=== PATIENT | female | born 1960 | race Caucasian/White ===

== ENCOUNTER 2016-09-26 09:45 | Emergency (ER) | payer BC ==
[2016-09-26] MEDS ORDERED: ONDANSETRON 4MG/2ML VIAL (J2405) As Ordered ONE (10:36)
[2016-09-26 10:40] LABS: BASO % 0.3 % (0.0-1.0); EOS % 0.6 % (0.0-3.0); LARGE UNSTAINED CELL # 0.1 K/mm3 (0.0-0.4); LYMPH # 0.6 K/mm3 (1.5-4.5); LYMPH % 13.2 % (24.0-44.0); MEAN CORPUSCULAR HEMOGLOBIN 31.5 pg (27.0-33.0); MEAN CORPUSCULAR HGB CONC 34.5 g/dl (32.0-36.5); MEAN CORPUSCULAR VOLUME 91.4 fl (80.0-96.0); MONO # 0.3 K/mm3 (0.0-0.8); MONO % 5.2 % (0.0-5.0); NEUTROPHILS # 3.7 K/mm3 (1.8-7.7); NEUTROPHILS % 78.6 % (36.0-66.0); PLATELET COUNT, AUTOMATED 120 k/mm3 (150-450); RED CELL DISTRIBUTION WIDTH 12.7 % (11.5-14.5); WHITE BLOOD COUNT 4.7 K/mm3 (4.0-10.0)
[2016-09-26 12:09] LABS: ALBUMIN/GLOBULIN RATIO 1.15 (1.00-1.93); ALKALINE PHOSPHATASE 87 U/L (45-117); ALT/SGPT 26 U/L (12-78); AMYLASE 46 U/L (25-115); ANION GAP 8 MEQ/L (8-16); AST/SGOT 40 U/L (15-37); BILIRUBIN,DIRECT 0.1 MG/DL (0.0-0.2); BILIRUBIN,TOTAL 0.3 MG/DL (0.2-1.0); BLOOD UREA NITROGEN 7 MG/DL (7-18); CALCIUM LEVEL 7.3 MG/DL (8.5-10.1); CARBON DIOXIDE LEVEL 28 MEQ/L (21-32); CHLORIDE LEVEL 95 MEQ/L (98-107); CREATININE FOR GFR 0.52 MG/DL (0.55-1.02); GLOMERULAR FILTRATION RATE > 60.0 (>51); GLUCOSE, FASTING 106 MG/DL (70-105); MAGNESIUM LEVEL 1.6 MG/DL (1.8-2.4); POTASSIUM SERUM 3.6 MEQ/L (3.5-5.1); SODIUM LEVEL 131 MEQ/L (136-145); TOTAL PROTEIN 5.6 GM/DL (6.4-8.2)
--- NOTE | 2016-09-26 12:51 | EDDOCDS ---
Nurse's Notes [facility] Name: Minerva Barry Age: 56 yrs Sex: Female : 1960 Arrival Date: 09/26/2016 Time: 09:45 Bed I2 / M2 Private MD: NO PRIMARY PHYSICIAN, . Diagnosis: Lower abdominal pain, unspecified;Diarrhea, unspecified;Dehydration Presentation: 09/26 09:49 Presenting complaint: Patient states: Pt presents with vomiting and diarrhea not able dls to eat x one week. Adult Sepsis Screening: The patient does not have new or worsening altered mentation. Patient's respiratory rate is less than 22. Systolic blood pressure is greater than 100. Patient has a qSOFA score of 0- Negative Sepsis Screen. Suicide/Homicide risk assessment- the patient denies having any suicidal and/or homicidal ideations and does not present with any other emotional, behavioral or mental health complaints. Status: Patient is not a customer service sales consultant or dependent. Transition of care: patient was not received from another setting of care. 09:49 Acuity: ANTONELLA Level 3 dls 09:49 Method Of Arrival: Walkin/Carried/Asstd dls Triage Assessment: 09:52 General: Appears in no apparent distress, slender, Behavior is cooperative. Pain: Pain dls currently is 5 out of 10 on a pain scale. HIV screening NA for this visit Offered previously. GI: Reports cramping, diarrhea, lower abdominal pain, nausea, vomiting. 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 Tylenol 325 mg Oral tab 2 tabs - PMHx: pancreatic aneurysm; - PSHx: none; - Social history: Smoking status: Patient uses tobacco products, heavy tobacco smoker. No barriers to communication noted, The patient speaks fluent Maltese. - Family history: Not pertinent. - : The pt / caregiver states he / she is not on anticoagulants. Home medication list is obtained from the patient. - Exposure Risk Screening:: None identified. Screenin:06 Screening information is obtained from the patient. Primary language is Maltese. Fall jam1 risk: No risks identified. Assistance ADL's: requires no assistance with activities of daily living. Abuse/DV Screen: The patient / caregiver reports he/she is: not in a situation that causes fear, pain or injury. Nutritional screening: No deficits noted. Exposure Risk Screening: None identified. Advance Directives: Currently, there is a health care proxy, SON SHARLA FRANK. There is no active DNR order. There is no living will. There is no Power of Testing Manager. Advance directive information has been placed on a prior [facility] medical record, but the patient/ family does not know when. Further advance directive information is declined. home support is adequate. 10:08 Screening information is obtained from the patient. Fall risk: No risks identified. jmk Assistance ADL's: requires no assistance with activities of daily living. Abuse/DV Screen: The patient / caregiver reports he/she is: not in a situation that causes fear, pain or injury. Nutritional screening: No deficits noted. Advance Directives: Currently, there is no health care proxy. There is no active DNR order. There is no living will. There is no Power of Testing Manager. Advance directive information has not previously been placed in an [facility] medical record. home support is adequate. Assessment: 10:08 General: Appears skin warm and dry color satisfactory. Moist pink oral mucosa. tongue jmk coated. abd soft and non distended bowel sounds present x 4. palpable pulsatile mass slightly to right of umbilicus. presently without nausea.. Cardiovascular: No deficits noted. Respiratory: No deficits noted. Airway is patent Respiratory effort is even, unlabored, Respiratory pattern is regular, Breath sounds are clear bilaterally. GI: Abdomen is flat, non- distended Bowel sounds present X 4 quads. 11:29 General: Appears states pain to right abdomen has decreased to 3/10. bolus infusing jmk without event.. 12:46 General: Appears states is now pain free. without nausea or diarrhea since arrival. [facility] Vital Signs: 09:47 BP 115 / 56; Pulse 101; Resp 18 S; Temp 97.3(O); Pulse Ox 97% on R/A; Weight 39.46 kg dd6 (R); Height 4 ft. 11 in. (149.86 cm) (R); 12:46 BP 114 / 72; Pulse 70; Resp 16; Temp 97.3; k 09:47 Body Mass Index 17.57 (39.46 kg, 149.86 cm) dd6 Vitals: 09:47 Log In Time: September 26, 2016 at 09:45. dd6 ED Course: 09:47 Patient visited by Carrington Nielsen PCA. dd6 09:47 NO PRIMARY PHYSICIAN, . is Private Physician. dd6 09:47 Patient moved to Waiting dd6 09:48 Patient moved to Pre RCE dd6 09:50 Triage Initiated dls 10:04 Patient moved to I2 / M2 jmk 10:05 Kevin Roche PA is PHCP. mo1 10:05 Rafiq Feliciano MD is Attending Physician. mo1 10:06 Pt greeted and oriented to ED. Patient advised of names of staff involved in care, jam1 location of call chen, wait times and NPO status. Patient has correct armband on for positive identification. Placed in gown. Bed in low position. Call light in reach. Side rails up X 1. Door closed. 10:08 The patient / caregiver is instructed regarding the plan of care and ED course. jmk 10:16 Patient visited by Kevin Roche PA. mo1 10:42 Inserted saline lock: 20 gauge in left antecubital area. jmk 11:33 Patient visited by Ray Hernandez RN. jmk 12:37 [facility] is Referral Physician. mo1 12:46 Discontinued lock intact, bleeding controlled, pressure dressing applied, No jmk redness/swelling at site. No procedures done that require assistance. Administered Medications: 10:42 Drug: NS 0.9% 1000 ml Route: IV; Rate: bolus; Site: left antecubital; jmk 10:42 Drug: Ondansetron 4 mg Route: IVP; Site: left antecubital; k Order Results: Lab Order: Amylase; SPEC'M 09/26/16 11:41 Test: AMYLASE; Value: 46; Range: 25-115; Units: U/L; Status: F Lab Order: Basic Metabolic Profile; SPEC'M 09/26/16 11:41 Test: GLUCOSE, FASTING; Value: 106; Range: 70-105; Abnormal: Above high normal; Units: MG/DL; Status: F Test: BLOOD UREA NITROGEN; Value: 7; Range: 7-18; Units: MG/DL; Status: F Test: CREATININE FOR GFR; Value: 0.52; Range: 0.55-1.02; Abnormal: Below low normal; Units: MG/DL; Status: F Test: GLOMERULAR FILTRATION RATE; Value: > 60.0; Range: >51; Status: F Test: SODIUM LEVEL; Value: 131; Range: 136-145; Abnormal: Below low normal; Units: MEQ/L; Status: F Test: POTASSIUM SERUM; Value: 3.6; Range: 3.5-5.1; Units: MEQ/L; Status: F Test: CHLORIDE LEVEL; Value: 95; Range: 98-107; Abnormal: Below low normal; Units: MEQ/L; Status: F Test: CARBON DIOXIDE LEVEL; Value: 28; Range: 21-32; Units: MEQ/L; Status: F Test: ANION GAP; Value: 8; Range: 8-16; Units: MEQ/L; Status: F Test: CALCIUM LEVEL; Value: 7.3; Range: 8.5-10.1; Abnormal: Below low normal; Units: MG/DL; Status: F Test Note: ; Units are mL/min/1.73 m2 Chronic Kidney Disease Staging per NKF: Stage I & II GFR >=60 Normal to Mildly Decreased Stage III GFR 30-59 Moderately Decreased Stage IV GFR 15-29 Severely Decreased Stage V GFR <15 Very Little GFR Left ESRD GFR <15 on MEDICAL OBSERVER Lab Order: CBC with Diff; SPEC'M 09/26/16 10:31 Test: WHITE BLOOD COUNT; Value: 4.7; Range: 4.0-10.0; Units: K/mm3; Status: F Test: RED BLOOD COUNT; Value: 5.30; Range: 4.00-5.40; Units: M/mm3; Status: F Test: HEMOGLOBIN; Value: 16.7; Range: 12.0-16.0; Abnormal: Above high normal; Units: g/dl; Status: F Test: HEMATOCRIT; Value: 48.4; Range: 36.0-47.0; Abnormal: Above high normal; Units: %; Status: F Test: MEAN CORPUSCULAR VOLUME; Value: 91.4; Range: 80.0-96.0; Units: fl; Status: F Test: MEAN CORPUSCULAR HEMOGLOBIN; Value: 31.5; Range: 27.0-33.0; Units: pg; Status: F Test: MEAN CORPUSCULAR HGB CONC; Value: 34.5; Range: 32.0-36.5; Units: g/dl; Status: F Test: RED CELL DISTRIBUTION WIDTH; Value: 12.7; Range: 11.5-14.5; Units: %; Status: F Test: PLATELET COUNT, AUTOMATED; Value: 120; Range: 150-450; Abnormal: Below low normal; Units: k/mm3; Status: F Test: NEUTROPHILS %; Value: 78.6; Range: 36.0-66.0; Abnormal: Above high normal; Units: %; Status: F Test: LYMPH %; Value: 13.2; Range: 24.0-44.0; Abnormal: Below low normal; Units: %; Status: F Test: MONO %; Value: 5.2; Range: 0.0-5.0; Abnormal: Above high normal; Units: %; Status: F Test: EOS %; Value: 0.6; Range: 0.0-3.0; Units: %; Status: F Test: BASO %; Value: 0.3; Range: 0.0-1.0; Units: %; Status: F Test: LARGE UNSTAINED CELL %; Value: 2.0; Range: 0.0-4.0; Units: %; Status: F Test: NEUTROPHILS #; Value: 3.7; Range: 1.8-7.7; Units: K/mm3; Status: F Test: LYMPH #; Value: 0.6; Range: 1.5-4.5; Abnormal: Below low normal; Units: K/mm3; Status: F Test: MONO #; Value: 0.3; Range: 0.0-0.8; Units: K/mm3; Status: F Test: EOS #; Value: 0.0; Range: 0.0-0.50; Units: K/mm3; Status: F Test: BASO #; Value: 0.0; Range: 0.0-0.2; Units: K/mm3; Status: F Test: LARGE UNSTAINED CELL #; Value: 0.1; Range: 0.0-0.4; Units: K/mm3; Status: F Lab Order: Lipase; SPEC'M 09/26/16 11:41 Test: LIPASE; Value: 198; Range: 73-393; Units: U/L; Status: F Lab Order: Liver Profile; SPEC'M 09/26/16 11:41 Test: AST/SGOT; Value: 40; Range: 15-37; Abnormal: Above high normal; Units: U/L; Status: F Test: ALT/SGPT; Value: 26; Range: 12-78; Units: U/L; Status: F Test: ALKALINE PHOSPHATASE; Value: 87; Range: 45-117; Units: U/L; Status: F Test: BILIRUBIN,TOTAL; Value: 0.3; Range: 0.2-1.0; Units: MG/DL; Status: F Test: BILIRUBIN,DIRECT; Value: 0.1; Range: 0.0-0.2; Units: MG/DL; Status: F Test: TOTAL PROTEIN; Value: 5.6; Range: 6.4-8.2; Abnormal: Below low normal; Units: GM/DL; Status: F Test: ALBUMIN; Value: 3.0; Range: 3.2-5.2; Abnormal: Below low normal; Units: GM/DL; Status: F Test: ALBUMIN/GLOBULIN RATIO; Value: 1.15; Range: 1.00-1.93; Status: F Lab Order: Urinalysis; SPEC'M 09/26/16 10:31 Test: APPEARANCE, URINE; Value: HAZY; Range: CLEAR; Status: F Test: COLOR, URINE; Value: ADOLFO; Range: YELLOW; Status: F Test: PH,URINE; Value: 5.0; Range: 5.0-9.0; Units: UNITS; Status: F Test: SPECIFIC GRAVITY URINE AUTO; Value: 1.030; Range: 1.002-1.035; Status: F Test: PROTEIN, URINE AUTO; Value: 1+; Range: NEGATIVE; Abnormal: Above high normal; Units: mg/dL; Status: F Test: GLUCOSE, URINE (UA) AUTO; Value: NEGATIVE; Range: NEGATIVE; Units: mg/dL; Status: F Test: KETONE, URINE AUTO; Value: NEGATIVE; Range: NEGATIVE; Units: mg/dL; Status: F Test: UROBILINOGEN, URINE AUTO; Value: 0.2; Range: 0.0-2.0; Units: mg/dL; Status: F Test: BILIRUBIN, URINE AUTO; Value: NEGATIVE; Range: NEGATIVE; Status: F Test: NITRITE, URINE AUTO; Value: NEGATIVE; Range: NEGATIVE; Status: F Test: LEUKOCYTE ESTERASE, URINE AUTO; Value: NEGATIVE; Range: NEGATIVE; Status: F Test: BLOOD, URINE BLOOD; Value: NEGATIVE; Range: NEGATIVE; Status: F Test: WBC, URINE AUTO; Value: 8; Range: 0-3; Abnormal: Above high normal; Units: /HPF; Status: F Test: RBC, URINE AUTO; Value: 3; Range: 0-3; Units: /HPF; Status: F Test: BACTERIA, URINE AUTO; Value: 1+; Range: NEGATIVE; Abnormal: Above high normal; Status: F Test: SQUAMOUS EPITHELIAL CELL UR AU; Value: 1; Range: 0-6; Units: /HPF; Status: F Test: MUCUS, URINE; Value: SMALL; Range: NEGATIVE; Status: F Test: HYALINE CAST, URINE AUTO; Value: 48; Range: 0-1; Units: /LPF; Status: F Lab Order: Magnesium Level; SPEC'M 09/26/16 11:41 Test: MAGNESIUM LEVEL; Value: 1.6; Range: 1.8-2.4; Abnormal: Below low normal; Units: MG/DL; Status: F Outcome: 12:37 Discharge ordered by Provider. mo1 12:46 Discharge Assessment: Patient awake, alert and oriented x 3. No cognitive and/or jmk functional deficits noted. Patient verbalized understanding of disposition instructions. patient administered narcotics - no. The following High Risk Discharge criteria are identified: None. Discharged to home ambulatory. Condition: good. Discharge instructions given to patient, Instructed on discharge instructions, follow up and referral plans. medication usage, Demonstrated understanding of instructions, medications, Pt was receptive of discharge instructions/ teaching. Prescriptions given X 1. No special radiology studies were completed. Property :Personal belongings accompany Pt. 12:50 Patient left the ED. anton Signatures: Ray Hernandez,Janay Arango RN, RN RN dls Murphy, Jane, LAMP SHADE SEWER LAMP SHADE SEWER jam1 Carrington Nielsen, LAMP SHADE SEWER LAMP SHADE SEWER dd6 Kevin Roche PA PA mo1 MTDD
--- NOTE | 2016-09-26 12:51 | EDDOCDS ---
Physician Documentation [facility] Name: Minerva Barry Age: 56 yrs Sex: Female : 1960 Arrival Date: 09/26/2016 Time: 09:45 Bed I2 / M2 Private MD: NO PRIMARY PHYSICIAN, . Disposition: 09/26/16 12:37 Discharged to Home/Self Care. Impression: Lower abdominal pain, unspecified, Diarrhea, unspecified, Dehydration. - Condition is Stable. - Discharge Instructions: Food Choices to Help Relieve Diarrhea, Adult, Dehydration, Adult, Diarrhea. - Prescriptions for ZOFRAN ODT 4 mg - dissolve 1 tablet by ORAL route 4 times per day As needed do not chew, do not swallow whole; 10 tablet. - Work Release Form - 3 day, Medication Reconciliation, Local Pharmacy Hours form. - [facility]; When: Call to arrange an appointment; Reason: Recheck today's complaints, Continuance of care. Follow up: Private Physician; When: Call to arrange an appointment; Reason: Recheck today's complaints, Continuance of care. - Problem is new. - Symptoms have improved. Historical: - Allergies: SULFA (SULFONAMIDES); codiene; - Home Meds: 1. Tylenol 325 mg Oral tab 2 tabs - PMHx: pancreatic aneurysm; - PSHx: none; - Social history: Smoking status: Patient uses tobacco products, heavy tobacco smoker. No barriers to communication noted, The patient speaks fluent Vietnamese. - Family history: Not pertinent. - : The pt / caregiver states he / she is not on anticoagulants. Home medication list is obtained from the patient. - Exposure Risk Screening:: None identified. 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 11 in. (149.86 cm) (R); 12:46 BP 114 / 72; Pulse 70; Resp 16; Temp 97.3; jmk 09:47 Body Mass Index 17.57 (39.46 kg, 149.86 cm) dd6 MDM: 10:17 NS 0.9% 1000 ml IV at bolus once ordered. mo1 10:17 Ondansetron 4 mg IVP once ordered. mo1 10:17 IV Saline Lock ordered. mo1 10:17 Undress patient appropriately for examination ordered. mo1 10:18 Amylase Ordered. EDMS 10:18 Basic Metabolic Profile Ordered. EDMS 10:18 CBC with Diff Ordered. EDMS 10:18 Lipase Ordered. EDMS 10:18 Liver Profile Ordered. EDMS 10:18 Urinalysis Ordered. EDMS 10:18 Urine Culture Ordered. EDMS 10:18 Magnesium Level Ordered. EDMS 10:18 NOTHING BY MOUTH+DIET ordered. EDMS 11:25 CBC with Diff Reviewed. mo1 11:25 Urinalysis Reviewed. mo1 11:31 Financial registration complete. jp5 12:13 Amylase Reviewed. mo1 12:13 Magnesium Level Reviewed. mo1 12:13 Liver Profile Reviewed. mo1 12:13 Basic Metabolic Profile Reviewed. mo1 12:14 Lipase Reviewed. mo1 Administered Medications: 10:42 Drug: NS 0.9% 1000 ml Route: IV; Rate: bolus; Site: left antecubital; k 10:42 Drug: Ondansetron 4 mg Route: IVP; Site: left antecubital; [facility] Signatures: Dispatcher [employer] Ray Ross RN RN jmk Scott, Debra, RN RN dls O'Hagan, Michael, PA PA mo1 Curtis Monroe jp5 MTDD
--- NOTE | 2016-09-28 13:51 | EDDOCDS ---
Physician Documentation [facility] Name: Minerva Barry Age: 56 yrs Sex: Female : 1960 Arrival Date: 09/26/2016 Time: 09:45 Bed I2 / M2 Private MD: NO PRIMARY PHYSICIAN, . Disposition: 09/26/16 12:37 Discharged to Home/Self Care. Impression: Lower abdominal pain, unspecified, Diarrhea, unspecified, Dehydration. - Condition is Stable. - Discharge Instructions: Food Choices to Help Relieve Diarrhea, Adult, Dehydration, Adult, Diarrhea. - Prescriptions for ZOFRAN ODT 4 mg - dissolve 1 tablet by ORAL route 4 times per day As needed do not chew, do not swallow whole; 10 tablet. - Work Release Form - 3 day, Medication Reconciliation, Local Pharmacy Hours form. - [facility]; When: Call to arrange an appointment; Reason: Recheck today's complaints, Continuance of care. Follow up: Private Physician; When: Call to arrange an appointment; Reason: Recheck today's complaints, Continuance of care. - Problem is new. - Symptoms have improved. Historical: - Allergies: SULFA (SULFONAMIDES); codiene; - Home Meds: 1. Tylenol 325 mg Oral tab 2 tabs - PMHx: pancreatic aneurysm; - PSHx: none; - Social history: Smoking status: Patient uses tobacco products, heavy tobacco smoker. No barriers to communication noted, The patient speaks fluent Polish. - Family history: Not pertinent. - : The pt / caregiver states he / she is not on anticoagulants. Home medication list is obtained from the patient. - Exposure Risk Screening:: None identified. 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 11 in. (149.86 cm) (R); 12:46 BP 114 / 72; Pulse 70; Resp 16; Temp 97.3; jmk 09:47 Body Mass Index 17.57 (39.46 kg, 149.86 cm) dd6 MDM: 10:17 NS 0.9% 1000 ml IV at bolus once ordered. mo1 10:17 Ondansetron 4 mg IVP once ordered. mo1 10:17 IV Saline Lock ordered. mo1 10:17 Undress patient appropriately for examination ordered. mo1 10:18 Amylase Ordered. EDMS 10:18 Basic Metabolic Profile Ordered. EDMS 10:18 CBC with Diff Ordered. EDMS 10:18 Lipase Ordered. EDMS 10:18 Liver Profile Ordered. EDMS 10:18 Urinalysis Ordered. EDMS 10:18 Urine Culture Ordered. EDMS 10:18 Magnesium Level Ordered. EDMS 10:18 NOTHING BY MOUTH+DIET ordered. EDMS 11:25 CBC with Diff Reviewed. mo1 11:25 Urinalysis Reviewed. mo1 11:31 Financial registration complete. jp5 12:13 Amylase Reviewed. mo1 12:13 Magnesium Level Reviewed. mo1 12:13 Liver Profile Reviewed. mo1 12:13 Basic Metabolic Profile Reviewed. mo1 12:14 Lipase Reviewed. mo1 13:24 [facility] [place] Agreement was scanned into [employer] and attached to record. jp5 14:46 T-Sheet-- Draft Copy was scanned into [employer] and attached to record. gb Administered Medications: 10:42 Drug: NS 0.9% 1000 ml Route: IV; Rate: bolus; Site: left antecubital; chrisk 10:42 Drug: Ondansetron 4 mg Route: IVP; Site: left antecubital; anton Signatures: Dispatcher [employer] Ray Ross RN RN jmk Scott, Debra, RN RN dls Barnhardt, Gloria, Reg Reg Kevin Brito PA PA mo1 Curtis Monroe jp5 The chart was reviewed and I authenticate all verbal orders and agree with the evaluation and treatment provided.Attachments: 13:24 [facility] [place] Payment Agreement jp5 14:46 T-Sheet-- Draft Copy gb Chart Complete MTDD
--- NOTE | 2016-09-28 13:51 | EDDOCDS ---
Physician Documentation [facility] Name: Minerva Barry Age: 56 yrs Sex: Female : 1960 Arrival Date: 09/26/2016 Time: 09:45 Bed I2 / M2 Private MD: NO PRIMARY PHYSICIAN, . Disposition: 09/26/16 12:37 Discharged to Home/Self Care. Impression: Lower abdominal pain, unspecified, Diarrhea, unspecified, Dehydration. - Condition is Stable. - Discharge Instructions: Food Choices to Help Relieve Diarrhea, Adult, Dehydration, Adult, Diarrhea. - Prescriptions for ZOFRAN ODT 4 mg - dissolve 1 tablet by ORAL route 4 times per day As needed do not chew, do not swallow whole; 10 tablet. - Work Release Form - 3 day, Medication Reconciliation, Local Pharmacy Hours form. - Follow up: [facility]; When: Call to arrange an appointment; Reason: Recheck today's complaints, Continuance of care. Follow up: Private Physician; When: Call to arrange an appointment; Reason: Recheck today's complaints, Continuance of care. - Problem is new. - Symptoms have improved. Historical: - Allergies: SULFA (SULFONAMIDES); codiene; - Home Meds: 1. Tylenol 325 mg Oral tab 2 tabs - PMHx: pancreatic aneurysm; - PSHx: none; - Social history: Smoking status: Patient uses tobacco products, heavy tobacco smoker. No barriers to communication noted, The patient speaks fluent Ukrainian. - Family history: Not pertinent. - : The pt / caregiver states he / she is not on anticoagulants. Home medication list is obtained from the patient. - Exposure Risk Screening:: None identified. 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 11 in. (149.86 cm) (R); 12:46 BP 114 / 72; Pulse 70; Resp 16; Temp 97.3; jmk 09:47 Body Mass Index 17.57 (39.46 kg, 149.86 cm) dd6 MDM: 10:17 NS 0.9% 1000 ml IV at bolus once ordered. mo1 10:17 Ondansetron 4 mg IVP once ordered. mo1 10:17 IV Saline Lock ordered. mo1 10:17 Undress patient appropriately for examination ordered. mo1 10:18 Amylase Ordered. EDMS 10:18 Basic Metabolic Profile Ordered. EDMS 10:18 CBC with Diff Ordered. EDMS 10:18 Lipase Ordered. EDMS 10:18 Liver Profile Ordered. EDMS 10:18 Urinalysis Ordered. EDMS 10:18 Urine Culture Ordered. EDMS 10:18 Magnesium Level Ordered. EDMS 10:18 NOTHING BY MOUTH+DIET ordered. EDMS 11:25 CBC with Diff Reviewed. mo1 11:25 Urinalysis Reviewed. mo1 11:31 Financial registration complete. jp5 12:13 Amylase Reviewed. mo1 12:13 Magnesium Level Reviewed. mo1 12:13 Liver Profile Reviewed. mo1 12:13 Basic Metabolic Profile Reviewed. mo1 12:14 Lipase Reviewed. mo1 13:24 [facility] [place] was scanned into [employer] and attached to record. jp5 14:46 T-Sheet-- Draft Copy was scanned into [employer] and attached to record. gb Administered Medications: 10:42 Drug: NS 0.9% 1000 ml Route: IV; Rate: bolus; Site: left antecubital; chrisk 10:42 Drug: Ondansetron 4 mg Route: IVP; Site: left antecubital; anton Signatures: Dispatcher [employer] Ray Ross RN RN jmk Scott, Debra, RN RN dls Barnhardt, Gloria, Reg Reg Kevin Brito PA PA mo1 Curtis Monroe jp5 The chart was reviewed and I authenticate all verbal orders and agree with the evaluation and treatment provided.Attachments: 13:24 [facility] jp5 14:46 T-Sheet-- Draft Copy gb Chart Complete MTDD
--- NOTE | 2016-09-28 13:51 | EDDOCDS ---
Nurse's Notes [facility] Name: Minerva Barry Age: 56 yrs Sex: Female : 1960 Arrival Date: 09/26/2016 Time: 09:45 Bed I2 / M2 Private MD: NO PRIMARY PHYSICIAN, . Diagnosis: Lower abdominal pain, unspecified;Diarrhea, unspecified;Dehydration Presentation: 09/26 09:49 Presenting complaint: Patient states: Pt presents with vomiting and diarrhea not able dls to eat x one week. Adult Sepsis Screening: The patient does not have new or worsening altered mentation. Patient's respiratory rate is less than 22. Systolic blood pressure is greater than 100. Patient has a qSOFA score of 0- Negative Sepsis Screen. Suicide/Homicide risk assessment- the patient denies having any suicidal and/or homicidal ideations and does not present with any other emotional, behavioral or mental health complaints. Status: Patient is not a director learning services or dependent. Transition of care: patient was not received from another setting of care. 09:49 Acuity: ANTONELLA Level 3 dls 09:49 Method Of Arrival: Walkin/Carried/Asstd dls Triage Assessment: 09:52 General: Appears in no apparent distress, slender, Behavior is cooperative. Pain: Pain dls currently is 5 out of 10 on a pain scale. HIV screening NA for this visit Offered previously. GI: Reports cramping, diarrhea, lower abdominal pain, nausea, vomiting. GAME MASTER: 09:52 LMP N/A - Post-menopause dls Historical: - Allergies: SULFA (SULFONAMIDES); codiene; - Home Meds: 1. Tylenol 325 mg Oral tab 2 tabs - PMHx: pancreatic aneurysm; - PSHx: none; - Social history: Smoking status: Patient uses tobacco products, heavy tobacco smoker. No barriers to communication noted, The patient speaks fluent Greek. - Family history: Not pertinent. - : The pt / caregiver states he / she is not on anticoagulants. Home medication list is obtained from the patient. - Exposure Risk Screening:: None identified. Screenin:06 Screening information is obtained from the patient. Primary language is Greek. Fall jam1 risk: No risks identified. Assistance ADL's: requires no assistance with activities of daily living. Abuse/DV Screen: The patient / caregiver reports he/she is: not in a situation that causes fear, pain or injury. Nutritional screening: No deficits noted. Exposure Risk Screening: None identified. Advance Directives: Currently, there is a health care proxy, SON SHARLA FRANK. There is no active DNR order. There is no living will. There is no Power of Door Fitter. Advance directive information has been placed on a prior [facility] medical record, but the patient/ family does not know when. Further advance directive information is declined. home support is adequate. 10:08 Screening information is obtained from the patient. Fall risk: No risks identified. jmk Assistance ADL's: requires no assistance with activities of daily living. Abuse/DV Screen: The patient / caregiver reports he/she is: not in a situation that causes fear, pain or injury. Nutritional screening: No deficits noted. Advance Directives: Currently, there is no health care proxy. There is no active DNR order. There is no living will. There is no Power of Door Fitter. Advance directive information has not previously been placed in an [facility] medical record. home support is adequate. Assessment: 10:08 General: Appears skin warm and dry color satisfactory. Moist pink oral mucosa. tongue jmk coated. abd soft and non distended bowel sounds present x 4. palpable pulsatile mass slightly to right of umbilicus. presently without nausea.. Cardiovascular: No deficits noted. Respiratory: No deficits noted. Airway is patent Respiratory effort is even, unlabored, Respiratory pattern is regular, Breath sounds are clear bilaterally. GI: Abdomen is flat, non- distended Bowel sounds present X 4 quads. 11:29 General: Appears states pain to right abdomen has decreased to 3/10. bolus infusing jmk without event.. 12:46 General: Appears states is now pain free. without nausea or diarrhea since arrival. [facility] Vital Signs: 09:47 BP 115 / 56; Pulse 101; Resp 18 S; Temp 97.3(O); Pulse Ox 97% on R/A; Weight 39.46 kg dd6 (R); Height 4 ft. 11 in. (149.86 cm) (R); 12:46 BP 114 / 72; Pulse 70; Resp 16; Temp 97.3; k 09:47 Body Mass Index 17.57 (39.46 kg, 149.86 cm) dd6 Vitals: 09:47 Log In Time: September 26, 2016 at 09:45. dd6 ED Course: 09:47 Patient visited by Carrington Nielsen PCA. dd6 09:47 NO PRIMARY PHYSICIAN, . is Private Physician. dd6 09:47 Patient moved to Waiting dd6 09:48 Patient moved to Pre RCE dd6 09:50 Triage Initiated dls 10:04 Patient moved to I2 / M2 jmk 10:05 Kevin Roche PA is PHCP. mo1 10:05 Rafiq Feliciano MD is Attending Physician. mo1 10:06 Pt greeted and oriented to ED. Patient advised of names of staff involved in care, jam1 location of call chen, wait times and NPO status. Patient has correct armband on for positive identification. Placed in gown. Bed in low position. Call light in reach. Side rails up X 1. Door closed. 10:08 The patient / caregiver is instructed regarding the plan of care and ED course. jmk 10:16 Patient visited by Kevin Roche PA. mo1 10:42 Inserted saline lock: 20 gauge in left antecubital area. jmk 11:33 Patient visited by Ray Hernandez RN. jmk 12:37 [facility] is Referral Physician. mo1 12:46 Discontinued lock intact, bleeding controlled, pressure dressing applied, No jmk redness/swelling at site. No procedures done that require assistance. 13:23 Patient name changed from Minerva\S\L\S\Barry\S\ to Minerva\S\Jhon\S\Barry. EDMS 13:24 [facility] [place] Agreement was scanned into [employer] and attached to record. jp5 14:46 T-Sheet-- Draft Copy was scanned into [employer] and attached to record. gb Administered Medications: 10:42 Drug: NS 0.9% 1000 ml Route: IV; Rate: bolus; Site: left antecubital; jmk 10:42 Drug: Ondansetron 4 mg Route: IVP; Site: left antecubital; anton Order Results: Lab Order: Amylase; SPEC'M 09/26/16 11:41 Test: AMYLASE; Value: 46; Range: 25-115; Units: U/L; Status: F Lab Order: Basic Metabolic Profile; SPEC'M 09/26/16 11:41 Test: GLUCOSE, FASTING; Value: 106; Range: 70-105; Abnormal: Above high normal; Units: MG/DL; Status: F Test: BLOOD UREA NITROGEN; Value: 7; Range: 7-18; Units: MG/DL; Status: F Test: CREATININE FOR GFR; Value: 0.52; Range: 0.55-1.02; Abnormal: Below low normal; Units: MG/DL; Status: F Test: GLOMERULAR FILTRATION RATE; Value: > 60.0; Range: >51; Status: F Test: SODIUM LEVEL; Value: 131; Range: 136-145; Abnormal: Below low normal; Units: MEQ/L; Status: F Test: POTASSIUM SERUM; Value: 3.6; Range: 3.5-5.1; Units: MEQ/L; Status: F Test: CHLORIDE LEVEL; Value: 95; Range: 98-107; Abnormal: Below low normal; Units: MEQ/L; Status: F Test: CARBON DIOXIDE LEVEL; Value: 28; Range: 21-32; Units: MEQ/L; Status: F Test: ANION GAP; Value: 8; Range: 8-16; Units: MEQ/L; Status: F Test: CALCIUM LEVEL; Value: 7.3; Range: 8.5-10.1; Abnormal: Below low normal; Units: MG/DL; Status: F Test Note: ; Units are mL/min/1.73 m2 Chronic Kidney Disease Staging per NKF: Stage I & II GFR >=60 Normal to Mildly Decreased Stage III GFR 30-59 Moderately Decreased Stage IV GFR 15-29 Severely Decreased Stage V GFR <15 Very Little GFR Left ESRD GFR <15 on [employer] Lab Order: CBC with Diff; SPEC'M 09/26/16 10:31 Test: WHITE BLOOD COUNT; Value: 4.7; Range: 4.0-10.0; Units: K/mm3; Status: F Test: RED BLOOD COUNT; Value: 5.30; Range: 4.00-5.40; Units: M/mm3; Status: F Test: HEMOGLOBIN; Value: 16.7; Range: 12.0-16.0; Abnormal: Above high normal; Units: g/dl; Status: F Test: HEMATOCRIT; Value: 48.4; Range: 36.0-47.0; Abnormal: Above high normal; Units: %; Status: F Test: MEAN CORPUSCULAR VOLUME; Value: 91.4; Range: 80.0-96.0; Units: fl; Status: F Test: MEAN CORPUSCULAR HEMOGLOBIN; Value: 31.5; Range: 27.0-33.0; Units: pg; Status: F Test: MEAN CORPUSCULAR HGB CONC; Value: 34.5; Range: 32.0-36.5; Units: g/dl; Status: F Test: RED CELL DISTRIBUTION WIDTH; Value: 12.7; Range: 11.5-14.5; Units: %; Status: F Test: PLATELET COUNT, AUTOMATED; Value: 120; Range: 150-450; Abnormal: Below low normal; Units: k/mm3; Status: F Test: NEUTROPHILS %; Value: 78.6; Range: 36.0-66.0; Abnormal: Above high normal; Units: %; Status: F Test: LYMPH %; Value: 13.2; Range: 24.0-44.0; Abnormal: Below low normal; Units: %; Status: F Test: MONO %; Value: 5.2; Range: 0.0-5.0; Abnormal: Above high normal; Units: %; Status: F Test: EOS %; Value: 0.6; Range: 0.0-3.0; Units: %; Status: F Test: BASO %; Value: 0.3; Range: 0.0-1.0; Units: %; Status: F Test: LARGE UNSTAINED CELL %; Value: 2.0; Range: 0.0-4.0; Units: %; Status: F Test: NEUTROPHILS #; Value: 3.7; Range: 1.8-7.7; Units: K/mm3; Status: F Test: LYMPH #; Value: 0.6; Range: 1.5-4.5; Abnormal: Below low normal; Units: K/mm3; Status: F Test: MONO #; Value: 0.3; Range: 0.0-0.8; Units: K/mm3; Status: F Test: EOS #; Value: 0.0; Range: 0.0-0.50; Units: K/mm3; Status: F Test: BASO #; Value: 0.0; Range: 0.0-0.2; Units: K/mm3; Status: F Test: LARGE UNSTAINED CELL #; Value: 0.1; Range: 0.0-0.4; Units: K/mm3; Status: F Lab Order: Lipase; [facility] 09/26/16 11:41 Test: LIPASE; Value: 198; Range: 73-393; Units: U/L; Status: F Lab Order: Liver Profile; [facility] 09/26/16 11:41 Test: AST/SGOT; Value: 40; Range: 15-37; Abnormal: Above high normal; Units: U/L; Status: F Test: ALT/SGPT; Value: 26; Range: 12-78; Units: U/L; Status: F Test: ALKALINE PHOSPHATASE; Value: 87; Range: 45-117; Units: U/L; Status: F Test: BILIRUBIN,TOTAL; Value: 0.3; Range: 0.2-1.0; Units: MG/DL; Status: F Test: BILIRUBIN,DIRECT; Value: 0.1; Range: 0.0-0.2; Units: MG/DL; Status: F Test: TOTAL PROTEIN; Value: 5.6; Range: 6.4-8.2; Abnormal: Below low normal; Units: GM/DL; Status: F Test: ALBUMIN; Value: 3.0; Range: 3.2-5.2; Abnormal: Below low normal; Units: GM/DL; Status: F Test: ALBUMIN/GLOBULIN RATIO; Value: 1.15; Range: 1.00-1.93; Status: F Lab Order: Urinalysis; [facility] 09/26/16 10:31 Test: APPEARANCE, URINE; Value: HAZY; Range: CLEAR; Status: F Test: COLOR, URINE; Value: ADOLFO; Range: YELLOW; Status: F Test: PH,URINE; Value: 5.0; Range: 5.0-9.0; Units: UNITS; Status: F Test: SPECIFIC GRAVITY URINE AUTO; Value: 1.030; Range: 1.002-1.035; Status: F Test: PROTEIN, URINE AUTO; Value: 1+; Range: NEGATIVE; Abnormal: Above high normal; Units: mg/dL; Status: F Test: GLUCOSE, URINE (UA) AUTO; Value: NEGATIVE; Range: NEGATIVE; Units: mg/dL; Status: F Test: KETONE, URINE AUTO; Value: NEGATIVE; Range: NEGATIVE; Units: mg/dL; Status: F Test: UROBILINOGEN, URINE AUTO; Value: 0.2; Range: 0.0-2.0; Units: mg/dL; Status: F Test: BILIRUBIN, URINE AUTO; Value: NEGATIVE; Range: NEGATIVE; Status: F Test: NITRITE, URINE AUTO; Value: NEGATIVE; Range: NEGATIVE; Status: F Test: LEUKOCYTE ESTERASE, URINE AUTO; Value: NEGATIVE; Range: NEGATIVE; Status: F Test: BLOOD, URINE BLOOD; Value: NEGATIVE; Range: NEGATIVE; Status: F Test: WBC, URINE AUTO; Value: 8; Range: 0-3; Abnormal: Above high normal; Units: /HPF; Status: F Test: RBC, URINE AUTO; Value: 3; Range: 0-3; Units: /HPF; Status: F Test: BACTERIA, URINE AUTO; Value: 1+; Range: NEGATIVE; Abnormal: Above high normal; Status: F Test: SQUAMOUS EPITHELIAL CELL UR AU; Value: 1; Range: 0-6; Units: /HPF; Status: F Test: MUCUS, URINE; Value: SMALL; Range: NEGATIVE; Status: F Test: HYALINE CAST, URINE AUTO; Value: 48; Range: 0-1; Units: /LPF; Status: F Lab Order: Urine Culture; SPEC'M 09/26/16 10:31 Test: URINE CULTURE; Value: <EXTERNAL COMMENT eCWMed> FULL REPORT IN LAB NOTES (eCW and Medent).; Status: F Test: URINE CULTURE; Value: URINE CULTURE RESULT NO GROWTH CLINICAL SIGNIFICANCE 1 ORGANISM; Status: F Lab Order: Magnesium Level; SPEC'M 09/26/16 11:41 Test: MAGNESIUM LEVEL; Value: 1.6; Range: 1.8-2.4; Abnormal: Below low normal; Units: MG/DL; Status: F Outcome: 12:37 Discharge ordered by Provider. mo1 12:46 Discharge Assessment: Patient awake, alert and oriented x 3. No cognitive and/or jmk functional deficits noted. Patient verbalized understanding of disposition instructions. patient administered narcotics - no. The following High Risk Discharge criteria are identified: None. Discharged to home ambulatory. Condition: good. Discharge instructions given to patient, Instructed on discharge instructions, follow up and referral plans. medication usage, Demonstrated understanding of instructions, medications, Pt was receptive of discharge instructions/ teaching. Prescriptions given X 1. No special radiology studies were completed. Property :Personal belongings accompany Pt. 12:50 Patient left the ED. anton Signatures: Dispatcher [employer] EDRay Gracia,RN Janay Arango RN RN Estrella Dias, ASSEMBLER HYDRAULIC BACKHOE ASSEMBLER HYDRAULIC BACKHOE jam1 Tessa Kaur, Colby Reg gb Carrington Nielsen, ASSEMBLER HYDRAULIC BACKHOE ASSEMBLER HYDRAULIC BACKHOE dd6 Kevin Roche PA PA mo1 Price, Jennalee jp5 Chart Complete MTDD
== END 2016-09-26 12:50 | disposition home or self-care (01) ==
LOC: M ED 09:45
DX: E86.0 Dehydration (principal); A08.4 Viral intestinal infection, unspecified; R11.2 Nausea with vomiting, unspecified; R19.7 Diarrhea, unspecified; R10.30 Lower abdominal pain, unspecified; I72.9 Aneurysm of unspecified site; F17.200 Nicotine dependence, unspecified, uncomplicated; Z88.2 Allergy status to sulfonamides; Z88.5 Allergy status to narcotic agent
CPT/HCPCS: 36415; 80048; 80076; 81001; 82150; 83690; 83735; 85025; 87086; 96374; 99283; J2405

== ENCOUNTER 2019-12-27 08:58 | Emergency (ER) | payer BC ==
[2019-12-27] VITALS (12 sets, daily range): BP systolic 124–205; BP diastolic 60–88
[2019-12-27] MEDS ORDERED: ISOVUE-370 76% 100ML VIAL As Ordered ONE (09:15)
[2019-12-27 09:19] LABS: HEMATOCRIT 48.3 % (36.0-47.0); HEMOGLOBIN 14.8 g/dl (12.0-15.5); MEAN CORPUSCULAR HGB CONC 30.6 g/dl (32.0-36.5); MEAN CORPUSCULAR VOLUME 97.8 fl (80.0-96.0); PLATELET COUNT, AUTOMATED 313 10^3/uL (150-450); RED BLOOD COUNT 4.94 10^6/uL (4.00-5.40); WHITE BLOOD COUNT 18.1 10^3/uL (4.0-10.0)
[2019-12-27 09:31] LABS: INR 1.02; PROTHROMBIN TIME 13.1 SECONDS (11.8-14.0)
[2019-12-27] MEDS ORDERED: LABETALOL 100MG/20ML VIAL IV STA (09:31)
[2019-12-27 09:32] LABS: PARTIAL THROMBOPLASTIN TIME 27.8 SECONDS (25.0-38.4)
[2019-12-27 09:45] LABS: ATYPICAL LYMPH 1 % (0-5); BASOPHILS 1 % (0-1); LYMPHOCYTES 21 % (16-44); MONOCYTES 5 % (0-5); NEUTROPHILS 66 % (28-66); NUCLEATED RED BLOOD CELL 3 % (0-0); PLATELET ESTIMATE NORMAL (NORMAL)
[2019-12-27] MEDS ORDERED: SUCCINYLCHOLINE INJ 200 MG/10 ML VIAL (J0330) IV ONE (09:45)
[2019-12-27] MEDS ORDERED: dexameTHASONE 20MG/5ML VIAL (J1100 PER 1MG) IV ONE (09:45)
[2019-12-27] MEDS ORDERED: ETOMIDATE INJ 20MG/10ML VIAL IV ONE (09:45)
[2019-12-27] MEDS ORDERED: PROPOFOL 1,000 MG/100 ML VIAL As Ordered ONE (09:46)
[2019-12-27 09:50] LABS: CK-MB VALUE MASS 1.2 NG/ML (<3.6); CPK CREATINE PHOSPHOKINASE 79 U/L (26-192); MB/CK RELATIVE INDEX 1.52 (< OR =4); TROPONIN I < 0.02 NG/ML (< 0.10)
[2019-12-27] MEDS ORDERED: LORazepam 2 MG/ML VIAL (J2060) IV STA (09:58)
[2019-12-27] MEDS ORDERED: levETIRAcetam INJection 500 MG in D5W MINI-BAG PLUS 100 ML IV ONE ×2 (10:00→10:15)
--- NOTE | 2019-12-27 10:06 | REP ---
CT BRAIN WITHOUT CONTRAST: HISTORY: CVA. FINDINGS: Preliminary digital wool classer radiograph demonstrates that the patient is edentulous. The bony calvarium is intact. There is heavy vascular calcification in the distal internal carotid arteries bilaterally. Visualized paranasal sinuses are clear. No intraorbital lesion is seen. On soft tissue window settings, there is a 2.9 x 2.5 x 2.9 cm mass lesion in the right basal ganglia centered at the head of the caudate nucleus. There is a peripheral low density cystic component measuring 11 mm. The mass lesion has a slightly hyperdense margin with a central low density suggesting necrosis. There is an extensive amount of vasogenic edema throughout the right frontal lobe, in the adjacent basal ganglia soft tissues, and throughout much of the inferior temporal lobe on the right side. There is compression and attenuation of the right lateral ventricle, particularly its frontal horn. There is shift of the midline to the left at the level of the third ventricle which measures 11-12 mm. There are no CT findings to suggest transtentorial herniation. No other mass lesion is evident. There are small low density areas in the left periventricular white matter and left basal ganglia which may be small vessel changes. IMPRESSION: Spherical hyperdense intra-axial mass lesion, 2.9 cm, with evidence of central necrosis and marked surrounding vasogenic edema and mass effect in the right basal ganglia. Vasogenic edema and mass effect throughout the right frontal lobe and much of the right temporal lobe. Moderate midline shift, 11 to 12 mm, left to right. Differential possibilities include solitary intracranial metastasis. Primary STRATEGY ANALYST malignancy, and intracranial abscess. MRI scanning with and without contrast may provide additional information if feasible. Electronically Signed by Pierre Negro MD 12/27/2019 10:41 A
[2019-12-27] MEDS ORDERED: LORazepam 2 MG/ML VIAL (J2060) As Ordered ONE (10:09)
[2019-12-27] MEDS ORDERED: MANNITOL 25% 12.5 GM/50 ML VIAL (J2150) IV ONE (10:15)
--- NOTE | 2019-12-27 10:15 | REP ---
CHEST, SINGLE VIEW: Single view of the chest is performed and compared to a prior study of 02/06/2014. There is right perihilar infiltrate. There is mild diffuse underlying interstitial fibrosis. The heart is upper limits of normal in size. There is mild calcification of the thoracic aorta. IMPRESSION: Right perihilar infiltrate. Electronically Signed by Frederick Fitzgerald MD 12/27/2019 10:30 A
--- NOTE | 2019-12-27 10:16 | REP ---
CT ANGIOGRAPHY OF THE BRAIN WITH IV CONTRAST: HISTORY: Question CVA. Comparison CT study of the brain without contrast is from this same date. CT CONTRAST DOSE: 100 mL of intravenous Isovue 370. TECHNIQUE: Helical scanning is acquired. 2 mm axial images are generated. Coronal and sagittal MPR and MIP images are generated. Surface rendered 3D rotational images are generated and reviewed as well. CT ANGIOGRAPHIC FINDINGS: There is slight heterogeneous enhancement of the necrotic appearing mass in the right basal ganglia. A second mass lesion is seen adjacent to the lateral dural surface of the inferior temporal lobe on the right showing subtle enhancement as well. This measures 1.5 cm in greatest diameter. 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 There is extensive vasogenic edema as described on the head CT report. Leftward shift of the midline is again seen. The distal vertebral arteries contain some calcification but are bilaterally patent. Basilar artery is unremarkable. Superior cerebellar and posterior cerebral arteries are unremarkable. There is moderate vascular calcification in the distal internal carotid arteries bilaterally. Anterior and middle cerebral arteries appear intact. There is no evidence of rajan aneurysm or arteriovenous malformation. The anterior cerebral arteries are displaced to the left by the mass. The dural sinuses are unremarkable. IMPRESSION: Vascular calcification. Mass effect on the anterior cerebral arteries. No other vascular abnormality. There are two intracranial mass lesions seen post contrast, one in the basal ganglia on the right and the other in the right temporal lobe. 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 Electronically Signed by Pierre Negro MD 12/27/2019 10:42 A
--- NOTE | 2019-12-27 10:18 | REP ---
CT ANGIOGRAPHY OF THE NECK WITH IV CONTRAST: HISTORY: Question CVA. CT CONTRAST DOSE: 100 mL of intravenous Isovue [address] TECHNIQUE: Helical scanning is acquired. 2 mm images are generated. Maximal intensity projection and multiplanar re-formation images are generated. CT ANGIOGRAPHIC FINDINGS: There is no evidence of adenopathy in the upper mediastinum or lung apices. There is advanced emphysematous change in the upper lung zones. There is no evidence of supraclavicular or cervical lymphadenopathy. The patient is edentulous. Visualized paranasal sinuses are clear. No bony destructive lesion is appreciated. There is a small mass in the right temporal lobe demonstrating some contrast enhancement. This is seen on CT angiography of the brain. No intraorbital lesion is seen. There is vascular calcification at the origin of the left subclavian artery without significant stenosis. The innominate and left common carotid artery origin from the aortic arch are outside the imaging field of view. The innominate and right subclavian and left subclavian artery are unremarkable. The visualized common carotid artery segments are widely patent. There is mild vascular calcification on the right. There is moderate vascular calcification at the carotid bifurcations bilaterally. Approximately 50% stenosis is seen at the proximal ICA on the right and 40% on the left. The internal carotid arteries are tortuous but widely patent. The vertebral arteries are codominant and appear widely patent. There is vascular calcification of both internal carotid arteries at the carotid siphons. IMPRESSION: 50% narrowing at the proximal ICA on the right and 40% on the left. Moderate calcific plaquing in the carotid bifurcations. Vascular calcification in the aortic arch and at the origin of the left subclavian. Otherwise negative. Electronically Signed by Pierre Negro MD 12/27/2019 10:42 A
--- NOTE | 2019-12-27 10:28 | REP ---
CHEST, SINGLE VIEW: Single view of the chest is performed and compared to a prior exam the same day. Once again, right perihilar infiltrate is noted. The remaining lung tuttle, heart and mediastinum are unchanged. There has been placement of a an endotracheal tube. The tip is approximately 1 cm above the joe. Nasogastric tube traverses into the stomach. Electronically Signed by Frederick Fitzgerald MD 12/27/2019 10:30 A
[2019-12-27] MEDS ORDERED: propofoL 1,000 MG in IV 1 EA IV SCH (11:00)
--- NOTE | 2019-12-27 22:50 | ECGEPIP ---
[facility] - ED Test Date: 2019-12-27 Pat Name: AMAN MAURER Department: Room: - Gender: Female Mark Up Designer: fantasma : 1960 Requested By: Jordana Briggs Order Number: [id number] Reading MD: Rafiq Feliciano Measurements Intervals [place] Rate: 116 P: 81 DC: 144 QRS: 74 QRSD: 123 T: -42 QT: 355 QTc: 495 Interpretive Statements SINUS TACHYCARDIA MODERATE INTRAVENTRICULAR CONDUCTION DELAY ST DEVIATION AND MODERATE T-WAVE ABNORMALITY, CONSIDER INFERIOR ISCHEMIA NO PRIORS FOR COMPARISON Electronically Signed on 12-27-2019 22:50:34 EDT by Rafiq Feliciano
== END 2019-12-27 11:25 | disposition short-term general hospital (02) ==
LOC: M ED 08:58 → EDBD 08:58 → M ED 11:25
DX: G93.89 Other specified disorders of brain (principal); G93.6 Cerebral edema; R91.8 Other nonspecific abnormal finding of lung field; R41.82 Altered mental status, unspecified; R00.0 Tachycardia, unspecified; R29.722 NIHSS score 22; Z85.41 Personal history of malignant neoplasm of cervix uteri; Z85.43 Personal history of malignant neoplasm of ovary; F17.200 Nicotine dependence, unspecified, uncomplicated; Z03.818 Encounter for observation for suspected exposure to other biological agents ruled out
CPT/HCPCS: 31500; 36600; 51702; 70450; 70496; 70498; 71045; 80047; 82550; 82553; 82803; 84484; 85025; 85610; 85730; 86850; 86900; 86901; 93005; 93041; 96365; 96375; 99291; J0330; J1100; J1953; J2060; J2150; Q9967; U0002

== ENCOUNTER 2020-02-11 15:03 | Emergency (ER) | payer BC ==
[~2020-02-11] VITALS: Ht 149.9 cm; Wt 47.1 kg
[2020-02-11] MEDS ORDERED: LEVE10003 (15:15)
[2020-02-11] MEDS ORDERED: PANT40TA3 (15:15)
[2020-02-11] MEDS ORDERED: HUMA100I5 (15:15)
[2020-02-11] MEDS ORDERED: PHEN50CH4 (15:15)
[2020-02-11] MEDS ORDERED: DEXA4TA (15:15)
[2020-02-11] MEDS ORDERED: FLUD0.1T (15:15)
[2020-02-11] MEDS ORDERED: AMLO10TA5 (15:15)
[2020-02-11] MEDS ORDERED: LABE10TAB (15:15)
[2020-02-11 16:37] LABS: APPEARANCE, URINE HAZY (CLEAR); BACTERIA, URINE AUTO NEGATIVE (NEGATIVE); BILIRUBIN, URINE AUTO NEGATIVE (NEGATIVE); BLOOD, URINE BLOOD NEGATIVE (NEGATIVE); COLOR, URINE YELLOW (YELLOW); GLUCOSE, URINE (UA) AUTO NEGATIVE (NEGATIVE); KETONE, URINE AUTO NEGATIVE (NEGATIVE); LEUKOCYTE ESTERASE, URINE AUTO TRACE (NEGATIVE); MUCUS, URINE SMALL (NEGATIVE); NITRITE, URINE AUTO NEGATIVE (NEGATIVE); PROTEIN, URINE AUTO NEGATIVE (NEGATIVE); RBC, URINE AUTO 2 /HPF (0-3); SPECIFIC GRAVITY URINE AUTO 1.016 (1.002-1.035); SQUAMOUS EPITHELIAL CELL UR AU 4 /HPF (0-6); UROBILINOGEN, URINE AUTO 0.2 mg/dL (0.0-2.0); WBC, URINE AUTO 2 /HPF (0-3)
[2020-02-11 16:42] LABS: BASO # 0.1 10^3/uL (0.0-0.2); BASO % 0.5 % (0.0-1.0); EOS # 0.4 10^3/uL (0.0-0.5); EOS % 3.3 % (0.0-3.0); HEMATOCRIT 42.2 % (36.0-47.0); HEMOGLOBIN 13.4 g/dl (12.0-15.5); LYMPH # 1.3 10^3/uL (1.5-5.0); LYMPH % 9.6 % (24.0-44.0); MEAN CORPUSCULAR HEMOGLOBIN 31.5 pg (27.0-33.0); MEAN CORPUSCULAR HGB CONC 31.8 g/dl (32.0-36.5); MEAN CORPUSCULAR VOLUME 99.3 fl (80.0-96.0); MONO # 0.9 10^3/uL (0.0-0.8); MONO % 6.7 % (0.0-5.0); NEUTROPHILS # 10.2 10^3/uL (1.5-8.5); NEUTROPHILS % 77.3 % (36.0-66.0); PLATELET COUNT, AUTOMATED 253 10^3/uL (150-450); RED BLOOD COUNT 4.25 10^6/uL (4.00-5.40); WHITE BLOOD COUNT 13.2 10^3/uL (4.0-10.0)
[2020-02-11 17:07] LABS: ALBUMIN 2.8 GM/DL (3.2-5.2); BILIRUBIN,DIRECT 0.1 MG/DL (0.0-0.2); BILIRUBIN,TOTAL 0.2 MG/DL (0.2-1.0); C REACTIVE PROTEIN QUANTITATIV 3.53 MG/DL (0.00-0.30); TOTAL PROTEIN 6.6 GM/DL (6.4-8.2)
[2020-02-11] MEDS ORDERED: HYDR25OIN TOP (17:36)
[2020-02-11] MEDS ORDERED: HYDR-3363 PO (17:36)
[2020-02-11] MEDS ORDERED: CLOT10TR PO (17:36)
[2020-02-11 17:39] LABS: ERYTHROCYTE SEDIMENTATION RATE 40 mm/hr (0-30)
[2020-02-11 17:43] VITALS: BP 164/75
== END 2020-02-11 17:45 | disposition home or self-care (01) ==
LOC: M ED 15:03
DX: B37.0 Candidal stomatitis (principal); L27.0 Generalized skin eruption due to drugs and medicaments taken internally; C34.90 Malignant neoplasm of unspecified part of unspecified bronchus or lung; C79.31 Secondary malignant neoplasm of brain; E11.9 Type 2 diabetes mellitus without complications; R56.9 Unspecified convulsions; Z79.899 Other long term (current) drug therapy; Z79.4 Long term (current) use of insulin; Z88.1 Allergy status to other antibiotic agents; Z88.2 Allergy status to sulfonamides; Z88.5 Allergy status to narcotic agent; F17.210 Nicotine dependence, cigarettes, uncomplicated

== ENCOUNTER 2020-02-17 11:32 | Emergency (ER) | payer BC ==
[~2020-02-17] VITALS: Ht 149.9 cm; Wt 46.4 kg
[~2020-02-17 11:32] MED LIST: AMLO10TA5; CLOT10TR PO; DEXA4TA; FLUD0.1T; HUMA100I5; HYDR-3363 PO; HYDR25OIN TOP; LABE10TAB; LEVE10003; PANT40TA3; PHEN50CH4
[2020-02-17] MEDS ORDERED: NS 1,000 ML IV SCH (12:37)
[2020-02-17 13:03] LABS: BASO % 0.2 % (0.0-1.0); EOS # 0.1 10^3/uL (0.0-0.5); EOS % 1.3 % (0.0-3.0); HEMOGLOBIN 12.2 g/dl (12.0-15.5); LYMPH # 0.9 10^3/uL (1.5-5.0); LYMPH % 7.9 % (24.0-44.0); MEAN CORPUSCULAR HEMOGLOBIN 31.8 pg (27.0-33.0); MEAN CORPUSCULAR VOLUME 96.4 fl (80.0-96.0); MONO # 0.6 10^3/uL (0.0-0.8); MONO % 5.8 % (0.0-5.0); PLATELET COUNT, AUTOMATED 221 10^3/uL (150-450); RED BLOOD COUNT 3.84 10^6/uL (4.00-5.40); WHITE BLOOD COUNT 10.7 10^3/uL (4.0-10.0)
[2020-02-17 13:45] LABS: ERYTHROCYTE SEDIMENTATION RATE 60 mm/hr (0-30)
[2020-02-17 13:59] LABS: ALBUMIN 2.2 GM/DL (3.2-5.2); ALT/SGPT 115 U/L (12-78); BILIRUBIN,DIRECT 0.1 MG/DL (0.0-0.2); BILIRUBIN,TOTAL 0.2 MG/DL (0.2-1.0); BLOOD UREA NITROGEN 17 MG/DL (7-18); CALCIUM LEVEL 8.3 MG/DL (8.5-10.1); CARBON DIOXIDE LEVEL 25 MEQ/L (21-32); CHLORIDE LEVEL 101 MEQ/L (98-107); CPK CREATINE PHOSPHOKINASE 77 U/L (26-192); CREATININE FOR GFR 0.56 MG/DL (0.55-1.30); FREE T4 1.25 NG/DL (0.76-1.46); GLOMERULAR FILTRATION RATE > 60.0 (>51); GLUCOSE, FASTING 221 MG/DL (70-100); PHENYTOIN (DILANTIN) 3.9 UG/ML (10.0-20.0); POTASSIUM SERUM 4.1 MEQ/L (3.5-5.1); SODIUM LEVEL 133 MEQ/L (136-145); THYROID STIMULATING HORMONE 0.555 uIU/ML (0.358-3.740); TOTAL PROTEIN 5.9 GM/DL (6.4-8.2); TROPONIN I < 0.02 NG/ML (< 0.10)
--- NOTE | 2020-02-17 14:35 | REP ---
PORTABLE CHEST X-RAY: Sitting AP view. HISTORY: Dyspnea and cough. COMPARISON CHEST X-RAY: December 27, 2019. FINDINGS: There is a large mass-like opacity in the right perihilar region 5.7 cm in greatest diameter. This opacity is more confluent than on the prior study December 27, 2019. Malignancy must be suspected. There is bibasilar interstitial edema pattern. Some increased density is noted in the right base as well. There is plate-like atelectasis in the left base. Emphysematous changes are seen in the upper lobes. Oxygen tubing and EKG electrodes are seen. IMPRESSION: 5.7 cm mass in the right perihilar region. Associated infiltrate in the right lower lobe. Plate-like atelectasis left base. Consider chest CT, peripherally with IV contrast. Electronically Signed by Pierre Negro MD 02/17/2020 05:07 P
[2020-02-17] MEDS ORDERED: PIPERACILLIN/TAZOBACTAM SOD 4.5 GM in D5W MINI-BAG PLUS 50 ML IV ONE (15:00)
[2020-02-17] MEDS ORDERED: VANCOMYCIN HCL 1,000 MG, VIAL MATE ADAPTER 1 EACH in D5W 250 ML IV ONE (16:00)
--- NOTE | 2020-02-17 16:44 | ECGEPIP ---
[facility] - ED Test Date: 2020-02-17 Pat Name: AMAN MAURER Department: Room: - Gender: Female Technician Preventative Medicine: isaac : 1960 Requested By: Iman Quarles Order Number: [id number] Reading MD: David Gill Measurements Intervals [place] Rate: 110 P: 10 SD: 124 QRS: -4 QRSD: 108 T: 55 QT: 362 QTc: 491 Interpretive Statements SINUS TACHYCARDIA WITH OCCASIONAL VENTRICULAR PREMATURE COMPLEXES Nonspecific ST-T wave abnormalities with changes from tracing done 12-27-19 Baseline artifact Electronically Signed on 02-17-2020 16:44:14 EDT by David Gill
[2020-02-17 16:45] VITALS: BP 141/71
== END 2020-02-17 16:56 | disposition short-term general hospital (02) ==
LOC: M ED 11:32 → EDBD 11:32 → M ED 16:56
DX: L59.8 Other specified disorders of the skin and subcutaneous tissue related to radiation (principal); J18.9 Pneumonia, unspecified organism; C34.91 Malignant neoplasm of unspecified part of right bronchus or lung; C79.31 Secondary malignant neoplasm of brain; E55.9 Vitamin D deficiency, unspecified; K21.9 Gastro-esophageal reflux disease without esophagitis; Z79.899 Other long term (current) drug therapy; Z79.4 Long term (current) use of insulin; Z88.1 Allergy status to other antibiotic agents; Z88.2 Allergy status to sulfonamides; Z88.5 Allergy status to narcotic agent
CPT/HCPCS: 71045; 80048; 80076; 80180; 80185; 82550; 82553; 84439; 84443; 84484; 85025; 85652; 86140; 87040; 87077; 87186; 93005; 93041; 94760; 96361; 96365; 96367; 99285; J2543; J3370

== ENCOUNTER 2020-11-22 08:52 | Inpatient (IN) | payer BC, MEDICAID, SELFPAY ==
[~2020-11-22] VITALS: Ht 149.9 cm; Wt 38.5 kg
[~2020-11-22 08:52] MED LIST changes: -AMLO10TA5; +AMLO1TAB25; +LABE100T4; -LABE10TAB; +PANT40TA29; -PANT40TA3
[2020-11-22] MEDS ORDERED: NICOTINE 21MG/24HR 1 EA TRANSDERMAL TD SCH (09:00)
--- NOTE | 2020-11-22 09:38 | REP ---
INDICATION: dizziness/falls/brain CA. COMPARISON: Comparison head CT study December 27, 2019.. TECHNIQUE: Helical scanning is acquired. 5 mm axial images were reformatted. Coronal MPR images were generated. FINDINGS: Digital preliminary mica inspector radiograph is unremarkable. Bone window settings demonstrate intact bony calvarium. Vascular calcification is again observed at the skull base in the distal internal carotid arteries. Today's study demonstrates a new intracranial mass lesion in the left cerebellar hemisphere with surrounding vasogenic edema and compression of the 4th ventricle and, mid brain. The 3rd and lateral ventricles are dilated consistent with obstructive hydrocephalus mild in degree. The subarachnoid disc spaces are not significantly compressed. The prior study showed a 2.9 cm mass in the right inferior frontal lobe which has regressed although there is still some surrounding edema and a subtle area of increased attenuation measuring 1.1 x 0.5 cm persists at the site where the prior study showed a mass. There is prominent right and to a lesser extent left periventricular white matter low density in the frontal lobes. There is no evidence of intracranial hemorrhage. No other intracranial mass lesion is seen. IMPRESSION: There is a new mass in the left cerebellar hemisphere with vasogenic edema compressing the 4th ventricle and the mid brain. There is evidence of a mild obstructive hydrocephalus. The mass noted on December 27, 2019 in the right inferior frontal lobe has regressed although there is some adjacent low-density. There is no evidence of intracranial hemorrhage or acute infarction. Findings most compatible with new intracranial metastatic lesion.. <Electronically signed by Justin Negro > 11/22/20 0934
[2020-11-22] MEDS ORDERED: dexameTHASONE 20MG/5ML VIAL (J1100 PER 1MG) IV ONE ×3 (10:00→16:00)
--- NOTE | 2020-11-22 10:18 | ED PDOC ---
Post-Departure Follow-Up RHIO accessed. Pt. informed Rafiq Feliciano M.D. Nov 22, 2020 10:18
[2020-11-22 11:09] LABS: BASO % 0.2 % (0.0-1.0); EOS % 0.1 % (0.0-3.0); HEMATOCRIT 37.4 % (36.0-47.0); HEMOGLOBIN 12.2 g/dl (12.0-15.5); LYMPH # 1.2 10^3/uL (1.5-5.0); LYMPH % 9.7 % (24.0-44.0); MEAN CORPUSCULAR HEMOGLOBIN 30.8 pg (27.0-33.0); MEAN CORPUSCULAR HGB CONC 32.6 g/dl (32.0-36.5); MEAN CORPUSCULAR VOLUME 94.4 fl (80.0-96.0); MONO # 0.7 10^3/uL (0.0-0.8); MONO % 5.8 % (2.0-8.0); NEUTROPHILS # 10.1 10^3/uL (1.5-8.5); NEUTROPHILS % 83.8 % (36.0-66.0); PLATELET COUNT, AUTOMATED 372 10^3/uL (150-450); RED BLOOD COUNT 3.96 10^6/uL (4.00-5.40); WHITE BLOOD COUNT 12.1 10^3/uL (4.0-10.0)
[2020-11-22 11:33] LABS: ALBUMIN 2.8 GM/DL (3.2-5.2); BILIRUBIN,DIRECT 0.1 MG/DL (0.0-0.2); BILIRUBIN,TOTAL 0.3 MG/DL (0.2-1.0); TOTAL PROTEIN 6.7 GM/DL (6.4-8.2)
[2020-11-22 11:43] LABS: RSV AMPLIFICATION NEGATIVE (NEGATIVE)
[2020-11-22] MEDS ORDERED: ISOVUE-370 76% 100ML VIAL As Ordered ONE (11:50)
--- NOTE | 2020-11-22 12:49 | REP ---
INDICATION: stage 4 lung ca. COMPARISON: No comparison chest CT study.. TECHNIQUE: 100 mL of intravenous Isovue 370 is administered. Helical scanning is acquired. 3 mm axial images are generated. Coronal and sagittal MPR images are provided. FINDINGS: Digital preliminary needle punch operator radiograph demonstrates a large perihilar opacity on the right. On axial CT images, there is a large necrotic mass is occupying much of the left breast and extending to the lateral breast skin on the left. This mass lesion measures 7.8 cm craniocaudal by 7.9 cm anteroposterior by 6.7 cm medial to lateral. Medially it involves the chest wall and lower pectoralis muscle layer. There is some adjacent nodularity inferiorly. Irregular peripheral contrast enhancement is seen. There are 1 or 2 slightly enlarged lymph nodes in the left axilla. No bulky adenopathy is seen. Emphysematous changes are noted in the lung apices. There is a large cavitary spiculated mass in the superior segment of the right lower lobe with adjacent pleural thickening. This measures 5.7 cm right to left by 4.4 cm anterior to posterior by 5.6 cm cranial to caudal. There is a small quantity of right pleural effusion. There is discoid atelectasis and fibrosis in the lower lobes bilaterally. There is a 1.1 cm spiculated nodule in the left lower lobe projecting on page 58 of 101 in series 204 of today's study. A 2nd spiculated nodule is seen in the left lower lobe on page 60. This measures 1.1 cm in greatest diameter. There is pretracheal the perivascular subcarinal and paraesophageal mediastinal lymphadenopathy. Subcarinal adenopathy measures 3 cm in greatest diameter there. There is a 1.7 cm periesophageal lymph node. Perivascular lymph node measures 2.0 cm in diameter. There is a peripherally enhancing suspicious lymph node in the right neck inferiorly measuring 1.5 cm in greatest diameter. There is subtle fullness of the left and to a lesser extent right adrenal gland. There is mild pericardial thickening. There is no CT evidence of pulmonary embolus. There is a peripherally enhancing metastatic lesion in the soft tissues of the right upper arm measuring 2.4 cm in diameter. There is a 1 cm focus of nodular enhancement in the paraspinal musculature to the left of the lower thoracic spine. An additional intramuscular soft tissue metastasis is seen in the left lateral chest wall measuring 1.6 cm in diameter. Bone window settings show no bony destructive lesion. IMPRESSION: Findings consistent with advanced metastatic malignancy. There is a large mass in the left breast. There is a cavitary mass in the right lung and metastatic pulmonary nodules are seen in the left lung. There is mediastinal lymphadenopathy, right neck lymphadenopathy, and there are skeletal muscle soft tissue metastases as above. Possible small left adrenal metastasis. <Electronically signed by Justin Negro > 11/22/20 [id number]
--- NOTE | 2020-11-22 12:55 | REP ---
INDICATION: stage 4 lung ca. COMPARISON: Comparison CT abdomen pelvis is from May 27, 2015.. TECHNIQUE: Helical scanning is acquired and 3 mm axial images re-formatted. Coronal and sagittal MPR images are generated. The CT contrast enhancement dose is 100 mL of intravenous Isovue 370. FINDINGS: Preliminary digital carpet cleaning technician radiograph demonstrates a normal bowel gas pattern. A large necrotic left breast mass is seen as described on chest CT report. There is mild retrocrural lymphadenopathy. The left adrenal gland is somewhat thickened and I suspect a small adrenal mass. 2.1 cm in greatest diameter. Small right pleural effusion noted. There are multiple tiny low-density liver lesions which are unchanged and consistent with cysts. No liver mass lesion is appreciated. Kidneys enhance symmetrically and appear morphologically intact. There is a peripherally enhancing necrotic mass in the right psoas muscle consistent with a soft tissue metastasis. This measures 3.0 x 2.8 cm. There is a similar mass in the subcutaneous fat just above the iliac crest on the left posteriorly. This measures 2.3 cm in diameter. There is a subcentimeter enhancing nodule in the subcutaneous layer anteriorly at the level of the iliac crest on the left which is also suspicious for a small subcutaneous metastasis. No pelvic mass or adenopathy is seen. The uterus is surgically absent. There is no evidence of bowel obstruction. No abdominal wall defect is seen. No bony destructive lesion is appreciated. There is a bone island to the left of midline in the sacrum. The abdominal aortic is ectatic with maximum AP dimension of 2.2 cm. IMPRESSION: Findings consistent with metastatic malignancy with a soft tissue metastases of the right psoas muscle and left flank subcutaneous fat layer. Retrocrural adenopathy, a small left adrenal metastasis, small right pleural effusion and large left breast mass are also seen. <Electronically signed by Justin Negro > 11/22/20 [id number]
[2020-11-22 13:35] LABS: INR 0.98; PROTHROMBIN TIME 13.2 SECONDS (12.5-14.3)
[2020-11-22 13:36] LABS: PARTIAL THROMBOPLASTIN TIME 34.9 SECONDS (24.2-38.5)
[2020-11-22] MEDS ORDERED: ACET-683 PO (14:19)
--- NOTE | 2020-11-22 14:28 | HPEPDOC ---
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 emergency room with the chief complaint of unsteady gait for the past several months. The patient states she's had increased dizziness, unsteady gait, worsening shortness of breath, lightheadedness for the past several months. She was diagnosed with stage IV adenocarcinoma of the lung with metastases to the brain 01/2020 where she received [facility] for a period of time. She was seen by their oncologists and received 5 doses of radiation for frontal lobe metastases. The patient was discharged home but she never followed up to resume treatment with the oncology office. Over the past several weeks she has noticed the symptoms described before plus decreased appetite, wt loss >10 lbs, lethargy She also has noticed a left breast mass starting to grow from her left lateral breast causing increased swelling, pain. The patient has a primary care provider but she hasn't followed up with them sin ce she was discharged from [facility] last summer. She denies chest pain, blurry vision, headaches, productive cough, fevers, chills. She came to the ER due to the symptoms mentioned above. In the ER vital signs showed tachycardia with heart rates in 110's, all other vital signs were within normal limits. WBC 12.1, H&H 12/37, all other labs were unremarkable. CT brain: There is a new mass in the left cerebellar hemisphere with vasogenic edema compressing the 4th ventricle and the mid brain, mild o bstructive, hydrocephalus, the mass noted on December 27, 2019 in the right inferior frontal lobe has regressed although there is some adjacent low-density, there is no evidence of intracranial hemorrhage or acute infarction- findings most compatible with new intracranial metastatic lesion. CT chest: Findings consistent with advanced metastatic malignancy, large mass in the, cavitary mass in the right lung and metastatic pulmonary nodules are seen in the left lung, mediastinal lymphadenopathy, right neck lymphadenopathy, possible small left adrenal metastasis. CT abd/pelvis: Findings consistent with metastatic malignancy with a soft tissue metastases of the right psoas muscle and left flank subcutaneous fat layer, retrocrural adenopathy, a small left adrenal metastasis, small right pleural effusion and large left breast mass are also seen. Pt was given a total of 20 mg IV decadron and started on decadron Q8H. Dr. Felix (rad/onc) and Dr. Pacheco (med/onc) were contacted about patient and agree to see/treat if admitted. Patient, although her workup has been started at [place], does not wish to continue getting treated by them because she does not have the capabilities of going to her appointments or getting ride her appointments in [place]. She would like to continue to be treated locally. The patient will be admitted for further treatment/workup of metastatic lung adenocarcinoma to the brain. REVIEW OF SYSTEMS: Neg except mentioned above PAST MEDICAL HISTORY: Stage IV adenocarcinoma of lung with metastasis to brain Tobacco use PAST SURGICAL HISTORY: 3 C-sections Hysterectomy Ear surgery FAMILY HISTORY: Father: by suicide. at 60 years old. Mother: Coronary artery disease. at 40 years old SOCIAL HISTORY: One pack per day smoker for 43 years, smokes marijuana occasionally as well. Denies alcohol use or other illicit drug use. Lives with her son locally. Does not follow regularly with a primary care provider and does not have an established oncologist with whom she follows with regularly. He is a full code. ALLERGIES: Please see below. HOME MEDICATIONS: Please see below. PHYSICAL EXAMINATION: VS: Please see below CONSTITUTIONAL: Thin appearing female, No acute distress, resting comfortably, AAO x 3 EYES: PERRLA, EOM intact HENT, MOUTH: Normocephalic, atraumatic, moist mucous membranes NECK: SUPPLE, no JVD, no lymphadenopathy, no carotid bruit CV: sinus tachycardia, S1S2 normal, no murmurs/rubs/gallops CHEST: 2.5 x 3 inch breast mass seen growing laterally from left breast, area of induration, swelling and hard to touch surrounding mass. Tenderness present RESPIRATORY: Clear to auscultation bilaterally, no rales/rhonchi/wheezes GI: thin abdomen, BS positive in 4 quadrants, soft, nontender, nondistended, no rebound or guarding, no organomegaly : Deferred MUSCULOSKELETAL: Clubbing of finger nails, normal ROM. No cyanosis, joint deformity, extremity edema INTEGUMENTARY: Intact, no rashes, no lesions, no erythema NEUROLOGIC: Cranial Nerves II-XII are intact, no focal deficits PSYCHIATRIC: Mood and affect are normal LABORATORY DATA: Please see below IMAGING: CT brain: There is a new mass in the left cerebellar hemisphere with vasogenic edema compressing the 4th ventricle and the mid brain. There is evidence of a mild obstructive hydrocephalus. The mass noted on December 27, 2019 in the right inferior frontal lobe has regressed although there is some adjacent low-density. There is no evidence of intracranial hemorrhage or acute infarction. Findings most compatible with new intracranial metastatic lesion. CT abd/pelvis with contrast: Findings consistent with metastatic malignancy with a soft tissue metastases of the right psoas muscle and left flank subcutaneous fat layer. Retrocrural adenopathy, a small left adrenal metastasis, small right pleural effusion and large left breast mass are also seen. CT chest with contrast: Findings consistent with advanced metastatic malignancy. There is a large mass in the left breast. There is a cavitary mass in the right lung and metastatic pulmonary nodules are seen in the left lung. There is mediastinal lymphadenopathy, right neck lymphadenopathy, and there are skeletal muscle soft tissue metastases as above. Possible small left adrenal metastasis. 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 PLAN: Stage IV adenocarcinoma of lung with metastasis to brain, adrenal, muscle and LN -S/p 5 radiation sessions on last admission to [facility] 01/2020, never followed up after discharge -CT brain, abd/pelvis and chest from today above -New cerebellar metastatic lesion with symptoms of unsteady gait, lightheadedness at home -Dr. Felix (rad/onc) and Dr. Pacheco (med/onc) were contacted about patient and agree to see/treat -Given 20 mg IV Decadron 1, started on Decadron 8 mg by PO Q8 hours Breast mass unknown if this is lung mets or another primary -Rapidly appearing per patient over several weeks. -Discussed with med/onc, f/u recommendations Tachycardia, possibly dehydration, anxiety? -IVFs at 100 cc/hr -monitor Tobacco use -Nicotine patch DVT px -lovenox sc DISPOSITION: Admitted as acute inpatient. med/onc and rad/onc consulted to see. Requesting [facility] records from medical oncology. Vital Signs Vital Signs Date Time Temp Pulse Resp B/P (MAP) Pulse Ox O2 Delivery O2 Flow Rate FiO2 11/22/20 12:15 113 16 148/65 (92) 96 Room Air 11/22/20 08:53 97.9 Laboratory Data Labs 24H Laboratory Tests 2 11/22/20 10:57: Prothrombin Time 13.2, Prothromb Time International Ratio 0.98, Activated Partial Thromboplast Time 34.9, POC Glucose (Misc Panel) 111H, POC Sodium (Misc Panel) 136, POC Potassium (Misc Panel) 3.5, POC Chloride (Misc Panel) 95L, POC Total CO2 (Misc Panel) 29.0H, POC Blood Urea Nitrogen (Misc Panel 12, POC Ionized Calcium (Misc Panel) 4.5, POC Creatinine (Misc Panel) 0.3L, POC Hematocrit (Misc Panel) 38.0 11/22/20 10:58: Immature Granulocyte % (Auto) 0.4, Neutrophils (%) (Auto) 83.8H, Lymphocytes (%) (Auto) 9.7L, Monocytes (%) (Auto) 5.8, Eosinophils (%) (Auto) 0.1, Basophils (%) (Auto) 0.2, Neutrophils # (Auto) 10.1H, Lymphocytes # (Auto) 1.2L, Monocytes # (Auto) 0.7, Eosinophils # (Auto) 0.0, Basophils # (Auto) 0.0, Nucleated Red Bloo d Cells % (auto) 0.0, Total Bilirubin 0.3, Direct Bilirubin 0.1, Aspartate Amino Transf (AST/SGOT) 20, Alanine Aminotransferase (ALT/SGPT) 14, Alkaline Phosphatase 172H, Total Protein 6.7, Albumin 2.8L, Albumin/Globulin Ratio 0.7L, Coronavirus (COVID-19)(PCR) NEGATIVE, Influenza Type A (RT-PCR) NEGATIVE, Influenza Type B (RT-PCR) NEGATIVE, Respiratory Syncytial Virus (PCR) NEGATIVE CBC/BMP Laboratory Tests 11/22/20 10:58 Allergies Coded Allergies: Sulfa (Sulfonamide Antibiotics) (Verified Allergy, Mild, RASH, 02/11/20) codeine (Verified Allergy, Mild, rash, 11/22/20) A-FIB/CHADSVASC A-FIB History Current/History of A-Fib/PAF?: No Current PO Anticoag Therapy: No Age/Risk Factor Scoring CHADSVASC: CHADSVASC Response (Comments) Value Age Risk Factor Age < 65 years old 0 Gender Risk Factor Female 1 Hx of CHF No 0 Hx of HTN No 0 Hx of Stroke/TIA/or VTE No 0 Hx of Diabetes No 0 Hx of Vascular Disease No 0 Total 1 Treatment Treatment ordered: Other Other anticoagulant ordered: Shirley Rivers MD Nov 22, 2020 14:28
[2020-11-22 14:30] VITALS: BP 124/80
[2020-11-22] MEDS: NS 1,000 ML IV SCH (15:11)
[2020-11-22] MEDS: NICOTINE 21MG/24HR 1 EA TRANSDERMAL TD SCH (17:30)
--- NOTE | 2020-11-22 21:28 | CR.PDOC ---
General Date of Consultation: Nov 22, 2020 Referring Provider: Shirley Cavazos MD Attending Physician: SARI VERDUZCO MD Consultation REASON FOR CONSULTATION/CHIEF COMPLAINT: History of diagnosis of metastatic adenocarcinoma of lung with brain metastases now with wobbliness and history of several falls over the last 1 week.. HISTORY OF PRESENT ILLNESS: [I had the pleasure of seeing Mrs. Minerva Barry in consideration for metastatic adenocarcinoma of the lung with metastases to brain bone and adrenals. As you know Ms. Barry is a 60-year-old white female with resident of [place] and has been a smoker since she was 15. She continues to smoke 1 pack per day. Patient was diagnosed with have stage IV adenocarcinoma of lung with metastasis to brain in January 2020. She was treated [facility]. she remained admitted for a week initially. She received 5 radiations to frontal lobe metastasis. Patient did not have any commute so has not been followed by any oncologist since January 2020. Was last 2 weeks she has been morbidly and has been having several falls. Today she was brought in to emergency room by her son. CT scan of the brain revealed a new mass in the left cerebellar hemisphere with vasogenic edema compressing the fourth ventricle and the midbrain with mild obstructive, hydrocephalus and mass noted on 12/27/2019 showed some regression but there was some adjacent low-density. No evidence of intracranial bleeding. CT scan of the chest revealed advanced metastatic malignancy with a large mass in the right lung. Cavity and metastatic pulmonary nodules are seen in the left lung. Mediastinal lymphadenopathy as well as a right neck lymphadenopathy with possible small left adrenal metastasis is. CT of the abdomen also revealed metastatic malignancy to the right Psoas muscle. There was metastatic disease to the left flank subcutaneous fat clear. Retrocrural adenopathy and a small left adrenal metastasis is. There was also small right pleural effusion and large left breast mass was also seen. Patient received 1 dose of Decadron and then was started on oral Decadron every 8 hour. Patient has been walking around until recently and for last couple weeks she has been falling frequently. She denies major cough, wheezing. She denies chest pain or palpitation no headache or dizziness no urinary symptoms. She has been noticing a mass in the left breast for last about 3 weeks and that mass has been growing over time. She is not very clear about the timing's that how long she has this breast mass. ALLERGIES: Please see below. HOME MEDICATIONS: Please see below. PAST MEDICAL HISTORY: 1. History of adenocarcinoma of the lung with brain metastases. 2. History of ovarian cancer 24 years ago status post hysterectomy and bilateral salpingo-oophorectomy. No chemotherapy or radiation was given at that time. 3. History of skin cancer on the external genitalia treated with laser treatment 4. History of NIDDM.. PAST SURGICAL HISTORY: 1. History of hysterectomy and bilateral salpingo-oophorectomy due to ovarian cancer diagnosed 2039 years ago. 2. Last year had biopsy of the lung mass done at [facility] FAMILY HISTORY: Father: Committed suicide and did a 60 Mother: Mother of breast cancer at the age of 40. Also had coronary artery disease. SOCIAL HISTORY: Marital status and/or living arrangements: Patient is not and hasn't no . Children: 3 grown up boys one son lives with her Employment: She is retired from a [employer] Tobacco use:[id number] history of smoking ETOH: Denies alcohol abuse Illicit drug use: None IV drug use: None Other relevant social factors: REVIEW OF SYSTEMS: CONSTITUTIONAL: She feels wobbly and fatigued out. HEENT: No ENT issues. CARDIOVASCULAR: Denies chest pain palpitation PND or orthopnea. RESPIRATORY: Denies cough or wheezing. GENITOURINARY: No burning urination. MUSCULOSKELETAL: Is wobbly and has history of fall. No muscular weakness or pain. GASTROINTESTINAL: Denies diarrhea. SKIN: Skin changes on the left breast due to a big mass in the left breast almost fungating out on the lateral side of the left breast. NEUROLOGICAL: Denies CVA or loss of power. PSYCHIATRIC: Mild depression. ENDOCRINE: NIDDM. HEMATOLOGIC/LYMPHATIC: No history of bleeding or clotting issues.. ALLERGIC/IMMUNOLOGIC: No known drug allergies. PHYSICAL EXAMINATION: VITAL SIGNS: Please see below. GENERAL APPEARANCE: [A pleasant female in no acute distress. She is pale looking what no jaundice or cyanosis RESPIRATORY: Lungs clear to auscultation and percussion. CARDIOVASCULAR: RRR normal S1 and S2. ABDOMEN: Soft PRESENT OF HEPATOSPLENOMEGALY. EXTREMITIES: No pedal edema. NEUROLOGICAL: No gross sensory or motor deficit see N2 12 intact. PSYCHIATRIC: Myelosuppression. BREAST: A big mass about 10 cm across noticed on the lateral side of the left breast with slight centimeter off almost fungating mass through the skin and top of the big mass. Skin is not broken yet but quite red and angry looking LABORATORY DATA: Please see below. ASSESSMENT/PLAN: 1. [Minerva Barry is 60-year-old white female was diagnosed with have adenocarcinoma of the lung with metastases to brain and was treated with radiat ion last year in January 2020 at [facility]. Patient did not receive any further treatment. Now she is admitted with increasing falls and wobbly gait. Patient was found to have extensive metastatic disease highly likely from adenocarcinoma of lung. This needs further investigation. We need to obtain the previous medical record from [facility] and to see if next generation sequencing on molecular study of the lung tissue has been sent out at that time. 2. Patient also has metastatic brain disease and needs evaluation by Dr. Wilde. Patient has already been started on dexamethasone 4 minimize vasogenic edema. Patient will require radiation to the brain met and are relieved it to Dr. iWlde to decide whether she will be needing stereotactic irradiation. 3. Patient needs to have a core needle biopsy of the left breast mass. The mass is highly likely from adenocarcinoma of the lung yet this mass is relatively new and according to the patient it is therefore last 3 or 4 weeks at the most. A core needle biopsy will be ordered to confirm the metastatic adenocarcinoma from lung or if it is no breast cancer that he'll need further investigations. 4. If any targetable marker is found patient will be started accordingly if no targetable gene mutation is noticed patient will be offered chemotherapy with carboplatin and paclitaxel after obtaining her previous medical record from [facility]. 5. An appointment should be made to [facility] before discharging the patient to be followed up as outpatient. Vital Signs/I&O Vital Signs Date Time Temp Pulse Resp B/P (MAP) Pulse Ox O2 Delivery O2 Flow Rate FiO2 11/22/20 14:30 97.4 119 18 124/80 (95) 90 Room Air Laboratory Data Labs 24H Laboratory Tests 2 11/22/20 10:57: Prothrombin Time 13.2, Prothromb Time International Ratio 0.98, Activated Partial Thromboplast Time 34.9, POC Glucose (Misc Panel) 111H, POC Sodium (Misc Panel) 136, POC Potassium (Misc Panel) 3.5, POC Chloride (Misc Panel) 95L, POC Total CO2 (Misc Panel) 29.0H, POC Blood Urea Nitrogen (Misc Panel 12, POC Ionized Calcium (Misc Panel) 4.5, POC Creatinine (Misc Panel) 0.3L, POC Hematocrit (Misc Panel) 38.0 11/22/20 10:58: Immature Granulocyte % (Auto) 0.4, Neutrophils (%) (Auto) 83.8H, Lymphocytes (%) (Auto) 9.7L, Monocytes (%) (Auto) 5.8, Eosinophils (%) (Auto) 0.1, Basophils (%) (Auto) 0.2, Neutrophils # (Auto) 10.1H, Lymphocytes # (Auto) 1.2L, Monocytes # (Auto) 0.7, Eosinophils # (Auto) 0.0, Basophils # (Auto) 0.0, Nucleated Red Blood Cells % (auto) 0.0, Total Bilirubin 0.3, Direct Bilirubin 0.1, Aspartate Amino Transf (AST/SGOT) 20, Alanine Aminotransferase (ALT/SGPT) 14, Alkaline Phosphatase 172H, Total Protein 6.7, Albumin 2.8L, Albumin/Globulin Ratio 0.7L, Coronavirus (COVID-19)(PCR) NEGATIVE, Influenza Type A (RT-PCR) NEGATIVE, Influenza Type B (RT-PCR) NEGATIVE, Respiratory Syncytial Virus (PCR) NEGATIVE CBC/BMP Laboratory Tests 11/22/20 10:58 Allergies Coded Allergies: Sulfa (Sulfonamide Antibiotics) (Verified Allergy, Mild, RASH, 02/11/20) codeine (Verified Allergy, Mild, rash, 11/22/20) Home Medications Scheduled PRN Acetaminophen (Acetaminophen) 500 Mg Tablet, 1,000 MG PO Q6H PRN for PAIN / FEVER, (Reported) SARI VERDUZCO MD Nov 22, 2020 21:28
[2020-11-22 22:00] VITALS: BP 148/69
[2020-11-23] MEDS: NS 1,000 ML IV SCH ×3 (00:23→21:23)
[2020-11-23] MEDS: ACETAMINOPHEN TAB 650MG DOSE (2X325MG) PO PRN ×2 (05:21→21:21)
[2020-11-23 06:00] VITALS: BP 146/67
[2020-11-23 06:19] LABS: HEMATOCRIT 35.6 % (36.0-47.0); HEMOGLOBIN 11.6 g/dl (12.0-15.5); MEAN CORPUSCULAR HEMOGLOBIN 30.4 pg (27.0-33.0); MEAN CORPUSCULAR HGB CONC 32.6 g/dl (32.0-36.5); MEAN CORPUSCULAR VOLUME 93.4 fl (80.0-96.0); PLATELET COUNT, AUTOMATED 279 10^3/uL (150-450); RED BLOOD COUNT 3.81 10^6/uL (4.00-5.40); WHITE BLOOD COUNT 10.2 10^3/uL (4.0-10.0)
[2020-11-23 06:30] LABS: ALBUMIN 2.5 GM/DL (3.2-5.2); ALT/SGPT 16 U/L (12-78); BILIRUBIN,TOTAL 0.2 MG/DL (0.2-1.0); BLOOD UREA NITROGEN 8 MG/DL (7-18); CALCIUM LEVEL 8.6 MG/DL (8.5-10.1); CARBON DIOXIDE LEVEL 25 MEQ/L (21-32); CHLORIDE LEVEL 103 MEQ/L (98-107); CREATININE FOR GFR 0.34 MG/DL (0.55-1.30); GLOMERULAR FILTRATION RATE > 60.0 (>51); GLUCOSE, FASTING 139 MG/DL (70-100); POTASSIUM SERUM 3.3 MEQ/L (3.5-5.1); SODIUM LEVEL 136 MEQ/L (136-145); TOTAL PROTEIN 6.8 GM/DL (6.4-8.2)
[2020-11-23] MEDS ORDERED: ENOXAPARIN 40MG/0.4ML SYRINGE (J1650 PER 10MG) SC SCH (09:00)
[2020-11-23] MEDS ORDERED: POTASSIUM CHLORIDE 10 MEQ SR TABLET PO ONE (09:30)
--- NOTE | 2020-11-23 10:05 | RADONC.CN ---
Radiation Oncology Hx/Consult Radiation Oncology Consult Date of Service: Nov 23, 2020 Pt Identifier Minerva Barry is a 60 year old female current smoker with a history of cervical and ovarian cancer remotely, and more recently stage IV NSCLC diagnosed in 2020, s/p SRS to a frontal brain metastasis at [facility] 30 Gy in 5 fractions completed 01/08/20, and no further cancer-directed treatments since then. She presented to the ED with increasing imbalance and falls at home in recent days. She had a CT scan which shows a larger left cerebellar metastasis in addition to other foci concerning for metastatic lesions. Body imaging shows visceral metastases as well as a cavitary right lung primary mass, and a large fungating left breast mass. We are asked to consider further brain metastasis-directed RT. Diagnosis/Treatment History Oncologic History History of early stage cervical and ovarian cancers s/p NILSON/BSO 12/27/19: Presented to [facility] ED with left facial droop and rightward gaze preference. A 3.3 cm right frontal lobe and 1.5 cm right lateral temporal lobe metastases were found. Body scans revealed a cavitary RLL lung primary which was biopsied showing adenocarcinoma (mutation status unknown). She underwent fSRS to the lesions 30 Gy in 5 fractions with tomotherapy completed 01/08/20. She was discharged home and lost to follow up. She received no systemic therapy. 11/21/20: Presented to [facility] ED after falls at home 11/21/20: CT head with left cerebellar and also question of bifrontal lesions (R>L) 11/21/20: CT chest abdomen pelvis showing right cavitary lung primary, lung metastases, left adrenal, sub cutaneous and intramuscular (right psoas) metastases and a fungating left breast mass. Breast mass biopsy pending Interval History Minerva is seen at bedside. She notes some improvement in her balance with steroids. She also had been having headaches, which have also improved slightly. She is ambulating in her room, able to get to and from the commode. She has not tried walking the halls yet. She had been intermittently using a walker at home. She reports her most recent fall which precipitated the admission was not associated with LOC. She denies seizure-like activity. She denies focal weakness, she does have some left facial tingling which has been present for some weeks. She is concerned about her employment (works at a [employer]), and also her living situation as she is in an upstairs apartment. Past Medical History: Unremarkable Past Surgical History: NILSON/BSO Family History: No significant history of cancer Social History: 40+ pack year current 1ppd smoker Does not drink alcohol Allergies / Meds Allergies: Coded Allergies: Sulfa (Sulfonamide Antibiotics) (Verified Allergy, Mild, RASH, 02/11/20) codeine (Verified Allergy, Mild, rash, 11/22/20) Home Meds Reported Medications Acetaminophen (Acetaminophen) 500 Mg Tablet, 1000 MG PO Q6H PRN for PAIN / FEVER, TAB 11/22/20 Discontinued Reported Medications Insulin Lispro (Humalog Kwikpen U-100) 100 Unit/1 Ml Insuln.pen 02/11/20 Pantoprazole Sodium (Pantoprazole Sodium) 40 Mg Tablet.dr 02/11/20 Phenytoin (Phenytoin) 50 Mg Tab.chew 02/11/20 levETIRAcetam (levETIRAcetam) 1,000 Mg Tablet 02/11/20 Labetalol HCl (Labetalol HCl) 100 Mg Tablet 02/11/20 Fludrocortisone Acetate (Fludrocortisone Acetate) 0.1 Mg Tablet 02/11/20 Amlodipine Besylate (Amlodipine Besylate) 10 Mg Tablet 02/11/20 Dexamethasone (Dexamethasone) 4 Mg Tablet 02/11/20 Discontinued Scripts Clotrimazole (Clotrimazole) 10 Mg Demi, 1 TAB PO 5XD for 14 Days, #70 TAB Prov:SERA RANDOLPH PA-C. 02/11/20 Hydrocortisone (Hydrocortisone 2.5%) 20 Gm Oint...g., 1 APLCT TOP BID for 10 Days, #60 GRAM apply to affected area(s) Prov:SERA RANDOLPH PA-C. 02/11/20 Hydroxyzine HCl (Hydroxyzine HCl) 25 Mg Tablet, 1-2 TAB PO Q6HP PRN for ITCHING/SWELLING, #40 TAB Prov:SERA RANDOLPH PA-C. 02/11/20 Review of Systems Constitutional: Reports: Fatigue, Weight Loss Eyes: Denies: Pain HEENT: Reports: Head Aches Skin: Denies: Rash Pulmonary: Reports: Dyspnea, Cough Cardiovascular: Denies: Chest Pain, Palpitations Breast: Reports: New Breast Lumps / Masses Gastrointestinal: Reports: Nausea; Denies: Vomiting, Abdominal Pain Hematologic: Denies: Bruising Musculoskeletal: Denies: Neck pain, Back pain Neurological: Reports: Numbness; Denies: Weakness, Confusion, Seizures Psych: Reports: Mood Normal Vital Signs Vital Signs Date Time Temp Pulse Resp B/P (MAP) Pulse Ox O2 Delivery O2 Flow Rate FiO2 11/23/20 06:00 98.1 114 18 146/67 (93) 93 Room Air General Exam: Positive: Alert, Cooperative, No Acute Distress Eye Exam: Positive: PERRLA, EOMI ENT EXAM: Positive: Atraumatic, Pharynx Normal, Tongue Midline Neck Exam: Positive: Supple; Negative: Lymphadenopathy Chest Exam: Positive: Clear to auscultation, Normal air movement Heart Exam: Positive: Rate Normal, Regular Rhythm Breast Exam: Positive: Lumps or Masses (Firm large left lateral breast mass, overlying skin changes, no ulceration ) Abdomen Exam: Positive: Normal bowel sounds Extremity Exam: Negative: Edema Skin Exam: Positive: Nl turgor and temperature Neuro Exam: Positive: Normal Speech, Strength at 5/5 X4 ext, Normal Tone, Other (No pronator drift, rapid alternating movements intact, no dysmetria [id number] or [id number]); Negative: Cranial Nerves 3-12 NL (Left CN V sensory deficit) Psych Exam: Positive: Mental status NL Diagnostic and Laboratory Diagnostic Review Radiologic images, relevant labs and pathology reports were personally reviewed and discussed with Ms. Barry. Laboratory Tests 11/22/20 10:58 11/23/20 05:46 Laboratory Tests 11/22/20 10:57: Prothrombin Time 13.2, Prothromb Time International Ratio 0.98, Activated Partial Thromboplast Time 34.9, POC Glucose (Misc Panel) 111H, POC Sodium (Misc Panel) 136, POC Potassium (Misc Panel) 3.5, POC Chloride (Misc Panel) 95L, POC Total CO2 (Misc Panel) 29.0H, POC Blood Urea Nitrogen (Misc Panel 12, POC Ionized Calcium (Misc Panel) 4.5, POC Creatinine (Misc Panel) 0.3L, POC Hematocrit (Misc Panel) 38.0 11/22/20 10:58: White Blood Count 12.1H, Red Blood Count 3.96L, Hemoglobin 12.2, Hematocrit 37.4, Mean Corpuscular Volume 94.4, Mean Corpuscular Hemoglobin 30.8, Mean Corpuscular Hemoglobin Concent 32.6, Red Cell Distribution Width 15.4H, Platelet Count 372, Immature Granulocyte % (Auto) 0.4, Neutrophils (%) (Auto) 83.8H, Lymphocytes (%) (Auto) 9.7L, Monocytes (%) (Auto) 5.8, Eosinophils (%) (Auto) 0.1, Basophils (%) (Auto) 0.2, Neutrophils # (Auto) 10.1H, Lymphocytes # (Auto) 1.2L, Monocytes # (Auto) 0.7, Eosinophils # (Auto) 0.0, Basophils # (Auto) 0.0, Nucleated Red Blood Cells % (auto) 0.0, Total Bilirubin 0.3, Direct Bilirubin 0.1, Aspartate Amino Transf (AST/SGOT) 20, Alanine Aminotransferase (ALT/SGPT) 14, Alkaline Phosphatase 172H, Total Protein 6.7, Albumin 2.8L, Albumin/Globulin Ratio 0.7L, Coronavirus (COVID-19)(PCR) NEGATIVE, Influenza Type A (RT-PCR) NEGATIVE, Influenza Type B (RT-PCR) NEGATIVE, Respiratory Syncytial Virus (PCR) NEGATIVE 11/23/20 05:46: White Blood Count 10.2H, Red Blood Count 3.81L, Hemoglobin 11.6L, Hematocrit 35.6L, Mean Corpuscular Volume 93.4, Mean Corpuscular Hemoglobin 30.4, Mean Corpuscular Hemoglobin Concent 32.6, Red Cell Distribution Width 15.2H, Platelet Count 279, Nucleated Red Blood Cells % (auto) 0.0, Total Bilirubin 0.2, Aspartate Amino Transf (AST/SGOT) 20, Alanine Aminotransferase (ALT/SGPT) 16, Alkaline Phosphatase 155H, Total Protein 6.8, Albumin 2.5L, Albumin/Globulin Ratio 0.6L, Sodium Level 136, Potassium Level 3.3L, Chloride Level 103, Carbon Dioxide Level 25, Anion Gap 8, Blood Urea Nitrogen 8, Creatinine 0.34L, Glomerular Filtration Rate > 60.0, Fasting Glucose 139H, Calcium Level 8.6 Assessment and Plan Impression Ms. Barry is a 60 year old female with a history of current smoker with a history of cervical and ovarian cancer remotely, and more recently stage IV NSCLC diagnosed in 2019, s/p SRS to a frontal brain metastasis at [facility] 30 Gy in 5 fractions completed 01/08/20, and no further cancer-directed treatments [facility] then. She presented to the ED with increasing imbalance and falls at home in recent days. She had a CT scan which shows a larger left cerebellar metastasis in addition to other foci concerning for metastatic lesions. Body imaging shows visceral metastases as well as a cavitary right lung primary mass, and a large fungating left breast mass. We are asked to consider further brain metastasis-directed RT. Stage NSCLC stage IV [id number] Performance Status ECOG 1 Plan We had an extensive discussion with Ms. Barry regarding the diagnosis at hand and available therapeutic options. I reviewed her current imaging and have ordered an MRI head to further assess the extent of her metastases. I have also called [facility] for her prior SRS plan to incorporate in any treatment here. If MRI reveals limited metastases, then I would offer her SRS, 27 Gy in 3 fractions which could be started in the next 2-3 days. Her status as inpatient or outpatient would not matter for this. If she has diffuse small metastases, then I would offer WBRT which could be started immediately, the dose would be 30 Gy in 10 fractions. I discussed these contingencies with her. I agree with the current decadron dosing for now. This could be converted to 8 mg PO BID upon discharge. From there I would manage her outpatient taper. We discussed the logistics of receiving radiation therapy in detail including the need for a 1-time planning session, this can occur inpatient after she has her MRI and we finalize our plan. We reviewed the side effects of RT including fatigue, increased edema, necrosis, and neurocognitive decline (if we are forced to employ WBRT). After discussing the risks, benefits and alternatives to radiation therapy, Ms. Barry was amenable to pursuing radiotherapy. All questions were answered to the patient's satisfaction. We instructed the patient that if there were any questions,concerns or changes in clinical status in the interim to contact us. I gave her our direct office number and she asked me to update her son Alexandre, with whom she resides, which I will do after the MRI is completed. Recommendations MRI head with and without contrast (I have ordered) Agree with current decadron dose for now, would convert to 8 mg PO BID upon discharge Agree with left breast biopsy Pending MRI, either SRS or WBRT as discussed above I will obtain treatment records from [facility] Billing Statement Total time of [58] minutes was spent preparing for the visit [4], obtaining HPI [10], examining the patient [4], reviewing diagnostic tests [8], discussing management options [10], coordinating care [9], and writing this note [13]. ASIM SYLVESTER MD Nov 23, 2020 09:40
[2020-11-23] MEDS ORDERED: LIDOCAINE 1% MDV 20ML VIAL As Ordered ONE (11:27)
[2020-11-23] MEDS ORDERED: SODIUM BICARBONATE 8.4% INJ 50MEQ 50 ML VIAL As Ordered ONE (11:27)
--- NOTE | 2020-11-23 11:47 | REPVR ---
PROCEDURE INFORMATION: Exam: MR Head Without and With Contrast Exam date and time: 11/23/2020 11:13 AM Age: 60 years old Clinical indication: Condition or disease; Cancer; Metastatic or secondary malignancy of brain; Primary cancer: ; [place]; Patient HX: HX lung CA f/u tp CT on pacs; Additional info: Stage iv nsclc with brain metastases on ct/ RT planning TECHNIQUE: Imaging protocol: MR of the head without and with intravenous contrast. Contrast material: PROHANCE; Contrast volume: 8 ml; Contrast route: INTRAVENOUS (IV); COMPARISON: 1. CT Head without contrast 11/22/2020 9:[address] Head without contrast 12/27/2019 9:09:[address] ANGIO HEAD 12/27/2019 9:09:27 AM FINDINGS: Limitations: The study is slightly limited due to motion artifact. Brain: Examination reveals a 2.2 cm rounded heterogeneously enhancing mass in the left posterior cerebellar hemisphere. 1.5 cm heterogeneously enhancing mass is seen in the left anterior cerebellar hemisphere. These are surrounded by a moderate degree of vasogenic edema and new since the previous CT scan 12/27/2019. These are consistent with new intracranial metastasis. There is a new 1.8 cm heterogeneous gyriform enhancement in the right posteroinferior cerebellar hemisphere concerning for intracranial metastasis as well. There is mass effect with effacement of the cortical sulci and basilar cisterns but without significant midline shift or tonsillar herniation. There is a new 5 mm ring-enhancing lesion in the right parietal subcortical white matter axial image 20. New 3 mm ring-enhancing lesion in the right posterior parietal subcortical white matter axial image 19. Significant interval decrease in the size of the heterogeneously enhancing metastasis in the right basal ganglia, currently measuring 1.2 cm in maximum diameter. No acute infarction, acute hemorrhage or midline shift is seen. There is mild patchy increased T2 signal intensity within the bilateral cerebral periventricular white matter, consistent with chronic microvascular ischemic changes. There are multiple small focal areas of chronic ischemia in bilateral frontal, parietal and periatrial white matter. There is no abnormal diffusion weighted signal intensity to suggest an acute ischemic event. There is mild diffuse cerebral atrophy present, consistent with this patient's age. Cerebral ventricles: The ventricular system demonstrates mild diffuse compensatory enlargement. Bones/joints: Unremarkable. Paranasal sinuses: Mild mucosal thickening is seen in the paranasal sinuses. Mastoid air cells: Right-sided mastoid effusions/mastoiditis. Orbital cavity: Unremarkable. Soft tissues: Unremarkable. IMPRESSION: 1. Examination reveals a 2.2 cm rounded heterogeneously enhancing mass in the left posterior cerebellar hemisphere. 1.5 cm heterogeneously enhancing mass is seen in the left anterior cerebellar hemisphere. These are surrounded by a moderate degree of vasogenic edema and new since the previous CT scan 12/27/2019. These are consistent with new intracranial metastasis. There is a new 1.8 cm heterogeneous gyriform enhancement in the right posteroinferior cerebellar hemisphere concerning for intracranial metastasis as well. There is mass effect with effacement of the cortical sulci and basilar cisterns but without significant midline shift or tonsillar herniation. There is a new 5 mm ring-enhancing lesion in the right parietal subcortical white matter axial image 20. New 3 mm ring-enhancing lesion in the right posterior parietal subcortical white matter axial image 19. Significant interval decrease in the size of the heterogeneously enhancing metastasis in the right basal ganglia, currently measuring 1.2 cm in maximum diameter. 2. No acute infarction, acute hemorrhage or midline shift is seen. 3. The study is slightly limited due to motion artifact. 4. Right-sided mastoid effusions/mastoiditis. Electronically signed by: Chris Wright On 11/23/2020 11:46:59 AM
[2020-11-23] MEDS: ENOXAPARIN 40MG/0.4ML SYRINGE (J1650 PER 10MG) SC SCH (12:31)
[2020-11-23 14:00] VITALS: BP 141/86
--- NOTE | 2020-11-23 14:54 | REP ---
INDICATION: P. COMPARISON: None. TECHNIQUE: The procedure was performed by Rohini Rodríguez [facility], under the direct supervision of Dr. Negro. The risks and benefits of the procedure were explained to the patient and an informed consent was obtained both verbally and written. Directly prior to the start of the procedure a formal time-out was completed in the procedure room. FINDINGS: Using ultrasound guidance the left breast mass was localized. The skin was prepped and draped in a sterile fashion. Twenty mL of buffered lidocaine was used as a local anesthetic. Using ultrasound guidance a 14 gauge Bard Marquee coaxial needle biopsy system was inserted and advanced into the left breast mass. Five core biopsy specimens were obtained as well as approximately 10 mL of bloody pus, both specimens were sent to pathology for further analysis. A marker clip was placed at the biopsy site. The patient tolerated the procedure well and there were no immediate complications. After the appropriate amount of monitored convalescence the patient was discharged from the department. IMPRESSION: 1. Ultrasound-guided left breast biopsy and aspiration. <Electronically signed by Rohini Rodríguez > 11/23/20 1343 <Electronically signed by Justin Negro > 11/23/20 [id number]
--- NOTE | 2020-11-23 15:27 | IPNPDOC ---
Date Seen The patient was seen on 11/23/20. Progress Note SUBJECTIVE: To go for breast bx today, radiation per rad/on. MRI brain done, shown below. Persistent tachycardia. Denies increased SOB, chest pain, n/v/d. OBJECTIVE: PHYSICAL EXAMINATION: VS: Please see below CONSTITUTIONAL: Thin appearing female, No acute distress, resting comfortably, AAO x 3 EYES: PERRLA, EOM intact HENT, MOUTH: Normocephalic, atraumatic, moist mucous membranes NECK: SUPPLE, no JVD, no lymphadenopathy, no carotid bruit CV: sinus tachycardia, S1S2 normal, no murmurs/rubs/gallops CHEST: 2.5 x 3 inch breast mass seen growing laterally from left breast, area of induration, swelling and hard to touch surrounding mass. Tenderness present RESPIRATORY: Clear to auscultation bilaterally, no rales/rhonchi/wheezes GI: thin abdomen, BS positive in 4 quadrants, soft, nontender, nondistended, no rebound or guarding, no organomegaly : Deferred MUSCULOSKELETAL: Clubbing of finger nails, normal ROM. No cyanosis, joint deformity, extremity edema INTEGUMENTARY: Intact, no rashes, no lesions, no erythema NEUROLOGIC: Cranial Nerves II-XII are intact, no focal deficits PSYCHIATRIC: Mood and affect are normal LABORATORY DATA: Please see below IMAGING: MRI brain: 1. Examination reveals a 2.2 cm rounded heterogeneously enhancing mass in the left posterior cerebellar hemisphere. 1.5 cm heterogeneously enhancing mass is seen in the left anterior cerebellar hemisphere. These are surrounded by a moderate degree of vasogenic edema and new since the previous CT scan 12/27/2019. These are consistent with new intracranial metastasis. There is a new 1.8 cm heterogeneous gyriform enhancement in the right posteroinferior cerebellar hemisphere concerning for intracranial metastasis as well. There is mass effect with effacement of the cortical sulci and basilar cisterns but without significant midline shift or tonsillar herniation. There is a new 5 mm ring-enhancing lesion in the right parietal subcortical white matter axial image 20. New 3 mm ring-enhancing lesion in the right posterior parietal subcortical white matter axial image 19. Significant interval decrease in the size of the heterogeneously enhancing metastasis in the right basal ganglia, currently measuring 1.2 cm in maximum diameter. 2. No acute infarction, acute hemorrhage or midline shift is seen. 3. The study is slightly limited due to motion artifact. 4. Right-sided mastoid effusions/mastoiditis. CT brain: There is a new mass in the left cerebellar hemisphere with vasogenic edema compressing the 4th ventricle and the mid brain. There is evidence of a mild obstructive hydrocephalus. The mass noted on December 27, 2019 in the right inferior frontal lobe has regressed although there is some adjacent low-density. There is no evidence of intracranial hemorrhage or acute infarction. Findings most compatible with new intracranial metastatic lesion. CT abd/pelvis with contrast: Findings consistent with metastatic malignancy with a soft tissue metastases of the right psoas muscle and left flank subcutaneous fat layer. Retrocrural adenopathy, a small left adrenal metastasis, small right pleural effusion and large left breast mass are also seen. CT chest with contrast: Findings consistent with advanced metastatic malignancy. There is a large mass in the left breast. There is a cavitary mass in the right lung and metastatic pulmonary nodules are seen in the left lung. There is mediastinal lymphadenopathy, right neck lymphadenopathy, and there are skeletal muscle soft tissue metastases as above. Possible small left adrenal metastasis. 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 PLAN: Stage IV adenocarcinoma of lung with metastasis to brain, adrenal, muscle and LN -S/p 5 radiation sessions on last admission to [facility] 01/2020, never followed up after discharge -CT brain, abd/pelvis and chest, MRI brain above -New cerebellar metastatic lesions with symptoms of unsteady gait, lightheadedness at home -Dr. Felix (rad/onc): Agree with current decadron dose for now, would convert to 8 mg PO BID upon discharge, Agree with left breast biopsy. Pending MRI, either SRS or WBRT. Please refer to consult for full note -Dr. Pacheco (med/onc): Following up on records from [facility], made suggestions for treatment. Ordered core needle bx for breast lesion. -Requested records from [facility] for us and specialists to review -C/w Decadron 8 mg by PO Q8 hours Breast mass -Per med/onc: the mass is highly likely from adenocarcinoma of the lung yet this mass is relatively new and according to the patient it is therefore last 3 or 4 weeks at the most. A core needle biopsy will be ordered to confirm the metastatic adenocarcinoma from lung or if it is no breast cancer that he'll need further investigations. -F/u core biopsy results -To f/u with Dr. Pacheco as o/p Sinus achycardia, possibly dehydration, anxiety? -IVFs at 100 cc/hr -monitor Tobacco use -Nicotine patch DVT px -lovenox sc DISPOSITION: Admitted as acute inpatient. med/onc and rad/onc consulted. Requesting [facility] records from medical oncology. VS, I&O, 24H, Fishbone Vital Signs/I&O Vital Signs Date Time Temp Pulse Resp B/P (MAP) Pulse Ox O2 Delivery O2 Flow Rate FiO2 11/23/20 12:03 130 18 95 Room Air 11/23/20 11:24 98.5 11/23/20 06:00 146/67 (93) I&O- Last 24 Hours up to 6 AM 11/23/20 06:00 Intake Total 1740 ml Output Total 650 ml Balance 1090 ml Laboratory Data 24H LABS Laboratory Tests 2 11/23/20 05:46: Nucleated Red Blood Cells % (auto) 0.0, Anion Gap 8, Glomerular Filtration Rate > 60.0, Calcium Level 8.6, Total Bilirubin 0.2, Aspartate Amino Transf (AST/ SGOT) 20, Alanine Aminotransferase (ALT/SGPT) 16, Alkaline Phosphatase 155H, Total Protein 6.8, Albumin 2.5L, Albumin/Globulin Ratio 0.6L CBC/BMP Laboratory Tests 11/23/20 05:46 Current Medications Current Medications Medications (Trade) Dose Ordered Sig/Cherelle Route PRN Reason Start Time Stop Time Status Last Admin Dose Admin Acetaminophen (Tylenol Tab) 650 mg Q4HP PRN PO PAIN OR FEVER 11/23/20 05:15 11/23/20 05:21 Dexamethasone (Decadron) 8 mg Q8H PO 11/22/20 22:00 11/23/20 14:01 Enoxaparin Sodium (Lovenox) 40 mg DAILY SC 11/23/20 09:00 11/22/20 14:23 DC Enoxaparin Sodium (Lovenox) 40 mg DAILY SC 11/23/20 09:00 11/23/20 12:31 Home Med (Med Rec Complete!) ASDIRECTED XX 11/22/20 14:20 11/22/20 14:47 DC Nicotine (Nicoderm Cq 21mg) 1 patch DAILY TD 11/22/20 09:00 11/22/20 17:14 DC Nicotine (Nicoderm Cq 21mg) 1 patch DAILY@1700 TD 11/22/20 17:00 11/22/20 17:30 Sodium Chloride 1,000 ml @ 100 mls/hr Q10H IV 11/22/20 14:05 11/23/20 12:31 Allergies Coded Allergies: Sulfa (Sulfonamide Antibiotics) (Verified Allergy, Mild, RASH, 02/11/20) codeine (Verified Allergy, Mild, rash, 11/22/20) Shirley Cavazos MD Nov 23, 2020 15:27
[2020-11-23] MEDS: NICOTINE 21MG/24HR 1 EA TRANSDERMAL TD SCH (16:49)
[2020-11-23 22:00] VITALS: BP 135/77
[2020-11-24 06:00] VITALS: BP 138/67
[2020-11-24] MEDS: NS 1,000 ML IV SCH ×4 (06:05→20:29)
[2020-11-24 06:43] LABS: HEMATOCRIT 37.1 % (36.0-47.0); HEMOGLOBIN 12.4 g/dl (12.0-15.5); MEAN CORPUSCULAR HEMOGLOBIN 30.2 pg (27.0-33.0); MEAN CORPUSCULAR HGB CONC 33.4 g/dl (32.0-36.5); MEAN CORPUSCULAR VOLUME 90.5 fl (80.0-96.0); PLATELET COUNT, AUTOMATED 387 10^3/uL (150-450); WHITE BLOOD COUNT 14.5 10^3/uL (4.0-10.0)
[2020-11-24 07:05] LABS: ALBUMIN 2.7 GM/DL (3.2-5.2); ALT/SGPT 15 U/L (12-78); BILIRUBIN,TOTAL 0.2 MG/DL (0.2-1.0); BLOOD UREA NITROGEN 12 MG/DL (7-18); CALCIUM LEVEL 8.4 MG/DL (8.5-10.1); CARBON DIOXIDE LEVEL 26 MEQ/L (21-32); CHLORIDE LEVEL 102 MEQ/L (98-107); CREATININE FOR GFR 0.38 MG/DL (0.55-1.30); GLOMERULAR FILTRATION RATE > 60.0 (>51); GLUCOSE, FASTING 152 MG/DL (70-100); POTASSIUM SERUM 3.4 MEQ/L (3.5-5.1); SODIUM LEVEL 136 MEQ/L (136-145)
[2020-11-24] MEDS: ACETAMINOPHEN TAB 650MG DOSE (2X325MG) PO PRN ×3 (08:21→21:00)
[2020-11-24] MEDS: ENOXAPARIN 40MG/0.4ML SYRINGE (J1650 PER 10MG) SC SCH (08:22)
--- NOTE | 2020-11-24 08:22 | RADENCPD ---
Date/Time of Encounter Date of Encounter: Nov 24, 2020 Time of Encounter: 08:14 Encounter Saw Minerva at bedside this AM. She has some imbalance and nausea last night, resolved this AM. Discussed her MRI which shows 4 new lesions conclusively; (2) left cerebellar metastases, (1) right cerebellar, and (1) right parietal. Additionally there is a previously treated right frontal lesion, which is smaller than on prior studies suggesting durable local control. For this limited burden of new metastases I recommend SRS, 27 Gy in 3 fractions. Planning can commence today. I reviewed the side effects of treatment including fatigue, edema and late necrosis. She agreed to treatment. I will update her son Alexandre later today. ASIM SYLVESTER MD Nov 24, 2020 08:22
[2020-11-24 14:00] VITALS: BP 141/83
[2020-11-24] MEDS: NICOTINE 21MG/24HR 1 EA TRANSDERMAL TD SCH (16:02)
--- NOTE | 2020-11-24 16:31 | IPNPDOC ---
Text Note Date of Service The patient was seen on 11/24/20. NOTE SUBJECTIVE: -No acute events overnight PHYSICAL EXAMINATION: VS: Please see below GENERAL: Thin, no acute distress, resting comfortably, AAO x 3 EYES: PERRLA, EOM intact HENT, MOUTH: Normocephalic, atraumatic, moist mucous membranes NECK: SUPPLE, no JVD, no lymphadenopathy, no carotid bruit CV: sinus tachycardia, S1S2 normal, no murmurs/rubs/gallops CHEST: 2.5 x 3 inch breast mass on L lateral breast with area of induration, swelling and hard. TTP RESPIRATORY: Clear to auscultation bilaterally, no rales/rhonchi/wheezes GI: thin abdomen, BS positive in 4 quadrants, soft, nontender, nondistended, no rebound or guarding, no organomegaly MUSCULOSKELETAL: Clubbing of finger nails, normal ROM. No cyanosis, joint deformity, extremity edema NEUROLOGIC: Cranial Nerves II-XII are intact, no focal deficits PSYCHIATRIC: Mood and affect are normal LABORATORY DATA: Reviewed IMAGING: MRI brain: 1. Examination reveals a 2.2 cm rounded heterogeneously enhancing mass in the left posterior cerebellar hemisphere. 1.5 cm heterogeneously enhancing mass is seen in the left anterior cerebellar hemisphere. These are surrounded by a moderate degree of vasogenic edema and new since the previous CT scan 12/27/2019. These are consistent with new intracranial metastasis. There is a new 1.8 cm heterogeneous gyriform enhancement in the right posteroinferior cerebellar hemisphere concerning for intracranial metastasis as well. There is mass effect with effacement of the cortical sulci and basilar cisterns but without significant midline shift or tonsillar herniation. There is a new 5 mm ring-enhancing lesion in the right parietal subcortical white matter axial image 20. New 3 mm ring-enhancing lesion in the right posterior parietal subcortical white matter axial image 19. Significant interval decrease in the size of the heterogeneously enhancing metastasis in the right basal ganglia, currently measuring 1.2 cm in maximum diameter. 2. No acute infarction, acute hemorrhage or midline shift is seen. 3. The study is slightly limited due to motion artifact. 4. Right-sided mastoid effusions/mastoiditis. CT brain: There is a new mass in the left cerebellar hemisphere with vasogenic edema compressing the 4th ventricle and the mid brain. There is evidence of a mild obstructive hydrocephalus. The mass noted on December 27, 2019 in the right inferior frontal lobe has regressed although there is some adjacent low-density. There is no evidence of intracranial hemorrhage or acute infarction. Findings most compatible with new intracranial metastatic lesion. CT abd/pelvis with contrast: Findings consistent with metastatic malignancy with a soft tissue metastases of the right psoas muscle and left flank subcutaneous fat layer. Retrocrural adenopathy, a small left adrenal metastasis, small right pleural effusion and large left breast mass are also seen. CT chest with contrast: Findings consistent with advanced metastatic malignancy. There is a large mass in the left breast. There is a cavitary mass in the right lung and metastatic pulmonary nodules are seen in the left lung. There is mediastinal lymphadenopathy, right neck lymphadenopathy, and there are skeletal muscle soft tissue metastases as above. Possible small left adrenal metastasis. 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 PLAN: Stage IV adenocarcinoma of lung with metastasis to brain, adrenal, muscle and LN -S/p 5 radiation sessions on last admission to [facility] 01/2020, never followed up after discharge -CT brain, abd/pelvis and chest, MRI brain above -New cerebellar metastatic lesions with symptoms of unsteady gait, lightheadedness at home -Dr. Felix (rad/onc): Agree with current decadron dose for now, to convert to 8 mg PO BID upon discharge, agreed with left breast biopsy. s/p brain MRI to guide decision of SRS vs. WBRT. Please refer to consult for full note -Dr. Pacheco (med/onc): Following up on records from [facility]. Ordered core needle bx for breast lesion that was done by IR on 11/23, w/ pending pathology. -Requested records from [facility] for us and specialists to review -C/w Decadron 8 mg PO Q8 hours -On my discussion with Dr. Pacheco he agreed that hospice is an appropriate choice. He would not recommend chemo with a poor ECOG and history of LTFU, but he did caution that it would be useful to get the genetic profiling to see if there would immunotherapy target therapies that she could benefit from. Breast mass -Per med/onc: the mass is highly likely from adenocarcinoma of the lung yet this mass is relatively new and according to the patient it is therefore last 3 or 4 weeks at the most. -core biopsy done by IR on 11/23 -F/u core biopsy results -To f/u with Dr. Pacheco as o/p Sinus achycardia, possibly dehydration, anxiety? -IVFs at 100 cc/hr -monitor Tobacco use -Nicotine patch DVT px -lovenox sc DISPOSITION: Admitted as acute inpatient. med/onc and rad/onc consulted. Requested [facility] records from medical oncology. VS,Fishbone, I+O VS, Fishbone, I+O Laboratory Tests 11/24/20 06:29 Vital Signs Date Time Temp Pulse Resp B/P (MAP) Pulse Ox O2 Delivery O2 Flow Rate FiO2 11/24/20 06:00 96.8 92 18 138/67 (90) 94 Room Air I&O- Last 24 Hours up to 6 AM 11/24/20 06:00 Intake Total 2180 ml Output Total 2600 ml Balance -420 ml PASCUAL WASHINGTON MD Nov 24, 2020 09:52
[2020-11-24 22:00] VITALS: BP 148/56
[2020-11-25] MEDS: ACETAMINOPHEN TAB 650MG DOSE (2X325MG) PO PRN ×2 (05:22→20:16)
[2020-11-25 06:00] VITALS: BP 138/81
[2020-11-25] MEDS: NS 1,000 ML IV SCH ×2 (06:09→14:30)
[2020-11-25 06:20] LABS: HEMOGLOBIN 12.6 g/dl (12.0-15.5); MEAN CORPUSCULAR HEMOGLOBIN 30.7 pg (27.0-33.0); MEAN CORPUSCULAR HGB CONC 33.2 g/dl (32.0-36.5); MEAN CORPUSCULAR VOLUME 92.5 fl (80.0-96.0); PLATELET COUNT, AUTOMATED 377 10^3/uL (150-450); RED BLOOD COUNT 4.11 10^6/uL (4.00-5.40); WHITE BLOOD COUNT 13.4 10^3/uL (4.0-10.0)
[2020-11-25 06:43] LABS: ALBUMIN 2.6 GM/DL (3.2-5.2); ALT/SGPT 31 U/L (12-78); BILIRUBIN,TOTAL 0.2 MG/DL (0.2-1.0); BLOOD UREA NITROGEN 12 MG/DL (7-18); CALCIUM LEVEL 8.3 MG/DL (8.5-10.1); CARBON DIOXIDE LEVEL 29 MEQ/L (21-32); CHLORIDE LEVEL 103 MEQ/L (98-107); CREATININE FOR GFR 0.42 MG/DL (0.55-1.30); GLOMERULAR FILTRATION RATE > 60.0 (>51); GLUCOSE, FASTING 142 MG/DL (70-100); POTASSIUM SERUM 3.5 MEQ/L (3.5-5.1); SODIUM LEVEL 137 MEQ/L (136-145); TOTAL PROTEIN 6.9 GM/DL (6.4-8.2)
[2020-11-25] MEDS: ENOXAPARIN 40MG/0.4ML SYRINGE (J1650 PER 10MG) SC SCH (08:37)
--- NOTE | 2020-11-25 13:23 | IPNPDOC ---
Text Note Date of Service The patient was seen on 11/25/20. NOTE SUBJECTIVE: -No acute events overnight PHYSICAL EXAMINATION: VS: Please see below GENERAL: Thin, no acute distress, resting comfortably, AAO x 3 EYES: PERRLA, EOM intact HENT, MOUTH: Normocephalic, atraumatic, moist mucous membranes NECK: SUPPLE, no JVD, no lymphadenopathy, no carotid bruit CV: sinus tachycardia, S1S2 normal, no murmurs/rubs/gallops CHEST: 2.5 x 3 inch breast mass on L lateral breast with area of induration, swelling and hard. TTP RESPIRATORY: Clear to auscultation bilaterally, no rales/rhonchi/wheezes GI: thin abdomen, BS positive in 4 quadrants, soft, nontender, nondistended, no rebound or guarding, no organomegaly MUSCULOSKELETAL: Clubbing of finger nails, normal ROM. No cyanosis, joint deformity, extremity edema NEUROLOGIC: Cranial Nerves II-XII are intact, no focal deficits PSYCHIATRIC: Mood and affect are normal LABORATORY DATA: Reviewed IMAGING: MRI brain: 1. Examination reveals a 2.2 cm rounded heterogeneously enhancing mass in the left posterior cerebellar hemisphere. 1.5 cm heterogeneously enhancing mass is seen in the left anterior cerebellar hemisphere. These are surrounded by a moderate degree of vasogenic edema and new since the previous CT scan 12/27/2019. These are consistent with new intracranial metastasis. There is a new 1.8 cm heterogeneous gyriform enhancement in the right posteroinferior cerebellar hemisphere concerning for intracranial metastasis as well. There is mass effect with effacement of the cortical sulci and basilar cisterns but without significant midline shift or tonsillar herniation. There is a new 5 mm ring-enhancing lesion in the right parietal subcortical white matter axial image 20. New 3 mm ring-enhancing lesion in the right posterior parietal subcortical white matter axial image 19. Significant interval decrease in the size of the heterogeneously enhancing metastasis in the right basal ganglia, currently measuring 1.2 cm in maximum diameter. 2. No acute infarction, acute hemorrhage or midline shift is seen. 3. The study is slightly limited due to motion artifact. 4. Right-sided mastoid effusions/mastoiditis. CT brain: There is a new mass in the left cerebellar hemisphere with vasogenic edema compressing the 4th ventricle and the mid brain. There is evidence of a mild obstructive hydrocephalus. The mass noted on December 27, 2019 in the right inferior frontal lobe has regressed although there is some adjacent low-density. There is no evidence of intracranial hemorrhage or acute infarction. Findings most compatible with new intracranial metastatic lesion. CT abd/pelvis with contrast: Findings consistent with metastatic malignancy with a soft tissue metastases of the right psoas muscle and left flank subcutaneous fat layer. Retrocrural adenopathy, a small left adrenal metastasis, small right pleural effusion and large left breast mass are also seen. CT chest with contrast: Findings consistent with advanced metastatic malignancy. There is a large mass in the left breast. There is a cavitary mass in the right lung and metastatic pulmonary nodules are seen in the left lung. There is mediastinal lymphadenopathy, right neck lymphadenopathy, and there are skeletal muscle soft tissue metastases as above. Possible small left adrenal metastasis. 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 PLAN: Stage IV adenocarcinoma of lung with metastasis to brain, adrenal, muscle and LN -S/p 5 radiation sessions on last admission to [facility] 01/2020, never followed up after discharge -CT brain, abd/pelvis and chest, MRI brain above -New cerebellar metastatic lesions with symptoms of unsteady gait, lightheadedness at home -Dr. Felix (rad/onc): Agree with current decadron dose for now, to convert to 8 mg PO BID upon discharge, agreed with left breast biopsy. s/p brain MRI to guide decision of SRS vs. WBRT. Please refer to consult for full note -Dr. Pacheco (med/onc): Following up on records from [facility]. Ordered core needle bx for breast lesion that was done by IR on 11/23, w/ pending pathology. -Requested records from [facility] for us and specialists to review -C/w Decadron 8 mg PO Q8 hours -On my discussion with Dr. Pacheco he agreed that hospice is an appropriate choice. He would not recommend chemo with a poor ECOG and history of LTFU, but he did caution that it would be useful to get the genetic profiling to see if there would immunotherapy target therapies that she could benefit from. Breast mass -Per med/onc: the mass is highly likely from adenocarcinoma of the lung yet this mass is relatively new and according to the patient it is therefore last 3 or 4 weeks at the most. -core biopsy done by IR on 11/23 -F/u core biopsy results -To f/u with Dr. Pacheco as o/p Sinus achycardia, possibly dehydration, anxiety? -IVFs at 100 cc/hr -monitor Tobacco use -Nicotine patch DVT px -lovenox sc DISPOSITION: Admitted as acute inpatient. med/onc and rad/onc consulted. Requested [facility] records from medical oncology. VS,Fishbone, I+O VS, Fishbone, I+O Laboratory Tests 11/25/20 06:08 Vital Signs Date Time Temp Pulse Resp B/P (MAP) Pulse Ox O2 Delivery O2 Flow Rate FiO2 11/25/20 06:00 97.7 100 18 138/81 (100) 94 Room Air I&O- Last 24 Hours up to 6 AM 11/25/20 06:00 Intake Total 2970 ml Output Total 4000 ml Balance -1030 ml PASCUAL WASHINGTON MD Nov 25, 2020 08:47
[2020-11-25 14:00] VITALS: BP 157/77
[2020-11-25] MEDS: NICOTINE 21MG/24HR 1 EA TRANSDERMAL TD SCH (16:23)
[2020-11-25 22:00] VITALS: BP 154/76
[2020-11-26] MEDS: NS 1,000 ML IV SCH (02:50)
[2020-11-26] MEDS: ACETAMINOPHEN TAB 650MG DOSE (2X325MG) PO PRN ×3 (05:56→20:59)
[2020-11-26 06:00] VITALS: BP 148/76
[2020-11-26 06:16] LABS: HEMATOCRIT 37.6 % (36.0-47.0); HEMOGLOBIN 12.5 g/dl (12.0-15.5); MEAN CORPUSCULAR HEMOGLOBIN 30.6 pg (27.0-33.0); MEAN CORPUSCULAR HGB CONC 33.2 g/dl (32.0-36.5); MEAN CORPUSCULAR VOLUME 92.2 fl (80.0-96.0); PLATELET COUNT, AUTOMATED 359 10^3/uL (150-450); RED BLOOD COUNT 4.08 10^6/uL (4.00-5.40); WHITE BLOOD COUNT 14.6 10^3/uL (4.0-10.0)
[2020-11-26 06:37] LABS: ALBUMIN 2.4 GM/DL (3.2-5.2); ALT/SGPT 51 U/L (12-78); BILIRUBIN,TOTAL 0.2 MG/DL (0.2-1.0); BLOOD UREA NITROGEN 12 MG/DL (7-18); CALCIUM LEVEL 8.1 MG/DL (8.5-10.1); CARBON DIOXIDE LEVEL 28 MEQ/L (21-32); CHLORIDE LEVEL 102 MEQ/L (98-107); CREATININE FOR GFR 0.33 MG/DL (0.55-1.30); GLOMERULAR FILTRATION RATE > 60.0 (>51); GLUCOSE, FASTING 139 MG/DL (70-100); POTASSIUM SERUM 3.8 MEQ/L (3.5-5.1); SODIUM LEVEL 135 MEQ/L (136-145); TOTAL PROTEIN 6.3 GM/DL (6.4-8.2)
[2020-11-26] MEDS: ENOXAPARIN 40MG/0.4ML SYRINGE (J1650 PER 10MG) SC SCH (08:36)
[2020-11-26] MEDS ORDERED: ONDANSETRON 4 MG TAB PO PRN (09:30)
--- NOTE | 2020-11-26 09:31 | IPNPDOC ---
Text Note Date of Service The patient was seen on 11/26/20. NOTE SUBJECTIVE: -No acute events overnight -Reports some nausea with PO -Had lengthy GOC discussion with her. She absolutely wants to explore every avenue to receive full possible treatment to fight her cancer despite it being advanced. "I have too much to live for." At this time, amenable to STR and not hospice because she wants to give time to explore treatment options and continue XRT with Dr. Wilde. PHYSICAL EXAMINATION: VS: Please see below GENERAL: Thin, no acute distress, resting comfortably, AAO x 3 EYES: PERRLA, EOM intact HENT, MOUTH: Normocephalic, atraumatic, moist mucous membranes NECK: SUPPLE, no JVD, no lymphadenopathy, no carotid bruit CV: sinus tachycardia, S1S2 normal, no murmurs/rubs/gallops CHEST: 2.5 x 3 inch breast mass on L lateral breast with area of induration, swelling and hard. TTP RESPIRATORY: Clear to auscultation bilaterally, no rales/rhonchi/wheezes GI: thin abdomen, BS positive in 4 quadrants, soft, nontender, nondistended, no rebound or guarding, no organomegaly MUSCULOSKELETAL: Clubbing of finger nails, normal ROM. No cyanosis, joint deformity, extremity edema NEUROLOGIC: Cranial Nerves II-XII are intact, no focal deficits PSYCHIATRIC: Mood and affect are normal LABORATORY DATA: Reviewed IMAGING: MRI brain: 1. Examination reveals a 2.2 cm rounded heterogeneously enhancing mass in the left posterior cerebellar hemisphere. 1.5 cm heterogeneously enhancing mass is seen in the left anterior cerebellar hemisphere. These are surrounded by a moderate degree of vasogenic edema and new since the previous CT scan 08/2019. These are consistent with new intracranial metastasis. There is a new 1.8 cm heterogeneous gyriform enhancement in the right posteroinferior cerebellar hemisphere concerning for intracranial metastasis as well. There is mass effect with effacement of the cortical sulci and basilar cisterns but without significant midline shift or tonsillar herniation. There is a new 5 mm ring-enhancing lesion in the right parietal subcortical white matter axial image 20. New 3 mm ring-enhancing lesion in the right posterior parietal subcortical white matter axial image 19. Significant interval decrease in the size of the heterogeneously enhancing metastasis in the right basal ganglia, currently measuring 1.2 cm in maximum diameter. 2. No acute infarction, acute hemorrhage or midline shift is seen. 3. The study is slightly limited due to motion artifact. 4. Right-sided mastoid effusions/mastoiditis. CT brain: There is a new mass in the left cerebellar hemisphere with vasogenic edema comp ressing the 4th ventricle and the mid brain. There is evidence of a mild obstructive hydrocephalus. The mass noted on December 27, 2019 in the right inferior frontal lobe has regressed although there is some adjacent low-density. There is no evidence of intracranial hemorrhage or acute infarction. Findings most compatible with new intracranial metastatic lesion. CT abd/pelvis with contrast: Findings consistent with metastatic malignancy with a soft tissue metastases of the right psoas muscle and left flank subcutaneous fat layer. Retrocrural adenopathy, a small left adrenal metastasis, small right pleural effusion and large left breast mass are also seen. CT chest with contrast: Findings consistent with advanced metastatic malignancy. There is a large mass in the left breast. There is a cavitary mass in the right lung and metastatic pulmonary nodules are seen in the left lung. There is mediastinal lymphadenopathy, right neck lymphadenopathy, and there are skeletal muscle soft tissue metastases as above. Possible small left adrenal metastasis. 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 PLAN: Stage IV adenocarcinoma of lung with metastasis to brain, adrenal, muscle and LN -S/p 5 radiation sessions on last admission to [facility] 01/2020, never followed up after discharge -CT brain, abd/pelvis and chest, MRI brain above -New cerebellar metastatic lesions with symptoms of unsteady gait, lightheadedness at home -Dr. Felix (rad/onc): Agree with current decadron dose for now, to convert to 8 mg PO BID upon discharge, agreed with left breast biopsy. s/p brain MRI to guide decision of SRS vs. WBRT. Please refer to consult for full note -Dr. Pacheco (med/onc): Following up on records from [facility]. Ordered core needle bx for breast lesion that was done by IR on 11/23, w/ pending pathology. -Requested records from [facility] for us and specialists to review -C/w Decadron 8 mg PO Q8 hours -On my discussion with Dr. Pacheco he agreed that hospice is an appropriate choice. He would not recommend chemo with a poor ECOG and history of LTFU, but he did caution that it would be useful to get the genetic profiling to see if there would immunotherapy target therapies that she could benefit from. Discussed with team getting the [facility] records and request was sent out on 11/25. Breast mass -Per med/onc: the mass is highly likely from adenocarcinoma of the lung yet this mass is relatively new and according to the patient it is therefore last 3 or 4 weeks at the most. -core biopsy done by IR on 11/23 -F/u core biopsy results -To f/u with Dr. Pacheco as o/p Sinus achycardia, possibly dehydration, anxiety? -dc fluids -monitor Tobacco use -Nicotine patch DVT px -lovenox sc DISPOSITION: Admitted as acute inpatient. med/onc and rad/onc consulted. Requested [facility] records from medical oncology. VS,Fishbone, I+O VS, Fishbone, I+O Laboratory Tests 11/26/20 05:57 Vital Signs Date Time Temp Pulse Resp B/P (MAP) Pulse Ox O2 Delivery O2 Flow Rate FiO2 11/26/20 06:00 97.6 89 18 148/76 (100) 93 Room Air I&O- Last 24 Hours up to 6 AM 11/26/20 06:00 Intake Total 3800 ml Output Total 2525 ml Balance 1275 ml PASCUAL WASHINGTON MD Nov 26, 2020 09:31
[2020-11-26 10:00] VITALS: BP 156/78
--- NOTE | 2020-11-26 10:18 | RADENCPD ---
Date/Time of Encounter Date of Encounter: Nov 26, 2020 Time of Encounter: 10:09 Encounter Met with Minerva at bedside today. Reviewed her breast biopsy results with her, showing a second primary breast cancer. I explained that this also is a treatable cancer with appropriate systemic therapy, and that does not alter my plan to administer SRS to her brain metastases. I anticipate RT will commence on Monday11/30/20. She will receive 27 Gy in 3 fractions. I recommend that she have close outpatient follow up with medical oncology when she is discharged. I would not recommend consideration of hospice at this time for several reasons; Her lung cancer is treatment naive and may respond well to first-line chemoimmunotherapy; her breast cancer may be receptor positive which means that it would likely respond to an aromatase inhibitor (a once daily pill with minimal side effects); she has been without treatment for her cancer for nearly 12 months and she has maintained a good performance status until this admission, which suggestive of a relatively indolent tumor; her previous course of SRS was successful, which portends that the present course is likely to result in durable control in the brain. At Minerva's request I called and updated her son Alexandre ( ) he agreed with the plan and raised question of safe discharge for his mom, I deferred to the hospitalist team regarding her disposition. ASIM SYLVESTER MD Nov 26, 2020 10:17
[2020-11-26 14:00] VITALS: BP 156/76
[2020-11-26] MEDS: NICOTINE 21MG/24HR 1 EA TRANSDERMAL TD SCH (16:07)
[2020-11-26 22:00] VITALS: BP 148/88
[2020-11-27 06:00] VITALS: BP 148/84
[2020-11-27 06:19] LABS: HEMATOCRIT 39.2 % (36.0-47.0); MEAN CORPUSCULAR HEMOGLOBIN 30.2 pg (27.0-33.0); MEAN CORPUSCULAR HGB CONC 33.2 g/dl (32.0-36.5); PLATELET COUNT, AUTOMATED 349 10^3/uL (150-450); RED BLOOD COUNT 4.31 10^6/uL (4.00-5.40); WHITE BLOOD COUNT 18.4 10^3/uL (4.0-10.0)
[2020-11-27 06:48] LABS: BLOOD UREA NITROGEN 17 MG/DL (7-18); CALCIUM LEVEL 8.4 MG/DL (8.5-10.1); CARBON DIOXIDE LEVEL 30 MEQ/L (21-32); CHLORIDE LEVEL 100 MEQ/L (98-107); CREATININE FOR GFR 0.41 MG/DL (0.55-1.30); GLOMERULAR FILTRATION RATE > 60.0 (>51); GLUCOSE, FASTING 146 MG/DL (70-100); POTASSIUM SERUM 4.2 MEQ/L (3.5-5.1); SODIUM LEVEL 135 MEQ/L (136-145)
[2020-11-27] MEDS: ENOXAPARIN 40MG/0.4ML SYRINGE (J1650 PER 10MG) SC SCH (07:41)
[2020-11-27] MEDS: ACETAMINOPHEN TAB 650MG DOSE (2X325MG) PO PRN ×3 (07:41→20:59)
--- NOTE | 2020-11-27 12:06 | IPNPDOC ---
Text Note Date of Service The patient was seen on 11/27/20. NOTE SUBJECTIVE: -No acute events overnight -Reports some nausea with PO -Was refusing rehab despite being weak and inability to secure 24h care at home, because she wants to return to care for her dog. We had a lengthy discussion that she is at risk of falling and causing bodily harm and potential fractures and would be best if she went to rehab until she was strong enough to be home safely. She now agrees to the prospect of discharge to rehab in [place] once we understand the XRT plan per Dr. Felix so we can set up transport etc to radiation while in rehab. PHYSICAL EXAMINATION: VS: Please see below GENERAL: Thin, no acute distress, resting comfortably, AAO x 3 EYES: PERRLA, EOM intact HENT, MOUTH: Normocephalic, atraumatic, moist mucous membranes NECK: SUPPLE, no JVD, no lymphadenopathy, no carotid bruit CV: sinus tachycardia, S1S2 normal, no murmurs/rubs/gallops CHEST: 2.5 x 3 inch breast mass on L lateral breast with area of induration, swelling and hard. TTP RESPIRATORY: Clear to auscultation bilaterally, no rales/rhonchi/wheezes GI: thin abdomen, BS positive in 4 quadrants, soft, nontender, nondistended, no rebound or guarding, no organomegaly MUSCULOSKELETAL: Clubbing of finger nails, normal ROM. No cyanosis, joint deformity, extremity edema NEUROLOGIC: Cranial Nerves II-XII are intact, no focal deficits PSYCHIATRIC: Mood and affect are normal LABORATORY DATA: Reviewed. Leukocytosis to WBC 18.4 IMAGING: MRI brain: 1. Examination reveals a 2.2 cm rounded heterogeneously enhancing mass in the left posterior cerebellar hemisphere. 1.5 cm heterogeneously enhancing mass is seen in the left anterior cerebellar hemisphere. These are surrounded by a moderate degree of vasogenic edema and new since the previous CT scan 12/27/2019. These are consistent with new intracranial metastasis. There is a new 1.8 cm heterogeneous gyriform enhancement in the right posteroinferior cerebellar hemisphere concerning for intracranial metastasis as well. There is mass effect with effacement of the cortical sulci and basilar cisterns but without significant midline shift or tonsillar herniation. There is a new 5 mm ring-enhancing lesion in the right parietal subcortical white matter axial image 20. New 3 mm ring-enhancing lesion in the right posterior parietal subcortical white matter axial image 19. Significant interval decrease in the size of the heterogeneously enhancing metastasis in the right basal ganglia, currently measuring 1.2 cm in maximum diameter. 2. No acute infarction, acute hemorrhage or midline shift is seen. 3. The study is slightly limited due to motion artifact. 4. Right-sided mastoid effusions/mastoiditis. CT brain: There is a new mass in the left cerebellar hemisphere with vasogenic edema compressing the 4th ventricle and the mid brain. There is evidence of a mild obstructive hydrocephalus. The mass noted on December 27, 2019 in the right inferior frontal lobe has regressed although there is some adjacent low-density. There is no evidence of intracranial hemorrhage or acute infarction. Findings most compatible with new intracranial metastatic lesion. CT abd/pelvis with contrast: Findings consistent with metastatic malignancy with a soft tissue metastases of the right psoas muscle and left flank subcutaneous fat layer. Retrocrural adenopathy, a small left adrenal metastasis, small right pleural effusion and large left breast mass are also seen. CT chest with contrast: Findings consistent with advanced metastatic malignancy. There is a large mass in the left breast. There is a cavitary mass in the right lung and metastatic pulmonary nodules are seen in the left lung. There is mediastinal lymphadenopathy, right neck lymphadenopathy, and there are skeletal muscle soft tissue metastases as above. Possible small left adrenal metastasis. 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 PLAN: Stage IV adenocarcinoma of lung with metastasis to brain, adrenal, muscle and LN -S/p 5 radiation sessions on last admission to [facility] 01/2020, never followed up after discharge -CT brain, abd/pelvis and chest, MRI brain above -New cerebellar metastatic lesions with symptoms of unsteady gait, lightheadedness at home -Dr. Felix (rad/onc): Agree with current decadron dose for now, to convert to 8 mg PO BID upon discharge, agreed with left breast biopsy. s/p brain MRI to guide decision of SRS vs. WBRT. Please refer to consult for full note. To speak with him about tentative radiation therapy schedule. -Dr. Pacheco (med/onc): Following up on records from [facility]. Ordered core needle bx for breast lesion that was done by IR on 11/23, w/ pending pathology. -Requested records from [facility] for us and specialists to review -C/w Decadron 8 mg PO Q8 hours -On my discussion with Dr. Pacheco he agreed that hospice is an appropriate choice. He would not recommend chemo with a poor COG, but he did caution that it would be useful to get the genetic profiling to see if there would immunotherapy target therapies that she could benefit from. [facility] records arrived and sent to Dr. Felix, will also communicate with Dr. Pacheco for update. Breast mass -Per med/onc: the mass is highly likely from adenocarcinoma of the lung yet this mass is relatively new and according to the patient it is therefore last 3 or 4 weeks at the most. -core biopsy done by IR on 11/23 -F/u core biopsy results -To f/u with Dr. Pacheco as o/p Sinus achycardia, possibly dehydration, anxiety? resolved after hydration -monitor Tobacco use -Nicotine patch DVT px -lovenox sc DISPOSITION: Admitted as acute inpatient. med/onc and rad/onc consulted. PT/OT with PFS onboard VS,Fishbone, I+O VS, Fishbone, I+O Laboratory Tests 11/27/20 06:06 Vital Signs Date Time Temp Pulse Resp B/P (MAP) Pulse Ox O2 Delivery O2 Flow Rate FiO2 11/27/20 06:00 97.6 99 17 148/84 (105) 95 Room Air I&O- Last 24 Hours up to 6 AM 11/27/20 06:00 Intake Total 1350 ml Output Total 2025 ml Balance -675 ml PASCUAL WASHINGTON MD Nov 27, 2020 09:51
[2020-11-27 14:00] VITALS: BP 147/83
[2020-11-27] MEDS: NICOTINE 21MG/24HR 1 EA TRANSDERMAL TD SCH (15:48)
[2020-11-27 22:00] VITALS: BP 147/83
[2020-11-28] MEDS: ACETAMINOPHEN TAB 650MG DOSE (2X325MG) PO PRN ×2 (05:20→21:35)
[2020-11-28 06:00] VITALS: BP 145/84
[2020-11-28] MEDS: ENOXAPARIN 40MG/0.4ML SYRINGE (J1650 PER 10MG) SC SCH (08:06)
--- NOTE | 2020-11-28 13:31 | IPNPDOC ---
Text Note Date of Service The patient was seen on 11/28/20. NOTE SUBJECTIVE: -No acute events overnight PHYSICAL EXAMINATION: VS: Please see below GENERAL: Thin, no acute distress, resting comfortably, AAO x 3 EYES: PERRLA, EOM intact HENT, MOUTH: Normocephalic, atraumatic, moist mucous membranes NECK: SUPPLE, no JVD, no lymphadenopathy, no carotid bruit CV: sinus tachycardia, S1S2 normal, no murmurs/rubs/gallops CHEST: 2.5 x 3 inch breast mass on L lateral breast with area of induration, swelling and hard. TTP RESPIRATORY: Clear to auscultation bilaterally, no rales/rhonchi/wheezes GI: thin abdomen, BS positive in 4 quadrants, soft, nontender, nondistended, no rebound or guarding, no organomegaly MUSCULOSKELETAL: Clubbing of finger nails, normal ROM. No cyanosis, joint deformity, extremity edema NEUROLOGIC: Cranial Nerves II-XII are intact, no focal deficits PSYCHIATRIC: Mood and affect are normal LABORATORY DATA: Reviewed. IMAGING: MRI brain: 1. Examination reveals a 2.2 cm rounded heterogeneously enhancing mass in the left posterior cerebellar hemisphere. 1.5 cm heterogeneously enhancing mass is seen in the left anterior cerebellar hemisphere. These are surrounded by a moderate degree of vasogenic edema and new since the previous CT scan 12/27/2019. These are consistent with new intracranial metastasis. There is a new 1.8 cm heterogeneous gyriform enhancement in the right posteroinferior cerebellar hemisphere concerning for intracranial metastasis as well. There is mass effect with effacement of the cortical sulci and basilar cisterns but without significant midline shift or tonsillar herniation. There is a new 5 mm ring-enhancing lesion in the right parietal subcortical white matter axial image 20. New 3 mm ring-enhancing lesion in the right posterior parietal subcortical white matter axial image 19. Significant interval decrease in the size of the heterogeneously enhancing metastasis in the right basal ganglia, currently measuring 1.2 cm in maximum diameter. 2. No acute infarction, acute hemorrhage or midline shift is seen. 3. The study is slightly limited due to motion artifact. 4. Right-sided mastoid effusions/mastoiditis. CT brain: There is a new mass in the left cerebellar hemisphere with vasogenic edema compressing the 4th ventricle and the mid brain. There is evidence of a mild obstructive hydrocephalus. The mass noted on December 27, 2019 in the right inferior frontal lobe has regressed although there is some adjacent low-density. There is no evidence of intracranial hemorrhage or acute infarction. Findings most compatible with new intracranial metastatic lesion. CT abd/pelvis with contrast: Findings consistent with metastatic malignancy with a soft tissue metastases of the right psoas muscle and left flank subcutaneous fat layer. Retrocrural adenopathy, a small left adrenal metastasis, small right pleural effusion and large left breast mass are also seen. CT chest with contrast: Findings consistent with advanced metastatic malignancy. There is a large mass in the left breast. There is a cavitary mass in the right lung and metastatic pulmonary nodules are seen in the left lung. There is mediastinal lymphadenopathy, right neck lymphadenopathy, and there are skeletal muscle soft tissue metastases as above. Possible small left adrenal metastasis. 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 PLAN: Stage IV adenocarcinoma of lung with metastasis to brain, adrenal, muscle and LN -S/p 5 radiation sessions on last admission to [facility] 01/2020, never followed up after discharge -CT brain, abd/pelvis and chest, MRI brain above -New cerebellar metastatic lesions with symptoms of unsteady gait, lightheadedness at home -Dr. Felix (rad/onc): Agree with current decadron dose for now, to convert to 8 mg PO BID upon discharge, agreed with left breast biopsy. s/p brain MRI to guide decision of SRS vs. WBRT. Please refer to consult for full note. To speak with him about tentative radiation therapy schedule as we plan for STR discharge. -Dr. Pacheco (med/onc): Following up on records from [facility]. Ordered core needle bx for breast lesion that was done by IR on 11/23, w/ pending pathology. -Requested records from [facility] for us and specialists to review -C/w Decadron 8 mg PO Q8 hours -On my discussion with Dr. Pacheco he agreed that hospice is an appropriate choice. He would not recommend chemo with a poor COG, but he did caution that it would be useful to get the genetic profiling to see if there would immunotherapy target therapies that she could benefit from. [facility] records arrived and sent to Dr. Felix and communicated with Dr. Pacheco. Breast mass -Per med/onc: the mass is highly likely from adenocarcinoma of the lung yet this mass is relatively new and according to the patient it is therefore last 3 or 4 weeks at the most. -core biopsy done by IR on 11/23 -F/u core biopsy results -To f/u with Dr. Pacheco as o/p Sinus achycardia, possibly dehydration, anxiety? resolved after hydration -monitor Tobacco use -Nicotine patch DVT px -lovenox sc DISPOSITION: Admitted as acute inpatient. med/onc and rad/onc consulted. PT/OT with PFS onboard VS,Fishbone, I+O VS, Fishbone, I+O Vital Signs Date Time Temp Pulse Resp B/P (MAP) Pulse Ox O2 Delivery O2 Flow Rate FiO2 11/28/20 06:00 97.7 96 16 145/84 (104) 96 Room Air I&O- Last 24 Hours up to 6 AM 11/28/20 06:00 Intake Total 2560 ml Output Total 1200 ml Balance 1360 ml PASCUAL WASHINGTON MD Nov 28, 2020 09:10
[2020-11-28 14:00] VITALS: BP 142/70
[2020-11-28] MEDS: NICOTINE 21MG/24HR 1 EA TRANSDERMAL TD SCH (16:49)
[2020-11-28 22:00] VITALS: BP 120/72
[2020-11-29] MEDS ORDERED: NS 500 ML IV ONE (05:40)
[2020-11-29] MEDS: ACETAMINOPHEN TAB 650MG DOSE (2X325MG) PO PRN ×3 (05:47→21:15)
[2020-11-29 06:00] VITALS: BP 143/66
[2020-11-29 07:00] LABS: HEMATOCRIT 39.2 % (36.0-47.0); HEMOGLOBIN 12.8 g/dl (12.0-15.5); MEAN CORPUSCULAR HEMOGLOBIN 30.5 pg (27.0-33.0); MEAN CORPUSCULAR HGB CONC 32.7 g/dl (32.0-36.5); MEAN CORPUSCULAR VOLUME 93.6 fl (80.0-96.0); PLATELET COUNT, AUTOMATED 307 10^3/uL (150-450); RED BLOOD COUNT 4.19 10^6/uL (4.00-5.40); WHITE BLOOD COUNT 21.2 10^3/uL (4.0-10.0)
[2020-11-29 07:28] LABS: BLOOD UREA NITROGEN 22 MG/DL (7-18); CALCIUM LEVEL 8.2 MG/DL (8.5-10.1); CARBON DIOXIDE LEVEL 27 MEQ/L (21-32); CHLORIDE LEVEL 99 MEQ/L (98-107); CREATININE FOR GFR 0.45 MG/DL (0.55-1.30); GLOMERULAR FILTRATION RATE > 60.0 (>51); GLUCOSE, FASTING 162 MG/DL (70-100); POTASSIUM SERUM 4.3 MEQ/L (3.5-5.1); SODIUM LEVEL 134 MEQ/L (136-145)
[2020-11-29 08:00] VITALS: BP 148/75
[2020-11-29] MEDS: ENOXAPARIN 40MG/0.4ML SYRINGE (J1650 PER 10MG) SC SCH (09:22)
--- NOTE | 2020-11-29 10:57 | IPNPDOC ---
Text Note Date of Service The patient was seen on 11/29/20. NOTE SUBJECTIVE: -No acute events overnight -Dr. Wilde confirmed that she will be receiving radiation on 11/30 daily through 12/02 for likely discharge to rehab on 12/03 PHYSICAL EXAMINATION: VS: Please see below GENERAL: Thin, no acute distress, resting comfortably, AAO x 3 EYES: PERRLA, EOM intact HENT, MOUTH: Normocephalic, atraumatic, moist mucous membranes NECK: SUPPLE, no JVD, no lymphadenopathy, no carotid bruit CV: sinus tachycardia, S1S2 normal, no murmurs/rubs/gallops CHEST: 2.5 x 3 inch breast mass on L lateral breast with area of induration, swelling and hard. TTP RESPIRATORY: Clear to auscultation bilaterally, no rales/rhonchi/wheezes GI: thin abdomen, BS positive in 4 quadrants, soft, nontender, nondistended, no rebound or guarding, no organomegaly MUSCULOSKELETAL: Clubbing of finger nails, normal ROM. No cyanosis, joint deformity, extremity edema NEUROLOGIC: Cranial Nerves II-XII are intact, no focal deficits PSYCHIATRIC: Mood and affect are normal LABORATORY DATA: Reviewed. Worsening leukocytosis in the setting of steroids. WBC now 21.2 IMAGING: MRI brain: 1. Examination reveals a 2.2 cm rounded heterogeneously enhancing mass in the left posterior cerebellar hemisphere. 1.5 cm heterogeneously enhancing mass is seen in the left anterior cerebellar hemisphere. These are surrounded by a moderate degree of vasogenic edema and new since the previous CT scan 12/27/2019. These are consistent with new intracranial metastasis. There is a new 1.8 cm heterogeneous gyriform enhancement in the right posteroinferior cerebellar hemisphere concerning for intracranial metastasis as well. There is mass effect with effacement of the cortical sulci and basilar cisterns but without significant midline shift or tonsillar herniation. There is a new 5 mm ring-enhancing lesion in the right parietal subcortical white matter axial image 20. New 3 mm ring-enhancing lesion in the right posterior parietal subcortical white matter axial image 19. Significant interval decrease in the size of the heterogeneously enhancing metastasis in the right basal ganglia, currently measuring 1.2 cm in maximum diameter. 2. No acute infarction, acute hemorrhage or midline shift is seen. 3. The study is slightly limited due to motion artifact. 4. Right-sided mastoid effusions/mastoiditis. CT brain: There is a new mass in the left cerebellar hemisphere with vasogenic edema compressing the 4th ventricle and the mid brain. There is evidence of a mild obstructive hydrocephalus. The mass noted on December 27, 2019 in the right inferior frontal lobe has regressed although there is some adjacent low-density. There is no evidence of intracranial hemorrhage or acute infarction. Findings most compatible with new intracranial metastatic lesion. CT abd/pelvis with contrast: Findings consistent with metastatic malignancy with a soft tissue metastases of the right psoas muscle and left flank subcutaneous fat layer. Retrocrural adenopathy, a small left adrenal metastasis, small right pleural effusion and large left breast mass are also seen. CT chest with contrast: Findings consistent with advanced metastatic malignancy. There is a large mass in the left breast. There is a cavitary mass in the right lung and metastatic pulmonary nodules are seen in the left lung. There is mediastinal lymphadenopathy, right neck lymphadenopathy, and there are skeletal muscle soft tissue metastases as above. Possible small left adrenal metastasis. 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 PLAN: Stage IV adenocarcinoma of lung with metastasis to brain, adrenal, muscle and LN -S/p 5 radiation sessions on last admission to [facility] 01/2020, was LTFU after discharge -CT brain, abd/pelvis and chest, MRI brain above -New cerebellar metastatic lesions with symptoms of unsteady gait, lightheadedness at home pending radiation by Dr. Felix scheduled for 11/30 though 12/02, tentatively planned for 3 sessions. -Dr. Felix (rad/onc): Agree with current decadron dose for now, to convert to 8 mg PO BID upon discharge, agreed with left breast biopsy that was done. s/p brain MRI with plan for radiation beginning on 11/30. -Dr. Pacheco (med/onc): Ordered core needle bx for breast lesion that was done by IR on 11/23, w/ pending pathology. [facility] records show favorable molecular profiling for potential immunotherapy, to discuss with her in the outpatient setting. -C/w Decadron 8 mg PO Q8 hours for now Breast mass -Per med/onc: the mass is highly likely from adenocarcinoma of the lung yet this mass is relatively new and according to the patient it is therefore last 3 or 4 weeks at the most. -core biopsy done by IR on 11/23 -F/u core biopsy results -To f/u with Dr. Pacheco as o/p Sinus tachycardia, possibly dehydration, anxiety? resolved after hydration -monitor Tobacco use -Nicotine patch DVT px -lovenox sc DISPOSITION: Admitted as acute inpatient. med/onc and rad/onc consulted. PT/OT with PFS onboard with plan for [place] rehab after radiation while inpatient. VS,Fishbone, I+O VS, Fishbone, I+O Laboratory Tests 11/29/20 06:42 Vital Signs Date Time Temp Pulse Resp B/P (MAP) Pulse Ox O2 Delivery O2 Flow Rate FiO2 11/29/20 06:00 98.2 90 17 143/66 (91) 95 Room Air I&O- Last 24 Hours up to 6 AM 11/29/20 06:00 Intake Total 1747 ml Output Total 1425 ml Balance 322 ml PASCUAL WASHINGTON MD Nov 29, 2020 08:15
[2020-11-29 14:00] VITALS: BP 146/71
[2020-11-29] MEDS: NICOTINE 21MG/24HR 1 EA TRANSDERMAL TD SCH (16:10)
[2020-11-29 22:00] VITALS: BP 152/82
[2020-11-30] MEDS: ACETAMINOPHEN TAB 650MG DOSE (2X325MG) PO PRN ×3 (05:19→20:12)
[2020-11-30 06:00] VITALS: BP 150/75
[2020-11-30 06:03] LABS: HEMATOCRIT 37.6 % (36.0-47.0); HEMOGLOBIN 12.4 g/dl (12.0-15.5); MEAN CORPUSCULAR HEMOGLOBIN 30.3 pg (27.0-33.0); MEAN CORPUSCULAR VOLUME 91.9 fl (80.0-96.0); PLATELET COUNT, AUTOMATED 302 10^3/uL (150-450); RED BLOOD COUNT 4.09 10^6/uL (4.00-5.40)
[2020-11-30 06:33] LABS: BLOOD UREA NITROGEN 21 MG/DL (7-18); CALCIUM LEVEL 8.2 MG/DL (8.5-10.1); CARBON DIOXIDE LEVEL 28 MEQ/L (21-32); CHLORIDE LEVEL 98 MEQ/L (98-107); CREATININE FOR GFR 0.33 MG/DL (0.55-1.30); GLOMERULAR FILTRATION RATE > 60.0 (>51); GLUCOSE, FASTING 134 MG/DL (70-100); POTASSIUM SERUM 4.5 MEQ/L (3.5-5.1); SODIUM LEVEL 133 MEQ/L (136-145)
[2020-11-30] MEDS: ENOXAPARIN 40MG/0.4ML SYRINGE (J1650 PER 10MG) SC SCH (09:50)
--- NOTE | 2020-11-30 11:11 | IPNPDOC ---
Text Note Date of Service The patient was seen on 11/30/20. NOTE SUBJECTIVE: -No acute events overnight PHYSICAL EXAMINATION: VS: Please see below GENERAL: Thin, no acute distress, resting comfortably, AAO x 3 EYES: PERRLA, EOM intact HENT, MOUTH: Normocephalic, atraumatic, moist mucous membranes NECK: SUPPLE, no JVD, no lymphadenopathy, no carotid bruit CV: sinus tachycardia, S1S2 normal, no murmurs/rubs/gallops CHEST: 2.5 x 3 inch breast mass on L lateral breast with area of induration, swelling and hard. TTP RESPIRATORY: Clear to auscultation bilaterally, no rales/rhonchi/wheezes GI: thin abdomen, BS positive in 4 quadrants, soft, nontender, nondistended, no rebound or guarding, no organomegaly MUSCULOSKELETAL: Clubbing of finger nails, normal ROM. No cyanosis, joint deformity, extremity edema NEUROLOGIC: Cranial Nerves II-XII are intact, no focal deficits PSYCHIATRIC: Mood and affect are normal LABORATORY DATA: Reviewed. Worsening leukocytosis in the setting of steroids. WBC now 21.2 IMAGING: MRI brain: 1. Examination reveals a 2.2 cm rounded heterogeneously enhancing mass in the left posterior cerebellar hemisphere. 1.5 cm heterogeneously enhancing mass is seen in the left anterior cerebellar hemisphere. These are surrounded by a moderate degree of vasogenic edema and new since the previous CT scan 2019. These are consistent with new intracranial metastasis. There is a new 1.8 cm heterogeneous gyriform enhancement in the right posteroinferior cerebellar hemisphere concerning for intracranial metastasis as well. There is mass effect with effacement of the cortical sulci and basilar cisterns but without significant midline shift or tonsillar herniation. There is a new 5 mm ring-enhancing lesion in the right parietal subcortical white matter axial image 20. New 3 mm ring-enhancing lesion in the right posterior parietal subcortical white matter axial image 19. Significant interval decrease in the size of the heterogeneously enhancing metastasis in the right basal ganglia, currently measuring 1.2 cm in maximum diameter. 2. No acute infarction, acute hemorrhage or midline shift is seen. 3. The study is slightly limited due to motion artifact. 4. Right-sided mastoid effusions/mastoiditis. CT brain: There is a new mass in the left cerebellar hemisphere with vasogenic edema compressing the 4th ventricle and the mid brain. There is evidence of a mild obstructive hydrocephalus. The mass noted on December 27, 2019 in the right inferior frontal lobe has regressed although there is some adjacent low-density. There is no evidence of intracranial hemorrhage or acute infarction. Findings most compatible with new intracranial metastatic lesion. CT abd/pelvis with contrast: Findings consistent with metastatic malignancy with a soft tissue metastases of the right psoas muscle and left flank subcutaneous fat layer. Retrocrural adenopathy, a small left adrenal metastasis, small right pleural effusion and large left breast mass are also seen. CT chest with contrast: Findings consistent with advanced metastatic malignancy. There is a large mass in the left breast. There is a cavitary mass in the right lung and metastatic pulmonary nodules are seen in the left lung. There is mediastinal lymphadenopathy, right neck lymphadenopathy, and there are skeletal muscle soft tissue metastases as above. Possible small left adrenal metastasis. 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 PLAN: Stage IV adenocarcinoma of lung with metastasis to brain, adrenal, muscle and LN -S/p 5 radiation sessions on last admission to [facility] 01/2020, was LTFU after discharge -CT brain, abd/pelvis and chest, MRI brain above -New cerebellar metastatic lesions with symptoms of unsteady gait, lightheadedness at home pending radiation by Dr. Felix scheduled for 11/30 though 12/02, tentatively planned for 3 sessions. -Dr. Felix (rad/onc): Agree with current decadron dose for now, to convert to 8 mg PO BID upon discharge, agreed with left breast biopsy that was done. s/p brain MRI with plan for radiation beginning on 11/30 and going daily through 12/02 after which she will be discharged to rehab on 12/03 and then follow up as an outpatient. -Dr. Pacheco (med/onc): Ordered core needle bx for breast lesion that was done by IR on 11/23, w/ pending pathology. [facility] records show favorable molecular profiling for potential immunotherapy, to discuss with her in the outpatient setting. -C/w Decadron 8 mg PO Q8 hours for now Breast mass -Per med/onc: the mass is highly likely from adenocarcinoma of the lung yet this mass is relatively new and according to the patient it is therefore last 3 or 4 weeks at the most. -core biopsy done by IR on 11/23 -F/u core biopsy results -To f/u with Dr. Pacheco as o/p Sinus tachycardia, possibly dehydration, anxiety? resolved after hydration -monitor Tobacco use -Nicotine patch DVT px -lovenox sc DISPOSITION: Admitted as acute inpatient. med/onc and rad/onc consulted. PT/OT with PFS onboard with plan for [place] rehab after radiation while inpatient. VS,Fishbone, I+O VS, Fishbone, I+O Laboratory Tests 11/30/20 05:49 Vital Signs Date Time Temp Pulse Resp B/P (MAP) Pulse Ox O2 Delivery O2 Flow Rate FiO2 11/30/20 06:00 98.4 86 20 150/75 (100) 95 11/29/20 14:00 Room Air I&O- Last 24 Hours up to 6 AM 11/30/20 05:59 Intake Total 1830 ml Output Total 1400 ml Balance 430 ml PASCUAL WASHINGTON MD Nov 30, 2020 08:42
[2020-11-30 14:00] VITALS: BP 125/62
--- NOTE | 2020-11-30 14:22 | RADENCPD ---
Date/Time of Encounter Date of Encounter: Nov 30, 2020 Time of Encounter: 14:07 Encounter Due to a technical issue Minerva will begin radiation on 12/01/20 @ 11:15 AM, she will complete treatment on 12/03/20. For discharge I recommend a PO decadron taper as follows: 8 mg BID for 5 days, then 4 mg BID for 5 days, then 4 mg daily for 5 days, then 2 mg daily for 5 days, then trial off I will arrange outpatient follow up for her after completion of RT. ASIM SYLVESTER MD Nov 30, 2020 14:22
[2020-11-30] MEDS: NICOTINE 21MG/24HR 1 EA TRANSDERMAL TD SCH (15:41)
[2020-11-30 22:00] VITALS: BP 160/78
[2020-12-01] MEDS: ACETAMINOPHEN TAB 650MG DOSE (2X325MG) PO PRN ×4 (02:14→21:10)
[2020-12-01 06:00] VITALS: BP 138/63
[2020-12-01 06:29] LABS: HEMATOCRIT 39.2 % (36.0-47.0); HEMOGLOBIN 12.9 g/dl (12.0-15.5); MEAN CORPUSCULAR HEMOGLOBIN 30.1 pg (27.0-33.0); MEAN CORPUSCULAR HGB CONC 32.9 g/dl (32.0-36.5); MEAN CORPUSCULAR VOLUME 91.4 fl (80.0-96.0); PLATELET COUNT, AUTOMATED 312 10^3/uL (150-450); RED BLOOD COUNT 4.29 10^6/uL (4.00-5.40); WHITE BLOOD COUNT 20.4 10^3/uL (4.0-10.0)
[2020-12-01 06:51] LABS: BLOOD UREA NITROGEN 22 MG/DL (7-18); CALCIUM LEVEL 8.1 MG/DL (8.5-10.1); CARBON DIOXIDE LEVEL 30 MEQ/L (21-32); CHLORIDE LEVEL 99 MEQ/L (98-107); CREATININE FOR GFR 0.39 MG/DL (0.55-1.30); GLOMERULAR FILTRATION RATE > 60.0 (>51); GLUCOSE, FASTING 146 MG/DL (70-100); POTASSIUM SERUM 4.5 MEQ/L (3.5-5.1); SODIUM LEVEL 134 MEQ/L (136-145)
[2020-12-01] MEDS: ENOXAPARIN 40MG/0.4ML SYRINGE (J1650 PER 10MG) SC SCH (09:45)
[2020-12-01 13:43] VITALS: BP 130/81
[2020-12-01] MEDS: NICOTINE 21MG/24HR 1 EA TRANSDERMAL TD SCH (16:33)
--- NOTE | 2020-12-01 20:00 | IPNPDOC ---
Date Seen The patient was seen on 12/01/20. Progress Note SUBJECTIVE: Refusing rehab despite PT recommending. Needing to complete 2 more radiation sessions prior to discharge. Denies chest pain, shortness of breath, n/v/d. OBJECTIVE: PHYSICAL EXAMINATION: VS: Please see below GENERAL: Thin, no acute distress, resting comfortably, AAO x 3 EYES: PERRLA, EOM intact HENT, MOUTH: Normocephalic, atraumatic, moist mucous membranes NECK: SUPPLE, no JVD, no lymphadenopathy, no carotid bruit CV: sinus tachycardia, S1S2 normal, no murmurs/rubs/gallops CHEST: 2.5 x 3 inch breast mass on L lateral breast with area of induration, swelling and hard. TTP RESPIRATORY: Clear to auscultation bilaterally, no rales/rhonchi/wheezes GI: thin abdomen, BS positive in 4 quadrants, soft, nontender, nondistended, no rebound or guarding, no organomegaly MUSCULOSKELETAL: Clubbing of finger nails, normal ROM. No cyanosis, joint deformity, extremity edema NEUROLOGIC: Cranial Nerves II-XII are intact, no focal deficits PSYCHIATRIC: Mood and affect are normal LABORATORY DATA: Reviewed. Worsening leukocytosis in the setting of steroids. WBC now 21.2 IMAGING: MRI brain: 1. Examination reveals a 2.2 cm rounded heterogeneously enhancing mass in the left posterior cerebellar hemisphere. 1.5 cm heterogeneously enhancing mass is seen in the left anterior cerebellar hemisphere. These are surrounded by a moderate degree of vasogenic edema and new since the previous CT scan 12/27/2019. These are consistent with new intracranial metastasis. There is a new 1.8 cm heterogeneous gyriform enhancement in the right posteroinferior cerebellar hemisphere concerning for intracranial metastasis as well. There is mass effect with effacement of the cortical sulci and basilar cisterns but without significant midline shift or tonsillar herniation. There is a new 5 mm ring-enhancing lesion in the right parietal subcortical white matter axial image 20. New 3 mm ring-enhancing lesion in the right posterior parietal subcortical white matter axial image 19. Significant interval decrease in the size of the heterogeneously enhancing metastasis in the right basal ganglia, currently measuring 1.2 cm in maximum diameter. 2. No acute infarction, acute hemorrhage or midline shift is seen. 3. The study is slightly limited due to motion artifact. 4. Right-sided mastoid effusions/mastoiditis. CT brain: There is a new mass in the left cerebellar hemisphere with vasogenic edema compressing the 4th ventricle and the mid brain. There is evidence of a mild obstructive hydrocephalus. The mass noted on December 27, 2019 in the right inferior frontal lobe has regressed although there is some adjacent low-density. There is no evidence of intracranial hemorrhage or acute infarction. Findings most compatible with new intracranial metastatic lesion. CT abd/pelvis with contrast: Findings consistent with metastatic malignancy with a soft tissue metastases of the right psoas muscle and left flank subcutaneous fat layer. Retrocrural adenopathy, a small left adrenal metastasis, small right pleural effusion and large left breast mass are also seen. CT chest with contrast: Findings consistent with advanced metastatic malignancy. There is a large mass in the left breast. There is a cavitary mass in the right lung and metastatic pulmonary nodules are seen in the left lung. There is mediastinal lymphadenopathy, right neck lymphadenopathy, and there are skeletal muscle soft tissue metastases as above. Possible small left adrenal metastasis. 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 PLAN: Stage IV adenocarcinoma of lung with metastasis to brain, adrenal, muscle and LN -S/p 5 radiation sessions on last admission to [facility] 01/2020, was LTFU after discharge -CT brain, abd/pelvis and chest, MRI brain above -New cerebellar metastatic lesions with symptoms of unsteady gait, lightheadedness at home pending radiation by Dr. Felix scheduled for 12/01 though 12/03, tentatively planned for 3 sessions. -Dr. Felix (rad/onc): Agree with current decadron dose for now, to convert to 8 mg PO BID upon discharge, agreed with left breast biopsy that was done. s/p brain MRI with plan for radiation going daily through 12/03. Patient is refusing rehab, PT trying to work with patient so she can go home. -Dr. Pacheco (med/onc): Ordered core needle bx for breast lesion that was done by IR on 11/23, w/ pending pathology. [facility] records show favorable molecular profiling for potential immunotherapy, to discuss with her in the outpatient setting. -C/w Decadron 8 mg PO Q8 hours for now Breast mass -Per med/onc: the mass is highly likely from adenocarcinoma of the lung yet this mass is relatively new and according to the patient it is therefore last 3 or 4 weeks at the most. -core biopsy done by IR on 11/23 -F/u core biopsy results -To f/u with Dr. Pacheco as o/p Sinus tachycardia, possibly dehydration, anxiety? resolved after hydration -monitor Tobacco use -Nicotine patch DVT px -lovenox sc DISPOSITION: Admitted as acute inpatient. med/onc and rad/onc consulted. PT/OT with PFS onboard, patient refusing [facility] rehab and wants to go home. VS, I&O, 24H, Fishbone Vital Signs/I&O Vital Signs Date Time Temp Pulse Resp B/P (MAP) Pulse Ox O2 Delivery O2 Flow Rate FiO2 12/01/20 13:43 98.3 121 21 130/81 (97) 95 Room Air I&O- Last 24 Hours up to 6 AM 12/01/20 06:00 Intake Total 2460 ml Output Total 1250 ml Balance 1210 ml Laboratory Data 24H LABS Laboratory Tests 2 12/01/20 05:59: Nucleated Red Blood Cells % (auto) 0.0, Anion Gap 5L, Glomerular Filtration Rate > 60.0, Calcium Level 8.1L CBC/BMP Laboratory Tests 12/01/20 05:59 Microbiology Microbiology 11/23/20 Anaerobic Culture - Final, Complete 11/23/20 Gram Stain - Final, Complete 11/23/20 Body Fluid Culture - Final, Complete Current Medications Current Medications Medications (Trade) Dose Ordered Sig/Cherelle Route PRN Reason Start Time Stop Time Status Last Admin Dose Admin Acetaminophen (Tylenol Tab) 650 mg Q4HP PRN PO PAIN OR FEVER 11/23/20 05:15 12/01/20 16:34 Dexamethasone (Decadron) 8 mg Q8H PO 11/22/20 22:00 12/01/20 13:52 Enoxaparin Sodium (Lovenox) 40 mg DAILY SC 11/23/20 09:00 11/22/20 14:23 DC Enoxaparin Sodium (Lovenox) 40 mg DAILY SC 11/23/20 09:00 12/01/20 09:45 Home Med (Med Rec Complete!) ASDIRECTED XX 11/22/20 14:20 11/22/20 14:47 DC Nicotine (Nicoderm Cq 21mg) 1 patch DAILY TD 11/22/20 09:00 11/22/20 17:14 DC Nicotine (Nicoderm Cq 21mg) 1 patch DAILY@1700 TD 11/22/20 17:00 12/01/20 16:33 Ondansetron HCl (Zofran) 4 mg Q4HP PRN PO NAUSEA OR VOMITING 11/26/20 09:30 Sodium Chloride 1,000 ml @ 100 mls/hr Q10H IV 11/22/20 14:05 11/26/20 09:29 DC 11/26/20 02:50 Allergies Coded Allergies: Sulfa (Sulfonamide Antibiotics) (Verified Allergy, Mild, RASH, 02/11/20) codeine (Verified Allergy, Mild, rash, 11/22/20) Shirley Cavazos MD Dec 01, 2020 20:00
[2020-12-01 22:00] VITALS: BP 152/76
[2020-12-02] MEDS: ACETAMINOPHEN TAB 650MG DOSE (2X325MG) PO PRN ×4 (05:05→21:17)
[2020-12-02 06:00] VITALS: BP 151/79
[2020-12-02 06:37] LABS: HEMATOCRIT 37.9 % (36.0-47.0); HEMOGLOBIN 12.4 g/dl (12.0-15.5); MEAN CORPUSCULAR HEMOGLOBIN 30.5 pg (27.0-33.0); MEAN CORPUSCULAR HGB CONC 32.7 g/dl (32.0-36.5); MEAN CORPUSCULAR VOLUME 93.3 fl (80.0-96.0); PLATELET COUNT, AUTOMATED 281 10^3/uL (150-450); RED BLOOD COUNT 4.06 10^6/uL (4.00-5.40); WHITE BLOOD COUNT 22.6 10^3/uL (4.0-10.0)
[2020-12-02 06:58] LABS: BLOOD UREA NITROGEN 25 MG/DL (7-18); CALCIUM LEVEL 8.2 MG/DL (8.5-10.1); CARBON DIOXIDE LEVEL 31 MEQ/L (21-32); CHLORIDE LEVEL 99 MEQ/L (98-107); CREATININE FOR GFR 0.32 MG/DL (0.55-1.30); GLOMERULAR FILTRATION RATE > 60.0 (>51); GLUCOSE, FASTING 135 MG/DL (70-100); POTASSIUM SERUM 4.8 MEQ/L (3.5-5.1); SODIUM LEVEL 133 MEQ/L (136-145)
[2020-12-02] MEDS: ENOXAPARIN 40MG/0.4ML SYRINGE (J1650 PER 10MG) SC SCH (09:22)
[2020-12-02 14:00] VITALS: BP 139/73
[2020-12-02] MEDS: NICOTINE 21MG/24HR 1 EA TRANSDERMAL TD SCH (16:01)
--- NOTE | 2020-12-02 17:27 | IPNPDOC ---
Date Seen The patient was seen on 12/02/20. Progress Note SUBJECTIVE: Last radiation session this inpatient admission 12/03/20. Preparing plan for discharge with PFS, PT/OT. Denies chest pain, shortness of breath, n/v/d. OBJECTIVE: PHYSICAL EXAMINATION: VS: Please see below GENERAL: Thin, no acute distress, resting comfortably, AAO x 3 EYES: PERRLA, EOM intact HENT, MOUTH: Normocephalic, atraumatic, moist mucous membranes NECK: SUPPLE, no JVD, no lymphadenopathy, no carotid bruit CV: sinus tachycardia, S1S2 normal, no murmurs/rubs/gallops CHEST: 2.5 x 3 inch breast mass on L lateral breast with area of induration, swelling and hard. TTP RESPIRATORY: Clear to auscultation bilaterally, no rales/rhonchi/wheezes GI: thin abdomen, BS positive in 4 quadrants, soft, nontender, nondistended, no rebound or guarding, no organomegaly MUSCULOSKELETAL: Clubbing of finger nails, normal ROM. No cyanosis, joint deformity, extremity edema NEUROLOGIC: Cranial Nerves II-XII are intact, no focal deficits PSYCHIATRIC: Mood and affect are normal LABORATORY DATA: Reviewed. Worsening leukocytosis in the setting of steroids. WBC now 21.2 IMAGING: MRI brain: 1. Examination reveals a 2.2 cm rounded heterogeneously enhancing mass in the left posterior cerebellar hemisphere. 1.5 cm heterogeneously enhancing mass is seen in the left anterior cerebellar hemisphere. These are surrounded by a moderate degree of vasogenic edema and new since the previous CT scan 12/27/2019. These are consistent with new intracranial metastasis. There is a new 1.8 cm heterogeneous gyriform enhancement in the right posteroinferior cerebellar hemisphere concerning for intracranial metastasis as well. There is mass effect with effacement of the cortical sulci and basilar cisterns but without significant midline shift or tonsillar herniation. There is a new 5 mm r ing-enhancing lesion in the right parietal subcortical white matter axial image 20. New 3 mm ring-enhancing lesion in the right posterior parietal subcortical white matter axial image 19. Significant interval decrease in the size of the heterogeneously enhancing metastasis in the right basal ganglia, currently measuring 1.2 cm in maximum diameter. 2. No acute infarction, acute hemorrhage or midline shift is seen. 3. The study is slightly limited due to motion artifact. 4. Right-sided mastoid effusions/mastoiditis. CT brain: There is a new mass in the left cerebellar hemisphere with vasogenic edema compressing the 4th ventricle and the mid brain. There is evidence of a mild obstructive hydrocephalus. The mass noted on December 27, 2019 in the right inferior frontal lobe has regressed although there is some adjacent low-density. There is no evidence of intracranial hemorrhage or acute infarction. Findings most compatible with new intracranial metastatic lesion. CT abd/pelvis with contrast: Findings consistent with metastatic malignancy with a soft tissue metastases of the right psoas muscle and left flank subcutaneous fat layer. Retrocrural adenopathy, a small left adrenal metastasis, small right pleural effusion and large left breast mass are also seen. CT chest with contrast: Findings consistent with advanced metastatic malignancy. There is a large mass in the left breast. There is a cavitary mass in the right lung and metastatic pulmonary nodules are seen in the left lung. There is mediastinal lymphadenopathy, right neck lymphadenopathy, and there are skeletal muscle soft tissue metastases as above. Possible small left adrenal metastasis. 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 PLAN: Stage IV adenocarcinoma of lung with metastasis to brain, adrenal, muscle and LN -S/p 5 radiation sessions on last admission to [facility] 01/2020, was LTFU after discharge -CT brain, abd/pelvis and chest, MRI brain above -New cerebellar metastatic lesions with symptoms of unsteady gait, lightheadedness at home pending radiation by Dr. Felix scheduled for 12/01 though 12/03, tentatively planned for 3 sessions. -Dr. Felix (rad/onc): Agree with current decadron dose for now, to convert to 8 mg PO BID upon discharge. Radiation going daily through 12/03. -Dr. Pacheco (med/onc): [facility] records show favorable molecular profiling for potential immunotherapy, to discuss with her in the outpatient setting. -C/w Decadron 8 mg PO Q8 hours for now Invasive ductal carcinoma, grade 3 breast cancer- new diagnosis -Believed to be separate from lung CA -Core biopsy done by IR on 11/23, diagnosis above. Pending markers. -Discussed with Dr. Pacheco today, who will f/u on remaining markers and see o/p. Sinus tachycardia, likely baseline -monitor Tobacco use -Nicotine patch DVT px -lovenox sc DISPOSITION: Admitted as acute inpatient. Med/onc and rad/onc consulted. PT/OT with PFS onboard, safe discharge plan hoped for tomorrow. VS, I&O, 24H, Fishbone Vital Signs/I&O Vital Signs Date Time Temp Pulse Resp B/P (MAP) Pulse Ox O2 Delivery O2 Flow Rate FiO2 12/02/20 14:00 98.2 105 18 139/73 (95) 96 Room Air I&O- Last 24 Hours up to 6 AM 12/02/20 05:59 Intake Total 1290 ml Output Total 1500 ml Balance -210 ml Laboratory Data 24H LABS Laboratory Tests 2 12/02/20 06:09: Nucleated Red Blood Cells % (auto) 0.0, Anion Gap 3L, Glomerular Filtration Rate > 60.0, Calcium Level 8.2L 12/02/20 14:58: Bedside Glucose (Misc Panel) 152H CBC/BMP Laboratory Tests 12/02/20 06:09 Microbiology Microbiology 11/23/20 Anaerobic Culture - Final, Complete 11/23/20 Gram Stain - Final, Complete 11/23/20 Body Fluid Culture - Final, Complete Current Medications Current Medications Medications (Trade) Dose Ordered Sig/Cherelle Route PRN Reason Start Time Stop Time Status Last Admin Dose Admin Acetaminophen (Tylenol Tab) 650 mg Q4HP PRN PO PAIN OR FEVER 11/23/20 05:15 12/02/20 13:24 Dexamethasone (Decadron) 8 mg Q8H PO 11/22/20 22:00 12/02/20 13:23 Enoxaparin Sodium (Lovenox) 40 mg DAILY SC 11/23/20 09:00 11/22/20 14:23 DC Enoxaparin Sodium (Lovenox) 40 mg DAILY SC 11/23/20 09:00 12/02/20 09:22 Home Med (Med Rec Complete!) ASDIRECTED XX 11/22/20 14:20 11/22/20 14:47 DC Nicotine (Nicoderm Cq 21mg) 1 patch DAILY TD 11/22/20 09:00 11/22/20 17:14 DC Nicotine (Nicoderm Cq 21mg) 1 patch DAILY@1700 TD 11/22/20 17:00 12/01/20 16:33 Ondansetron HCl (Zofran) 4 mg Q4HP PRN PO NAUSEA OR VOMITING 11/26/20 09:30 12/02/20 15:12 Sodium Chloride 1,000 ml @ 100 mls/hr Q10H IV 11/22/20 14:05 11/26/20 09:29 DC 11/26/20 02:50 Allergies Coded Allergies: Sulfa (Sulfonamide Antibiotics) (Verified Allergy, Mild, RASH, 02/11/20) codeine (Verified Allergy, Mild, rash, 11/22/20) Shirley Cavazos MD Dec 02, 2020 17:27
[2020-12-02 22:00] VITALS: BP 137/64
[2020-12-03] MEDS: ACETAMINOPHEN TAB 650MG DOSE (2X325MG) PO PRN ×2 (05:25→13:10)
[2020-12-03 06:00] VITALS: BP 144/65
[2020-12-03 07:35] LABS: HEMATOCRIT 37.7 % (36.0-47.0); HEMOGLOBIN 12.4 g/dl (12.0-15.5); MEAN CORPUSCULAR HEMOGLOBIN 30.7 pg (27.0-33.0); MEAN CORPUSCULAR HGB CONC 32.9 g/dl (32.0-36.5); MEAN CORPUSCULAR VOLUME 93.3 fl (80.0-96.0); PLATELET COUNT, AUTOMATED 295 10^3/uL (150-450); RED BLOOD COUNT 4.04 10^6/uL (4.00-5.40); WHITE BLOOD COUNT 26.7 10^3/uL (4.0-10.0)
[2020-12-03 08:02] LABS: BLOOD UREA NITROGEN 27 MG/DL (7-18); CALCIUM LEVEL 8.4 MG/DL (8.5-10.1); CARBON DIOXIDE LEVEL 31 MEQ/L (21-32); CHLORIDE LEVEL 98 MEQ/L (98-107); CREATININE FOR GFR 0.29 MG/DL (0.55-1.30); GLOMERULAR FILTRATION RATE > 60.0 (>51); GLUCOSE, FASTING 137 MG/DL (70-100); SODIUM LEVEL 133 MEQ/L (136-145)
[2020-12-03] MEDS ORDERED: DEXA2TA PO (08:11)
[2020-12-03] MEDS: ENOXAPARIN 40MG/0.4ML SYRINGE (J1650 PER 10MG) SC SCH (08:48)
[2020-12-03] MEDS ORDERED: ZOFR4TAB16 PO (08:56)
--- NOTE | 2020-12-03 18:23 | DS.PDOC ---
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 The patient states she's had increased dizziness, unsteady gait, worsening shortness of breath, lightheadedness for the past several months. She was diagnosed with stage IV adenocarcinoma of the lung with metastases to the brain 01/2020 where she received [facility] for a period of time. She was seen by their oncologists and received 5 doses of radiation for frontal lobe metastases. The patient was discharged home but she never followed up to resume treatment with the oncology office. Over the past several weeks she has noticed the symptoms described before plus decreased appetite, wt loss >10 lbs, lethargy She also has noticed a left breast mass starting to grow from her left lateral breast causing increased swelling, pain. The patient has a primary care provider but she hasn't followed up with them since she was discharged from [facility] last summer. She denies chest pain, blurry vision, headaches, productive cough, fevers, chills. She came to the ER due to the symptoms mentioned above. In the ER vital signs showed tachycardia with heart rates in 110's, all other vital signs were within normal limits. WBC 12.1, H&H 12/37, all other labs were unremarkable. CT brain: There is a new mass in the left cerebellar hemisphere with vasogenic edema compressing the 4th ventricle and the mid brain, mild obstructive, hydrocephalus, the mass noted on December 27, 2019 in the right inferior frontal lobe has regressed although there is some adjacent low-density, there is no evidence of intracranial hemorrhage or acute infarction- findings most compatible with new intracranial metastatic lesion. CT chest: Findings consistent with advanced metastatic malignancy, large mass in the, cavitary mass in the right lung and metastatic pulmonary nodules are seen in the left lung, mediastinal lymphadenopathy, right neck lymphadenopathy, possible small left adrenal metastasis. CT abd/pelvis: Findings consistent with metastatic malignancy with a soft tissue metastases of the right psoas muscle and left flank subcutaneous fat layer, retrocrural adenopathy, a small left adrenal metastasis, small right pleural effusion and large left breast mass are also seen. Pt was given a total of 20 mg IV decadron and started on decadron Q8H. Dr. Felix (rad/onc) and Dr. Pacheco (med/onc) were contacted about patient and agree to see/treat if admitted. Patient, although her workup has been started at [place], does not wish to continue getting treated by them because she does not have the capabilities of going to her appointments or getting ride her appointments in [place]. She would like to continue to be treated locally. The patient will be admitted for further treatment/workup of metastatic lung adenocarcinoma to the brain. HOSPITAL COURSE: Patient completed 5 rounds of radiation during her hospital stay for brain mets, radiation oncology followed closely. She was kept on decadron while. She experienced some nausea and required zofran. It was explained to her that nausea may be normal with current treatment. [facility] show favorable molecular profiling for potential immunotherapy, to discuss with her in the outpatient setting. dr. Pacheco (med/onc) has seen her and will be following up in his office. He ordered a breast biopsy for breast mass and this later came back positive for invasive ductal carcinoma, grade 3 breast cancer- new diagnosis. This is believed to be separate from lung CA. Breast CA markers are pending. Again, these will be f/u in his office. She had persistent tachycardia and elevated WBC, all infectious w/u was neg. Patient was offered rehab but refused and wanted to go home where she lives with son. Safe discharge plan was arranged and on 12/03/20 she was discharged to f/u with rad/onc and med/onc. she will have zofran, decadron taper as new meds. PAST MEDICAL HISTORY: Stage IV adenocarcinoma of lung with metastasis to brain Tobacco use PAST SURGICAL HISTORY: 3 C-sections Hysterectomy Ear surgery FAMILY HISTORY: Father: by suicide. at 60 years old. Mother: Coronary artery disease. at 40 years old SOCIAL HISTORY: One pack per day smoker for 43 years, smokes marijuana occasionally as well. Denies alcohol use or other illicit drug use. Lives with her son locally. Does not follow regularly with a primary care provider and does not have an established oncologist with whom she follows with regularly. He is a full code. DISCHARGE MEDICATIONS: Please see below PHYSICAL EXAMINATION: VS: Please see below GENERAL: Thin, no acute distress, resting comfortably, AAO x 3 EYES: PERRLA, EOM intact HENT, MOUTH: Normocephalic, atraumatic, moist mucous membranes NECK: SUPPLE, no JVD, no lymphadenopathy, no carotid bruit CV: sinus tachycardia, S1S2 normal, no murmurs/rubs/gallops CHEST: 2.5 x 3 inch breast mass on L lateral breast with area of induration, swelling and hard. TTP RESPIRATORY: Clear to auscultation bilaterally, no rales/rhonchi/wheezes GI: thin abdomen, BS positive in 4 quadrants, soft, nontender, nondistended, no rebound or guarding, no organomegaly MUSCULOSKELETAL: Clubbing of finger nails, normal ROM. No cyanosis, joint deformity, extremity edema NEUROLOGIC: Cranial Nerves II-XII are intact, no focal deficits PSYCHIATRIC: Mood and affect are normal LABORATORY DATA: Reviewed. Worsening leukocytosis in the setting of steroids. WBC now 21.2 IMAGING: MRI brain: 1. Examination reveals a 2.2 cm rounded heterogeneously enhancing mass in the left posterior cerebellar hemisphere. 1.5 cm heterogeneously enhancing mass is seen in the left anterior cerebellar hemisphere. These are surrounded by a moderate degree of vasogenic edema and new since the previous CT scan 12/27/2019. These are consistent with new intracranial metastasis. There is a new 1.8 cm heterogeneous gyriform enhancement in the right posteroinferior cerebellar hemisphere concerning for intracranial metastasis as well. There is mass effect with effacement of the cortical sulci and basilar cisterns but without significant midline shift or tonsillar herniation. There is a new 5 mm ring-enhancing lesion in the right parietal subcortical white matter axial image 20. New 3 mm ring-enhancing lesion in the right posterior parietal subcortical white matter axial image 19. Significant interval decrease in the size of the heterogeneously enhancing metastasis in the right basal ganglia, currently measuring 1.2 cm in maximum diameter. 2. No acute infarction, acute hemorrhage or midline shift is seen. 3. The study is slightly limited due to motion artifact. 4. Right-sided mastoid effusions/mastoiditis. CT brain: There is a new mass in the left cerebellar hemisphere with vasogenic edema compressing the 4th ventricle and the mid brain. There is evidence of a mild obstructive hydrocephalus. The mass noted on December 27, 2019 in the right inferior frontal lobe has regressed although there is some adjacent low-density. There is no evidence of intracranial hemorrhage or acute infarction. Findings most compatible with new intracranial metastatic lesion. CT abd/pelvis with contrast: Findings consistent with metastatic malignancy with a soft tissue metastases of the right psoas muscle and left flank subcutaneous fat layer. Retrocrural adenopathy, a small left adrenal metastasis, small right pleural effusion and large left breast mass are also seen. CT chest with contrast: Findings consistent with advanced metastatic malignancy. There is a large mass in the left breast. There is a cavitary mass in the right lung and metastatic pulmonary nodules are seen in the left lung. There is mediastinal lymphadenopathy, right neck lymphadenopathy, and there are skeletal muscle soft tissue metastases as above. Possible small left adrenal metastasis. 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 PLAN: Stage IV adenocarcinoma of lung with metastasis to brain, adrenal, muscle and LN -S/p 5 radiation sessions on last admission to [facility] 01/2020, was LTFU after discharge -CT brain, abd/pelvis and chest, MRI brain above -New cerebellar metastatic lesions with symptoms of unsteady gait, lightheadedness at home pending radiation x 5 sessions -Dr. Felix (rad/onc): D/c with decadron taper as in his last note, f/u with him as o/p -Dr. Pacheco (med/onc): [facility] records show favorable molecular profiling for potential immunotherapy, to discuss with her in the outpatient setting. Invasive ductal carcinoma, grade 3 breast cancer- new diagnosis -Believed to be separate from lung CA -Core biopsy done by IR on 11/23, diagnosis above. Pending markers. -Discussed with Dr. Pacheco , who will f/u on remaining markers and see o/p. Sinus tachycardia, likely baseline Leukocytosis likely 2/2 to cancer above -All infectious w/u neg -F/u as o/p Tobacco use -Smoking cessation counselling provided. patient did not wish to have nicotine patch at discharge. DISPOSITION: Patient refused rehab in facility. Discharge home to f/u with rad/onc and med/onc. Home health referral given. TIME SPENT ON DISCHARGE: 35 minutes. Vital Signs/I&Os Vital Signs Date Time Temp Pulse Resp B/P (MAP) Pulse Ox O2 Delivery O2 Flow Rate FiO2 12/03/20 06:00 97.8 96 17 144/65 (91) 93 Room Air I&O- Last 24 Hours up to 6 AM 12/03/20 06:00 Intake Total 920 ml Output Total 450 ml Balance 470 ml Laboratory Data Labs 24H Laboratory Tests 2 12/03/20 07:02: Nucleated Red Blood Cells % (auto) 0.0, Anion Gap 4L, Glomerular Filtration Rate > 60.0, Calcium Level 8.4L CBC/BMP Laboratory Tests 12/03/20 07:02 Microbiology Microbiology 11/23/20 Anaerobic Culture - Final, Complete 11/23/20 Gram Stain - Final, Complete 11/23/20 Body Fluid Culture - Final, Complete Discharge Medications Scheduled Dexamethasone (Dexamethasone) 2 Mg Tablet, 8 MG PO BID Decadron taper over 20 days: 8 mg PO BID x 5 days, 4 mg PO BID x5 days, 4 mg PO QDaily x 5 days, 2 mg PO Qdaily x 5 days Scheduled PRN Acetaminophen (Acetaminophen) 500 Mg Tablet, 1,000 MG PO Q6H PRN for PAIN / FEVER, (Reported) Ondansetron HCl (Zofran) 4 Mg Tablet, 4 MG PO Q4HP PRN for NAUSEA Allergies Coded Allergies: Sulfa (Sulfonamide Antibiotics) (Verified Allergy, Mild, RASH, 02/11/20) codeine (Verified Allergy, Mild, rash, 11/22/20) Shirley Cavazos MD Dec 03, 2020 18:23
== END 2020-12-03 14:52 | disposition home health service (06) | DRG 41 ==
LOC: M ED 08:52 → M ED INP 13:08 → ENRESERV 13:18 → M MSPAV 15:46
PROVIDERS: ADMIT Internal Medicine; ATTEND Internal Medicine
PROC: 0HBU3ZX Excision of Left Breast, Percutaneous Approach, Diagnostic (ICD-10-PCS; principal; 2020-11-23 10:59)
DX: C79.31 Secondary malignant neoplasm of brain (principal); G93.6 Cerebral edema; C79.72 Secondary malignant neoplasm of left adrenal gland; C78.02 Secondary malignant neoplasm of left lung; C77.9 Secondary and unspecified malignant neoplasm of lymph node, unspecified; C34.91 Malignant neoplasm of unspecified part of right bronchus or lung; E86.0 Dehydration; C50.912 Malignant neoplasm of unspecified site of left female breast; F41.9 Anxiety disorder, unspecified; R26.81 Unsteadiness on feet; F17.200 Nicotine dependence, unspecified, uncomplicated; R00.0 Tachycardia, unspecified; Z79.899 Other long term (current) drug therapy; Z20.822 Contact with and (suspected) exposure to COVID-19; Z88.2 Allergy status to sulfonamides; Z88.5 Allergy status to narcotic agent; Z85.43 Personal history of malignant neoplasm of ovary; Z17.1 Estrogen receptor negative status [ER-]

== ENCOUNTER 2020-11-24 09:22 | Outpatient (RCR) | payer MEDICAID, SELFPAY ==
[~2020-11-24 09:22] MED LIST changes: +ACET-683 PO
== END 2020-11-25 ==
LOC: M ONCR 09:22
PROVIDERS: ATTEND General Practice
DX: C79.31 Secondary malignant neoplasm of brain (principal)

== ENCOUNTER 2020-12-09 09:37 | Inpatient (IN) | payer MEDICAID, OTHER ==
[~2020-12-09] VITALS: Ht 149.9 cm; Wt 40.8 kg
[~2020-12-09 09:37] MED LIST changes: +DEXA2TA PO; +ZOFR4TAB16 PO
[2020-12-09] MEDS ORDERED: NS 1,000 ML IV SCH (09:55)
[2020-12-09] MEDS ORDERED: ONDANSETRON 4MG/2ML VIAL IV ONE (10:00)
[2020-12-09 10:21] LABS: VENOUS BASE EXCESS 5.9 (-2.0-2.0); VENOUS HCO3 28.1 MEQ/L (23.0-27.0); VENOUS O2 SATURATION 98.5 % (60.0-80.0); VENOUS PARTIAL PRESSURE CO2 33.2 mmHg (38.0-50.0); VENOUS PARTIAL PRESSURE O2 94.3 mmHg (30.0-50.0); VENOUS PH 7.546 UNITS (7.330-7.430); VENOUS STANDARD HCO3 29.8 MEQ/L; VENOUS TOTAL CO2 29.2 MEQ/L (24.0-28.0)
[2020-12-09] MEDS: NS 1,000 ML IV SCH ×2 (10:25→18:32)
[2020-12-09] MEDS: MORPHINE 2 MG/ML 1ML VIAL (J2270) IV PRN ×2 (10:28→20:59)
[2020-12-09 10:29] LABS: BASO % 0.2 % (0.0-1.0); EOS % 0.2 % (0.0-3.0); HEMATOCRIT 37.3 % (36.0-47.0); HEMOGLOBIN 12.4 g/dl (12.0-15.5); LYMPH # 1.8 10^3/uL (1.5-5.0); LYMPH % 9.3 % (24.0-44.0); MEAN CORPUSCULAR HEMOGLOBIN 30.9 pg (27.0-33.0); MEAN CORPUSCULAR HGB CONC 33.2 g/dl (32.0-36.5); MONO # 0.8 10^3/uL (0.0-0.8); MONO % 4.3 % (2.0-8.0); NEUTROPHILS # 16.4 10^3/uL (1.5-8.5); NEUTROPHILS % 84.5 % (36.0-66.0); PLATELET COUNT, AUTOMATED 228 10^3/uL (150-450); RED BLOOD COUNT 4.01 10^6/uL (4.00-5.40); WHITE BLOOD COUNT 19.4 10^3/uL (4.0-10.0)
--- NOTE | 2020-12-09 10:49 | REP ---
INDICATION: Altered Mental Status COMPARISON: 02/17/2020 TECHNIQUE: Portable AP view of the chest FINDINGS: The cardiac silhouette is within normal limits and stable. The lung tuttle demonstrate diffuse chronic appearing interstitial changes bilaterally. There is a somewhat ill-defined masslike area of density in the right midlung zone which appears decreased from prior examination but still concerning for underlying mass. No obvious effusion. No pneumothorax. Skeletal structures intact. IMPRESSION: Right mid lung mass/consolidation again noted. <Electronically signed by Naseem So > 12/09/20 [id number]
[2020-12-09 10:57] LABS: ALBUMIN 2.3 GM/DL (3.2-5.2); BILIRUBIN,DIRECT 0.2 MG/DL (0.0-0.2); BILIRUBIN,TOTAL 0.4 MG/DL (0.2-1.0); MB/CK RELATIVE INDEX 5.71 (< OR =4); THYROID STIMULATING HORMONE 0.942 uIU/ML (0.358-3.740); TOTAL PROTEIN 5.6 GM/DL (6.4-8.2); TROPONIN I 0.03 NG/ML (< 0.10)
[2020-12-09] MEDS ORDERED: DEXA2TA PO (11:39)
[2020-12-09] MEDS ORDERED: ONDA-83 PO (11:39)
[2020-12-09 11:47] LABS: RSV AMPLIFICATION NEGATIVE (NEGATIVE)
--- NOTE | 2020-12-09 12:43 | REP ---
INDICATION: weak. COMPARISON: None. TECHNIQUE: Axial CT images with multiplanar reformations. FINDINGS: There is a subtle hypodensity at the right cerebellum paramidline. This is seen on image 33 series 203, and image 12 series 201. This may be consistent with a small amount of subarachnoid hemorrhage. Ventricles, cisterns and sulci are within normal limits. No mass effect or midline shift. No abnormal fluid collections. Scattered ill-defined hypodensities seen throughout the white matter is most consistent with sequelae of chronic microvascular ischemic disease. Paranasal sinuses and mastoid air cells are clear. IMPRESSION: Small hyperdensity within the right cerebellar hemisphere posteriorly paramidline is concerning for small amount of subarachnoid hemorrhage. Given a history of metastatic disease, and radiation chemotherapy, the finding may represent calcification or hemorrhage around a metastatic lesion however these would be difficult to distinguish on noncontrast CT imaging. MRI with and without contrast may offer further characterization. Findings discussed with Jordana Veronica at the time of interpretation. <Electronically signed by Rudy Call > 12/09/20 [id number]
--- NOTE | 2020-12-09 13:38 | HPE ---
HISTORY AND PHYSICAL DATE OF ADMISSION: 12/09/2020 PRINCIPAL DIAGNOSIS: Generalized weakness, widely metastatic lung and breast cancer. HISTORY: Minerva Barry is a 60 year old. She has stage 4 adenocarcinoma of the lung metastatic to brain as well as a newly diagnosed breast cancer that is also felt to be metastatic. She was recently hospitalized at [facility] 11/22 to 12/03/2020 and was discharged on 12/03. Was seen in the oncology office on 12/04. They noted she had metastatic nonsmall cell lung cancer as well as locally advanced ductal cell carcinoma of the breast, ER negative, ER 5%, HER-2/tj pending. Noted that she had a 40 pack/year smoking history. Diagnosed with stage 4 adenocarcinoma of the lung metastatic to the brain 02/14. Treated through [facility] initially. Admitted to [facility] late last month and had five radiations to the frontal lobe metastases. Imaging studies during that admission showed no evidence of intracranial bleeding. She had left cerebellar hemisphere mass with vasogenic edema compressing the fourth ventricle with mild obstructive hydrocephalus. CT of the chest showing a large mass right lung cavitary with metastatic pulmonary nodules in the left lung. Right neck lymphadenopathy. Left renal metastasis. Malignant metastatic disease to the right psoas muscle. Left breast mass that was biopsied as above. PAST MEDICAL HISTORY: 1. Ovarian cancer 24 years ago. 2. History of hysterectomy and bilateral salpingo-oophorectomy. 3. Type 2 diabetes. 4. Genitourinary cancer treated with laser treatments. FAMILY HISTORY: Father committed suicide at 60. Mother of breast cancer at 40. She had coronary disease. SOCIAL HISTORY: Unmarried. Has a son who is in his thirties who lives with her. No alcohol use. Retired from working in a [employer]. Forty pack/year history. MEDICATIONS: 1. Zofran as needed. 2. Tylenol as needed. 3. Decadron 4 mg daily. REVIEW OF SYSTEMS: She is generally weak. She denies diplopia. She denies any headache. Says her legs just feel too weak to stand. She is coughing without change. There is no hemoptysis. Denies fever or chills. Her appetite is poor. She says it is difficult for her to eat. PHYSICAL EXAMINATION: VITAL SIGNS: 127/62, pulse 100, respiratory rate 18, 97% O2 saturation. GENERAL: She looks chronically ill and cachectic. HEENT: Pupils equal and reactive to light. NECK: Bilateral cervical adenopathy. LUNGS: Decreased breath sounds bilaterally. Rhonchi diffuse. HEART: Regular rhythm. No murmur. ABDOMEN: Soft, nontender. No masses. EXTREMITIES: Without clubbing or cyanosis. Trace peripheral edema. LABORATORY DATA: White count 19.4 (on steroids), hemoglobin 12.4, platelets 228. Sodium 135, potassium 3.9, BUN 13, creatinine 0.2. COVID is negative. Chest x-ray shows right mid lung mass consolidation that is essentially unchanged from before. She had a CT of the chest two weeks ago that showed advanced metastatic malignancy, large mass left breast, cavitating mass right lung, metastatic pulmonary nodules in the left lung, skeletal soft tissue metastases, right neck lymphadenopathy. IMPRESSION: 1. Generalized weakness that could be steroid induced. She is not hypercalcemic. It could be related to her brain metastases. Her cough is unchanged. I am admitting her for observation, hydration, and physical therapy. Will get a procalcitonin. If elevated, will use IV antibiotics. 2. Widely metastatic lung cancer. Had a jp discussion concerning her cancer progress and prognosis. We discussed hospice. She still wants to remain full code. She is not currently interested in hospice care. She wants to continue attempts at treatment through [facility]. I left the door open for further discussion with her on this. 3. Abnormal liver function tests secondary to metastases. Last INR was normal. 4. Diabetes. Blood sugars have been normal. She is cachectic. I do not think she needs any insulin coverage.
[2020-12-09] MEDS ORDERED: PROHANCE 279.3MG/ML 15ML VIAL As Ordered ONE (15:11)
[2020-12-09 15:38] VITALS: BP 125/66
--- NOTE | 2020-12-09 15:45 | REP ---
INDICATION: ?bleed vs. mass vs. calcificaiton. COMPARISON: CT head, 12/09/2020. TECHNIQUE: Axial T1, T2, FLAIR, gradient echo, and diffusion-weighted imaging obtained. FINDINGS: On the postcontrast images, there is an enhancing lesion in the vicinity of the right caudate nucleus. Additional enhancing lesions are seen in the bilateral cerebellar hemispheres. There are a large number of tiny enhancing lesions seen throughout the supratentorial hemispheres. No evidence of restricted diffusion to suggest acute infarction. No gradient echo susceptibility to suggest hemorrhage. The ventricles and extra-axial CSF spaces are within normal limits. There is little mass effect and no midline shift. No abnormal fluid collections. IMPRESSION: Metastatic lesions as described, larger lesions in the posterior fossa and a number of tiny lesions seen throughout the supratentorial hemispheres with a lesion in the right caudate nucleus. <Electronically signed by Rudy Call > 12/09/20 [id number]
--- NOTE | 2020-12-09 15:48 | REP ---
INDICATION: ?bleed vs. mass vs. calcificaiton. COMPARISON: None. TECHNIQUE: [id number] MR angiogram of the brain FINDINGS: The vertebral arteries are co-dominant. Basilar artery and folder machine are unremarkable. Internal carotid arteries, proximal and distal MCA branches are normal. A1 segments and ELEONORA branches are unremarkable. IMPRESSION: Normal MRA of the brain. <Electronically signed by Rudy Call > 12/09/20 [id number]
[2020-12-09] MEDS: PANTOPRAZOLE 40MG TAB (PROTONIX) PO SCH (15:56)
[2020-12-09 22:00] VITALS: BP 143/73
[2020-12-10] MEDS: NS 1,000 ML IV SCH ×3 (00:34→08:49)
[2020-12-10 05:42] LABS: HEMATOCRIT 32.4 % (36.0-47.0); HEMOGLOBIN 10.6 g/dl (12.0-15.5); MEAN CORPUSCULAR HEMOGLOBIN 30.5 pg (27.0-33.0); MEAN CORPUSCULAR HGB CONC 32.7 g/dl (32.0-36.5); MEAN CORPUSCULAR VOLUME 93.1 fl (80.0-96.0); PLATELET COUNT, AUTOMATED 200 10^3/uL (150-450); RED BLOOD COUNT 3.48 10^6/uL (4.00-5.40); WHITE BLOOD COUNT 17.3 10^3/uL (4.0-10.0)
[2020-12-10] MEDS ORDERED: MORPHINE 2 MG/ML 1ML VIAL (J2270) IV ONE ×2 (05:45→20:30)
[2020-12-10 06:00] VITALS: BP 144/72
[2020-12-10 06:18] LABS: ALT/SGPT 149 U/L (12-78); BILIRUBIN,TOTAL 0.3 MG/DL (0.2-1.0); BLOOD UREA NITROGEN 12 MG/DL (7-18); CALCIUM LEVEL 8.4 MG/DL (8.5-10.1); CARBON DIOXIDE LEVEL 28 MEQ/L (21-32); CHLORIDE LEVEL 103 MEQ/L (98-107); CREATININE FOR GFR 0.19 MG/DL (0.55-1.30); GLOMERULAR FILTRATION RATE > 60.0 (>51); GLUCOSE, FASTING 109 MG/DL (70-100); POTASSIUM SERUM 4.3 MEQ/L (3.5-5.1); SODIUM LEVEL 136 MEQ/L (136-145); TOTAL PROTEIN 5.5 GM/DL (6.4-8.2)
[2020-12-10] MEDS: PANTOPRAZOLE 40MG TAB (PROTONIX) PO SCH (08:49)
[2020-12-10] MEDS ORDERED: ENOXAPARIN 40MG/0.4ML SYRINGE (J1650 PER 10MG) SC SCH (09:00)
--- NOTE | 2020-12-10 10:08 | ECGEPIP ---
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
--- NOTE | 2020-12-10 10:20 | IPN ---
PROGRESS NOTE DATE: 12/10/2020 SUBJECTIVE: [facility]erva is [facility] admitted with general malaise related to her metastatic cancer. She had generalized weakness. A lot of her probable now is the feeling of "muscle pain" in her right thigh. We are going to be doing some imaging to make sure there is no malignancy metastatic to that leg. Denies chest pain or shortness of breath. She feels stronger than yesterday. OBJECTIVE: VITAL SIGNS: Blood pressure 144/72, afebrile. LUNGS: Clear. HEART: Regular rhythm. ABDOMEN: Soft and nontender. EXTREMITIES: Little tender to palpate over the right thigh. LABORATORY DATA: Electrolytes unremarkable. White count 17.3 on steroids, hemoglobin 10.6, platelets 200,000. IMPRESSION AND PLAN: 1. Generalized weakness probably steroid-induced or related to widely metastatic lung cancer. Would continue the steroids as she has had recent radiation therapy. There was some concern about whether she had bleeding on the CT scan. MRI scan showed no evidence of hemorrhage so we will be reordering deep vein thrombosis (DVT) prophylaxis. 2. Right leg pain. We will get an x-ray of the right thigh as initial study. She would certainly be at risk of bone metastasis as she has widely metastatic disease most other areas. 3. ? postobstructive pneumonia. I have a procalcitonin pending and if it is elevated, we will use intravenous (IV) antibiotics. 4. Abnormal liver function tests secondary to her metastatic disease. 5. Diabetes. Blood sugars are normal and I do not think she requires any insulin coverage. She is FULL CODE. We discussed Hospice again today and she does not want Hospice care. She wants to continue all measures including her oncology care. Therefore, order for "full code" was put in today.
--- NOTE | 2020-12-10 11:02 | REP ---
INDICATION: pain, mets? COMPARISON: None. TECHNIQUE: AP and lateral right femur. FINDINGS: There is no evidence of acute fracture, dislocation, or intrinsic bone disease.There is no radiographic evidence of a metastatic osseous mild vascular calcifications are seen medial to the lesser trochanter of the proximal femur. Lesion. IMPRESSION: No fracture or dislocation. No radiographic evidence of metastatic osseous lesion. <Electronically signed by Frederick Fitzgerald > 12/10/20 [id number]
[2020-12-10] MEDS: ENOXAPARIN 30MG/0.3ML SYRINGE (J1650 PER 10MG) SC SCH (11:42)
[2020-12-10 14:00] VITALS: BP 143/64
[2020-12-10 22:00] VITALS: BP 137/66
[2020-12-11 06:00] VITALS: BP 130/66
[2020-12-11 07:24] LABS: HEMOGLOBIN 11.3 g/dl (12.0-15.5); MEAN CORPUSCULAR HEMOGLOBIN 30.7 pg (27.0-33.0); MEAN CORPUSCULAR HGB CONC 33.2 g/dl (32.0-36.5); MEAN CORPUSCULAR VOLUME 92.4 fl (80.0-96.0); PLATELET COUNT, AUTOMATED 190 10^3/uL (150-450); RED BLOOD COUNT 3.68 10^6/uL (4.00-5.40); WHITE BLOOD COUNT 18.8 10^3/uL (4.0-10.0)
[2020-12-11 07:33] LABS: ALBUMIN 2.2 GM/DL (3.2-5.2); ALT/SGPT 137 U/L (12-78); BILIRUBIN,TOTAL 0.4 MG/DL (0.2-1.0); BLOOD UREA NITROGEN 14 MG/DL (7-18); CALCIUM LEVEL 8.2 MG/DL (8.5-10.1); CARBON DIOXIDE LEVEL 29 MEQ/L (21-32); CHLORIDE LEVEL 101 MEQ/L (98-107); CREATININE FOR GFR 0.27 MG/DL (0.55-1.30); GLOMERULAR FILTRATION RATE > 60.0 (>51); GLUCOSE, FASTING 116 MG/DL (70-100); POTASSIUM SERUM 4.3 MEQ/L (3.5-5.1); SODIUM LEVEL 135 MEQ/L (136-145)
[2020-12-11] MEDS: PANTOPRAZOLE 40MG TAB (PROTONIX) PO SCH (08:01)
[2020-12-11] MEDS: ENOXAPARIN 30MG/0.3ML SYRINGE (J1650 PER 10MG) SC SCH (08:08)
[2020-12-11] MEDS ORDERED: ACETAMINOPHEN 500 MG TAB PO PRN (08:15)
--- NOTE | 2020-12-11 08:59 | IPN ---
PROGRESS NOTE DATE: 12/11/2020 SUBJECTIVE: [facility]erva is [facility]. Nursing staff reports that she has been agitated and acting frustrated towards physical therapist and staff, displaying a lot of anger that seems to be placed without merit. Today when I saw her, she was expressing pain from the large left breast cancer that was recently diagnosed. This in the last week has turned into a large fungating bleeding mass that prevents her from lying on her left side and it hurts to even move her left arm. X-rays of her right femur showed no evidence of bony metastasis. She feels increasingly weak. OBJECTIVE: VITAL SIGNS: Blood pressure 130/66, afebrile. GENERAL APPEARANCE: Alert, conversant, in no distress, and oriented x3. LUNGS: Decreased breath sounds, but clear. HEART: Regular rhythm. ABDOMEN: Soft and nontender. BREASTS: The left breast has a large soft ball size mass that is fungating. The skin is ulcerated, it is bleeding, and the sheets are covered with blood and sera. ABDOMEN: Soft and nontender. No masses. EXTREMITIES: Nontender to palpate her lower extremities. LABORATORY DATA: Electrolytes are essentially unchanged. Liver functions are unchanged. CBC is stable. IMPRESSION/PLAN: 1. Fungating left breast cancer. I spoke with Dr. Castillo who will see the patient in consultation for consideration of a hygienic mastectomy. 2. Widely metastatic lung cancer. Prognosis is grim. She has brain metastasis, skeletal metastasis, and extensive adenopathy. Today, I tried to have further conversations with Minerva about her lung cancer. She expressed that "I wish I knew what to expect." I asked her if she wanted to discuss her prognosis and she indicated that "I wish someone would tell me how long I have." I then expressed by my judgment, she may have two to three more months before she dies from her lung cancer. She then became quite irate and was angry at me for telling her that and ended the conversation.
[2020-12-11] MEDS: NORCO, ANEXSIA 5/325MG TABLET (HYDROcodone/ACETAMINOPHEN) PO PRN ×2 (11:58→22:14)
[2020-12-11 14:00] VITALS: BP 134/63
--- NOTE | 2020-12-11 17:33 | IPN ---
PROGRESS NOTE DATE: 12/11/2020 SUBJECTIVE: Communicated with Dr. Treadwell today concerning the patient's large cancer. Plan is for hygienic mastectomy on Monday. Surgical risk is elevated due to widely metastatic lung cancer but she has no conditions that would prohibit surgery. Her chest x-ray shows diffuse chronic appearing interstitial changes and her admission electrocardiogram (EKG) is unremarkable. As of today, she has stable vital signs, normal oxygenation, no fever and a benign cardiopulmonary examination. Today's lab testing showed no findings that would significantly increase her surgical risk, either. As of today, she should be able to tolerate hygienic mastectomy of the left breast without excessive surgical risk. She will have a new attending physician tomorrow and would defer to their preoperative assessment on 12/14/2020 as well.
[2020-12-11 22:00] VITALS: BP 155/68
--- NOTE | 2020-12-11 23:33 | CR.PDOC ---
Breast Surgery Consultation Date of Consultation Date: Dec 11, 2020 History and Physical REASON FOR CONSULTATION: large fungating Left breast cancer Menarche: 13 LMP : when she was in her 20s Menopause: unknown as she had TAHBSO in 20s G : 3 P : 3 HRT tx: no Personal Hx of breast CA : yes Personal Hx of ovarian CA: yes in 20s Genetic testing done previously : patient is unsure Ms. Minerva Barry is a 60 year-old woman, with Past Medical History of Ovarian cancer in her 20s, skin cancer, current non small cell lung cancer Stage 4 with brain/muscle/ adrenal?/LNs mets with small R pleural effusions, and rec ently diagnosed Left breast cancer, a current smoker, who was recently admitted to the hospital for evaluation of general weakness. Breast surgery was consulted today for palliative left breast mastectomy due to presence of large fungating mass in the left breast which bleeds and is causing constant pain. Patient does not remember when was her last mammogram as she does not go to doctors often. She is not sure when the left breast mass appears but she thinks it was around the . The mas continue to grow and the ulcerated. Currently mass causes constant pain -4/10. She was taking Tylenol at home ever 4 hours which likely caused transaminitis. She underwent Left breast biopsy on 11/23/20. Pathology was positive for invasive ductal carcinoma Grade 3, ER 0% WI 5 % Her2 negative. She was seen previously by [facility] and will be starting chemo after transaminitis resolves and after port-a-cath is placed. PAST MEDICAL HISTORY: lung cancer, breast cancer, hx of ovarian ca, hx of skin cancer, transaminitis, PAST SURGICAL HISTORY: INCLUDES: c-sections, appendicitis, TAHSBO PREVIOUS ANESTHESIA REACTIONS: see chart ALLERGIES: Please see below. FAMILY HISTORY: see chart SOCIAL HISTORY: smoker HOME MEDICATIONS: Please see below. REVIEW OF SYSTEMS: GENERAL: denies weight changes- states that she always have been this PULMONARY: Active smoker, nonsmall cell Lung cancer STAGE 4 CARDIAC: denies chest pain BREAST: large fungating mass in the left breast since GI: recent decrease in appetite NEURO: brain mets, s/p RT to brain HEMATOLOGY: mild anemia : Hx of previous UTIS PAPER SORTER: Hx of ovarian ca when she was in her 20s, s/p TAHBSO IMMUNOLOGY: denies autoimmune diseases MUSCULOSKELETAL: new masses reported in extremities likely mets ENDOCRINE: possible adrenal mets PSYCH: sad about her diagnosis and prognosis, patient would like to live couple more years and not months PHYSICAL EXAMINATION: GENERAL: alert and oriented x3, thin EYES: no icterus CARDIO: pulse regular LUNG: breathing comfortably on room air BREASTS: Exam is done in semi supine position in hospital bed. Left breast is deformed and much larger that right one RIGHT BREAST: There is palpable mass in the right breast at 11:00 10 CFN measuring about 2x2 cm Nipple is everted. There is no nipple discharge. There is no scaling of the nipple. No suspicious skin changes. LEFT BREAST: Large palpable hard mass replacing majority of the breast with 10 cm wound on the lateral aspect, There is some odor to that and some seepage of fluids/ blood. This is tender to palpation. Mass is fixed to lateral aspect of the chest of chest wall and how puts tension on skin. Nipple is deformed. ABDOMEN: nondistended EXTREMITIES: there is palpable mass over the right arm, b/l clubbing of the nails LABORATORY DATA: Please see below. IMAGING STUDIES: CT C/A/P IMPRESSION: 60 o y F with Metastatic nonsmall cell CA and left breast cancer ( IDC Gr3 ER0% PR5%HER2 neg) with a large fungating mass. Breast surgery was consulted for palliative mastectomy due to pain and leakage from mass. She was also found to have Right breast mass on exam, although small. - will tentatively plan for palliative mastectomy on Friday 12/15 - cleared by Medical team for surgery - NPO after MN with IVF on Monday - Ancef 1 g IV preop - T&S preop - the procedure was discussed with the patient including the fact that likely not whole left breast cancer will be removed as it likely involves underlying muscle and that it is done for palliation only - potential risks and complications were discussed with the patient - drain postop was also discussed - Patient was encouraged to talk to her family about the mastectomy - I will see patient again on Monday to make sure she is still ok with the plan - US guided bx of right breast mass can be done in the OR as well although I am not sure if it is needed since patient is STAGE 4 [facility] will reach out to [facility] team to see if R Bx is needed - above was discussed with Nursing staff Vital Signs Vital Signs Date Time Temp Pulse Resp B/P (MAP) Pulse Ox O2 Delivery O2 Flow Rate FiO2 12/11/20 14:00 98.0 119 16 134/63 (86) 93 Room Air I&Os I&O- Last 24 Hours up to 6 AM 12/11/20 06:00 Intake Total 3440 ml Output Total 0 ml Balance 3440 ml Laboratory Data Labs 24H Laboratory Tests 2 12/11/20 06:45: Nucleated Red Blood Cells % (auto) 0.0, Anion Gap 5L, Glomerular Filtration Rate > 60.0, Calcium Level 8.2L, Total Bilirubin 0.4, Aspartate Amino Transf (AST/ SGOT) 38H, Alanine Aminotransferase (ALT/SGPT) 137H, Alkaline Phosphatase 236H, Total Protein 6.0L, Albumin 2.2L, Albumin/Globulin Ratio 0.6L CBC/BMP Laboratory Tests 12/11/20 06:45 Microbiology Microbiology 12/09/20 Blood Culture - Preliminary, Resulted No Growth after 48 hours. All Specime... 12/09/20 Blood Culture - Preliminary, Resulted No Growth after 48 hours. All Specime... Home Medications Scheduled Dexamethasone (Dexamethasone) 2 Mg Tablet, 8 MG PO ASDIRECTED, (Reported) 8MG BID FOR 5 DAYS 4MG BID FOR 5 DAYS 4MG DAILY FOR 5 DAYS 2MG DAILY FOR 5 DAYS PT ON DAY 2 OF TAPER Scheduled PRN Acetaminophen (Acetaminophen) 500 Mg Tablet, 1,000 MG PO Q6H PRN for PAIN / FEVER, (Reported) Ondansetron HCl (Ondansetron HCl) 4 Mg Tablet, 4 MG PO Q4H PRN for NAUSEA OR VOMITING, (Reported) Allergies Coded Allergies: Sulfa (Sulfonamide Antibiotics) (Verified Allergy, Mild, RASH, 02/11/20) codeine (Verified Allergy, Mild, rash, 11/22/20) PREETHI RAYO DO Dec 11, 2020 21:45
[2020-12-12 06:00] VITALS: BP 141/68
[2020-12-12 06:41] LABS: HEMATOCRIT 35.8 % (36.0-47.0); HEMOGLOBIN 11.6 g/dl (12.0-15.5); MEAN CORPUSCULAR HEMOGLOBIN 30.9 pg (27.0-33.0); MEAN CORPUSCULAR HGB CONC 32.4 g/dl (32.0-36.5); MEAN CORPUSCULAR VOLUME 95.5 fl (80.0-96.0); PLATELET COUNT, AUTOMATED 183 10^3/uL (150-450); RED BLOOD COUNT 3.75 10^6/uL (4.00-5.40); WHITE BLOOD COUNT 18.8 10^3/uL (4.0-10.0)
[2020-12-12 07:02] LABS: ALBUMIN 2.2 GM/DL (3.2-5.2); ALT/SGPT 160 U/L (12-78); BILIRUBIN,TOTAL 0.4 MG/DL (0.2-1.0); BLOOD UREA NITROGEN 19 MG/DL (7-18); CALCIUM LEVEL 8.2 MG/DL (8.5-10.1); CARBON DIOXIDE LEVEL 29 MEQ/L (21-32); CHLORIDE LEVEL 99 MEQ/L (98-107); CREATININE FOR GFR 0.28 MG/DL (0.55-1.30); GLOMERULAR FILTRATION RATE > 60.0 (>51); GLUCOSE, FASTING 121 MG/DL (70-100); POTASSIUM SERUM 4.6 MEQ/L (3.5-5.1); SODIUM LEVEL 137 MEQ/L (136-145); TOTAL PROTEIN 5.6 GM/DL (6.4-8.2)
[2020-12-12] MEDS: PANTOPRAZOLE 40MG TAB (PROTONIX) PO SCH (09:28)
[2020-12-12] MEDS: NORCO, ANEXSIA 5/325MG TABLET (HYDROcodone/ACETAMINOPHEN) PO PRN ×2 (09:28→20:17)
[2020-12-12] MEDS: ENOXAPARIN 30MG/0.3ML SYRINGE (J1650 PER 10MG) SC SCH (09:29)
[2020-12-12 14:00] VITALS: BP 134/52
--- NOTE | 2020-12-12 15:42 | IPNPDOC ---
Subjective Date Seen The patient was seen on 12/12/20. Subjective Chief Complaint/HPI Mrs. Barry is a 60 year old female with stage 4 adenocarcinoma of lung who is here with weakness and large fungating left breast cancer. This morning, she still has pain in her left breast and right thigh secondary to metastatic cancer. Otherwise denies chest pain or dyspnea. Anticipating for mastectomy on Monday. Objective Physical Examination General Exam: Positive: Alert, Cooperative Eye Exam: Positive: EOMI; Negative: Sclera icteric Neck Exam: Positive: Supple Chest Exam: Positive: Clear to auscultation Heart Exam: Positive: Rate Normal, Regular Rhythm Abdomen Exam: Positive: Normal bowel sounds, Soft; Negative: Tenderness Extremity Exam: Negative: Edema Neuro Exam: Positive: Normal Speech Psych Exam: Positive: Mental status NL, Mood NL Assessment /Plan Assessment Mrs. Barry is a 60 year old female with stage 4 adenocarcinoma of lung who is here with weakness and large fungating left breast cancer. Breast surgery was consulted, recommendations appreciated. Anticipating for surgery on Monday. Plan/VTE VTE Prophylaxis Ordered?: Yes Plan 1. Left fungating breast mass -Breast surgery consulted, recommendations appreciated -Anticipating surgery on Monday 2. Stage 4 metastatic adenocarcinoma of the lung -Receiving outpatient treatment at [facility] -Continue steroid taper -Pain control with [place] 3. Weakness -May be secondary to steroids -Supportive care and physical therapy 4. Leukocytosis -On steroids which most likely has cause leukocytosis 5. DVT ppx -Lovenox Disposition: Pending surgery on Monday VS, I&O, 24H, Fishbone Vital Signs/I&O Vital Signs Date Time Temp Pulse Resp B/P (MAP) Pulse Ox O2 Delivery O2 Flow Rate FiO2 12/12/20 14:00 97.7 124 21 134/52 (79) 94 Room Air I&O- Last 24 Hours up to 6 AM 12/12/20 06:00 Intake Total 1725 ml Output Total 120 ml Balance 1605 ml Laboratory Data 24H LABS Laboratory Tests 2 12/12/20 05:50: Nucleated Red Blood Cells % (auto) 0.0, Anion Gap 9, Glomerular Filtration Rate > 60.0, Calcium Level 8.2L, Total Bilirubin 0.4, Aspartate Amino Transf (AST/SGOT) 56H, Alanine Aminotransferase (ALT/SGPT) 160H, Alkaline Phosphatase 254H, Total Protein 5.6L, Albumin 2.2L, Albumin/Globulin Ratio 0.6L CBC/BMP Laboratory Tests 12/12/20 05:50 Microbiology Microbiology 12/09/20 Blood Culture - Preliminary, Resulted No Growth after 72 hours. All specime... 12/09/20 Blood Culture - Preliminary, Resulted No Growth after 72 hours. All specime... SONALI GARIBAY DO Dec 12, 2020 15:42
[2020-12-12 22:00] VITALS: BP 140/68
[2020-12-13] MEDS: NORCO, ANEXSIA 5/325MG TABLET (HYDROcodone/ACETAMINOPHEN) PO PRN ×2 (05:03→13:43)
[2020-12-13 06:00] VITALS: BP 139/70
[2020-12-13 06:25] LABS: HEMATOCRIT 35.7 % (36.0-47.0); HEMOGLOBIN 11.5 g/dl (12.0-15.5); MEAN CORPUSCULAR HEMOGLOBIN 30.4 pg (27.0-33.0); MEAN CORPUSCULAR HGB CONC 32.2 g/dl (32.0-36.5); MEAN CORPUSCULAR VOLUME 94.4 fl (80.0-96.0); PLATELET COUNT, AUTOMATED 171 10^3/uL (150-450); RED BLOOD COUNT 3.78 10^6/uL (4.00-5.40); WHITE BLOOD COUNT 17.4 10^3/uL (4.0-10.0)
[2020-12-13 06:53] LABS: ALBUMIN 2.2 GM/DL (3.2-5.2); ALT/SGPT 176 U/L (12-78); BILIRUBIN,TOTAL 0.3 MG/DL (0.2-1.0); BLOOD UREA NITROGEN 21 MG/DL (7-18); CALCIUM LEVEL 8.3 MG/DL (8.5-10.1); CARBON DIOXIDE LEVEL 30 MEQ/L (21-32); CHLORIDE LEVEL 100 MEQ/L (98-107); CREATININE FOR GFR 0.26 MG/DL (0.55-1.30); GLOMERULAR FILTRATION RATE > 60.0 (>51); GLUCOSE, FASTING 126 MG/DL (70-100); POTASSIUM SERUM 4.7 MEQ/L (3.5-5.1); SODIUM LEVEL 136 MEQ/L (136-145); TOTAL PROTEIN 5.7 GM/DL (6.4-8.2)
[2020-12-13] MEDS: ENOXAPARIN 30MG/0.3ML SYRINGE (J1650 PER 10MG) SC SCH (08:28)
[2020-12-13] MEDS: PANTOPRAZOLE 40MG TAB (PROTONIX) PO SCH (08:28)
[2020-12-13 14:00] VITALS: BP 118/66
--- NOTE | 2020-12-13 17:26 | IPNPDOC ---
Subjective Date Seen The patient was seen on 12/13/20. Subjective Chief Complaint/HPI Mrs. Barry is a 60 year old female with stage 4 adenocarcinoma of lung who is here with weakness and large fungating left breast cancer. Pain in the left breast and right thigh unchanged. It can be controlled with medication, but does take time to have effect. Objective Physical Examination General Exam: Positive: Alert, Cooperative Eye Exam: Positive: EOMI; Negative: Sclera icteric Neck Exam: Positive: Supple Chest Exam: Positive: Clear to auscultation Heart Exam: Positive: Rate Normal, Regular Rhythm Abdomen Exam: Positive: Normal bowel sounds, Soft; Negative: Tenderness Extremity Exam: Negative: Edema Neuro Exam: Positive: Normal Speech Psych Exam: Positive: Mental status NL, Mood NL Assessment /Plan Assessment Mrs. Barry is a 60 year old female with stage 4 adenocarcinoma of lung who is here with weakness and large fungating left breast cancer. Breast surgery was c onsulted, recommendations appreciated. Anticipating for surgery on Monday. Plan/VTE VTE Prophylaxis Ordered?: Yes Plan 1. Left fungating breast mass -Breast surgery consulted, recommendations appreciated -Anticipating surgery on Monday 2. Stage 4 metastatic adenocarcinoma of the lung -Receiving outpatient treatment at [facility] -Continue steroid taper -Pain control with [place] 3. Weakness -May be secondary to steroids -Supportive care and physical therapy 4. Leukocytosis -On steroids which most likely has cause leukocytosis 5. DVT ppx -Lovenox Disposition: Pending surgery on Monday VS, I&O, 24H, Fishbone Vital Signs/I&O Vital Signs Date Time Temp Pulse Resp B/P (MAP) Pulse Ox O2 Delivery O2 Flow Rate FiO2 12/13/20 14:40 18 Room Air 12/13/20 14:00 97.6 126 118/66 (83) 94 I&O- Last 24 Hours up to 6 AM 12/13/20 06:00 Intake Total 2770 ml Output Total 0 ml Balance 2770 ml Laboratory Data 24H LABS Laboratory Tests 2 12/13/20 05:18: Nucleated Red Blood Cells % (auto) 0.0, Anion Gap 6L, Glomerular Filtration Rate > 60.0, Calcium Level 8.3L, Total Bilirubin 0.3, Aspartate Amino Transf (AST/SGOT) 62H, Alanine Aminotransferase (ALT/SGPT) 176H, Alkaline Phosphatase 266H, Total Protein 5.7L, Albumin 2.2L, Albumin/Globulin Ratio 0.6L CBC/BMP Laboratory Tests 12/13/20 05:18 Microbiology Microbiology 12/09/20 Blood Culture - Preliminary, Resulted No Growth after 72 hours. All specime... 12/09/20 Blood Culture - Preliminary, Resulted No Growth after 72 hours. All specime... SONALI GARIBAY DO Dec 13, 2020 17:26
[2020-12-13 22:00] VITALS: BP 117/59
[2020-12-14] MEDS: NORCO, ANEXSIA 5/325MG TABLET (HYDROcodone/ACETAMINOPHEN) PO PRN ×4 (02:08→21:18)
[2020-12-14 06:45] VITALS: BP 152/85
[2020-12-14 06:46] LABS: HEMATOCRIT 35.9 % (36.0-47.0); HEMOGLOBIN 11.8 g/dl (12.0-15.5); MEAN CORPUSCULAR HEMOGLOBIN 30.7 pg (27.0-33.0); MEAN CORPUSCULAR HGB CONC 32.9 g/dl (32.0-36.5); MEAN CORPUSCULAR VOLUME 93.5 fl (80.0-96.0); PLATELET COUNT, AUTOMATED 172 10^3/uL (150-450); RED BLOOD COUNT 3.84 10^6/uL (4.00-5.40); WHITE BLOOD COUNT 16.5 10^3/uL (4.0-10.0)
[2020-12-14 07:10] LABS: ALBUMIN 2.2 GM/DL (3.2-5.2); ALT/SGPT 167 U/L (12-78); BILIRUBIN,TOTAL 0.5 MG/DL (0.2-1.0); BLOOD UREA NITROGEN 21 MG/DL (7-18); CARBON DIOXIDE LEVEL 30 MEQ/L (21-32); CHLORIDE LEVEL 98 MEQ/L (98-107); CREATININE FOR GFR 0.26 MG/DL (0.55-1.30); GLOMERULAR FILTRATION RATE > 60.0 (>51); GLUCOSE, FASTING 100 MG/DL (70-100); POTASSIUM SERUM 4.6 MEQ/L (3.5-5.1); SODIUM LEVEL 135 MEQ/L (136-145); TOTAL PROTEIN 5.7 GM/DL (6.4-8.2)
[2020-12-14] MEDS: ENOXAPARIN 30MG/0.3ML SYRINGE (J1650 PER 10MG) SC SCH (08:26)
[2020-12-14] MEDS: PANTOPRAZOLE 40MG TAB (PROTONIX) PO SCH (08:26)
[2020-12-14 14:00] VITALS: BP 127/61
--- NOTE | 2020-12-14 21:13 | IPNPDOC ---
Subjective Date Seen The patient was seen on 12/14/20. Subjective Chief Complaint/HPI Mrs. Barry is a 60 year old female with stage 4 adenocarcinoma of lung who is here with weakness and large fungating left breast cancer. Patient was seen in the morning. Still has pain in the left breast and right thigh. She is hopeful that the procedure will help with the left breast pain. Objective Physical Examination General Exam: Positive: Alert, Cooperative Eye Exam: Positive: EOMI; Negative: Sclera icteric Neck Exam: Positive: Supple Chest Exam: Positive: Clear to auscultation Heart Exam: Positive: Rate Normal, Regular Rhythm Abdomen Exam: Positive: Normal bowel sounds, Soft; Negative: Tenderness Extremity Exam: Negative: Edema Neuro Exam: Positive: Normal Speech Psych Exam: Positive: Mental status NL, Mood NL Assessment /Plan Assessment Mrs. Barry is a 60 year old female with stage 4 adenocarcinoma of lung who is here with weakness and large fungating left breast cancer. Breast surgery was consulted, recommendations appreciated. Anticipating for surgery on Monday. Plan/VTE VTE Prophylaxis Ordered?: Yes Plan 1. Left fungating breast mass -Breast surgery consulted, recommendations appreciated -Anticipating surgery on Monday 2. Stage 4 metastatic adenocarcinoma of the lung -Receiving outpatient treatment at [facility] -Continue steroid taper -Pain control with [place] 3. Weakness -May be secondary to steroids -Supportive care and physical therapy 4. Leukocytosis -On steroids which most likely has cause leukocytosis 5. DVT ppx -Lovenox Disposition: Pending surgery on Monday VS, I&O, 24H, Fishbone Vital Signs/I&O Vital Signs Date Time Temp Pulse Resp B/P (MAP) Pulse Ox O2 Delivery O2 Flow Rate FiO2 12/14/20 16:49 16 Room Air 12/14/20 14:00 98.6 121 127/61 (83) 95 I&O- Last 24 Hours up to 6 AM 12/14/20 06:00 Intake Total 2040 ml Output Total 0 ml Balance 2040 ml Laboratory Data 24H LABS Laboratory Tests 2 12/14/20 06:19: Nucleated Red Blood Cells % (auto) 0.0, Anion Gap 7L, Glomerular Filtration Rate > 60.0, Calcium Level 9.0, Total Bilirubin 0.5#, Aspartate Amino Transf (AST/SGOT) 58H, Alanine Aminotransferase (ALT/SGPT) 167H, Alkaline Phosphatase 261H, Total Protein 5.7L, Albumin 2.2L, Albumin/Globulin Ratio 0.6L CBC/BMP Laboratory Tests 12/14/20 06:19 Microbiology Microbiology 12/09/20 Blood Culture - Final, Complete NO GROWTH AFTER 5 DAYS 12/09/20 Blood Culture - Final, Complete NO GROWTH AFTER 5 DAYS SONALI GARIBAY DO Dec 14, 2020 21:13
[2020-12-14 22:00] VITALS: BP 142/55
--- NOTE | 2020-12-14 22:13 | IPNPDOC ---
Subjective Date Seen The patient was seen on 12/14/20. Subjective Chief Complaint/HPI Patient discussed mastectomy option with her family. She is interested in proceeding. The left breast causes her pain and bleeds. Objective Physical Examination General Exam: Positive: Alert, Cooperative, No Acute Distress Eye Exam: Positive: EOMI Chest Exam: Positive: Normal air movement Heart Exam: Positive: Regular Rhythm Extremity Exam: Positive: Clubbing Neuro Exam: Positive: Normal Speech Psych Exam: Positive: Mental status NL, Oriented x 3 Other physical findings breast exam was deferred today. See previous notes for details Assessment /Plan Assessment 60 y o F with metastatic Lung cancer and large fungating left breast cancer - L palliative mastectomy tomorrow, risks and possible complications discussed with patient - no need to Bx R breast per [facility] (Dr Pacheco) - NPO after MN with IVF - Held Lovenox in AM - start on Vit A on 12/16 since on steroids - T&S added to AM labs - ancef preop Plan/VTE VTE Prophylaxis Ordered?: Yes VS, I&O, 24H, Fishbone Vital Signs/I&O Vital Signs Date Time Temp Pulse Resp B/P (MAP) Pulse Ox O2 Delivery O2 Flow Rate FiO2 12/14/20 21:18 18 12/14/20 16:49 Room Air 12/14/20 14:00 98.6 121 127/61 (83) 95 I&O- Last 24 Hours up to 6 AM 12/14/20 06:00 Intake Total 2040 ml Output Total 0 ml Balance 2040 ml Laboratory Data 24H LABS Laboratory Tests 2 12/14/20 06:19: Nucleated Red Blood Cells % (auto) 0.0, Anion Gap 7L, Glomerular Filtration Rate > 60.0, Calcium Level 9.0, Total Bilirubin 0.5#, Aspartate Amino Transf (AST/SGOT) 58H, Alanine Aminotransferase (ALT/SGPT) 167H, Alkaline Phosphatase 261H, Total Protein 5.7L, Albumin 2.2L, Albumin/Globulin Ratio 0.6L CBC/BMP Laboratory Tests 12/14/20 06:19 Microbiology Microbiology 12/09/20 Blood Culture - Final, Complete NO GROWTH AFTER 5 DAYS 12/09/20 Blood Culture - Final, Complete NO GROWTH AFTER 5 DAYS PREETHI RAYO DO Dec 14, 2020 22:09
[2020-12-14] MEDS: NS 1,000 ML IV SCH (23:59)
[2020-12-15] VITALS (7 sets, daily range): BP systolic 108–162; BP diastolic 53–77
[2020-12-15 06:27] LABS: HEMATOCRIT 35.6 % (36.0-47.0); HEMOGLOBIN 11.6 g/dl (12.0-15.5); MEAN CORPUSCULAR HEMOGLOBIN 31.1 pg (27.0-33.0); MEAN CORPUSCULAR HGB CONC 32.6 g/dl (32.0-36.5); MEAN CORPUSCULAR VOLUME 95.4 fl (80.0-96.0); PLATELET COUNT, AUTOMATED 181 10^3/uL (150-450); RED BLOOD COUNT 3.73 10^6/uL (4.00-5.40); WHITE BLOOD COUNT 14.4 10^3/uL (4.0-10.0)
[2020-12-15 06:57] LABS: ALBUMIN 2.2 GM/DL (3.2-5.2); ALT/SGPT 147 U/L (12-78); BILIRUBIN,TOTAL 0.4 MG/DL (0.2-1.0); BLOOD UREA NITROGEN 20 MG/DL (7-18); CALCIUM LEVEL 8.8 MG/DL (8.5-10.1); CARBON DIOXIDE LEVEL 29 MEQ/L (21-32); CHLORIDE LEVEL 99 MEQ/L (98-107); CREATININE FOR GFR 0.19 MG/DL (0.55-1.30); GLOMERULAR FILTRATION RATE > 60.0 (>51); GLUCOSE, FASTING 109 MG/DL (70-100); POTASSIUM SERUM 4.3 MEQ/L (3.5-5.1); SODIUM LEVEL 136 MEQ/L (136-145); TOTAL PROTEIN 5.5 GM/DL (6.4-8.2)
[2020-12-15] MEDS: PANTOPRAZOLE 40MG TAB (PROTONIX) PO SCH (08:48)
[2020-12-15] MEDS: NORCO, ANEXSIA 5/325MG TABLET (HYDROcodone/ACETAMINOPHEN) PO PRN (10:25)
[2020-12-15] MEDS ORDERED: ceFAZolin SOD 1 GM in D5W MINI-BAG PLUS 50 ML IV ONE (15:00)
[2020-12-15] MEDS ORDERED: BUPIVACAINE LIPOSOME/PF 1.3% 20ML VIAL (13.3MG/ML)(EXPAREL)(C9290 PER1MG) As Ordered ONE (17:33)
[2020-12-15] MEDS ORDERED: MIDAZOLAM INJ 2MG/2ML VIAL (J2250 PER 1MG) As Ordered ONE (17:48)
[2020-12-15] MEDS ORDERED: LIDOCAINE 2% 100MG/5ML SDV (FOR ANES.) As Ordered ONE (17:57)
[2020-12-15] MEDS ORDERED: dexameTHASONE 4 MG/ML 1ML VIAL (J1100 PER 1MG) As Ordered ONE (17:57)
[2020-12-15] MEDS ORDERED: ROCURONIUM BROMIDE 50 MG/5 ML VIAL As Ordered ONE (17:57)
[2020-12-15] MEDS ORDERED: propofoL 200 MG/20 ML VIAL As Ordered ONE (17:57)
[2020-12-15] MEDS ORDERED: fentaNYL 250 MCG/5 ML INJECTION (J3010) As Ordered ONE (17:57)
[2020-12-15] MEDS ORDERED: THROMBIN SOLN 20,000 UNITS KIT As Ordered ONE (18:05)
[2020-12-15] MEDS ORDERED: ceFAZolin 1GM VIAL (J0690 PER 500MG) As Ordered ONE (18:16)
[2020-12-15] MEDS ORDERED: ACETAMINOPHEN 1000MG 100ML IV BTL (OFIRMEV) (J0131 PER 10MG) As Ordered ONE (19:01)
[2020-12-15] MEDS ORDERED: ONDANSETRON 4MG/2ML VIAL As Ordered ONE (19:01)
[2020-12-15] MEDS ORDERED: SUGAMMADEX SODIUM 500 MG/5 ML VIAL (BRIDION) As Ordered ONE (19:01)
[2020-12-15] MEDS ORDERED: ESMOLOL INJ 100MG/10ML VIAL As Ordered ONE (19:03)
[2020-12-15] MEDS ORDERED: ePHEDrine SULFATE 25 MG/5 ML(5MG/ML) SYRINGE As Ordered ONE (19:16)
[2020-12-15] MEDS ORDERED: PHENYLephrine 500MCG 5ML (100MCG/ML) SYRINGE As Ordered ONE (19:16)
[2020-12-15] MEDS ORDERED: LACRILUBE (AKWA TEARS) OPHTH OINT 3.5 GM As Ordered ONE (19:32)
[2020-12-15] MEDS ORDERED: LR 1,000 ML IV SCH (20:05)
[2020-12-15] MEDS ORDERED: HYDROMORPHONE HCL 0.5 MG/ 0.5 ML SYRINGE (J1170 PER 1) IV PRN (20:05)
[2020-12-15] MEDS ORDERED: oxyCODONE 5MG TAB PO PRN (20:05)
[2020-12-15] MEDS ORDERED: fentaNYL 100 MCG/2 ML INJECTION (J3010) IV PRN (20:05)
[2020-12-15] MEDS ORDERED: ONDANSETRON 4MG/2ML VIAL IV PRN (20:05)
[2020-12-15] MEDS: NS 1,000 ML IV SCH (21:05)
--- NOTE | 2020-12-15 21:07 | IPNPDOC ---
Subjective Date Seen The patient was seen on 12/15/20. Subjective Chief Complaint/HPI Mrs. Barry is a 60 year old female with stage 4 adenocarcinoma of lung who is here with weakness and large fungating left breast cancer. Patient was seen in the morning. She was upset that she was kept NPO after midnight and her surgery was 5:30PM. I reached out to anesthesiology, Dr. Bejarano. Okay for clear liquids until 10AM. Otherwise, patient denies chest pain or dyspnea. Still has breast pain. Objective Physical Examination General Exam: Positive: Alert, Cooperative Eye Exam: Positive: EOMI Chest Exam: Positive: Normal air movement Heart Exam: Positive: Regular Rhythm Extremity Exam: Positive: Clubbing Neuro Exam: Positive: Normal Speech Psych Exam: Positive: Mental status NL, Oriented x 3 Assessment /Plan Assessment Mrs. Barry is a 60 year old female with stage 4 adenocarcinoma of lung who is here with weakness and large fungating left breast cancer. Breast surgery was consulted, recommendations appreciated. Going to surgery today. Plan/VTE VTE Prophylaxis Ordered?: Yes Plan 1. Left fungating breast mass -Breast surgery consulted, recommendations appreciated -Anticipating surgery today 2. Stage 4 metastatic adenocarcinoma of the lung -Receiving outpatient treatment at [facility] -Continue steroid taper -Pain control with [place] 3. Weakness -May be secondary to steroids -Supportive care and physical therapy 4. Leukocytosis -On steroids which most likely has cause leukocytosis 5. DVT ppx -Lovenox Disposition: Pending surgery VS, I&O, 24H, Fishbone Vital Signs/I&O Vital Signs Date Time Temp Pulse Resp B/P (MAP) Pulse Ox O2 Delivery O2 Flow Rate FiO2 12/15/20 20:32 110 18 145/72 (96) 93 Room Air 12/15/20 20:17 98.3 12/15/20 20:06 3.0 I&O- Last 24 Hours up to 6 AM 12/15/20 06:00 Intake Total 1800 ml Output Total 0 ml Balance 1800 ml Laboratory Data 24H LABS Laboratory Tests 2 12/15/20 06:10: Nucleated Red Blood Cells % (auto) 0.0, Anion Gap 8, Glomerular Filtration Rate > 60.0, Calcium Level 8.8, Total Bilirubin 0.4, Aspartate Amino Transf (AST/SGOT) 42H, Alanine Aminotransferase (ALT/SGPT) 147H, Alkaline Phosphatase 241H, Total Protein 5.5L, Albumin 2.2L, Albumin/Globulin Ratio 0.7L 12/15/20 19:52: Bedside Glucose (Misc Panel) 126H CBC/BMP Laboratory Tests 12/15/20 06:10 Microbiology Microbiology 12/09/20 Blood Culture - Final, Complete NO GROWTH AFTER 5 DAYS 12/09/20 Blood Culture - Final, Complete NO GROWTH AFTER 5 DAYS SONALI GARIBAY DO Dec 15, 2020 21:07
[2020-12-16] VITALS (7 sets, daily range): BP systolic 123–133; BP diastolic 57–61
[2020-12-16] MEDS: NORCO, ANEXSIA 5/325MG TABLET (HYDROcodone/ACETAMINOPHEN) PO PRN ×3 (05:34→18:21)
[2020-12-16] MEDS: ceFAZolin SOD 1 GM in D5W MINI-BAG PLUS 50 ML IV SCH ×2 (05:35→14:04)
[2020-12-16 06:26] LABS: HEMOGLOBIN 10.6 g/dl (12.0-15.5); MEAN CORPUSCULAR HEMOGLOBIN 30.8 pg (27.0-33.0); MEAN CORPUSCULAR HGB CONC 32.1 g/dl (32.0-36.5); MEAN CORPUSCULAR VOLUME 95.9 fl (80.0-96.0); PLATELET COUNT, AUTOMATED 200 10^3/uL (150-450); RED BLOOD COUNT 3.44 10^6/uL (4.00-5.40); WHITE BLOOD COUNT 14.4 10^3/uL (4.0-10.0)
[2020-12-16] MEDS: PANTOPRAZOLE 40MG TAB (PROTONIX) PO SCH (08:01)
--- NOTE | 2020-12-16 08:59 | IPNPDOC ---
Subjective General Date Seen: Dec 16, 2020 Subject Chief Complaint/History The patient is a 60-year-old female admitted with a reason for visit of Generalized Weakness,with metastatic Lung cancer and large fungating mass in the left breast which was found to be a Breast Cancer (IDC Gr 3, ER 0% VT 5%, Her2 negative), s/p Left palliative mastectomy POD1. Left breast cancer was found to be firmly attached to the pectoralis and serratus muscle and to underlying intercostal muscles - complete tumor excision was not possible. Patient is doing well postop. She was able to void and she tolerates food. Drain has minimal drainage. Current Medications Current Medications Current Medications Medications (Trade) Dose Ordered Sig/Cherelle Route PRN Reason Start Time Stop Time Status Last Admin Dose Admin Acetaminophen (Tylenol Tab) 1,000 mg Q6H PRN PO PAIN 1-4 / FEVER 12/11/20 08:15 Acetaminophen/ Hydrocodone Bitart ([place], Anexsia 5/325) 1 tab Q4HP PRN PO MILD/MODERATE PAIN (PS 5-7) 12/11/20 08:15 12/16/20 05:34 Acetaminophen/ Hydrocodone Bitart ([place], Anexsia 5/325) 2 tab Q4HP PRN PO SEVERE PAIN (PS 8-10) 12/11/20 08:15 12/15/20 10:25 Cefazolin Sodium 1 gm/Dextrose 50 ml @ 100 mls/hr Q8H IV 12/16/20 06:00 12/16/20 16:00 12/16/20 05:35 Dexamethasone (Decadron) 4 mg Taper DAILY PO 12/14/20 09:00 12/24/20 08:59 12/16/20 08:01 Dexamethasone (Decadron) 8 mg DAILY PO 12/09/20 09:00 12/13/20 17:26 DC 12/13/20 08:28 Enoxaparin Sodium (Lovenox) 30 mg DAILY SC 12/10/20 09:00 Hold 12/14/20 08:26 Enoxaparin Sodium (Lovenox) 40 mg DAILY SC 12/10/20 09:00 12/09/20 13:47 DC Fentanyl Citrate (Sublimaze) 25 mcg Q5MP PRN IV PAIN LEVEL 5-10 12/15/20 20:05 12/15/20 21:05 DC Home Med (Med Rec Complete!) ASDIRECTED XX 12/09/20 11:45 12/09/20 11:44 DC Hydromorphone HCl (Dilaudid) 0.2 mg Q5MP PRN IV PAIN LEVEL 4-7 12/15/20 20:05 12/15/20 21:05 DC Lactated Ringer's 1,000 ml @ 100 mls/hr Q10H IV 12/15/20 20:05 12/15/20 21:05 DC Morphine Sulfate (Morphine Sulfate Inj) 2 mg Q30M PRN IV MODERATE PAIN (PS 5-7) 12/09/20 10:00 12/09/20 20:59 DC 12/09/20 20:59 Ondansetron HCl (ZOFRAN INJection) 4 mg Q4HP PRN IV NAUSEA OR VOMITING 12/15/20 20:05 12/15/20 21:05 DC Oxycodone HCl (Roxicodone, Oxyir) 5 mg ASDIRECTED PRN PO PAIN LEVEL 1-4 12/15/20 20:05 12/15/20 21:05 DC Pantoprazole Sodium (Protonix) 40 mg DAILY PO 12/09/20 09:00 12/16/20 08:01 Sodium Chloride 1,000 ml @ 60 mls/hr [id number] IV 12/15/20 00:10 12/15/20 21:05 Sodium Chloride 1,000 ml @ 100 mls/hr Q10H IV 12/09/20 09:55 Cancel Sodium Chloride 1,000 ml @ 150 mls/hr Q6H40M IV 12/09/20 10:00 12/10/20 09:59 DC 12/10/20 08:49 Vitamin A (Vitamin A) 20,000 units DAILY PO 12/16/20 09:00 Allergies Coded Allergies: Sulfa (Sulfonamide Antibiotics) (Verified Allergy, Mild, RASH, 02/11/20) codeine (Verified Allergy, Mild, rash, 11/22/20) Objective Physical Examination Examination GENERAL APPEARANCE:Patient seen, laying in bed, awake, alert, and oriented. Comfortable, in no acute distress. CHEST: Left chest wall with viable mastectomy flaps, no hematoma, minimal bruising, MARISABEL drain in the lateral aspect of incision with s/s drainage. LUNGS:breathing comfortably on room air HEART: mild tachycardia ABDOMEN: nondistended EXTREMITIES: no edema in lower extremities Vital Signs Vital Signs Date Time Temp Pulse Resp B/P (MAP) Pulse Ox O2 Delivery O2 Flow Rate FiO2 12/16/20 06:04 20 12/16/20 05:45 98.0 123 131/59 (83) 96 Room Air 12/15/20 20:06 3.0 I&Os I&O- Last 24 Hours up to 6 AM 12/16/20 06:00 Intake Total 4095 ml Output Total 1225 ml Balance 2870 ml Laboratory Data Labs 24H Laboratory Tests 2 12/15/20 19:52: Bedside Glucose (Misc Panel) 126H 12/16/20 06:09: Nucleated Red Blood Cells % (auto) 0.0 12/16/20 08:08: CBC/BMP Laboratory Tests 12/16/20 06:09 Microbiology Microbiology 12/09/20 Blood Culture - Final, Complete NO GROWTH AFTER 5 DAYS 12/09/20 Blood Culture - Final, Complete NO GROWTH AFTER 5 DAYS Impression The patient is a 60-year-old female admitted with a reason for visit of Generalized Weakness,with metastatic Lung cancer and large fungating mass in the left breast which was found to be a Breast Cancer (IDC Gr 3, ER 0% VT 5%, Her2 negative), s/p Left palliative mastectomy POD1. Left breast cancer was found to be firmly attached to the pectoralis and serratus muscle and to underlying int ercostal muscles - complete tumor excision was not possible. - resume preop diet - monitor MARISABEL output, strip q 8 h - dont change dressings, wound care per Breast surgery team - IS encouraged - start Vit A today since pt is on steroids, continue until wound is completely healed - ok to resume lovenox today - OOB, ambulate with assistance - med management per primary team Plan / VTE VTE Prophylaxis Ordered?: Yes PREETHI RAYO DO Dec 16, 2020 08:58
[2020-12-16 09:10] LABS: ALT/SGPT 108 U/L (12-78); BILIRUBIN,TOTAL 0.2 MG/DL (0.2-1.0); BLOOD UREA NITROGEN 17 MG/DL (7-18); CARBON DIOXIDE LEVEL 31 MEQ/L (21-32); CHLORIDE LEVEL 104 MEQ/L (98-107); CREATININE FOR GFR 0.22 MG/DL (0.55-1.30); GLOMERULAR FILTRATION RATE > 60.0 (>51); GLUCOSE, FASTING 107 MG/DL (70-100); SODIUM LEVEL 138 MEQ/L (136-145); TOTAL PROTEIN 5.9 GM/DL (6.4-8.2)
[2020-12-16] MEDS: VITAMIN A 10,000 INTERNATIONAL UNITS CAP PO SCH (09:44)
[2020-12-16] MEDS: ENOXAPARIN 30MG/0.3ML SYRINGE (J1650 PER 10MG) SC SCH (09:44)
[2020-12-16] MEDS: NS 1,000 ML IV SCH (09:45)
--- NOTE | 2020-12-16 10:19 | IPNPDOC ---
Subjective Date Seen The patient was seen on 12/16/20. Subjective Chief Complaint/HPI Mrs. Barry is a 60 year old female with stage 4 adenocarcinoma of lung who is here with weakness and large fungating left breast cancer. Dr. Rios took patient to the OR on 12/15/20 for palliative mastectomy. This morning, denies any pain in the left side. Denies chest pain or dyspnea. Objective Physical Examination General Exam: Positive: Alert, Cooperative Eye Exam: Positive: EOMI Chest Exam: Positive: Normal air movement Heart Exam: Positive: Regular Rhythm Neuro Exam: Positive: Normal Speech Psych Exam: Positive: Mental status NL, Oriented x 3 Assessment /Plan Assessment Mrs. Barry is a 60 year old female with stage 4 adenocarcinoma of lung who is here with weakness and large fungating left breast cancer. Breast surgery was consulted, recommendations appreciated. Dr. Rios took patient to the OR on 12/15/20 for palliative mastectomy. Plan/VTE VTE Prophylaxis Ordered?: Yes Plan 1. Left fungating breast mass -Breast surgery consulted, recommendations appreciated -Went to the OR on 12/15/20 for palliative mastectomy. 2. Stage 4 metastatic adenocarcinoma of the lung -Receiving outpatient treatment at [facility] -Continue steroid taper -Pain control with [facility] 3. Weakness -May be secondary to steroids -Supportive care and physical therapy 4. Leukocytosis -On steroids which most likely has cause leukocytosis 5. DVT ppx -Lovenox VS, I&O, 24H, Fishbone Vital Signs/I&O Vital Signs Date Time Temp Pulse Resp B/P (MAP) Pulse Ox O2 Delivery O2 Flow Rate FiO2 12/16/20 10:00 97.8 114 16 130/60 (83) 94 Room Air 12/15/20 20:06 3.0 I&O- Last 24 Hours up to 6 AM 12/16/20 06:00 Intake Total 4095 ml Output Total 1225 ml Balance 2870 ml Laboratory Data 24H LABS Laboratory Tests 2 12/15/20 19:52: Bedside Glucose (Misc Panel) 126H 12/16/20 06:09: Nucleated Red Blood Cells % (auto) 0.0 12/16/20 08:08: Anion Gap 3L, Glomerular Filtration Rate > 60.0, Calcium Level 8.0L, Total Bilirubin 0.2, Aspartate Amino Transf (AST/SGOT) 39H, Alanine Aminotransferase (ALT/SGPT) 108H, Alkaline Phosphatase 225H, Total Protein 5.9L, Albumin 2.0L, Albumin/Globulin Ratio 0.5L CBC/BMP Laboratory Tests 12/16/20 06:09 12/16/20 08:08 Microbiology Microbiology 12/09/20 Blood Culture - Final, Complete NO GROWTH AFTER 5 DAYS 12/09/20 Blood Culture - Final, Complete NO GROWTH AFTER 5 DAYS SONALI GARIBAY DO Dec 16, 2020 10:19
[2020-12-17] MEDS: NORCO, ANEXSIA 5/325MG TABLET (HYDROcodone/ACETAMINOPHEN) PO PRN ×4 (01:25→22:44)
[2020-12-17 02:00] VITALS: BP 116/61
[2020-12-17] MEDS: NS 1,000 ML IV SCH ×3 (02:10→22:44)
[2020-12-17 06:00] VITALS: BP 118/87
[2020-12-17 06:11] LABS: HEMATOCRIT 32.9 % (36.0-47.0); HEMOGLOBIN 10.4 g/dl (12.0-15.5); MEAN CORPUSCULAR HEMOGLOBIN 30.7 pg (27.0-33.0); MEAN CORPUSCULAR HGB CONC 31.6 g/dl (32.0-36.5); MEAN CORPUSCULAR VOLUME 97.1 fl (80.0-96.0); PLATELET COUNT, AUTOMATED 215 10^3/uL (150-450); RED BLOOD COUNT 3.39 10^6/uL (4.00-5.40); WHITE BLOOD COUNT 12.2 10^3/uL (4.0-10.0)
[2020-12-17 06:37] LABS: BLOOD UREA NITROGEN 19 MG/DL (7-18); CALCIUM LEVEL 7.8 MG/DL (8.5-10.1); CARBON DIOXIDE LEVEL 30 MEQ/L (21-32); CHLORIDE LEVEL 102 MEQ/L (98-107); CREATININE FOR GFR 0.22 MG/DL (0.55-1.30); GLOMERULAR FILTRATION RATE > 60.0 (>51); GLUCOSE, FASTING 94 MG/DL (70-100); POTASSIUM SERUM 4.8 MEQ/L (3.5-5.1); SODIUM LEVEL 137 MEQ/L (136-145)
[2020-12-17] MEDS: ENOXAPARIN 30MG/0.3ML SYRINGE (J1650 PER 10MG) SC SCH (08:28)
[2020-12-17] MEDS: PANTOPRAZOLE 40MG TAB (PROTONIX) PO SCH (08:29)
[2020-12-17 10:00] VITALS: BP 119/71
[2020-12-17] MEDS: DOCUSATE SODIUM 100MG CAPSULE PO SCH ×2 (10:30→20:02)
[2020-12-17] MEDS: VITAMIN A 10,000 INTERNATIONAL UNITS CAP PO SCH (10:30)
[2020-12-17] MEDS: LIDOCAINE 5% (LIDODERM) PATCH TD SCH (10:30)
--- NOTE | 2020-12-17 12:01 | RADENCPD ---
Date/Time of Encounter Date of Encounter: Dec 17, 2020 Time of Encounter: 11:44 Encounter Minerva Barry is a 60 year old female with history of cervical and ovarian cancer remotely, and more recently stage IV NSCLC diagnosed in 2019, s/p SRS to a frontal brain metastasis at [facility] 30 Gy in 5 fractions completed 01/08/20, and no further cancer-directed treatments until presenting to [facility] ED with increasing imbalance and falls at home on 11/21/20. She was found to have multiple brain metastases and underwent SRS 27 Gy in 3 fractions to the lesions from 12/01/20-12/03/20. She had a biopsy of a fungating left breast lesion which was found to be a primary breast cancer. She was subsequently discharged home with a decadron taper. On 12/04/20 she had a follow up with medical oncology and plan for port placement and chemo and/or immunotherapy contingent upon her functional recovery was discussed. She presented to the hospital again on 12/09/20 with weakness and FTT. She underwent palliative mastectomy on 12/15/20. I was asked to see her regarding ongoing pain from several sites. She complains of pain in the right upper arm corresponding to a large lump which is tender. She also complains of R>L leg pain, radiating to her toes from her back present in the thigh as well. She is struggling to get out of bed without assistance. I reviewed her imaging to date including the most recent MRI, which is stable compared to the immediate prior from 11/23/20. No additional [employer] directed RT is required at this timepoint. It too soon post-SRS to assess for response to treatment. On her CT abdomen pelvis from 11/22/20 she has a right psoas soft tissue metastasis but nothing in the pelvic bones or long bones on the right. She has a small intragluteal metastasis on the left. On exam I note no suspicious soft tissue lesions in the thighs BL. She does have a 4 cm firm and nearly fixed mass in the right medial upper arm originating from the biceps which is likely metastatic. It is tender. I discussed that it would be reasonable to consider additional RT to the psoas and biceps lesions for pain control. I did discuss that the right psoas lesion is not conclusively the source of her pain but as it is the major hip flexor and her pain is in the thigh it may be contributing. I would give 8 Gy in 1 fraction to each site and treatment could be done tomorrow, with planning done this afternoon. I do not anticipate side effects other than redness of the skin of the arm which will be transient. I will keep the present follow up plan I have to see her on 12/24/20 in the office in place. If she is unable to attend that appointment (for being admitted or at a rehab facility etc.) it can be rescheduled. Recommendations: Palliative RT 8 Gy x 1 fraction as above Simulation today, treatment tomorrow afternoon Continue decadron wean, can accelerate taper to off, as she has no significant focal neurologic complaints and her brain scan is stable I will arrange appropriate outpatient follow up with me, I suggest the same close follow up is arranged for her with medical oncology ASIM SYLVESTER MD Dec 17, 2020 12:01
--- NOTE | 2020-12-17 12:49 | IPNPDOC ---
Subjective Date Seen The patient was seen on 12/17/20. Subjective Chief Complaint/HPI Mrs. Barry is a 60 year old female with stage 4 adenocarcinoma of lung who is here with weakness and large fungating left breast cancer. Dr. Rios took patient to the OR on 12/15/20 for palliative mastectomy. She was seen in the morning. She still has right thigh pain and flank pain. She felt that the orals were not helping enough. I reached out to Radiation Oncology, Dr. Felix, for palliative radiation. He will see the patient today. Otherwise, patient has a stage 2 decubitus ulcer with sloughing. Placed advanced wound care consult Objective Physical Examination General Exam: Positive: Alert, Cooperative Eye Exam: Positive: EOMI Chest Exam: Positive: Normal air movement Heart Exam: Positive: Regular Rhythm Abdomen Exam: Positive: Normal bowel sounds, Soft; Negative: Tenderness Neuro Exam: Positive: Normal Speech Psych Exam: Positive: Mental status NL, Oriented x 3 Assessment /Plan Assessment Mrs. Barry is a 60 year old female with stage 4 adenocarcinoma of lung who is here with weakness and large fungating left breast cancer. Breast surgery was consulted, recommendations appreciated. Dr. Rios took patient to the OR on 12/15/20 for palliative mastectomy. Otherwise, patient continued to have right thigh and low back pain. Oral medication was not controlling the pain. Consulted radiation oncology, Dr. Felix for palliative radiation. Patient does have a stage 2 decubitus ulcer. Advanced wound care consulted. Plan/VTE VTE Prophylaxis Ordered?: Yes Plan 1. Left fungating breast mass -Breast surgery consulted, recommendations appreciated -Went to the OR on 12/15/20 for palliative mastectomy. 2. Stage 4 metastatic adenocarcinoma of the lung -Receiving outpatient treatment at [facility] -Continue steroid taper -Pain control with [facility] -Continue to have pain in the right thigh and lower back. Radiation oncology c onsulted, recommendations appreciated 3. Weakness -May be secondary to steroids -Supportive care and physical therapy 4. Leukocytosis -On steroids which most likely has cause leukocytosis 5. Stage 2 decubitus ulcer -Advance wound care consulted 6. DVT ppx -Lovenox Disposition: Pending pain control VS, I&O, 24H, Fishbone Vital Signs/I&O Vital Signs Date Time Temp Pulse Resp B/P (MAP) Pulse Ox O2 Delivery O2 Flow Rate FiO2 12/17/20 10:00 97.5 111 20 119/71 (87) 91 Room Air 12/15/20 20:06 3.0 I&O- Last 24 Hours up to 6 AM 12/17/20 06:00 Intake Total 2958 ml Output Total 1585 ml Balance 1373 ml Laboratory Data 24H LABS Laboratory Tests 2 12/17/20 05:34: Nucleated Red Blood Cells % (auto) 0.0, Anion Gap 5L, Glomerular Filtration Rate > 60.0, Calcium Level 7.8L CBC/BMP Laboratory Tests 12/17/20 05:34 Microbiology Microbiology 12/09/20 Blood Culture - Final, Complete NO GROWTH AFTER 5 DAYS 12/09/20 Blood Culture - Final, Complete NO GROWTH AFTER 5 DAYS SONALI GARIBAY DO Dec 17, 2020 12:48
[2020-12-17 14:00] VITALS: BP 118/72
[2020-12-17] MEDS: **NOTE PATIENT COMMENT** MISC XX SCH (20:02)
[2020-12-17 22:00] VITALS: BP 119/71
[2020-12-18] MEDS: NORCO, ANEXSIA 5/325MG TABLET (HYDROcodone/ACETAMINOPHEN) PO PRN ×5 (03:35→22:36)
[2020-12-18 06:00] VITALS: BP 118/73
[2020-12-18 06:55] LABS: HEMATOCRIT 32.1 % (36.0-47.0); HEMOGLOBIN 10.5 g/dl (12.0-15.5); MEAN CORPUSCULAR HEMOGLOBIN 30.8 pg (27.0-33.0); MEAN CORPUSCULAR HGB CONC 32.7 g/dl (32.0-36.5); MEAN CORPUSCULAR VOLUME 94.1 fl (80.0-96.0); PLATELET COUNT, AUTOMATED 241 10^3/uL (150-450); RED BLOOD COUNT 3.41 10^6/uL (4.00-5.40); WHITE BLOOD COUNT 11.3 10^3/uL (4.0-10.0)
[2020-12-18 07:07] LABS: BLOOD UREA NITROGEN 12 MG/DL (7-18); CALCIUM LEVEL 7.8 MG/DL (8.5-10.1); CARBON DIOXIDE LEVEL 29 MEQ/L (21-32); CHLORIDE LEVEL 102 MEQ/L (98-107); CREATININE FOR GFR < 0.15 MG/DL (0.55-1.30); GLOMERULAR FILTRATION RATE > 60.0 (>51); GLUCOSE, FASTING 103 MG/DL (70-100); POTASSIUM SERUM 4.2 MEQ/L (3.5-5.1); SODIUM LEVEL 137 MEQ/L (136-145)
[2020-12-18] MEDS: DOCUSATE SODIUM 100MG CAPSULE PO SCH ×2 (09:19→20:20)
[2020-12-18] MEDS: PANTOPRAZOLE 40MG TAB (PROTONIX) PO SCH (09:19)
[2020-12-18] MEDS: ENOXAPARIN 30MG/0.3ML SYRINGE (J1650 PER 10MG) SC SCH (09:19)
[2020-12-18] MEDS: LIDOCAINE 5% (LIDODERM) PATCH TD SCH (09:20)
[2020-12-18] MEDS: VITAMIN A 10,000 INTERNATIONAL UNITS CAP PO SCH (09:20)
--- NOTE | 2020-12-18 13:21 | CR ---
CONSULTATION advanced wound care via telemedicine DATE: 12/18/2020 CONSULTATION REQUESTED BY: Dr. Gaines REASON FOR CONSULTATION: A stage II pressure injury involving the sacral region. 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 She has had a left breast mastectomy. The patient was concerned with seizure development and falling and therefore was admitted. At present she appears cooperative, coherent, able to answer questions. PHYSICAL EXAMINATION: There is a wound cluster measuring 3.0 cm x 1.5 cm involving the right buttock and a wound cluster involving the left medial buttock, measuring 3.0 cm x 3.5 cm. These cluster areas represent stage II pressure injury, which corresponds to destruction of the epidermis and dermis without involvement into the subcutaneous tissue. There is minimal to no drainage' noted. No erythema involving the periwound is present. The wounds are slightly tender to palpation. Treatment: cleanse the wounds with Vashe, wound cleanser for 10 minutes, gently cleaning the skin. The wounds can then be covered with foam dressings. Dressing change is to be performed every other day. A nutritional consult is indicated, and the patient should be started on Ensure and Jeffrey. An alternating air mattress is also required along with periodic changes in position. Avoiding the patient at a 45-degree angle while in bed is mandatory, as this position puts excessive stress on the sacral area. Thirty degrees is preferable, lying flat, or 90 degrees sitting up. If the patient is in a chair, A Roho cusion would be indicated. No debridement is necessary at this time. There is no history of incontinence. t MTDLuanne
[2020-12-18 14:00] VITALS: BP 81/49
--- NOTE | 2020-12-18 14:55 | IPNPDOC ---
Subjective Date Seen The patient was seen on 12/18/20. Subjective Chief Complaint/HPI Mrs. Barry is a 60 year old female with stage 4 adenocarcinoma of lung who is here with weakness and large fungating left breast cancer. Dr. Rios took patient to the OR on 12/15/20 for palliative mastectomy. This morning, she denied any chest pain or dyspnea. Leg pain and back pain improved with lidocaine patch. Planning to go for radiation treatment later today. Objective Physical Examination General Exam: Positive: Alert, Cooperative Eye Exam: Positive: EOMI Chest Exam: Positive: Normal air movement Heart Exam: Positive: Regular Rhythm Abdomen Exam: Positive: Normal bowel sounds, Soft; Negative: Tenderness Neuro Exam: Positive: Normal Speech Psych Exam: Positive: Mental status NL, Oriented x 3 Assessment /Plan Assessment Mrs. Barry is a 60 year old female with stage 4 adenocarcinoma of lung who is here with weakness and large fungating left breast cancer. Breast surgery was consulted, recommendations appreciated. Dr. Rios took patient to the OR on 12/15/20 for palliative mastectomy. Otherwise, patient continued to have right thigh and low back pain. Oral medication was not controlling the pain. Consulted radiation oncology, Dr. Felix for palliative radiation. Planning for radiation today. Patient does have a stage 2 decubitus ulcer. Advanced wound care consulted, recommendations appreciated. Plan/VTE VTE Prophylaxis Ordered?: Yes Plan 1. Left fungating breast mass -Breast surgery consulted, recommendations appreciated -Went to the OR on 12/15/20 for palliative mastectomy. 2. Stage 4 metastatic adenocarcinoma of the lung -Receiving outpatient treatment at [facility] -Continue steroid taper -Pain control with [place] -Continue to have pain in the right thigh and lower back. Radiation oncology consulted, recommendations appreciated -Lidocaine patches helped, continue lidocaine patches 3. Weakness -May be secondary to steroids -Supportive care and physical therapy 4. Leukocytosis -On steroids which most likely has cause leukocytosis 5. Stage 2 decubitus ulcer -Advance wound care consulted 6. DVT ppx -Lovenox Plan for today: Palliative radiation VS, I&O, 24H, Fishbone Vital Signs/I&O Vital Signs Date Time Temp Pulse Resp B/P (MAP) Pulse Ox O2 Delivery O2 Flow Rate FiO2 12/18/20 13:27 20 12/18/20 06:00 98.2 107 118/73 (88) 93 Room Air 12/15/20 20:06 3.0 I&O- Last 24 Hours up to 6 AM 12/18/20 06:00 Intake Total 2975 ml Output Total 2765 ml Balance 210 ml Laboratory Data 24H LABS Laboratory Tests 2 12/18/20 06:40: Nucleated Red Blood Cells % (auto) 0.0, Anion Gap 6L, Glomerular Filtration Rate > 60.0, Calcium Level 7.8L CBC/BMP Laboratory Tests 12/18/20 06:40 Microbiology Microbiology 12/09/20 Blood Culture - Final, Complete NO GROWTH AFTER 5 DAYS 12/09/20 Blood Culture - Final, Complete NO GROWTH AFTER 5 DAYS SONALI GARIBAY DO Dec 18, 2020 14:55
[2020-12-18 17:30] VITALS: BP 125/62
[2020-12-18] MEDS: **NOTE PATIENT COMMENT** MISC XX SCH (20:21)
[2020-12-18 22:00] VITALS: BP 105/53
--- NOTE | 2020-12-18 22:44 | IPNPDOC ---
Subjective General Date Seen: Dec 18, 2020 (12/17 and 12/18) Subject Chief Complaint/History The patient is a 60-year-old female admitted with a reason for visit of Generalized Weakness, Left Breast Cancer causing large fungating mass, s/p palliative left mastectomy on 12/15/20. Complete cancer excision was not possible due to involvement of the chest wall muscles. Patient is tired and complains of pain in her legs. She does not have discomfort at her left chest. She does not have much appetite today, drain output varies between 20-10 cc Current Medications Current Medications Current Medications Medications (Trade) Dose Ordered Sig/Cherelle Route PRN Reason Start Time Stop Time Status Last Admin Dose Admin Acetaminophen (Tylenol Tab) 1,000 mg Q6H PRN PO PAIN 1-4 / FEVER 12/11/20 08:15 Acetaminophen/ Hydrocodone Bitart ([place], Anexsia 5/325) 1 tab Q4HP PRN PO MILD/MODERATE PAIN (PS 5-7) 12/11/20 08:15 12/18/20 13:27 Acetaminophen/ Hydrocodone Bitart ([place], Anexsia 5/325) 2 tab Q4HP PRN PO SEVERE PAIN (PS 8-10) 12/11/20 08:15 12/18/20 09:19 Cefazolin Sodium 1 gm/Dextrose 50 ml @ 100 mls/hr Q8H IV 12/16/20 06:00 12/16/20 16:00 DC 12/16/20 14:04 Dexamethasone (Decadron) 4 mg Taper DAILY PO 12/14/20 09:00 12/24/20 08:59 12/18/20 09:19 Dexamethasone (Decadron) 8 mg DAILY PO 12/09/20 09:00 12/13/20 17:26 DC 12/13/20 08:28 Docusate Sodium (Colace) 100 mg BID PO 12/17/20 09:00 12/18/20 09:19 Enoxaparin Sodium (Lovenox) 30 mg DAILY SC 12/10/20 09:00 12/18/20 09:19 Enoxaparin Sodium (Lovenox) 40 mg DAILY SC 12/10/20 09:00 12/09/20 13:47 DC Fentanyl Citrate (Sublimaze) 25 mcg Q5MP PRN IV PAIN LEVEL 5-10 12/15/20 20:05 12/15/20 21:05 DC Home Med (Med Rec Complete!) ASDIRECTED XX 12/09/20 11:45 12/09/20 11:44 DC Hydromorphone HCl (Dilaudid) 0.2 mg Q5MP PRN IV PAIN LEVEL 4-7 12/15/20 20:05 12/15/20 21:05 DC Lactated Ringer's 1,000 ml @ 100 mls/hr Q10H IV 12/15/20 20:05 12/15/20 21:05 DC Lidocaine (Lidoderm Patch) 2 patch DAILY TD 12/17/20 09:00 12/18/20 09:20 Morphine Sulfate (Morphine Sulfate Inj) 2 mg Q30M PRN IV MODERATE PAIN (PS 5-7) 12/09/20 10:00 12/09/20 20:59 DC 12/09/20 20:59 Non-Formulary Medication ( See Comment Field Below ) REMOVE LIDODERM PATCH DAILY@21 XX 12/17/20 21:00 12/17/20 20:02 Ondansetron HCl (ZOFRAN INJection) 4 mg Q4HP PRN IV NAUSEA OR VOMITING 12/15/20 20:05 12/15/20 21:05 DC Oxycodone HCl (Roxicodone, Oxyir) 5 mg ASDIRECTED PRN PO PAIN LEVEL 1-4 12/15/20 20:05 12/15/20 21:05 DC Pantoprazole Sodium (Protonix) 40 mg DAILY PO 12/09/20 09:00 12/18/20 09:19 Sodium Chloride 1,000 ml @ 60 mls/hr [id number] IV 12/15/20 00:10 12/17/20 22:44 Sodium Chloride 1,000 ml @ 100 mls/hr Q10H IV 12/09/20 09:55 Cancel Sodium Chloride 1,000 ml @ 150 mls/hr Q6H40M IV 12/09/20 10:00 12/10/20 09:59 DC 12/10/20 08:49 Vitamin A (Vitamin A) 20,000 units DAILY PO 12/16/20 09:00 12/18/20 09:20 Allergies Coded Allergies: Sulfa (Sulfonamide Antibiotics) (Verified Allergy, Mild, RASH, 02/11/20) codeine (Verified Allergy, Mild, rash, 11/22/20) Objective Physical Examination Examination GENERAL APPEARANCE:Patient seen, laying in bed, awake, alert, and oriented. Comfortable, in no acute distress. CHEST: Left chest wall with viable mastectomy flaps, no hematoma, minimal bruising, MARISABEL drain in the lateral aspect of incision with s/s drainage. LUNGS:breathing comfortably on room air ABDOMEN: nondistended EXTREMITIES: no edema in lower extremities Vital Signs Vital Signs Date Time Temp Pulse Resp B/P (MAP) Pulse Ox O2 Delivery O2 Flow Rate FiO2 12/18/20 14:00 96.4 111 18 81/49 (60) 94 Room Air 12/15/20 20:06 3.0 I&Os I&O- Last 24 Hours up to 6 AM 12/18/20 06:00 Intake Total 2975 ml Output Total 2765 ml Balance 210 ml Laboratory Data Labs 24H Laboratory Tests 2 12/18/20 06:40: Nucleated Red Blood Cells % (auto) 0.0, Anion Gap 6L, Glomerular Filtration Rate > 60.0, Calcium Level 7.8L CBC/BMP Laboratory Tests 12/18/20 06:40 Microbiology Microbiology 12/09/20 Blood Culture - Final, Complete NO GROWTH AFTER 5 DAYS 12/09/20 Blood Culture - Final, Complete NO GROWTH AFTER 5 DAYS Impression 60 F w metastatic lung and breast Ca, s/p L palliative mastectomy 12/15/20 Pathology was discussed with patient today. Copy of pathology was given to patient. - monitor drain output, strip q8h - continue Vit A as patient was on steroids - pain control - IS - wound care per Breast surgery service - DVT ppx Plan / VTE VTE Prophylaxis Ordered?: Yes PREETHI RAYO DO Dec 18, 2020 16:09
[2020-12-19] MEDS: NORCO, ANEXSIA 5/325MG TABLET (HYDROcodone/ACETAMINOPHEN) PO PRN ×5 (05:35→23:15)
[2020-12-19 06:00] VITALS: BP 113/63
[2020-12-19 07:01] LABS: HEMATOCRIT 30.7 % (36.0-47.0); HEMOGLOBIN 10.1 g/dl (12.0-15.5); MEAN CORPUSCULAR HEMOGLOBIN 31.2 pg (27.0-33.0); MEAN CORPUSCULAR HGB CONC 32.9 g/dl (32.0-36.5); MEAN CORPUSCULAR VOLUME 94.8 fl (80.0-96.0); PLATELET COUNT, AUTOMATED 270 10^3/uL (150-450); RED BLOOD COUNT 3.24 10^6/uL (4.00-5.40)
[2020-12-19 07:21] LABS: BLOOD UREA NITROGEN 14 MG/DL (7-18); CARBON DIOXIDE LEVEL 30 MEQ/L (21-32); CHLORIDE LEVEL 101 MEQ/L (98-107); CREATININE FOR GFR < 0.15 MG/DL (0.55-1.30); GLOMERULAR FILTRATION RATE > 60.0 (>51); GLUCOSE, FASTING 102 MG/DL (70-100); SODIUM LEVEL 137 MEQ/L (136-145)
[2020-12-19] MEDS ORDERED: MIRALAX *UNIT DOSE* 17GM PACKET PO PRN (08:55)
[2020-12-19] MEDS: PANTOPRAZOLE 40MG TAB (PROTONIX) PO SCH (08:56)
[2020-12-19] MEDS: LIDOCAINE 5% (LIDODERM) PATCH TD SCH (08:56)
[2020-12-19] MEDS: VITAMIN A 10,000 INTERNATIONAL UNITS CAP PO SCH (08:56)
[2020-12-19] MEDS: DOCUSATE SODIUM 100MG CAPSULE PO SCH ×2 (08:56→21:22)
[2020-12-19] MEDS: ENOXAPARIN 30MG/0.3ML SYRINGE (J1650 PER 10MG) SC SCH (08:57)
[2020-12-19] MEDS: NS 1,000 ML IV SCH (09:49)
[2020-12-19] MEDS: FIBER-CON 625 MG TAB PO SCH ×2 (11:19→21:22)
--- NOTE | 2020-12-19 13:55 | IPNPDOC ---
Subjective Date Seen The patient was seen on 12/19/20. Subjective Chief Complaint/HPI Mrs. Barry is a 60 year old female with stage 4 adenocarcinoma of lung who is here with weakness and large fungating left breast cancer. Dr. Rios took patient to the OR on 12/15/[address] Felix to patient to radiation therapy on 12/18/2020. This morning, patient denies any chest pain or dyspnea. I spoke with Dr. Rios. Continue with drain through the weekend and re-evaluate on Monday. Objective Physical Examination General Exam: Positive: Alert, Cooperative Eye Exam: Positive: EOMI Chest Exam: Positive: Normal air movement Heart Exam: Positive: Regular Rhythm Abdomen Exam: Positive: Normal bowel sounds, Soft; Negative: Tenderness Neuro Exam: Positive: Normal Speech Psych Exam: Positive: Mental status NL, Oriented x 3 Assessment /Plan Assessment Mrs. aBrry is a 60 year old female with stage 4 adenocarcinoma of lung who is here with weakness and large fungating left breast cancer. Breast surgery was consulted, recommendations appreciated. Dr. Rios took patient to the OR on 12/15/20 for palliative mastectomy. Otherwise, patient continued to have right thigh and low back pain. Oral medication was not controlling the pain. Consulted radiation oncology, Dr. Felix for palliative radiation. Patient had radiation on 12/18/2020 Patient does have a stage 2 decubitus ulcer. Advanced wound care consulted, recommendations appreciated. Plan/VTE VTE Prophylaxis Ordered?: Yes Plan 1. Left fungating breast mass -Breast surgery consulted, recommendations appreciated -Went to the OR on 12/15/20 for palliative mastectomy. -Continue with drain through the . Re-evaluation on Monday 2. Stage 4 metastatic adenocarcinoma of the lung -Receiving outpatient treatment at [facility] -Continue steroid taper -Pain control with [place] -Continue to have pain in the right thigh and lower back. Radiation oncology consulted, recommendations appreciated. Radiation on 12/18/2020 -Lidocaine patches helped, continue lidocaine patches 3. Weakness -May be secondary to steroids -Supportive care and physical therapy 4. Leukocytosis -On steroids which most likely has cause leukocytosis 5. Stage 2 decubitus ulcer -Advance wound care consulted -Wound care per Dr. Vargas 6. DVT ppx -Lovenox Disposition: Pending re-evaluation of drain on Monday. VS, I&O, 24H, Fishbone Vital Signs/I&O Vital Signs Date Time Temp Pulse Resp B/P (MAP) Pulse Ox O2 Delivery O2 Flow Rate FiO2 12/19/20 09:51 12 12/19/20 06:00 97.1 105 113/63 (80) 96 Room Air 12/15/20 20:06 3.0 I&O- Last 24 Hours up to 6 AM 12/19/20 06:00 Intake Total 2280 ml Output Total 2805 ml Balance -525 ml Laboratory Data 24H LABS Laboratory Tests 2 12/19/20 06:36: Nucleated Red Blood Cells % (auto) 0.0, Anion Gap 6L, Glomerular Filtration Rate > 60.0, Calcium Level 8.0L CBC/BMP Laboratory Tests 12/19/20 06:36 Microbiology Microbiology 12/09/20 Blood Culture - Final, Complete NO GROWTH AFTER 5 DAYS 12/09/20 Blood Culture - Final, Complete NO GROWTH AFTER 5 DAYS SONALI GARIBAY DO Dec 19, 2020 13:55
[2020-12-19] MEDS: **NOTE PATIENT COMMENT** MISC XX SCH (21:22)
[2020-12-19 22:00] VITALS: BP 125/79
[2020-12-20] MEDS: NORCO, ANEXSIA 5/325MG TABLET (HYDROcodone/ACETAMINOPHEN) PO PRN ×5 (03:24→22:18)
[2020-12-20 06:00] VITALS: BP 100/61
[2020-12-20 07:01] LABS: HEMATOCRIT 31.7 % (36.0-47.0); HEMOGLOBIN 10.5 g/dl (12.0-15.5); MEAN CORPUSCULAR HEMOGLOBIN 31.3 pg (27.0-33.0); MEAN CORPUSCULAR HGB CONC 33.1 g/dl (32.0-36.5); MEAN CORPUSCULAR VOLUME 94.3 fl (80.0-96.0); PLATELET COUNT, AUTOMATED 303 10^3/uL (150-450); RED BLOOD COUNT 3.36 10^6/uL (4.00-5.40); WHITE BLOOD COUNT 9.2 10^3/uL (4.0-10.0)
[2020-12-20 07:29] LABS: BLOOD UREA NITROGEN 15 MG/DL (7-18); CALCIUM LEVEL 8.5 MG/DL (8.5-10.1); CARBON DIOXIDE LEVEL 30 MEQ/L (21-32); CHLORIDE LEVEL 99 MEQ/L (98-107); CREATININE FOR GFR < 0.15 MG/DL (0.55-1.30); GLOMERULAR FILTRATION RATE > 60.0 (>51); GLUCOSE, FASTING 98 MG/DL (70-100); POTASSIUM SERUM 4.4 MEQ/L (3.5-5.1); SODIUM LEVEL 135 MEQ/L (136-145)
[2020-12-20] MEDS: DOCUSATE SODIUM 100MG CAPSULE PO SCH ×2 (08:39→20:06)
[2020-12-20] MEDS: FIBER-CON 625 MG TAB PO SCH ×2 (08:39→20:05)
[2020-12-20] MEDS: VITAMIN A 10,000 INTERNATIONAL UNITS CAP PO SCH (08:39)
[2020-12-20] MEDS: PANTOPRAZOLE 40MG TAB (PROTONIX) PO SCH (08:40)
[2020-12-20] MEDS: LIDOCAINE 5% (LIDODERM) PATCH TD SCH (08:40)
[2020-12-20] MEDS: ENOXAPARIN 30MG/0.3ML SYRINGE (J1650 PER 10MG) SC SCH (08:40)
[2020-12-20] MEDS: GASTROGRAFIN SOLUTION 30ML PO SCH ×2 (09:28→10:01)
[2020-12-20] MEDS ORDERED: ISOVUE-370 76% 100ML VIAL As Ordered ONE (10:38)
--- NOTE | 2020-12-20 11:44 | REP ---
INDICATION: Right hip/thigh pain, history of metastatic cancer. COMPARISON: 11/22/2020 TECHNIQUE: Axial contrast-enhanced images from the lung bases to the pubic symphysis using oral and 100 cc Isovue 370 intravenous contrast material. Coronal and sagittal reformations obtained. This CT examination was performed using the following dose reduction techniques: Automated exposure control, adjustment of mA and/or kv according to the patient's size, and the use of iterative reconstruction technique. FINDINGS: Liver again demonstrates few scattered sub cm hypodensities compatible with cysts. Spleen demonstrates a small triangular area of low density which represents a new finding and is nonspecific this may be secondary to flow dynamics although small splenic infarction cannot be excluded. Pancreas, gallbladder, right adrenal gland and bilateral kidneys are normal/stable including small left renal cyst. Left adrenal mass compatible with metastatic focus is unchanged. Scattered retroperitoneal lymph nodes are again identified and essentially stable. Rim enhancing centrally necrotic right psoas muscle metastatic focus has increased in size and now measures 3.7 cm maximal diameter. Similar appearing metastatic focus in the subcutaneous tissues along the left flank has increased in size to 3.5 cm maximal diameter. Small and large bowel is grossly unremarkable although moderate fecal stasis is suggested. Pelvis demonstrates normal bladder and evidence for prior hysterectomy. No ascites. No free air. Atherosclerotic changes to the aorta and vasculature again noted and without dissection. The osseous structures are intact and without discrete focal osseous abnormality identified. Sclerotic focus in the left sacrum is unchanged and may represent bone island. IMPRESSION: 1. Necrotic metastatic foci in the right psoas muscle and subcutaneous left flank have increased in size. Left adrenal mass and retroperitoneal lymph nodes remain stable. No new lesion is identified. 2. Small low-density area within the spleen is nonspecific and may represent changes related to flow dynamics, but small infarction cannot be excluded. 3. Further nonacute stable findings as noted above. <Electronically signed by Naseem So > 12/20/20 1956
--- NOTE | 2020-12-20 11:52 | REP ---
INDICATION: Right hip/thigh pain, history of metastatic cancer. COMPARISON: None. TECHNIQUE: Axial contrast-enhanced images of the right lower extremity from the right hip through the knee with coronal and sagittal reformations after 100 cc Isovue contrast material was administered for CT of the abdomen and pelvis. This CT examination was performed using the following dose reduction techniques: Automated exposure control, adjustment of mA and/or kv according to the patient's size, and use of iterative reconstruction technique. FINDINGS: There is a rim enhancing necrotic metastatic focus measuring 2.0 cm posterior to the acetabulum which may be within the gluteal muscle itself (series 302; images 16-22). There is a similar 8 mm metastatic lesion in the a doctor musculature (series 302 images 48-53). There is a large similar necrotic metastatic focus measuring approximately 4.2 x 5.2 cm maximal diameter and roughly 7 cm in craniocaudal length within the posterior muscular compartment at the mid thigh level (series 302; images 71-95). The osseous structures are intact and relatively normal in appearance. There is no evidence for hip or knee joint effusion. The vascular structures are grossly normal. IMPRESSION: Multiple presumed intramuscular metastatic foci as described above. <Electronically signed by Naseem So > 12/20/20 [id number]
[2020-12-20 14:00] VITALS: BP 122/59
[2020-12-20] MEDS ORDERED: BISACODYL 10 MG SUPP PR PRN (17:15)
--- NOTE | 2020-12-20 17:56 | IPNPDOC ---
Subjective Date Seen The patient was seen on 12/20/20. Subjective Chief Complaint/HPI Mrs. Barry is a 60 year old female with stage 4 adenocarcinoma of lung who is here with weakness and large fungating left breast cancer. Dr. Rios took patient to the OR on 12/15/[address] Felix to patient to radiation therapy on 12/18/2020. This morning, she denies any chest pain or dyspnea. Still has right thigh pain. Ordered imaging of abd/pelvis and femur Objective Physical Examination General Exam: Positive: Alert, Cooperative Eye Exam: Positive: EOMI Chest Exam: Positive: Normal air movement Heart Exam: Positive: Regular Rhythm Abdomen Exam: Positive: Normal bowel sounds, Soft; Negative: Tenderness Neuro Exam: Positive: Normal Speech Psych Exam: Positive: Mental status NL, Oriented x 3 Assessment /Plan Assessment Mrs. Barry is a 60 year old female with stage 4 adenocarcinoma of lung who is here with weakness and large fungating left breast cancer. Breast surgery was consulted, recommendations appreciated. Dr. Rios took patient to the OR on 12/15/20 for palliative mastectomy. Otherwise, patient continued to have right thigh and low back pain. Oral medication was not controlling the pain. Consulted radiation oncology, Dr. Felix for palliative radiation. Patient had radiation on 12/18/2020 Patient does have a stage 2 decubitus ulcer. Advanced wound care consulted, re commendations appreciated. Plan/VTE VTE Prophylaxis Ordered?: Yes Plan 1. Left fungating breast mass -Breast surgery consulted, recommendations appreciated -Went to the OR on 12/15/20 for palliative mastectomy. -Continue with drain through the weekend. Re-evaluation on Monday 2. Stage 4 metastatic adenocarcinoma of the lung -Receiving outpatient treatment at [facility] -Continue steroid taper -Pain control with [place] -Continue to have pain in the right thigh and lower back. Radiation oncology consulted, recommendations appreciated. Radiation on 12/18/2020 -Lidocaine patches helped, continue lidocaine patches 3. Weakness -May be secondary to steroids -Supportive care and physical therapy 4. Leukocytosis -On steroids which most likely has cause leukocytosis 5. Stage 2 decubitus ulcer -Advance wound care consulted -Wound care per Dr. Vargas 6. DVT ppx -Lovenox Disposition: Pending re-evaluation of drain on Monday. VS, I&O, 24H, Fishbone Vital Signs/I&O Vital Signs Date Time Temp Pulse Resp B/P (MAP) Pulse Ox O2 Delivery O2 Flow Rate FiO2 12/20/20 17:30 12 12/20/20 14:00 96.8 124 122/59 (80) 92 12/20/20 06:00 Room Air 12/15/20 20:06 3.0 I&O- Last 24 Hours up to 6 AM 12/20/20 06:00 Intake Total 2230 ml Output Total 3565 ml Balance -1335 ml Laboratory Data 24H LABS Laboratory Tests 2 12/20/20 05:34: Nucleated Red Blood Cells % (auto) 0.2H, Anion Gap 6L, Glomerular Filtration Rate > 60.0, Calcium Level 8.5 CBC/BMP Laboratory Tests 12/20/20 05:34 SONALI GARIBAY DO Dec 20, 2020 17:56
[2020-12-20] MEDS: **NOTE PATIENT COMMENT** MISC XX SCH (20:06)
[2020-12-20 22:00] VITALS: BP 128/63
[2020-12-21] MEDS: NORCO, ANEXSIA 5/325MG TABLET (HYDROcodone/ACETAMINOPHEN) PO PRN ×5 (02:30→23:29)
[2020-12-21 06:00] VITALS: BP 105/48
[2020-12-21 06:38] LABS: HEMATOCRIT 32.1 % (36.0-47.0); HEMOGLOBIN 10.5 g/dl (12.0-15.5); MEAN CORPUSCULAR HEMOGLOBIN 30.8 pg (27.0-33.0); MEAN CORPUSCULAR HGB CONC 32.7 g/dl (32.0-36.5); MEAN CORPUSCULAR VOLUME 94.1 fl (80.0-96.0); PLATELET COUNT, AUTOMATED 330 10^3/uL (150-450); RED BLOOD COUNT 3.41 10^6/uL (4.00-5.40); WHITE BLOOD COUNT 8.7 10^3/uL (4.0-10.0)
[2020-12-21 06:53] LABS: BLOOD UREA NITROGEN 14 MG/DL (7-18); CALCIUM LEVEL 8.2 MG/DL (8.5-10.1); CARBON DIOXIDE LEVEL 31 MEQ/L (21-32); CHLORIDE LEVEL 99 MEQ/L (98-107); CREATININE FOR GFR 0.18 MG/DL (0.55-1.30); GLOMERULAR FILTRATION RATE > 60.0 (>51); GLUCOSE, FASTING 106 MG/DL (70-100); POTASSIUM SERUM 4.5 MEQ/L (3.5-5.1); SODIUM LEVEL 135 MEQ/L (136-145)
[2020-12-21] MEDS: ENOXAPARIN 30MG/0.3ML SYRINGE (J1650 PER 10MG) SC SCH (09:22)
[2020-12-21] MEDS: DOCUSATE SODIUM 100MG CAPSULE PO SCH ×2 (09:22→21:08)
[2020-12-21] MEDS: PANTOPRAZOLE 40MG TAB (PROTONIX) PO SCH (09:22)
[2020-12-21] MEDS: LIDOCAINE 5% (LIDODERM) PATCH TD SCH (09:23)
[2020-12-21] MEDS: VITAMIN A 10,000 INTERNATIONAL UNITS CAP PO SCH (09:26)
[2020-12-21] MEDS: FIBER-CON 625 MG TAB PO SCH ×2 (09:26→21:07)
--- NOTE | 2020-12-21 12:41 | IPNPDOC ---
Subjective Date Seen The patient was seen on 12/21/20. Subjective Chief Complaint/HPI Mrs. Barry is a 60 year old female with stage 4 adenocarcinoma of lung who is here with weakness and large fungating left breast cancer. Dr. Rios took patient to the OR on 12/15/[address]. Felix to patient to radiation therapy on 12/18/2020. Yesterday evening, we had a long talk about her cancer. I let her know it was in her brain, lung, hip and thigh. We talked about the future and she was overwhelmed. She felt that she needed her son to help her make decisions. She is also willing to see palliative care to help make some of those decisions. Otherwise, this morning, she denies chest pain or dyspnea. She still has thigh pain. The lidocaine patch help when they are on. Will add on an evening Oxycontin at night to help relieve pain at night after the patch is removed. Hopeful for palliative care to see patient tomorrow to help in discussion of goals of care and pain control Objective Physical Examination General Exam: Positive: Alert, Cooperative Eye Exam: Positive: EOMI Chest Exam: Positive: Normal air movement Heart Exam: Positive: Regular Rhythm Abdomen Exam: Positive: Normal bowel sounds, Soft; Negative: Tenderness Neuro Exam: Positive: Normal Speech Psych Exam: Positive: Mental status NL, Oriented x 3 Assessment /Plan Assessment Mrs. Barry is a 60 year old female with stage 4 adenocarcinoma of lung who is here with weakness and large fungating left breast cancer. Breast surgery was consulted, recommendations appreciated. Dr. Rios took patient to the OR on 12/15/20 for palliative mastectomy. Otherwise, patient continued to have right thigh and low back pain. Oral medication was not controlling the pain. Consulted radiation oncology, Dr. Felix for palliative radiation. Patient had radiation on 12/18/2020 Patient does have a stage 2 decubitus ulcer. Advanced wound care consulted, recommendations appreciated. Wound care per Dr. Vargas. Plan/VTE VTE Prophylaxis Ordered?: Yes Plan 1. Left fungating breast mass -Breast surgery consulted, recommendations appreciated -Went to the OR on 12/15/20 for palliative mastectomy. -Continue with drain through the weekend. Re-evaluation on Monday 2. Stage 4 metastatic adenocarcinoma of the lung -Receiving outpatient treatment at [facility] -Continue steroid taper -Pain control with [place] -Continue to have pain in the right thigh and lower back. Radiation oncology consulted, recommendations appreciated. Radiation on 12/18/2020 -Lidocaine patches helped, continue lidocaine patches -Added night time oxycontin to help with pain during the night 3. Weakness -May be secondary to steroids -Supportive care and physical therapy 4. Leukocytosis -On steroids which most likely has cause leukocytosis 5. Stage 2 decubitus ulcer -Advance wound care consulted -Wound care per Dr. Vargas 6. DVT ppx -Lovenox Disposition: Pending re-evaluation of drain on Monday. Pending palliative care to see patient tomorrow VS, I&O, 24H, Fishbone Vital Signs/I&O Vital Signs Date Time Temp Pulse Resp B/P (MAP) Pulse Ox O2 Delivery O2 Flow Rate FiO2 12/21/20 07:44 18 12/21/20 06:52 90 Room Air 12/21/20 06:00 97.1 117 105/48 (67) 12/15/20 20:06 3.0 I&O- Last 24 Hours up to 6 AM 12/21/20 06:00 Intake Total 810 ml Output Total 3150 ml Balance -2340 ml Laboratory Data 24H LABS Laboratory Tests 2 12/21/20 06:19: Nucleated Red Blood Cells % (auto) 0.0, Anion Gap 5L, Glomerular Filtration Rate > 60.0, Calcium Level 8.2L CBC/BMP Laboratory Tests 12/21/20 06:19 SONALI GARIBAY DO Dec 21, 2020 12:41
[2020-12-21 14:00] VITALS: BP 133/72
--- NOTE | 2020-12-21 20:42 | ECGEPIP ---
[facility] Test Date: 2020-12-20 Pat Name: AMAN MAURER Department: Room: [place] [address] Gender: Female Wire Taper: jonathan : 1960 Requested By: SONALI Milton Order Number: [id number] Reading MD: Roxanne White Measurements Intervals [place] Rate: 116 P: 48 AK: 130 QRS: 41 QRSD: 100 T: 22 QT: 344 QTc: 478 Interpretive Statements Sinus tachycardia with occasional premature ventricular complexes Minimal voltage criteria for LVH, may be normal variant ( Sebastián product ) CANNOT R/O OLD IWMI CANNOT R/O ANTERIOR WALL VT, OLD NO CHANGE COMPARED TO 12/09/20 Electronically Signed on 12-21-2020 20:42:47 EDT by Roxanne White
[2020-12-21] MEDS: oxyCODONE 10 MG CR TAB PO SCH (21:08)
[2020-12-21] MEDS: **NOTE PATIENT COMMENT** MISC XX SCH (21:10)
[2020-12-21 22:00] VITALS: BP 138/90
--- NOTE | 2020-12-21 22:17 | IPNPDOC ---
Subjective General Date Seen: Dec 21, 2020 Subject Chief Complaint/History The patient is a 60-year-old female admitted with a reason for visit of Generalized Weakness, metastatic lung cancer and large left breast mass proven to be a Left Breast Cancer, s/p L paliative mastectomy 12/15/20. complete excision of Ca was not possible as it infiltrates underlying chest wall. No pain at the mastectomy site. Patient complains of pain in her legs. Current Medications Current Medications Current Medications Medications (Trade) Dose Ordered Sig/Cherelle Route PRN Reason Start Time Stop Time Status Last Admin Dose Admin Acetaminophen (Tylenol Tab) 1,000 mg Q6H PRN PO PAIN 1-4 / FEVER 12/11/20 08:15 12/19/20 01:47 Acetaminophen/ Hydrocodone Bitart ([place], Anexsia 5/325) 1 tab Q4HP PRN PO MILD/MODERATE PAIN (PS 5-7) 12/11/20 08:15 12/21/20 17:34 Acetaminophen/ Hydrocodone Bitart ([place], Anexsia 5/325) 2 tab Q4HP PRN PO SEVERE PAIN (PS 8-10) 12/11/20 08:15 12/21/20 06:52 Bisacodyl (Dulcolax Suppository) 10 mg DAILYPRN PRN [place] CONSTIPATION 12/20/20 17:15 12/20/20 18:30 Calcium Polycarbophil (Fiber Con) 1 ea BID PO 12/19/20 09:00 12/21/20 21:07 Cefazolin Sodium 1 gm/Dextrose 50 ml @ 100 mls/hr Q8H IV 12/16/20 06:00 12/16/20 16:00 DC 12/16/20 14:04 Dexamethasone (Decadron) 2 mg Taper DAILY PO 12/14/20 09:00 12/24/20 08:59 12/21/20 09:22 Dexamethasone (Decadron) 8 mg DAILY PO 12/09/20 09:00 12/13/20 17:26 DC 12/13/20 08:28 Diatrizoate Meglum/ Diatrizoate Sod (Gastrografin) 10 ml Q30M PO 12/20/20 09:15 12/20/20 09:46 DC 12/20/20 10:01 Docusate Sodium (Colace) 100 mg BID PO 12/17/20 09:00 12/21/20 21:08 Enoxaparin Sodium (Lovenox) 30 mg DAILY SC 12/10/20 09:00 12/21/20 09:22 Enoxaparin Sodium (Lovenox) 40 mg DAILY SC 12/10/20 09:00 12/09/20 13:47 DC Fentanyl Citrate (Sublimaze) 25 mcg Q5MP PRN IV PAIN LEVEL 5-10 12/15/20 20:05 12/15/20 21:05 DC Home Med (Med Rec Complete!) ASDIRECTED XX 12/09/20 11:45 12/09/20 11:44 DC Hydromorphone HCl (Dilaudid) 0.2 mg Q5MP PRN IV PAIN LEVEL 4-7 12/15/20 20:05 12/15/20 21:05 DC Lactated Ringer's 1,000 ml @ 100 mls/hr Q10H IV 12/15/20 20:05 12/15/20 21:05 DC Lidocaine (Lidoderm Patch) 2 patch DAILY TD 12/17/20 09:00 12/21/20 09:23 Morphine Sulfate (Morphine Sulfate Inj) 2 mg Q30M PRN IV MODERATE PAIN (PS 5-7) 12/09/20 10:00 12/09/20 20:59 DC 12/09/20 20:59 Non-Formulary Medication ( See Comment Field Below ) REMOVE LIDODERM PATCH DAILY@21 XX 12/17/20 21:00 12/21/20 21:10 Ondansetron HCl (ZOFRAN INJection) 4 mg Q4HP PRN IV NAUSEA OR VOMITING 12/15/20 20:05 12/15/20 21:05 DC Oxycodone HCl (OxyCONTIN) 10 mg QHS PO 12/21/20 21:00 12/21/20 21:08 Oxycodone HCl (Roxicodone, Oxyir) 5 mg ASDIRECTED PRN PO PAIN LEVEL 1-4 12/15/20 20:05 12/15/20 21:05 DC Pantoprazole Sodium (Protonix) 40 mg DAILY PO 12/09/20 09:00 12/21/20 09:22 Polyethylene Glycol (Miralax) 1 pkt DAILYPRN PRN PO CONSTIPATION 12/19/20 08:55 12/19/20 17:37 Sodium Chloride 1,000 ml @ 60 mls/hr [id number] IV 12/15/20 00:10 12/19/20 15:18 DC 12/19/20 09:49 Sodium Chloride 1,000 ml @ 100 mls/hr Q10H IV 12/09/20 09:55 Cancel Sodium Chloride 1,000 ml @ 150 mls/hr Q6H40M IV 12/09/20 10:00 12/10/20 09:59 DC 12/10/20 08:49 Vitamin A (Vitamin A) 20,000 units DAILY PO 12/16/20 09:00 12/21/20 09:26 Allergies Coded Allergies: Sulfa (Sulfonamide Antibiotics) (Verified Allergy, Mild, RASH, 02/11/20) codeine (Verified Allergy, Mild, rash, 11/22/20) Objective Physical Examination Examination GENERAL APPEARANCE:Patient seen, laying in bed, awake, alert, and oriented. Comfortable, in no acute distress. CHEST WALL: left mastectomy skin is bruised and looking guarded, warm, MARISABEL drain in with s/s drainage, L chest wall skin covered with xeroform LUNGS: breathing comfortably HEART: no tachycardia ABDOMEN: nondistenced Vital Signs Vital Signs Date Time Temp Pulse Resp B/P (MAP) Pulse Ox O2 Delivery O2 Flow Rate FiO2 12/21/20 21:08 16 12/21/20 14:00 98.6 125 133/72 (92) 89 Room Air 12/15/20 20:06 3.0 I&Os I&O- Last 24 Hours up to 6 AM 12/21/20 06:00 Intake Total 810 ml Output Total 3150 ml Balance -2340 ml Laboratory Data Labs 24H Laboratory Tests 2 12/21/20 06:19: Nucleated Red Blood Cells % (auto) 0.0, Anion Gap 5L, Glomerular Filtration Rate > 60.0, Calcium Level 8.2L CBC/BMP Laboratory Tests 12/21/20 06:19 Impression 60 y o F w Stage 4 lung and breast ca, s/pL palliative mastectomy 12/15/20 - keep drain in to decrease pressure on guarded mastectomy flaps - please notify me if patient is transitioned to hospice and will remove drain at that time regardless of mastectomy flap condition - monitor drain output - Xeroform dressing to mastectomy flap, will change daily - continue Vit A since pt was on steroids and has poor healing - pain control per primary team Plan / VTE VTE Prophylaxis Ordered?: No VTE Exclusion Mechanical Proph: Other PREETHI RAYO DO Dec 21, 2020 22:17
[2020-12-22] MEDS: NORCO, ANEXSIA 5/325MG TABLET (HYDROcodone/ACETAMINOPHEN) PO PRN ×4 (05:23→23:26)
[2020-12-22 06:00] VITALS: BP 117/73
[2020-12-22 06:24] LABS: HEMOGLOBIN 10.3 g/dl (12.0-15.5); MEAN CORPUSCULAR HEMOGLOBIN 30.9 pg (27.0-33.0); MEAN CORPUSCULAR HGB CONC 32.2 g/dl (32.0-36.5); MEAN CORPUSCULAR VOLUME 96.1 fl (80.0-96.0); PLATELET COUNT, AUTOMATED 356 10^3/uL (150-450); RED BLOOD COUNT 3.33 10^6/uL (4.00-5.40); WHITE BLOOD COUNT 9.5 10^3/uL (4.0-10.0)
[2020-12-22 06:45] LABS: BLOOD UREA NITROGEN 21 MG/DL (7-18); CALCIUM LEVEL 8.2 MG/DL (8.5-10.1); CARBON DIOXIDE LEVEL 30 MEQ/L (21-32); CHLORIDE LEVEL 99 MEQ/L (98-107); GLOMERULAR FILTRATION RATE > 60.0 (>51); GLUCOSE, FASTING 116 MG/DL (70-100); POTASSIUM SERUM 4.6 MEQ/L (3.5-5.1); SODIUM LEVEL 135 MEQ/L (136-145)
[2020-12-22] MEDS: DOCUSATE SODIUM 100MG CAPSULE PO SCH ×2 (08:54→20:56)
[2020-12-22] MEDS: PANTOPRAZOLE 40MG TAB (PROTONIX) PO SCH (08:54)
[2020-12-22] MEDS: LIDOCAINE 5% (LIDODERM) PATCH TD SCH (08:55)
[2020-12-22] MEDS: ENOXAPARIN 30MG/0.3ML SYRINGE (J1650 PER 10MG) SC SCH (08:55)
[2020-12-22] MEDS: FIBER-CON 625 MG TAB PO SCH ×2 (08:57→20:56)
[2020-12-22] MEDS: VITAMIN A 10,000 INTERNATIONAL UNITS CAP PO SCH (08:57)
--- NOTE | 2020-12-22 10:00 | IPNPDOC ---
Subjective Subject Chief Complaint/History 60 y o F admitted for weakness, dx w stage 4 lung and breast ca. L breast had large fungating and painful mass, s/p L breast palliative mastectomy 12/15/20, Complete excision of the tumor was not possible due to chest wall involvement. No pain at the left chest wall. Patient complains of pain in her legs mostly. Her drain has low output but mastectomy flap is in guarded condition at this time. Current Medications Current Medications Current Medications Medications (Trade) Dose Ordered Sig/Cherelle Route PRN Reason Start Time Stop Time Status Last Admin Dose Admin Acetaminophen (Tylenol Tab) 1,000 mg Q6H PRN PO PAIN 1-4 / FEVER 12/11/20 08:15 12/19/20 01:47 Acetaminophen/ Hydrocodone Bitart ([place], Anexsia 5/325) 1 tab Q4HP PRN PO MILD/MODERATE PAIN (PS 5-7) 12/11/20 08:15 12/22/20 05:23 Acetaminophen/ Hydrocodone Bitart ([place], Anexsia 5/325) 2 tab Q4HP PRN PO SEVERE PAIN (PS 8-10) 12/11/20 08:15 12/21/20 23:29 Bisacodyl (Dulcolax Suppository) 10 mg DAILYPRN PRN [place] CONSTIPATION 12/20/20 17:15 12/20/20 18:30 Calcium Polycarbophil (Fiber Con) 1 ea BID PO 12/19/20 09:00 12/22/20 08:57 Cefazolin Sodium 1 gm/Dextrose 50 ml @ 100 mls/hr Q8H IV 12/16/20 06:00 12/16/20 16:00 DC 12/16/20 14:04 Dexamethasone (Decadron) 2 mg Taper DAILY PO 12/14/20 09:00 12/24/20 08:59 12/22/20 08:54 Dexamethasone (Decadron) 8 mg DAILY PO 12/09/20 09:00 12/13/20 17:26 DC 12/13/20 08:28 Diatrizoate Meglum/ Diatrizoate Sod (Gastrografin) 10 ml Q30M PO 12/20/20 09:15 12/20/20 09:46 DC 12/20/20 10:01 Docusate Sodium (Colace) 100 mg BID PO 12/17/20 09:00 12/22/20 08:54 Enoxaparin Sodium (Lovenox) 30 mg DAILY SC 12/10/20 09:00 12/22/20 08:55 Enoxaparin Sodium (Lovenox) 40 mg DAILY SC 12/10/20 09:00 12/09/20 13:47 DC Fentanyl Citrate (Sublimaze) 25 mcg Q5MP PRN IV PAIN LEVEL 5-10 12/15/20 20:05 12/15/20 21:05 DC Home Med (Med Rec Complete!) ASDIRECTED XX 12/09/20 11:45 12/09/20 11:44 DC Hydromorphone HCl (Dilaudid) 0.2 mg Q5MP PRN IV PAIN LEVEL 4-7 12/15/20 20:05 12/15/20 21:05 DC Lactated Ringer's 1,000 ml @ 100 mls/hr Q10H IV 12/15/20 20:05 12/15/20 21:05 DC Lidocaine (Lidoderm Patch) 2 patch DAILY TD 12/17/20 09:00 12/22/20 08:55 Morphine Sulfate (Morphine Sulfate Inj) 2 mg Q30M PRN IV MODERATE PAIN (PS 5-7) 12/09/20 10:00 12/09/20 20:59 DC 12/09/20 20:59 Non-Formulary Medication ( See Comment Field Below ) REMOVE LIDODERM PATCH DAILY@21 XX 12/17/20 21:00 12/21/20 21:10 Ondansetron HCl (ZOFRAN INJection) 4 mg Q4HP PRN IV NAUSEA OR VOMITING 12/15/20 20:05 12/15/20 21:05 DC Oxycodone HCl (OxyCONTIN) 10 mg QHS PO 12/21/20 21:00 12/21/20 21:08 Oxycodone HCl (Roxicodone, Oxyir) 5 mg ASDIRECTED PRN PO PAIN LEVEL 1-4 12/15/20 20:05 12/15/20 21:05 DC Pantoprazole Sodium (Protonix) 40 mg DAILY PO 12/09/20 09:00 12/22/20 08:54 Polyethylene Glycol (Miralax) 1 pkt DAILYPRN PRN PO CONSTIPATION 12/19/20 08:55 12/19/20 17:37 Sodium Chloride 1,000 ml @ 60 mls/hr [id number] IV 12/15/20 00:10 12/19/20 15:18 DC 12/19/20 09:49 Sodium Chloride 1,000 ml @ 100 mls/hr Q10H IV 12/09/20 09:55 Cancel Sodium Chloride 1,000 ml @ 150 mls/hr Q6H40M IV 12/09/20 10:00 12/10/20 09:59 DC 12/10/20 08:49 Vitamin A (Vitamin A) 20,000 units DAILY PO 12/16/20 09:00 12/22/20 08:57 Allergies Coded Allergies: Sulfa (Sulfonamide Antibiotics) (Verified Allergy, Mild, RASH, 02/11/20) codeine (Verified Allergy, Mild, rash, 11/22/20) Objective Physical Examination Examination GENERAL APPEARANCE:Patient seen, laying in bed, awake, alert, and oriented. Comfortable, in no acute distress. CHEST WALL: left mastectomy skin is bruised and looking guarded, flaps warm, MARISABEL drain in with s/s drainage, L chest wall skin covered with xeroform LUNGS: breathing comfortably HEART: tachycardia ABDOMEN: nondistended Vital Signs Vital Signs Date Time Temp Pulse Resp B/P (MAP) Pulse Ox O2 Delivery O2 Flow Rate FiO2 12/22/20 06:00 98.3 125 16 117/73 (88) 93 Room Air I&Os I&O- Last 24 Hours up to 6 AM 12/22/20 06:00 Intake Total 1040 ml Output Total 610 ml Balance 430 ml Laboratory Data Labs 24H Laboratory Tests 2 12/22/20 05:33: Nucleated Red Blood Cells % (auto) 0.0, Anion Gap 6L, Glomerular Filtration Rate > 60.0, Calcium Level 8.2L CBC/BMP Laboratory Tests 12/22/20 05:33 Impression 60 y o F w Stage 4 lung and breast ca, s/p L palliative mastectomy 12/15/20, complete excision of tumor not possible as it involves chest wall - Nitro paste to guarded portion of mastectomy flap BID. RN to apply 1 inch and cover with Xeroform BID - keep drain in to decrease pressure on guarded mastectomy flaps - please notify me if patient is transitioned to hospice and will remove drain at that time regardless of mastectomy flap condition - monitor drain output - continue Vit A since pt was on steroids and has poor healing - pain control per primary team - plan discussed with patient, Nursing staff and hospitalist Plan / VTE VTE Prophylaxis Ordered?: Yes VTE Exclusion Mechanical Proph: Other PREETHI RAYO DO Dec 22, 2020 09:59
[2020-12-22] MEDS: NITROGLYCERIN 2% OINT 1 GM *U/D* PKT TOP SCH ×2 (10:19→20:56)
[2020-12-22 14:00] VITALS: BP 133/71
--- NOTE | 2020-12-22 14:01 | ROOPDOC ---
[facility] Report Of Operation Report of Operation DATE OF PROCEDURE: 12/15/20 PREPROCEDURE DIAGNOSES: left breast large fungating cancer causing pain and bleeding POSTPROCEDURE DIAGNOSES: left breast large fungating cancer causing pain and bleeding PROCEDURE: Left breast palliative simple mastectomy SURGEON: Preethi Castillo INORGANIC CHEMICAL TECHNICIAN: Kristi Hinson ANESTHESIA: general ESTIMATED BLOOD LOSS: Approximately 100 mL. COMPLICATIONS: none REMARKS: tumor involves chest wall musculature, complete excision is not possible DESCRIPTION OF PROCEDURE: INDICATIONS: Ms. Minerva Barry is a 60-year-old lady who was found to have STAGE 4 lung cancer and large fungating left breast mass which causes pain and bleeds. Upon review of CT chest, it is clear that the mass involved underlying chest wall muscles. It is clear that complete resection of tumor will be not be possible. Left breast mass was biopsied and found to be IDC, grade 3, ER-, NH weakly +, Her2 -. Chemotherapy is not possible now per [facility] team due to elevated liver enzymes. Option of palliative left breast mastectomy was offered to patient and she wished to proceed. She was cleared for surgery by the Hospitalist Medical team. Risks and possible complications of surgical procedure including cardiovascular or pulmonary events, bleeding, infection and injury to surrounding structures were explained to the patient and she wished to proceed. Consent was signed. DETAILS: Patient was taken to the operating room and placed supine on the operating room table. Pillow was placed under her knees. Foam was placed under her heels. A sign in was called stating patients name, date of and the procedure to be done. Preoperative antibiotics were infused. Smooth induction of general anesthesia was done. Patients hands were extended on arm rests. Care was taken not to over extend patients arms. Sequential compression devices were placed and assured to function correctly. Patients left breast was prepped and draped in the usual fashion. Dr Hinson was assisting with this case and marked the incision sites around large fungating mass in the left breast to allow salvage of the maximum amount of skin in anticipation of difficult closure. Appropriate time out was done and patients name, date of , and the procedure to be done were confirmed. The incision was made along the previously marked by Dr. Hinson borders. Subcutaneous flaps were developed using electrocautery dissection. The tissue was very edematous. Dissection was carried toward the inframammary fold inferiorly, toward sternum medially, toward mid upper chest (clavicle was not reached since this is palliative mastectomy) and toward the axilla laterally. Dissection was difficult due to presence of large, left lateral breast mass. Doctor Galvin assistance was critical in allowing fast progression of the case and decreasing anesthesia time. Breast tissue was dissected from the muscle posteriorly and pectoralis fascia was taken with the specimen. The tumor was fou nd to infiltrate the pectoralis and serratus muscle in the lateral aspect of the incision. Complete excision of the tumor was not possible due to significant extension into chest wall. Tumor was transected at the level of the muscle using cautery. Tumor was very vascular and careful coagulation of bleeding sources was done. The specimen was not marked for orientation as it was expected to have positive margins. The specimen was weighted and weight of 849 grams was reported. The specimen was then placed in formaldehyde, and passed to pathology. Mastectomy cavity was irrigated and hemostasis was achieved. Dr. Hinson applied FloSeal to the tumor bed. Doctor Galvin assistance was critical in achieving adequate hemostasis and progressing the case safely. At this point, one 15 Syriac Willian drain was placed into the mastectomy cavity through the mastectomy incision site and secures with stitches. Next, pectoral and serratus plane blocks on the left side were also done with Exparel. At this time, Dr. Hinson excised the redundant skin to allow appropriate mastectomy site closure. Deep dermal sutures were placed with 2-0 Vicryl to approximate mastectomy site edges. Dermis was closed with 3-0 Vicryl. Skin was closed with 4-0 Monocryl. Surgical glue was applied to the top of the incision. Prineo skin closing system dressing was applied next to the incision. Surgical gauze was placed over the incision and surgical bra was applied. Final instruments and sponge count were correct. Patient emerged from general anesthesia without any problems. Patient tolerated procedure well and was taken to recovery unit in stable condition. PREETHI CASTILLO DO Dec 22, 2020 14:01
--- NOTE | 2020-12-22 18:11 | IPNPDOC ---
Text Note Date of Service The patient was seen on 12/22/20. NOTE Subjective: No any acute events overnight. Patient continues to complain of leg pain bilaterally. Objective: GENERAL APPEARANCE: NAD HEENT: no scleral icterus, no JVD, EOMI CARDIOVASCULAR: S1S2 LUNGS: CTA ABDOMEN: soft & not tender w palpitation MUSCULOSKELETAL: no cyanosis, no swelling, left mastectomy INTEGUMENT: no generalized pallor NEUROLOGICAL: cranial nerve function from 2-12 intact intact, follows commands, speech not dysarthric Assessment and plan Patient is 60 years old female with past medical history of stage 4 lung and breast carcinoma, L breast had large fungating and painful mass, s/p L breast palliative mastectomy 12/15/20. Left breast carcinoma Went to the OR on 12/15/20 for palliative mastectomy Per surgical team continue drain in to decrease pressure on guarded mastectomy flaps Surgical team follows her Stage 4 metastatic adenocarcinoma of the lung Patient received radiation treatment on 12/18/20 Pain management Continue steroid taper Palliative care on board Right thigh and low back pain Most likely secondary to advanced malignancy radiation oncologist recommended to continue radiation therapy in the outpatient settings Continue pain management Generalized weakness/cachexia most likely secondary to advanced malignancy Patient has BMI 18.2, low albumin 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 Vargas Palliative care encounter VSJudith, I+O VSJudith I+O Laboratory Tests 12/22/20 05:33 Vital Signs Date Time Temp Pulse Resp B/P (MAP) Pulse Ox O2 Delivery O2 Flow Rate FiO2 12/22/20 14:00 98.2 129 18 133/71 (91) 90 Room Air I&O- Last 24 Hours up to 6 AM 12/22/20 06:00 Intake Total 1040 ml Output Total 610 ml Balance 430 ml JULY STERN DO Dec 22, 2020 18:11
[2020-12-22] MEDS: oxyCODONE 10 MG CR TAB PO SCH (20:57)
[2020-12-22] MEDS: **NOTE PATIENT COMMENT** MISC XX SCH (20:57)
[2020-12-22 22:00] VITALS: BP 117/50
[2020-12-23] MEDS ORDERED: NORCO, ANEXSIA 5/325MG TABLET (HYDROcodone/ACETAMINOPHEN) As Ordered ONE (03:38)
[2020-12-23] MEDS: NORCO, ANEXSIA 5/325MG TABLET (HYDROcodone/ACETAMINOPHEN) PO PRN ×5 (03:40→23:56)
[2020-12-23 06:00] VITALS: BP 134/59
[2020-12-23 06:45] LABS: HEMATOCRIT 28.8 % (36.0-47.0); HEMOGLOBIN 9.5 g/dl (12.0-15.5); MEAN CORPUSCULAR HEMOGLOBIN 31.8 pg (27.0-33.0); MEAN CORPUSCULAR VOLUME 96.3 fl (80.0-96.0); PLATELET COUNT, AUTOMATED 365 10^3/uL (150-450); RED BLOOD COUNT 2.99 10^6/uL (4.00-5.40); WHITE BLOOD COUNT 9.2 10^3/uL (4.0-10.0)
[2020-12-23 07:00] LABS: BLOOD UREA NITROGEN 18 MG/DL (7-18); CARBON DIOXIDE LEVEL 29 MEQ/L (21-32); CHLORIDE LEVEL 103 MEQ/L (98-107); CREATININE FOR GFR 0.15 MG/DL (0.55-1.30); GLOMERULAR FILTRATION RATE > 60.0 (>51); GLUCOSE, FASTING 106 MG/DL (70-100); POTASSIUM SERUM 4.4 MEQ/L (3.5-5.1); SODIUM LEVEL 137 MEQ/L (136-145)
[2020-12-23] MEDS: LIDOCAINE 5% (LIDODERM) PATCH TD SCH (08:48)
[2020-12-23] MEDS: PANTOPRAZOLE 40MG TAB (PROTONIX) PO SCH (08:49)
[2020-12-23] MEDS: DOCUSATE SODIUM 100MG CAPSULE PO SCH ×2 (08:49→20:27)
[2020-12-23] MEDS: ENOXAPARIN 30MG/0.3ML SYRINGE (J1650 PER 10MG) SC SCH (08:54)
[2020-12-23] MEDS: FIBER-CON 625 MG TAB PO SCH ×2 (08:54→20:27)
[2020-12-23] MEDS: VITAMIN A 10,000 INTERNATIONAL UNITS CAP PO SCH (08:54)
[2020-12-23] MEDS: NITROGLYCERIN 2% OINT 1 GM *U/D* PKT TOP SCH ×2 (08:55→20:28)
[2020-12-23 14:00] VITALS: BP 115/54
--- NOTE | 2020-12-23 14:20 | IPNPDOC ---
Text Note Date of Service The patient was seen on 12/23/20. NOTE Subjective: No any acute events overnight. Patient continues to complain of leg pain bilaterally and back pain Objective: GENERAL APPEARANCE: NAD HEENT: no scleral icterus, no JVD, EOMI CARDIOVASCULAR: S1S2 LUNGS: CTA ABDOMEN: soft & not tender w palpitation MUSCULOSKELETAL: no cyanosis, no swelling, left mastectomy INTEGUMENT: no generalized pallor NEUROLOGICAL: cranial nerve function from 2-12 intact intact, follows commands, speech not dysarthric Assessment and plan Patient is 60 years old female with past medical history of stage 4 lung and breast carcinoma, L breast had large fungating and painful mass, s/p L breast palliative mastectomy 12/15/20. Left breast carcinoma Went to the OR on 12/15/20 for palliative mastectomy Per surgical team continue drain in to decrease pressure on guarded mastectomy flaps Surgical team follows her Stage 4 metastatic adenocarcinoma of the lung Patient received radiation treatment on 12/18/20 Pain management Continue steroid taper Palliative care on board Right thigh and low back pain Most likely secondary to advanced malignancy radiation oncologist recommended to continue radiation therapy in the outpatient settings Continue pain management Generalized weakness/cachexia most likely secondary to advanced malignancy Patient has BMI 18.2, low albumin 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 Vargas Palliative care encounter VSJudith, I+O VSJudith, I+O Laboratory Tests 12/23/20 06:22 Vital Signs Date Time Temp Pulse Resp B/P (MAP) Pulse Ox O2 Delivery O2 Flow Rate FiO2 12/23/20 13:47 18 12/23/20 08:55 134/59 12/23/20 06:00 97.6 112 96 12/22/20 14:00 Room Air I&O- Last 24 Hours up to 6 AM 12/23/20 06:00 Intake Total 1270 ml Output Total 800 ml Balance 470 ml JULY STERN DO Dec 23, 2020 14:20
[2020-12-23] MEDS: **NOTE PATIENT COMMENT** MISC XX SCH (20:28)
[2020-12-23] MEDS: oxyCODONE 10 MG CR TAB PO SCH (20:29)
--- NOTE | 2020-12-23 21:55 | IPNPDOC ---
Subjective General Date Seen: Dec 23, 2020 Subject Chief Complaint/History 60 y o F admitted for weakness, dx w stage 4 lung and breast ca. L breast had large fungating and painful mass, s/p L breast palliative mastectomy 12/15/20, Complete excision of the tumor was not possible due to chest wall involvement. No pain at the left chest wall. Nursing staff is applying nitro pasted BID to mastectomy wound. Prineo was removed 12/22/20 Patient complains of pain in her legs mostly. Pain is improved with morphine Her drain has 20 cc output today. Current Medications Current Medications Current Medications Medications (Trade) Dose Ordered Sig/Cherelle Route PRN Reason Start Time Stop Time Status Last Admin Dose Admin Acetaminophen (Tylenol Tab) 1,000 mg Q6H PRN PO PAIN 1-4 / FEVER 12/11/20 08:15 12/22/20 18:02 DC 12/19/20 01:47 Acetaminophen/ Hydrocodone Bitart ([place], Anexsia 5/325) 1 tab Q4HP PRN PO MILD/MODERATE PAIN (PS 5-7) 12/11/20 08:15 12/23/20 03:40 Acetaminophen/ Hydrocodone Bitart ([place], Anexsia 5/325) 2 tab Q4HP PRN PO SEVERE PAIN (PS 8-10) 12/11/20 08:15 12/23/20 18:37 Bisacodyl (Dulcolax Suppository) 10 mg DAILYPRN PRN AK CONSTIPATION 12/20/20 17:15 12/20/20 18:30 Calcium Polycarbophil (Fiber Con) 1 ea BID PO 12/19/20 09:00 12/23/20 20:27 Cefazolin Sodium 1 gm/Dextrose 50 ml @ 100 mls/hr Q8H IV 12/16/20 06:00 12/16/20 16:00 DC 12/16/20 14:04 Dexamethasone (Decadron) 2 mg Taper DAILY PO 12/14/20 09:00 12/24/20 08:59 12/23/20 08:49 Dexamethasone (Decadron) 8 mg DAILY PO 12/09/20 09:00 12/13/20 17:26 DC 12/13/20 08:28 Diatrizoate Meglum/ Diatrizoate Sod (Gastrografin) 10 ml Q30M PO 12/20/20 09:15 12/20/20 09:46 DC 12/20/20 10:01 Docusate Sodium (Colace) 100 mg BID PO 12/17/20 09:00 12/23/20 20:27 Enoxaparin Sodium (Lovenox) 30 mg DAILY SC 12/10/20 09:00 12/23/20 08:54 Enoxaparin Sodium (Lovenox) 40 mg DAILY SC 12/10/20 09:00 12/09/20 13:47 DC Fentanyl Citrate (Sublimaze) 25 mcg Q5MP PRN IV PAIN LEVEL 5-10 12/15/20 20:05 12/15/20 21:05 DC Home Med (Med Rec Complete!) ASDIRECTED XX 12/09/20 11:45 12/09/20 11:44 DC Hydromorphone HCl (Dilaudid) 0.2 mg Q5MP PRN IV PAIN LEVEL 4-7 12/15/20 20:05 12/15/20 21:05 DC Lactated Ringer's 1,000 ml @ 100 mls/hr Q10H IV 12/15/20 20:05 12/15/20 21:05 DC Lidocaine (Lidoderm Patch) 2 patch DAILY TD 12/17/20 09:00 12/23/20 08:48 Morphine Sulfate (Morphine Sulfate Inj) 2 mg Q30M PRN IV MODERATE PAIN (PS 5-7) 12/09/20 10:00 12/09/20 20:59 DC 12/09/20 20:59 Morphine Sulfate (Morphine Sulfate Inj) 2 mg Q6H PRN IV BREAKTHROUGH PAIN 12/22/20 18:05 Nitroglycerin (Nitrobid 2%) 1 gm BID TOP 12/22/20 09:00 12/23/20 20:28 Non-Formulary Medication ( See Comment Field Below ) REMOVE LIDODERM PATCH DAILY@21 XX 12/17/20 21:00 12/23/20 20:28 Ondansetron HCl (ZOFRAN INJection) 4 mg Q4HP PRN IV NAUSEA OR VOMITING 12/15/20 20:05 12/15/20 21:05 DC Oxycodone HCl (OxyCONTIN) 10 mg QHS PO 12/21/20 21:00 12/23/20 20:29 Oxycodone HCl (Roxicodone, Oxyir) 5 mg ASDIRECTED PRN PO PAIN LEVEL 1-4 12/15/20 20:05 12/15/20 21:05 DC Pantoprazole Sodium (Protonix) 40 mg DAILY PO 12/09/20 09:00 12/23/20 08:49 Polyethylene Glycol (Miralax) 1 pkt DAILYPRN PRN PO CONSTIPATION 12/19/20 08:55 12/19/20 17:37 Sodium Chloride 1,000 ml @ 60 mls/hr [id number] IV 12/15/20 00:10 12/19/20 15:18 DC 12/19/20 09:49 Sodium Chloride 1,000 ml @ 100 mls/hr Q10H IV 12/09/20 09:55 Cancel Sodium Chloride 1,000 ml @ 150 mls/hr Q6H40M IV 12/09/20 10:00 12/10/20 09:59 DC 12/10/20 08:49 Vitamin A (Vitamin A) 20,000 units DAILY PO 12/16/20 09:00 12/23/20 08:54 Allergies Coded Allergies: Sulfa (Sulfonamide Antibiotics) (Verified Allergy, Mild, RASH, 02/11/20) codeine (Verified Allergy, Mild, rash, 11/22/20) Objective Physical Examination Examination GENERAL APPEARANCE:Patient seen, laying in bed, awake, alert, and oriented. CHEST WALL: left mastectomy skin is bruised and looking guarded although betted than previously , flaps warm, MARISABEL drain in with s/s drainage, L chest wall skin covered with xeroform LUNGS: breathing comfortably HEART: tachycardia ABDOMEN: nondistended Vital Signs Vital Signs Date Time Temp Pulse Resp B/P (MAP) Pulse Ox O2 Delivery O2 Flow Rate FiO2 12/23/20 20:29 17 12/23/20 20:28 115/54 12/23/20 14:00 98.7 134 92 Room Air I&Os I&O- Last 24 Hours up to 6 AM 12/23/20 06:00 Intake Total 1270 ml Output Total 800 ml Balance 470 ml Laboratory Data Labs 24H Laboratory Tests 2 12/23/20 06:22: Nucleated Red Blood Cells % (auto) 0.0, Anion Gap 5L, Glomerular Filtration Rate > 60.0, Calcium Level 8.0L CBC/BMP Laboratory Tests 12/23/20 06:22 Impression 60 y o F w Stage 4 lung and breast ca, s/p L palliative mastectomy 12/15/20, complete excision of tumor not possible as it involves chest wall - continue Nitro paste to guarded portion of mastectomy flap BID. RN to apply 1 inch and cover with Xeroform BID - keep drain in to decrease pressure on guarded mastectomy flaps - please notify me if patient is transitioned to hospice and will remove drain at that time regardless of mastectomy flap condition - monitor drain output - continue Vit A since pt was on steroids and has poor healing - pain control per primary team, consider fentanyl patch since patient is still bothered by pain Plan / VTE VTE Prophylaxis Ordered?: Yes VTE Exclusion Mechanical Proph: Other PREETHI RAYO DO Dec 23, 2020 21:55
[2020-12-23 22:00] VITALS: BP 125/75
[2020-12-24] MEDS: MORPHINE 2 MG/ML 1ML VIAL (J2270) IV PRN ×2 (03:29→16:55)
[2020-12-24] MEDS: NORCO, ANEXSIA 5/325MG TABLET (HYDROcodone/ACETAMINOPHEN) PO PRN ×5 (05:15→23:45)
[2020-12-24 06:00] VITALS: BP 117/69
[2020-12-24 07:00] LABS: HEMATOCRIT 29.7 % (36.0-47.0); HEMOGLOBIN 9.3 g/dl (12.0-15.5); MEAN CORPUSCULAR HEMOGLOBIN 30.3 pg (27.0-33.0); MEAN CORPUSCULAR HGB CONC 31.3 g/dl (32.0-36.5); MEAN CORPUSCULAR VOLUME 96.7 fl (80.0-96.0); PLATELET COUNT, AUTOMATED 386 10^3/uL (150-450); RED BLOOD COUNT 3.07 10^6/uL (4.00-5.40); WHITE BLOOD COUNT 11.6 10^3/uL (4.0-10.0)
[2020-12-24 07:20] LABS: BLOOD UREA NITROGEN 14 MG/DL (7-18); CALCIUM LEVEL 8.2 MG/DL (8.5-10.1); CARBON DIOXIDE LEVEL 27 MEQ/L (21-32); CHLORIDE LEVEL 100 MEQ/L (98-107); CREATININE FOR GFR 0.17 MG/DL (0.55-1.30); GLOMERULAR FILTRATION RATE > 60.0 (>51); GLUCOSE, FASTING 115 MG/DL (70-100); SODIUM LEVEL 135 MEQ/L (136-145)
[2020-12-24] MEDS: DOCUSATE SODIUM 100MG CAPSULE PO SCH ×2 (08:32→20:25)
[2020-12-24] MEDS: VITAMIN A 10,000 INTERNATIONAL UNITS CAP PO SCH (08:32)
[2020-12-24] MEDS: PANTOPRAZOLE 40MG TAB (PROTONIX) PO SCH (08:32)
[2020-12-24] MEDS: FIBER-CON 625 MG TAB PO SCH ×2 (08:32→20:25)
[2020-12-24] MEDS: LIDOCAINE 5% (LIDODERM) PATCH TD SCH (08:33)
[2020-12-24] MEDS: ENOXAPARIN 30MG/0.3ML SYRINGE (J1650 PER 10MG) SC SCH (08:33)
--- NOTE | 2020-12-24 09:37 | RADENCPD ---
Date/Time of Encounter Date of Encounter: Dec 24, 2020 Time of Encounter: 09:24 Encounter Met with Minerva at bedside today. She complains of pain in right hip and leg as well as ongoing pain in the right arm and buttocks. I reviewed her recent CTs and there is a large intramuscular metastasis in the right leg. On exam this area is tender but no mass was appreciated on palpation. The right arm metastatic site of recent RT remains tender and firm. I note 15 cc of serosanguineous drainage from the left mastectomy site. She states no pain in the left chest. I note that her decadron taper is complete. I broached pursuing palliative RT to the right leg metastasis. The alternative would be increasing her pain regimen. She declines RT at this time, which given her poor prognosis and desire for more immediate pain relief is reasonable to me. I agree with a palliative care consultation for both pain control and goals of care. Without a functional recovery, she will not be eligible for systemic therapy, and so hospice should be broached at this time. Without systemic therapy, her prognosis is <6 months. I did briefly mention hospice as an alternative to her current mode of care, she wishes to think about it. I will visit with her again tomorrow. Hopefully by then palliative care will have seen her by then. I suggest in the meantime (until palliative gives recommendations) that her long acting-narcotic dose be increased as her current pain is uncontrolled. ASIM SYLVESTER MD Dec 24, 2020 09:37
[2020-12-24] MEDS: NITROGLYCERIN 2% OINT 1 GM *U/D* PKT TOP SCH ×2 (11:33→23:35)
[2020-12-24 14:00] VITALS: BP 109/66
[2020-12-24] MEDS ORDERED: traMADol ER 100MG TABLET (ULTRAM ER) PO ONE (15:10)
--- NOTE | 2020-12-24 15:14 | IPNPDOC ---
Text Note Date of Service The patient was seen on 12/24/20. NOTE Subjective: No any acute events overnight. Patient continues to complain of leg pain bilaterally and back pain. Patient described the pain is 7 out of 10 Objective: GENERAL APPEARANCE: NAD HEENT: no scleral icterus, no JVD, EOMI CARDIOVASCULAR: S1S2 LUNGS: CTA ABDOMEN: soft & not tender w palpitation MUSCULOSKELETAL: no cyanosis, no swelling, left mastectomy INTEGUMENT: no generalized pallor NEUROLOGICAL: cranial nerve function from 2-12 intact intact, follows commands, speech not dysarthric Assessment and plan Patient is 60 years old female with past medical history of stage 4 lung and breast carcinoma, L breast had large fungating and painful mass, s/p L breast p alliative mastectomy 12/15/20. Left breast carcinoma Went to the OR on 12/15/20 for palliative mastectomy Per surgical team continue drain in to decrease pressure on guarded mastectomy flaps Surgical team follows her Stage 4 metastatic adenocarcinoma of the lung Patient received radiation treatment on 12/18/20 Pain management. 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 Vargas Palliative care encounter Patient is not candidate for systemic therapy due to failure to thrive. We'll discuss hospice option tomorrow. VS,Fishbone, I+O VS, Fishbone, I+O Laboratory Tests 12/24/20 06:18 Vital Signs Date Time Temp Pulse Resp B/P (MAP) Pulse Ox O2 Delivery O2 Flow Rate FiO2 12/24/20 14:43 12 12/24/20 11:33 112/68 12/24/20 06:00 97.6 125 93 Room Air I&O- Last 24 Hours up to 6 AM 12/24/20 06:00 Intake Total 1290 ml Output Total 420 ml Balance 870 ml JULY STERN DO Dec 24, 2020 15:14
--- NOTE | 2020-12-24 16:04 | IPNPDOC ---
Subjective General Date Seen: Dec 24, 2020 Subject Chief Complaint/History 60 y o F admitted for weakness, dx w stage 4 lung and breast ca. L breast had large fungating and painful mass, s/p L breast palliative mastectomy 12/15/20, Complete excision of the tumor was not possible due to chest wall involvement. Minimal discomfort at the left chest wall. Nursing staff is applying nitro pasted BID to mastectomy wound. Prineo was removed 12/22/20 Patient complains of pain in her legs mostly. Pain is still bothering her si gnificantly and does not let her sleep well. Her drain had 20 cc output yesterday. Current Medications Current Medications Current Medications Medications (Trade) Dose Ordered Sig/Cherelle Route PRN Reason Start Time Stop Time Status Last Admin Dose Admin Acetaminophen (Tylenol Tab) 1,000 mg Q6H PRN PO PAIN 1-4 / FEVER 12/11/20 08:15 12/22/20 18:02 DC 12/19/20 01:47 Acetaminophen/ Hydrocodone Bitart ([place], Anexsia 5/325) 1 tab Q4HP PRN PO MILD/MODERATE PAIN (PS 5-7) 12/11/20 08:15 12/24/20 14:13 Acetaminophen/ Hydrocodone Bitart ([place], Anexsia 5/325) 2 tab Q4HP PRN PO SEVERE PAIN (PS 8-10) 12/11/20 08:15 12/24/20 09:27 Bisacodyl (Dulcolax Suppository) 10 mg DAILYPRN PRN SC CONSTIPATION 12/20/20 17:15 12/20/20 18:30 Calcium Polycarbophil (Fiber Con) 1 ea BID PO 12/19/20 09:00 12/24/20 08:32 Cefazolin Sodium 1 gm/Dextrose 50 ml @ 100 mls/hr Q8H IV 12/16/20 06:00 12/16/20 16:00 DC 12/16/20 14:04 Dexamethasone (Decadron) 2 mg Taper DAILY PO 12/14/20 09:00 12/24/20 08:59 DC 12/23/20 08:49 Dexamethasone (Decadron) 8 mg DAILY PO 12/09/20 09:00 12/13/20 17:26 DC 12/13/20 08:28 Diatrizoate Meglum/ Diatrizoate Sod (Gastrografin) 10 ml Q30M PO 12/20/20 09:15 12/20/20 09:46 DC 12/20/20 10:01 Docusate Sodium (Colace) 100 mg BID PO 12/17/20 09:00 12/24/20 08:32 Enoxaparin Sodium (Lovenox) 30 mg DAILY SC 12/10/20 09:00 12/24/20 08:33 Enoxaparin Sodium (Lovenox) 40 mg DAILY SC 12/10/20 09:00 12/09/20 13:47 DC Fentanyl Citrate (Sublimaze) 25 mcg Q5MP PRN IV PAIN LEVEL 5-10 12/15/20 20:05 12/15/20 21:05 DC Home Med (Med Rec Complete!) ASDIRECTED XX 12/09/20 11:45 12/09/20 11:44 DC Hydromorphone HCl (Dilaudid) 0.2 mg Q5MP PRN IV PAIN LEVEL 4-7 12/15/20 20:05 12/15/20 21:05 DC Lactated Ringer's 1,000 ml @ 100 mls/hr Q10H IV 12/15/20 20:05 12/15/20 21:05 DC Lidocaine (Lidoderm Patch) 2 patch DAILY TD 12/17/20 09:00 12/24/20 08:33 Morphine Sulfate (Morphine Sulfate Inj) 2 mg Q30M PRN IV MODERATE PAIN (PS 5-7) 12/09/20 10:00 12/09/20 20:59 DC 12/09/20 20:59 Morphine Sulfate (Morphine Sulfate Inj) 2 mg Q6H PRN IV BREAKTHROUGH PAIN 12/22/20 18:05 12/24/20 03:29 Nitroglycerin (Nitrobid 2%) 1 gm BID TOP 12/22/20 09:00 12/24/20 11:33 Non-Formulary Medication ( See Comment Field Below ) REMOVE LIDODERM PATCH DAILY@21 XX 12/17/20 21:00 12/23/20 20:28 Ondansetron HCl (ZOFRAN INJection) 4 mg Q4HP PRN IV NAUSEA OR VOMITING 12/15/20 20:05 12/15/20 21:05 DC Oxycodone HCl (OxyCONTIN) 10 mg BID PO 12/24/20 21:00 Oxycodone HCl (OxyCONTIN) 10 mg QHS PO 12/21/20 21:00 12/24/20 15:12 DC 12/23/20 20:29 Oxycodone HCl (Roxicodone, Oxyir) 5 mg ASDIRECTED PRN PO PAIN LEVEL 1-4 12/15/20 20:05 12/15/20 21:05 DC Pantoprazole Sodium (Protonix) 40 mg DAILY PO 12/09/20 09:00 12/24/20 08:32 Polyethylene Glycol (Miralax) 1 pkt DAILYPRN PRN PO CONSTIPATION 12/19/20 08:55 12/19/20 17:37 Sodium Chloride 1,000 ml @ 60 mls/hr [id number] IV 12/15/20 00:10 12/19/20 15:18 DC 12/19/20 09:49 Sodium Chloride 1,000 ml @ 100 mls/hr Q10H IV 12/09/20 09:55 Cancel Sodium Chloride 1,000 ml @ 150 mls/hr Q6H40M IV 12/09/20 10:00 12/10/20 09:59 DC 12/10/20 08:49 Tramadol HCl (Ultram Er) 200 mg DAILY PO 12/25/20 09:00 Vitamin A (Vitamin A) 20,000 units DAILY PO 12/16/20 09:00 12/24/20 08:32 Allergies Coded Allergies: Sulfa (Sulfonamide Antibiotics) (Verified Allergy, Mild, RASH, 02/11/20) codeine (Verified Allergy, Mild, rash, 11/22/20) Objective Physical Examination Examination GENERAL APPEARANCE: Patient seen, sits in bed, awake, alert, and oriented. CHEST WALL: left mastectomy skin is less bruised today, Nitro paste is helping, the lateral edge of the superior mastectomy flap is still guarded with some isch emia. MARISABEL drain in with s/s drainage, L chest wall skin covered with xeroform LUNGS: breathing comfortably HEART: tachycardia ABDOMEN: nondistended Vital Signs Vital Signs Date Time Temp Pulse Resp B/P (MAP) Pulse Ox O2 Delivery O2 Flow Rate FiO2 12/24/20 14:43 12 12/24/20 11:33 112/68 12/24/20 06:00 97.6 125 93 Room Air I&Os I&O- Last 24 Hours up to 6 AM 12/24/20 05:59 Intake Total 1260 ml Output Total 420 ml Balance 840 ml Laboratory Data Labs 24H Laboratory Tests 2 12/24/20 06:18: Nucleated Red Blood Cells % (auto) 0.0, Anion Gap 8, Glomerular Filtration Rate > 60.0, Calcium Level 8.2L CBC/BMP Laboratory Tests 12/24/20 06:18 Impression 60 y o F w Stage 4 lung and breast ca, s/p L palliative mastectomy 12/15/20, complete excision of tumor not possible as it involves chest wall - continue Nitro paste to guarded portion of mastectomy flap BID. RN to apply 1 inch and cover with Xeroform BID - may need Provena wound vac next week - keep drain in to decrease pressure on guarded mastectomy flaps - please notify me if patient is transitioned to hospice and will remove drain at that time regardless of mastectomy flap condition - monitor drain output - continue Vit A since pt was on steroids and has poor healing - pain control per primary team, patient complains of very bothersome pain in legs back and arm, consider fentanyl patch since patient is still bothered by pain - awaiting Palliative care consult Plan / VTE VTE Prophylaxis Ordered?: Yes VTE Exclusion Mechanical Proph: Other PREETHI RAYO DO Dec 24, 2020 16:04
[2020-12-24] MEDS: oxyCODONE 10 MG CR TAB PO SCH (20:25)
[2020-12-24] MEDS: **NOTE PATIENT COMMENT** MISC XX SCH (20:28)
[2020-12-24 22:00] VITALS: BP 139/70
[2020-12-25 06:00] VITALS: BP 109/82
[2020-12-25 06:44] LABS: HEMATOCRIT 30.5 % (36.0-47.0); HEMOGLOBIN 9.7 g/dl (12.0-15.5); MEAN CORPUSCULAR HEMOGLOBIN 30.8 pg (27.0-33.0); MEAN CORPUSCULAR HGB CONC 31.8 g/dl (32.0-36.5); MEAN CORPUSCULAR VOLUME 96.8 fl (80.0-96.0); PLATELET COUNT, AUTOMATED 408 10^3/uL (150-450); RED BLOOD COUNT 3.15 10^6/uL (4.00-5.40); WHITE BLOOD COUNT 11.9 10^3/uL (4.0-10.0)
[2020-12-25 07:01] LABS: BLOOD UREA NITROGEN 13 MG/DL (7-18); CALCIUM LEVEL 8.4 MG/DL (8.5-10.1); CARBON DIOXIDE LEVEL 29 MEQ/L (21-32); CHLORIDE LEVEL 98 MEQ/L (98-107); CREATININE FOR GFR < 0.15 MG/DL (0.55-1.30); GLOMERULAR FILTRATION RATE > 60.0 (>51); GLUCOSE, FASTING 122 MG/DL (70-100); POTASSIUM SERUM 4.2 MEQ/L (3.5-5.1); SODIUM LEVEL 135 MEQ/L (136-145)
[2020-12-25] MEDS: NORCO, ANEXSIA 5/325MG TABLET (HYDROcodone/ACETAMINOPHEN) PO PRN ×2 (07:22→15:14)
[2020-12-25] MEDS: NITROGLYCERIN 2% OINT 1 GM *U/D* PKT TOP SCH (08:41)
[2020-12-25] MEDS ORDERED: traMADol ER 100MG TABLET (ULTRAM ER) PO SCH (09:00)
[2020-12-25] MEDS: VITAMIN A 10,000 INTERNATIONAL UNITS CAP PO SCH (09:25)
[2020-12-25] MEDS: DOCUSATE SODIUM 100MG CAPSULE PO SCH ×2 (09:25→20:43)
[2020-12-25] MEDS: ENOXAPARIN 30MG/0.3ML SYRINGE (J1650 PER 10MG) SC SCH (09:26)
[2020-12-25] MEDS: PANTOPRAZOLE 40MG TAB (PROTONIX) PO SCH (09:26)
[2020-12-25] MEDS: oxyCODONE 10 MG CR TAB PO SCH (09:26)
[2020-12-25] MEDS: LIDOCAINE 5% (LIDODERM) PATCH TD SCH (09:26)
[2020-12-25] MEDS: FIBER-CON 625 MG TAB PO SCH ×2 (09:27→20:42)
[2020-12-25 14:00] VITALS: BP 107/56
--- NOTE | 2020-12-25 14:05 | RADENCPD ---
Date/Time of Encounter Date of Encounter: Dec 25, 2020 Time of Encounter: 09:00 Encounter Spoke with Minerva this AM at length regarding her condition which at present precludes her from receiving chemotherapy and the alternative before her; hospice care v ongoing attempt at rehabilitation so she can receive chemotherapy. I explained that the latter scenario is increasingly unlikely, she is unable to walk much due to pain, she is not eating (no appetite). She was realistic about her situation overall but resistant to making a choice at this time. She wants to talk to her children about hospice. One recurring theme was that she feels 'safe' in the hospital. She would not want to go anywhere where she didn't have appropriate care to cultivate that 'safe' feeling. Thus hospice somewhere with appropriate nursing care is likely to be more appealing to her as an option. I will return to see her Monday if she is still admitted. ASIM SYLVESTER MD Dec 25, 2020 14:05
[2020-12-25] MEDS ORDERED: NS 1,000 ML IV ONE (14:50)
--- NOTE | 2020-12-25 14:52 | IPNPDOC ---
Subjective General Date Seen: Dec 25, 2020 Subject Chief Complaint/History 60 y o F admitted for weakness, dx w stage 4 lung and breast ca. L breast had large fungating and painful mass, s/p L breast palliative mastectomy 12/15/20, Complete excision of the tumor was not possible due to chest wall involvement. Minimal discomfort at the left chest wall. Nursing staff is applying nitro pasted BID to mastectomy wound. Prineo was removed 12/22/20 Patient complains of pain in her legs mostly. She is not eating well. I personally drained 40 cc fluid from the MARISABEL drain today. Apparently drain was also emptied yesterday but there is no amount recorded. Current Medications Current Medications Current Medications Medications (Trade) Dose Ordered Sig/Cherelle Route PRN Reason Start Time Stop Time Status Last Admin Dose Admin Acetaminophen (Tylenol Tab) 1,000 mg Q6H PRN PO PAIN 1-4 / FEVER 12/11/20 08:15 12/22/20 18:02 DC 12/19/20 01:47 Acetaminophen/ Hydrocodone Bitart ([place], Anexsia 5/325) 1 tab Q4HP PRN PO MILD/MODERATE PAIN (PS 5-7) 12/11/20 08:15 12/24/20 14:13 Acetaminophen/ Hydrocodone Bitart ([place], Anexsia 5/325) 2 tab Q4HP PRN PO SEVERE PAIN (PS 8-10) 12/11/20 08:15 12/25/20 07:22 Bisacodyl (Dulcolax Suppository) 10 mg DAILYPRN PRN [place] CONSTIPATION 12/20/20 17:15 12/20/20 18:30 Cadexomer Iodine (Iodosorb Gel) 1 dose BID TOP 12/25/20 21:00 Calcium Polycarbophil (Fiber Con) 1 ea BID PO 12/19/20 09:00 12/25/20 09:27 Cefazolin Sodium 1 gm/Dextrose 50 ml @ 100 mls/hr Q8H IV 12/16/20 06:00 12/16/20 16:00 DC 12/16/20 14:04 Dexamethasone (Decadron) 2 mg Taper DAILY PO 12/14/20 09:00 12/24/20 08:59 DC 12/23/20 08:49 Dexamethasone (Decadron) 8 mg DAILY PO 12/09/20 09:00 12/13/20 17:26 DC 12/13/20 08:28 Diatrizoate Meglum/ Diatrizoate Sod (Gastrografin) 10 ml Q30M PO 12/20/20 09:15 12/20/20 09:46 DC 12/20/20 10:01 Docusate Sodium (Colace) 100 mg BID PO 12/17/20 09:00 12/25/20 09:25 Enoxaparin Sodium (Lovenox) 30 mg DAILY SC 12/10/20 09:00 12/25/20 09:26 Enoxaparin Sodium (Lovenox) 40 mg DAILY SC 12/10/20 09:00 12/09/20 13:47 DC Fentanyl Citrate (Sublimaze) 25 mcg Q5MP PRN IV PAIN LEVEL 5-10 12/15/20 20:05 12/15/20 21:05 DC Home Med (Med Rec Complete!) ASDIRECTED XX 12/09/20 11:45 12/09/20 11:44 DC Hydromorphone HCl (Dilaudid) 0.2 mg Q5MP PRN IV PAIN LEVEL 4-7 12/15/20 20:05 12/15/20 21:05 DC Lactated Ringer's 1,000 ml @ 100 mls/hr Q10H IV 12/15/20 20:05 12/15/20 21:05 DC Lidocaine (Lidoderm Patch) 2 patch DAILY TD 12/17/20 09:00 12/25/20 09:26 Morphine Sulfate (Morphine Sulfate Inj) 2 mg Q30M PRN IV MODERATE PAIN (PS 5-7) 12/09/20 10:00 12/09/20 20:59 DC 12/09/20 20:59 Morphine Sulfate (Morphine Sulfate Inj) 2 mg Q6H PRN IV BREAKTHROUGH PAIN 12/22/20 18:05 12/24/20 16:55 Nitroglycerin (Nitrobid 2%) 1 gm BID TOP 12/22/20 09:00 12/25/20 13:31 DC 12/25/20 08:41 Non-Formulary Medication ( See Comment Field Below ) REMOVE LIDODERM PATCH DAILY@21 XX 12/17/20 21:00 12/24/20 20:28 Ondansetron HCl (ZOFRAN INJection) 4 mg Q4HP PRN IV NAUSEA OR VOMITING 12/15/20 20:05 12/15/20 21:05 DC Oxycodone HCl (OxyCONTIN) 10 mg BID PO 12/24/20 21:00 12/25/20 09:26 Oxycodone HCl (OxyCONTIN) 10 mg QHS PO 12/21/20 21:00 12/24/20 15:12 DC 12/23/20 20:29 Oxycodone HCl (Roxicodone, Oxyir) 5 mg ASDIRECTED PRN PO PAIN LEVEL 1-4 12/15/20 20:05 12/15/20 21:05 DC Pantoprazole Sodium (Protonix) 40 mg DAILY PO 12/09/20 09:00 12/25/20 09:26 Polyethylene Glycol (Miralax) 1 pkt DAILYPRN PRN PO CONSTIPATION 12/19/20 08:55 12/19/20 17:37 Sodium Chloride 1,000 ml @ 60 mls/hr [id number] IV 12/15/20 00:10 12/19/20 15:18 DC 12/19/20 09:49 Sodium Chloride 1,000 ml @ 100 mls/hr Q10H IV 12/09/20 09:55 Cancel Sodium Chloride 1,000 ml @ 150 mls/hr Q6H40M IV 12/09/20 10:00 12/10/20 09:59 DC 12/10/20 08:49 Tramadol HCl (Ultram Er) 200 mg DAILY PO 12/25/20 09:00 12/25/20 09:24 Vitamin A (Vitamin A) 20,000 units DAILY PO 12/16/20 09:00 12/25/20 09:25 Allergies Coded Allergies: Sulfa (Sulfonamide Antibiotics) (Verified Allergy, Mild, RASH, 02/11/20) codeine (Verified Allergy, Mild, rash, 11/22/20) Objective Physical Examination Examination GENERAL APPEARANCE: Patient seen, sits in bed, awake, alert, and oriented. CHEST WALL: left mastectomy skin is less bruised however the lateral distal portion of mastectomy flap has partial necrosis. Applied betadine gel today to this area. MARISABEL had 40 cc in. LUNGS: breathing comfortably HEART: tachycardia ABDOMEN: nondistended Vital Signs Vital Signs Date Time Temp Pulse Resp B/P (MAP) Pulse Ox O2 Delivery O2 Flow Rate FiO2 12/25/20 14:00 98.7 142 18 107/56 (73) 89 Room Air I&Os I&O- Last 24 Hours up to 6 AM 12/25/20 06:00 Intake Total 1520 ml Output Total 515 ml Balance 1005 ml Laboratory Data Labs 24H Laboratory Tests 2 12/25/20 05:27: Nucleated Red Blood Cells % (auto) 0.0, Anion Gap 8, Glomerular Filtration Rate > 60.0, Calcium Level 8.4L CBC/BMP Laboratory Tests 12/25/20 05:27 Impression 60 y o F w Stage 4 lung and breast ca, s/p L palliative mastectomy 12/15/20, complete excision of tumor not possible as it involves chest wall superior lateral distal mastectomy flap has necrotic area present. Wound is still closed. - Stop Nitro paste and xeroform, Start Iodoform gel BID, cover with Telfa and Kerlix. Will try to create eschar over necrotic area, may need debridement next week - may need Provena wound vac next week - keep drain in to decrease pressure on guarded mastectomy flaps, monitor and record output please - please notify me if patient is transitioned to hospice and will remove drain at that time regardless of mastectomy flap condition - monitor drain output - continue Vit A since pt was on steroids and has poor healing - pain control per primary team, consider fentanyl patch since patient is still bothered by pain - awaiting Palliative care consult Plan / VTE VTE Prophylaxis Ordered?: Yes VTE Exclusion Mechanical Proph: Other PREETHI RAYO DO Dec 25, 2020 14:52
[2020-12-25] MEDS ORDERED: METOPROLOL TART 25 MG TABLET PO ONE (15:40)
[2020-12-25 17:17] VITALS: BP 116/71
--- NOTE | 2020-12-25 17:50 | IPNPDOC ---
Text Note Date of Service The patient was seen on 12/25/20. NOTE Subjective: No any acute events overnight. Patient continues to complain of leg pain bilaterally, but she stated pain less intense and yesterday Objective: GENERAL APPEARANCE: NAD HEENT: no scleral icterus, no JVD, EOMI CARDIOVASCULAR: S1S2 LUNGS: CTA ABDOMEN: soft & not tender w palpitation MUSCULOSKELETAL: no cyanosis, no swelling, left mastectomy INTEGUMENT: no generalized pallor NEUROLOGICAL: cranial nerve function from 2-12 intact intact, follows commands, speech not dysarthric Assessment and plan Patient is 60 years old female with past medical history of stage 4 lung and breast carcinoma, L breast had large fungating and painful mass, s/p L breast palliative mastectomy 12/15/20. Left breast carcinoma Went to the OR on 12/15/20 for palliative mastectomy Surgical team follows her Stage 4 metastatic adenocarcinoma of the lung Patient received radiation treatment on 12/18/20 Pain management. I increased the pain management with fentanyl patch and increased the dose of OxyContin to 20 mg twice a day Palliative care on board I asked Dr. Pacheco to discuss with patient the possibility of chemotherapy. Right thigh and low back pain Most likely secondary to advanced malignancy radiation oncologist recommended to continue radiation therapy in the outpatient settings Continue pain management Generalized weakness/cachexia most likely secondary to advanced malignancy Patient has BMI 18.2, low albumin Full cardiology consultants assessment Ensure Leukocytosis resolved Stage 2 decubitus ulcer -Advance wound care consulted -Wound care per Dr. Vargas Palliative care encounter Patient is not candidate for systemic therapy due to failure to thrive. We'll di scuss hospice option tomorrow. VS,Fishbone, I+O VS, Fishbone, I+O Laboratory Tests 12/25/20 05:27 Vital Signs Date Time Temp Pulse Resp B/P (MAP) Pulse Ox O2 Delivery O2 Flow Rate FiO2 12/25/20 17:17 120 16 116/71 (86) 92 Nasal Cannula 1.0 12/25/20 14:00 98.7 I&O- Last 24 Hours up to 6 AM 12/25/20 06:00 Intake Total 1520 ml Output Total 515 ml Balance 1005 ml JULY STERN DO Dec 25, 2020 17:50
[2020-12-25] MEDS: fentaNYL 25 MCG/HR PATCH TOP SCH (18:33)
[2020-12-25] MEDS: MORPHINE 2 MG/ML 1ML VIAL (J2270) IV PRN (19:02)
[2020-12-25] MEDS: METOPROLOL TART 50 MG TAB PO SCH (20:43)
[2020-12-25] MEDS: **NOTE PATIENT COMMENT** MISC XX SCH (20:45)
[2020-12-25] MEDS: oxyCODONE 20 MG CR TAB PO SCH (20:45)
[2020-12-25] MEDS ORDERED: METOPROLOL TART 25 MG TABLET PO SCH (21:00)
[2020-12-25] MEDS: CADEXOMER IODINE 10GM (IODOSORB) GEL TOP SCH (21:08)
--- NOTE | 2020-12-25 21:27 | IPNPDOC ---
Date Seen The patient was seen on 12/25/20. Progress Note Ms. 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 She was also found to have metastases of the non-small cell lung cancer to mediastinal nodes with right-sided neck lymphadenopathy. 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 Patient underwent toilet mastectomy none by Dr. Castillo and currently she is recovering after surgery. She has some skin break agent superficial skin ulceration on the surgical site. Her pain is being controlled by various medication including OxyContin codon slow-release 20 mg twice daily, local lidocaine patch, and morphine for breakthrough pain. Her wound area is being dressed on daily basis. Currently she is comfortable and pain is under good control. She feels a little better today. Her breathing is good. She denies major cough, wheezing. Does not have headache dizziness or blackouts. And she has no urinary symptoms. She has been seen by Dr. Wilde and he feels that metastatic disease to the muscle causing pain may be helped with local radiation but patient is not decisive. I discussed about various options including hospice care or to consider chemotherapy. She was clearly told that chemotherapy is not going to cure her and she will not be able to get chemotherapy until her surgical wound completely heals. Ideally she should be followed by palliative care and hospice care to keep her pain under control as she is too frail to tolerate chemotherapy. Patient wants to discuss this issue with her son before she makes any decision and once she decides, she will be followed up as outpatient since wound healing will take some time before she may be evaluated for chemotherapy if she is strong enough. VS, I&O, 24H, Fishbone Vital Signs/I&O Vital Signs Date Time Temp Pulse Resp B/P (MAP) Pulse Ox O2 Delivery O2 Flow Rate FiO2 12/25/20 20:45 16 Nasal Cannula 1.0 12/25/20 20:43 124 114/72 12/25/20 17:17 92 12/25/20 14:00 98.7 I&O- Last 24 Hours up to 6 AM 12/25/20 06:00 Intake Total 1520 ml Output Total 515 ml Balance 1005 ml Laboratory Data CBC/BMP Laboratory Tests 12/25/20 05:27 SARI VERDUZCO MD Dec 25, 2020 21:27
[2020-12-25 22:00] VITALS: BP 114/72
[2020-12-26] MEDS: MORPHINE 2 MG/ML 1ML VIAL (J2270) IV PRN (05:13)
[2020-12-26] MEDS: CADEXOMER IODINE 10GM (IODOSORB) GEL TOP SCH ×2 (05:18→21:00)
[2020-12-26 06:00] VITALS: BP 102/65
[2020-12-26 06:06] LABS: HEMATOCRIT 31.3 % (36.0-47.0); MEAN CORPUSCULAR HEMOGLOBIN 31.2 pg (27.0-33.0); MEAN CORPUSCULAR HGB CONC 31.9 g/dl (32.0-36.5); MEAN CORPUSCULAR VOLUME 97.5 fl (80.0-96.0); PLATELET COUNT, AUTOMATED 357 10^3/uL (150-450); RED BLOOD COUNT 3.21 10^6/uL (4.00-5.40); WHITE BLOOD COUNT 10.4 10^3/uL (4.0-10.0)
[2020-12-26 06:28] LABS: BLOOD UREA NITROGEN 10 MG/DL (7-18); CALCIUM LEVEL 8.9 MG/DL (8.5-10.1); CARBON DIOXIDE LEVEL 29 MEQ/L (21-32); CHLORIDE LEVEL 99 MEQ/L (98-107); CREATININE FOR GFR 0.28 MG/DL (0.55-1.30); GLOMERULAR FILTRATION RATE > 60.0 (>51); GLUCOSE, FASTING 173 MG/DL (70-100); POTASSIUM SERUM 3.8 MEQ/L (3.5-5.1); SODIUM LEVEL 134 MEQ/L (136-145)
[2020-12-26] MEDS: PANTOPRAZOLE 40MG TAB (PROTONIX) PO SCH (08:33)
[2020-12-26] MEDS: ENOXAPARIN 30MG/0.3ML SYRINGE (J1650 PER 10MG) SC SCH (08:33)
[2020-12-26] MEDS: VITAMIN A 10,000 INTERNATIONAL UNITS CAP PO SCH (08:33)
[2020-12-26] MEDS: LIDOCAINE 5% (LIDODERM) PATCH TD SCH (08:33)
[2020-12-26] MEDS: FIBER-CON 625 MG TAB PO SCH ×2 (08:33→20:57)
[2020-12-26] MEDS: METOPROLOL TART 50 MG TAB PO SCH ×2 (08:34→21:00)
[2020-12-26] MEDS: DOCUSATE SODIUM 100MG CAPSULE PO SCH ×2 (08:34→20:57)
[2020-12-26] MEDS: oxyCODONE 20 MG CR TAB PO SCH ×2 (08:35→20:57)
[2020-12-26] MEDS ORDERED: METOPROLOL TART 25 MG TABLET PO SCH (09:00)
[2020-12-26] MEDS: NS 1,000 ML IV ONE ×2 (10:11→10:31)
[2020-12-26] MEDS: ULTRACET TAB PO PRN ×2 (12:14→23:44)
[2020-12-26 14:00] VITALS: BP 89/63
--- NOTE | 2020-12-26 15:24 | IPNPDOC ---
Text Note Date of Service The patient was seen on 12/26/20. NOTE Subjective: No any acute events overnight. Patient stated that her pain improv ed. Patient denied IV fluid infusion Objective: GENERAL APPEARANCE: NAD HEENT: no scleral icterus, no JVD, EOMI CARDIOVASCULAR: S1S2 LUNGS: CTA ABDOMEN: soft & not tender w palpitation MUSCULOSKELETAL: no cyanosis, no swelling, left mastectomy INTEGUMENT: no generalized pallor NEUROLOGICAL: cranial nerve function from 2-12 intact intact, follows commands, speech not dysarthric Assessment and plan Patient is 60 years old female with past medical history of stage 4 lung and breast carcinoma, L breast had large fungating and painful mass, s/p L breast palliative mastectomy 12/15/20. Left breast carcinoma Went to the OR on 12/15/20 for palliative mastectomy Surgical team follows her Stage 4 metastatic adenocarcinoma of the lung Patient received radiation treatment on 12/18/20 Pain management. I increased the pain management with fentanyl patch and increased the dose of OxyContin to 20 mg twice a day Palliative care on board Dr. Pacheco consulted patient yesterday. 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 Vargas Palliative care encounter Patient is not candidate for systemic therapy due to failure to thrive. We'll discuss hospice option tomorrow. Tachycardia Patient denies any chest pain EKG did not show any ischemic changes Metoprolol 50 mg twice a day VS,Fishbone, I+O VS, Fishbone, I+O Laboratory Tests 12/26/20 05:29 Vital Signs Date Time Temp Pulse Resp B/P (MAP) Pulse Ox O2 Delivery O2 Flow Rate FiO2 12/26/20 12:49 18 92 Nasal Cannula 12/26/20 12:14 3.0 12/26/20 08:34 131 102/65 12/26/20 06:00 98.1 I&O- Last 24 Hours up to 6 AM 12/26/20 06:00 Intake Total 1970 ml Output Total 1718 ml Balance 252 ml JULY STERN DO December 26, 2020 15:24
[2020-12-26] MEDS: **NOTE PATIENT COMMENT** MISC XX SCH (21:01)
[2020-12-26 22:00] VITALS: BP 119/77
[2020-12-27] MEDS: MORPHINE 2 MG/ML 1ML VIAL (J2270) IV PRN ×2 (00:57→18:58)
[2020-12-27 06:00] VITALS: BP 92/52
[2020-12-27] MEDS: DOCUSATE SODIUM 100MG CAPSULE PO SCH ×2 (08:53→21:00)
[2020-12-27] MEDS: PANTOPRAZOLE 40MG TAB (PROTONIX) PO SCH (08:53)
[2020-12-27] MEDS: FIBER-CON 625 MG TAB PO SCH ×2 (08:53→20:59)
[2020-12-27] MEDS: VITAMIN A 10,000 INTERNATIONAL UNITS CAP PO SCH (08:53)
[2020-12-27] MEDS: oxyCODONE 20 MG CR TAB PO SCH ×2 (08:54→19:59)
[2020-12-27] MEDS: ENOXAPARIN 30MG/0.3ML SYRINGE (J1650 PER 10MG) SC SCH (08:54)
[2020-12-27] MEDS: LIDOCAINE 5% (LIDODERM) PATCH TD SCH (08:55)
[2020-12-27] MEDS: CADEXOMER IODINE 10GM (IODOSORB) GEL TOP SCH ×2 (08:55→20:59)
[2020-12-27] MEDS: METOPROLOL TART 50 MG TAB PO SCH ×4 (08:55→21:00)
[2020-12-27] MEDS ORDERED: NS 1,000 ML IV ONE (11:00)
[2020-12-27] MEDS: ULTRACET TAB PO PRN ×2 (11:20→18:27)
[2020-12-27 12:30] VITALS: BP 104/73
--- NOTE | 2020-12-27 13:38 | ECGEPIP ---
[facility] Test Date: 2020-12-27 Pat Name: AMAN MAURER Department: Room: [place] [address] Gender: Female Manager Internship: CALEB : 1960 Requested By: JULY STERN Order Number: [id number] Reading MD: Katharine Gamez Measurements Intervals [place] Rate: 119 P: 51 RI: 116 QRS: 36 QRSD: 106 T: 9 QT: 354 QTc: 497 Interpretive Statements Sinus tachycardia Cannot rule out Anterior infarct , age undetermined OLD IWMI PROLONGED QTC C/W 12/20/20 ECTOPY ABSENT Electronically Signed on 12-27-2020 13:38:28 EDT by Katharine Gamez
[2020-12-27 14:00] VITALS: BP 104/73
--- NOTE | 2020-12-27 14:19 | IPNPDOC ---
Text Note Date of Service The patient was seen on 12/27/20. NOTE Subjective: No any acute events overnight. Patient stated that she feels better today, less pain Objective: GENERAL APPEARANCE: NAD HEENT: no scleral icterus, no JVD, EOMI CARDIOVASCULAR: S1S2 LUNGS: CTA ABDOMEN: soft & not tender w palpitation MUSCULOSKELETAL: no cyanosis, no swelling, left mastectomy INTEGUMENT: no generalized pallor NEUROLOGICAL: cranial nerve function from 2-12 intact intact, follows commands, speech not dysarthric Assessment and plan Patient is 60 years old female with past medical history of stage 4 lung and breast carcinoma, L breast had large fungating and painful mass, s/p L breast palliative mastectomy 12/15/20. Left breast carcinoma Went to the OR on 12/15/20 for palliative mastectomy Surgical team follows her Stage 4 metastatic adenocarcinoma of the lung Patient received radiation treatment on 12/18/20 Pain management. I increased the pain management with fentanyl patch and increased the dose of OxyContin to 20 mg twice a day Palliative care on board Dr. Pacheco consulted patient. 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 Vargas Palliative care encounter Patient is not candidate for systemic therapy due to failure to thrive. We'll discuss hospice option tomorrow. Tachycardia Patient denies any chest pain EKG did not show any ischemic changes, sinus rhythm Metoprolol 50 mg every 6 hours VS,Fishbone, I+O VS, Fishbone, I+O Vital Signs Date Time Temp Pulse Resp B/P (MAP) Pulse Ox O2 Delivery O2 Flow Rate FiO2 12/27/20 12:30 120 104/73 (83) 12/27/20 12:00 18 12/27/20 08:54 93 Nasal Cannula 3.0 12/27/20 06:00 97.4 I&O- Last 24 Hours up to 6 AM 12/27/20 06:00 Intake Total 1570 ml Output Total 1735 ml Balance -165 ml JULY STERN DO December 27, 2020 14:18
[2020-12-27] MEDS ORDERED: METOPROLOL TART 50 MG TAB PO SCH (16:00)
[2020-12-27] MEDS: **NOTE PATIENT COMMENT** MISC XX SCH (21:01)
[2020-12-27 22:00] VITALS: BP 90/54
[2020-12-28 01:38] VITALS: BP 100/64
[2020-12-28] MEDS: MORPHINE 2 MG/ML 1ML VIAL (J2270) IV PRN ×3 (01:38→16:48)
[2020-12-28] MEDS: ULTRACET TAB PO PRN (05:30)
[2020-12-28 06:00] VITALS: BP 103/66
[2020-12-28] MEDS: FIBER-CON 625 MG TAB PO SCH ×2 (08:35→20:29)
[2020-12-28] MEDS: VITAMIN A 10,000 INTERNATIONAL UNITS CAP PO SCH (08:35)
[2020-12-28] MEDS: oxyCODONE 20 MG CR TAB PO SCH ×2 (08:36→20:29)
[2020-12-28] MEDS: ENOXAPARIN 30MG/0.3ML SYRINGE (J1650 PER 10MG) SC SCH (08:36)
[2020-12-28] MEDS: LIDOCAINE 5% (LIDODERM) PATCH TD SCH (08:36)
[2020-12-28] MEDS: DOCUSATE SODIUM 100MG CAPSULE PO SCH ×2 (08:37→20:29)
[2020-12-28] MEDS: PANTOPRAZOLE 40MG TAB (PROTONIX) PO SCH (08:37)
[2020-12-28] MEDS: METOPROLOL TART 50 MG TAB PO SCH ×2 (08:39→13:50)
[2020-12-28] MEDS: CADEXOMER IODINE 10GM (IODOSORB) GEL TOP SCH ×2 (08:39→18:53)
[2020-12-28 13:50] VITALS: BP 101/64
[2020-12-28 14:00] VITALS: BP 92/52
[2020-12-28] MEDS ORDERED: SCOPOLAMINE 1MG TRANSDERMAL PATCH TOP PRN (15:25)
[2020-12-28] MEDS ORDERED: ONDANSETRON 4 MG ORAL DISINTEGRATING TAB PO PRN (15:25)
[2020-12-28] MEDS ORDERED: ATROPINE SULFATE 1% OP SOLN 2 ML BTL SL PRN (15:25)
[2020-12-28] MEDS ORDERED: FLEET ENEMA PR PRN (15:25)
[2020-12-28] MEDS ORDERED: ONDANSETRON 4MG/2ML VIAL IV PRN (15:25)
[2020-12-28] MEDS ORDERED: LORazepam 2 MG/ML VIAL IV PRN (15:25)
--- NOTE | 2020-12-28 15:28 | IPNPDOC ---
Text Note Date of Service The patient was seen on 12/28/20. NOTE Subjective: I talked to her son who is a power of injection mold tooling technician. According to family wishes patient was transferred to [facility] status Objective: GENERAL APPEARANCE: NAD HEENT: no scleral icterus, no JVD, EOMI CARDIOVASCULAR: S1S2 LUNGS: CTA ABDOMEN: soft & not tender w palpitation MUSCULOSKELETAL: no cyanosis, no swelling, left mastectomy INTEGUMENT: no generalized pallor NEUROLOGICAL: cranial nerve function from 2-12 intact intact, follows commands, speech not dysarthric Assessment and plan Patient is 60 years old female with past medical history of stage 4 lung and breast carcinoma, L breast had large fungating and painful mass, s/p L breast palliative mastectomy 12/15/20. On 12/28/20 patient was transferred to [facility] Left breast carcinoma Went to the OR on 12/15/20 for palliative mastectomy Surgical team follows her Stage 4 metastatic adenocarcinoma of the lung Patient received radiation treatment on 12/18/20 Pain management. I increased the pain management with fentanyl patch and increased the dose of OxyContin to 20 mg twice a day Palliative care on board Dr. Pacheco consulted patient. His opinion that patient is not candidate for chemotherapy for now due to fragility Right thigh and low back pain Most likely secondary to advanced malignancy radiation oncologist recommended to continue radiation therapy in the outpatient settings Continue pain management Generalized weakness/cachexia most likely secondary to advanced malignancy Patient has BMI 18.2, low albumin Full tube depatcher assessment Ensure Leukocytosis resolved Stage 2 decubitus ulcer -Advance wound care consulted -Wound care per Dr. Vargas Palliative care encounter Patient is not candidate for systemic therapy due to failure to thrive. Patient will be at home with hospice care Tachycardia Patient denies any chest pain EKG did not show any ischemic changes, sinus rhythm VS,Fishbone, I+O VS, Fishbone, I+O Vital Signs Date Time Temp Pulse Resp B/P (MAP) Pulse Ox O2 Delivery O2 Flow Rate FiO2 12/28/20 14:00 97.4 121 18 92/52 (65) 95 Nasal Cannula 3.0 I&O- Last 24 Hours up to 6 AM 12/28/20 06:00 Intake Total 2380 ml Output Total 1820 ml Balance 560 ml JULY STERN DO December 28, 2020 15:28
[2020-12-28] MEDS: fentaNYL 25 MCG/HR PATCH TOP SCH (17:27)
[2020-12-28] MEDS ORDERED: FENTANYL REMOVAL DOCUMENTATION MISC XX SCH (18:00)
[2020-12-28] MEDS: **NOTE PATIENT COMMENT** MISC XX SCH (20:29)
--- NOTE | 2020-12-28 21:36 | IPNPDOC ---
Subjective General Date Seen: December 28, 2020 Subject Chief Complaint/History 60 y o F admitted for weakness, dx w stage 4 lung and breast ca. L breast had large fungating and painful mass, s/p L breast palliative mastectomy 12/15/20, Complete excision of the tumor was not possible due to chest wall involvement, surgical course complicated by wound dehiscence due to partial mastectomy flap necrosis Patient still complains of pain in her legs despite new regimen of meds Current Medications Current Medications Current Medications Medications (Trade) Dose Ordered Sig/Cherelle Route PRN Reason Start Time Stop Time Status Last Admin Dose Admin Acetaminophen (Tylenol Tab) 1,000 mg Q6H PRN PO PAIN 1-4 / FEVER 12/11/20 08:15 12/22/20 18:02 DC 12/19/20 01:47 Acetaminophen/ Hydrocodone Bitart (Rochelle, Anexsia 5/325) 1 tab Q4HP PRN PO MILD/MODERATE PAIN (PS 5-7) 12/11/20 08:15 12/25/20 17:45 DC 12/25/20 15:14 Acetaminophen/ Hydrocodone Bitart (Rochelle, Anexsia 5/325) 2 tab Q4HP PRN PO SEVERE PAIN (PS 8-10) 12/11/20 08:15 12/25/20 17:45 DC 12/25/20 07:22 Atropine Sulfate (Isopto Atropine 1%) 1 drop Q2HP PRN SL TERMINAL SECRETIONS 12/28/20 15:25 Bisacodyl (Dulcolax Suppository) 10 mg DAILYPRN PRN [place] CONSTIPATION 12/20/20 17:15 12/20/20 18:30 Cadexomer Iodine (Iodosorb Gel) 1 dose BID TOP 12/25/20 21:00 12/28/20 18:53 Calcium Polycarbophil (Fiber Con) 1 ea BID PO 12/19/20 09:00 12/28/20 20:29 Cefazolin Sodium 1 gm/Dextrose 50 ml @ 100 mls/hr Q8H IV 12/16/20 06:00 12/16/20 16:00 DC 12/16/20 14:04 Dexamethasone (Decadron) 2 mg Taper DAILY PO 12/14/20 09:00 12/24/20 08:59 DC 12/23/20 08:49 Dexamethasone (Decadron) 8 mg DAILY PO 12/09/20 09:00 12/13/20 17:26 DC 12/13/20 08:28 Diatrizoate Meglum/ Diatrizoate Sod (Gastrografin) 10 ml Q30M PO 12/20/20 09:15 12/20/20 09:46 DC 12/20/20 10:01 Docusate Sodium (Colace) 100 mg BID PO 12/17/20 09:00 12/28/20 20:29 Enoxaparin Sodium (Lovenox) 30 mg DAILY SC 12/10/20 09:00 12/28/20 15:26 DC 12/28/20 08:36 Enoxaparin Sodium (Lovenox) 40 mg DAILY SC 12/10/20 09:00 12/09/20 13:47 DC Fentanyl (Duragesic) 25 mcg Q72H TOP 12/25/20 18:00 12/28/20 17:27 Fentanyl Citrate (Sublimaze) 25 mcg Q5MP PRN IV PAIN LEVEL 5-10 12/15/20 20:05 12/15/20 21:05 DC Home Med (Med Rec Complete!) ASDIRECTED XX 12/09/20 11:45 12/09/20 11:44 DC Hydromorphone HCl (Dilaudid) 0.2 mg Q5MP PRN IV PAIN LEVEL 4-7 12/15/20 20:05 12/15/20 21:05 DC Lactated Ringer's 1,000 ml @ 100 mls/hr Q10H IV 12/15/20 20:05 12/15/20 21:05 DC Lidocaine (Lidoderm Patch) 2 patch DAILY TD 12/17/20 09:00 12/28/20 08:36 Lorazepam (Ativan) 1 mg Q2HP PRN IV ANXIETY 12/28/20 15:25 Lorazepam (Ativan) 1 mg Q2HP PRN PO ANXIETY 12/28/20 15:25 Metoprolol Tartrate (Lopressor) 25 mg BID PO 12/25/20 21:00 12/25/20 17:51 DC Metoprolol Tartrate (Lopressor) 25 mg DAILY PO 12/26/20 09:00 12/25/20 15:38 DC Metoprolol Tartrate (Lopressor) 50 mg BID PO 12/25/20 21:00 12/27/20 09:09 DC 12/26/20 21:00 Metoprolol Tartrate (Lopressor) 50 mg QID PO 12/27/20 13:00 12/28/20 15:26 DC 12/28/20 13:50 Metoprolol Tartrate (Lopressor) 50 mg TID PO 12/27/20 16:00 12/27/20 13:47 DC Morphine Sulfate (Morphine Sulfate Inj) 2 mg Q2H PRN IV SEVERE PAIN (PS 8-10) 12/28/20 15:25 12/28/20 16:48 Morphine Sulfate (Morphine Sulfate Inj) 2 mg Q30M PRN IV MODERATE PAIN (PS 5-7) 12/09/20 10:00 12/09/20 20:59 DC 12/09/20 20:59 Morphine Sulfate (Morphine Sulfate Inj) 2 mg Q4H PRN IV BREAKTHROUGH PAIN 12/25/20 17:45 12/28/20 10:18 Morphine Sulfate (Morphine Sulfate Inj) 2 mg Q6H PRN IV BREAKTHROUGH PAIN 12/22/20 18:05 12/25/20 17:42 DC 12/24/20 16:55 Morphine Sulfate (Roxanol) 1 mg Q2HP PRN SL SEVERE PAIN (PS 8-10) 12/28/20 15:25 Nitroglycerin (Nitrobid 2%) 1 gm BID TOP 12/22/20 09:00 12/25/20 13:31 DC 12/25/20 08:41 Non-Formulary Medication ( See Comment Field Below ) REMOVE LIDODERM PATCH DAILY@21 XX 12/17/20 21:00 12/28/20 20:29 Non-Formulary Medication ( See Comment Field Below ) SEE COMMENTS SECTION ASDIRECTED XX 12/28/20 18:00 Ondansetron HCl (ZOFRAN INJection) 4 mg Q4HP PRN IV NAUSEA OR VOMITING 12/15/20 20:05 12/15/20 21:05 DC Ondansetron HCl (ZOFRAN INJection) 4 mg Q6HP PRN IV NAUSEA OR VOMITING 12/28/20 15:25 Ondansetron HCl (Zofran Odt) 4 mg Q6HP PRN PO NAUSEA OR VOMITING 12/28/20 15:25 Oxycodone HCl (OxyCONTIN) 10 mg BID PO 12/24/20 21:00 12/25/20 17:46 DC 12/25/20 09:26 Oxycodone HCl (OxyCONTIN) 10 mg QHS PO 12/21/20 21:00 12/24/20 15:12 DC 12/23/20 20:29 Oxycodone HCl (OxyCONTIN) 20 mg BID PO 12/25/20 21:00 12/28/20 20:29 Oxycodone HCl (Roxicodone, Oxyir) 5 mg ASDIRECTED PRN PO PAIN LEVEL 1-4 12/15/20 20:05 12/15/20 21:05 DC Pantoprazole Sodium (Protonix) 40 mg DAILY PO 12/09/20 09:00 12/28/20 15:26 DC 12/28/20 08:37 Polyethylene Glycol (Miralax) 1 pkt DAILYPRN PRN PO CONSTIPATION 12/19/20 08:55 12/19/20 17:37 Scopolamine (Scopolamine) 1 mg Q3DP PRN TOP EXCESSIVE SECRETIONS 12/28/20 15:25 Sodium Biphosphate/ Sodium Phosphate (Fleet Enema) 1 ea Q3DP PRN [place] CONSTIPATION 12/28/20 15:25 Sodium Chloride 1,000 ml @ 60 mls/hr [id number] IV 12/15/20 00:10 12/19/20 15:18 DC 12/19/20 09:49 Sodium Chloride 1,000 ml @ 100 mls/hr Q10H IV 12/09/20 09:55 Cancel Sodium Chloride 1,000 ml @ 150 mls/hr Q6H40M IV 12/09/20 10:00 12/10/20 09:59 DC 12/10/20 08:49 Tramadol HCl (Ultram Er) 200 mg DAILY PO 12/25/20 09:00 12/25/20 17:45 DC 12/25/20 09:24 Tramadol/ Acetaminophen (Ultracet 37.5/ 325 Mg) 2 tab Q6H PRN PO SEVERE PAIN (PS 8-10) 12/26/20 11:55 12/28/20 05:30 Vitamin A (Vitamin A) 20,000 units DAILY PO 12/16/20 09:00 12/28/20 15:26 DC 12/28/20 08:35 Allergies Coded Allergies: Sulfa (Sulfonamide Antibiotics) (Verified Allergy, Mild, RASH, 02/11/20) codeine (Verified Allergy, Mild, rash, 11/22/20) Objective Physical Examination Examination GENERAL APPEARANCE: Patient seen, sits in bed, awake, alert, and oriented. CHEST WALL: left mastectomy incision site with dehiscence due to partial lateral superior flap necrosis, Drain removed, local wound debridement done today LUNGS: breathing comfortably on NC HEART: tachycardia ABDOMEN: nondistended Vital Signs Vital Signs Date Time Temp Pulse Resp B/P (MAP) Pulse Ox O2 Delivery O2 Flow Rate FiO2 12/28/20 20:29 18 12/28/20 14:00 97.4 121 92/52 (65) 95 Nasal Cannula 3.0 I&Os I&O- Last 24 Hours up to 6 AM 12/28/20 06:00 Intake Total 2380 ml Output Total 1820 ml Balance 560 ml Impression 60 y o F admitted for weakness, dx w stage 4 lung and breast ca. L breast had large fungating and painful mass, s/p L breast palliative mastectomy 12/15/20, Complete excision of the tumor was not possible due to chest wall involvement, surgical course complicated by wound dehiscence due to partial mastectomy flap necrosis, s/p bedside debridement 12/28/20 - continue local wound care BID - pain control per medicine team - palliative care consulted previously, awaiting recs Plan / VTE VTE Prophylaxis Ordered?: Yes VTE Exclusion Mechanical Proph: Other PREETHI RAYO DO December 28, 2020 21:36
[2020-12-28] MEDS: LORazepam 1 MG TAB PO PRN (21:45)
[2020-12-28] MEDS: MORPHINE 10MG/0.5ML ORAL CONCENTRATE SOLUTION U/D SL PRN (21:48)
[2020-12-29] MEDS: LORazepam 1 MG TAB PO PRN ×3 (02:15→08:45)
[2020-12-29] MEDS: MORPHINE 10MG/0.5ML ORAL CONCENTRATE SOLUTION U/D SL PRN ×3 (02:16→16:36)
[2020-12-29] MEDS: oxyCODONE 20 MG CR TAB PO SCH ×2 (08:43→20:17)
[2020-12-29] MEDS: DOCUSATE SODIUM 100MG CAPSULE PO SCH ×2 (08:43→20:17)
[2020-12-29] MEDS: LIDOCAINE 5% (LIDODERM) PATCH TD SCH ×2 (08:43→14:16)
[2020-12-29] MEDS: FIBER-CON 625 MG TAB PO SCH ×2 (08:43→20:17)
[2020-12-29] MEDS: MORPHINE 2 MG/ML 1ML VIAL (J2270) IV PRN (08:45)
[2020-12-29] MEDS: CADEXOMER IODINE 10GM (IODOSORB) GEL TOP SCH ×2 (08:51→20:51)
--- NOTE | 2020-12-29 16:17 | IPNPDOC ---
Subjective General Date Seen: December 29, 2020 Subject Chief Complaint/History 60 y o F admitted for weakness, dx w stage 4 lung and breast ca. L breast had large fungating and painful mass, s/p L breast palliative mastectomy 12/15/20, Complete excision of the tumor was not possible due to chest wall involvement, surgical course complicated by wound dehiscence due to partial mastectomy flap necrosis Patient is more somnolent today. Pain seems to be better controlled. Current Medications Current Medications Current Medications Medications (Trade) Dose Ordered Sig/Cherelle Route PRN Reason Start Time Stop Time Status Last Admin Dose Admin Acetaminophen (Tylenol Tab) 1,000 mg Q6H PRN PO PAIN 1-4 / FEVER 12/11/20 08:15 12/22/20 18:02 DC 12/19/20 01:47 Acetaminophen/ Hydrocodone Bitart (Shelby, Anexsia 5/325) 1 tab Q4HP PRN PO MILD/MODERATE PAIN (PS 5-7) 12/11/20 08:15 12/25/20 17:45 DC 12/25/20 15:14 Acetaminophen/ Hydrocodone Bitart (Shelby, Anexsia 5/325) 2 tab Q4HP PRN PO SEVERE PAIN (PS 8-10) 12/11/20 08:15 12/25/20 17:45 DC 12/25/20 07:22 Atropine Sulfate (Isopto Atropine 1%) 1 drop Q2HP PRN SL TERMINAL SECRETIONS 12/28/20 15:25 Bisacodyl (Dulcolax Suppository) 10 mg DAILYPRN PRN [place] CONSTIPATION 12/20/20 17:15 12/20/20 18:30 Cadexomer Iodine (Iodosorb Gel) 1 dose BID TOP 12/25/20 21:00 12/29/20 08:51 Calcium Polycarbophil (Fiber Con) 1 ea BID PO 12/19/20 09:00 12/29/20 08:43 Cefazolin Sodium 1 gm/Dextrose 50 ml @ 100 mls/hr Q8H IV 12/16/20 06:00 12/16/20 16:00 DC 12/16/20 14:04 Dexamethasone (Decadron) 2 mg Taper DAILY PO 12/14/20 09:00 12/24/20 08:59 DC 12/23/20 08:49 Dexamethasone (Decadron) 8 mg DAILY PO 12/09/20 09:00 12/13/20 17:26 DC 12/13/20 08:28 Diatrizoate Meglum/ Diatrizoate Sod (Gastrografin) 10 ml Q30M PO 12/20/20 09:15 12/20/20 09:46 DC 12/20/20 10:01 Docusate Sodium (Colace) 100 mg BID PO 12/17/20 09:00 12/29/20 08:43 Enoxaparin Sodium (Lovenox) 30 mg DAILY SC 12/10/20 09:00 12/28/20 15:26 DC 12/28/20 08:36 Enoxaparin Sodium (Lovenox) 40 mg DAILY SC 12/10/20 09:00 12/09/20 13:47 DC Fentanyl (Duragesic) 25 mcg Q72H TOP 12/25/20 18:00 12/28/20 17:27 Fentanyl Citrate (Sublimaze) 25 mcg Q5MP PRN IV PAIN LEVEL 5-10 12/15/20 20:05 12/15/20 21:05 DC Home Med (Med Rec Complete!) ASDIRECTED XX 12/09/20 11:45 12/09/20 11:44 DC Hydromorphone HCl (Dilaudid) 0.2 mg Q5MP PRN IV PAIN LEVEL 4-7 12/15/20 20:05 12/15/20 21:05 DC Lactated Ringer's 1,000 ml @ 100 mls/hr Q10H IV 12/15/20 20:05 12/15/20 21:05 DC Lidocaine (Lidoderm Patch) 2 patch DAILY TD 12/17/20 09:00 12/28/20 08:36 Lorazepam (Ativan) 1 mg Q2HP PRN IV ANXIETY 12/28/20 15:25 Lorazepam (Ativan) 1 mg Q2HP PRN PO ANXIETY 12/28/20 15:25 12/29/20 08:45 Metoprolol Tartrate (Lopressor) 25 mg BID PO 12/25/20 21:00 12/25/20 17:51 DC Metoprolol Tartrate (Lopressor) 25 mg DAILY PO 12/26/20 09:00 12/25/20 15:38 DC Metoprolol Tartrate (Lopressor) 50 mg BID PO 12/25/20 21:00 12/27/20 09:09 DC 12/26/20 21:00 Metoprolol Tartrate (Lopressor) 50 mg QID PO 12/27/20 13:00 12/28/20 15:26 DC 12/28/20 13:50 Metoprolol Tartrate (Lopressor) 50 mg TID PO 12/27/20 16:00 12/27/20 13:47 DC Morphine Sulfate (Morphine Sulfate Inj) 2 mg Q2H PRN IV SEVERE PAIN (PS 8-10) 12/28/20 15:25 12/29/20 08:45 Morphine Sulfate (Morphine Sulfate Inj) 2 mg Q30M PRN IV MODERATE PAIN (PS 5-7) 12/09/20 10:00 12/09/20 20:59 DC 12/09/20 20:59 Morphine Sulfate (Morphine Sulfate Inj) 2 mg Q4H PRN IV BREAKTHROUGH PAIN 12/25/20 17:45 12/28/20 10:18 Morphine Sulfate (Morphine Sulfate Inj) 2 mg Q6H PRN IV BREAKTHROUGH PAIN 12/22/20 18:05 12/25/20 17:42 DC 12/24/20 16:55 Morphine Sulfate (Roxanol) 1 mg Q2HP PRN SL SEVERE PAIN (PS 8-10) 12/28/20 15:25 12/29/20 13:28 DC 12/29/20 06:46 Morphine Sulfate (Roxanol) 2 mg Q1HP PRN SL SEVERE PAIN (PS 8-10) 12/29/20 13:30 Nitroglycerin (Nitrobid 2%) 1 gm BID TOP 12/22/20 09:00 12/25/20 13:31 DC 12/25/20 08:41 Non-Formulary Medication ( See Comment Field Below ) REMOVE LIDODERM PATCH DAILY@21 XX 12/17/20 21:00 12/28/20 20:29 Non-Formulary Medication ( See Comment Field Below ) SEE COMMENTS SECTION ASDIRECTED XX 12/28/20 18:00 Ondansetron HCl (ZOFRAN INJection) 4 mg Q4HP PRN IV NAUSEA OR VOMITING 12/15/20 20:05 12/15/20 21:05 DC Ondansetron HCl (ZOFRAN INJection) 4 mg Q6HP PRN IV NAUSEA OR VOMITING 12/28/20 15:25 Ondansetron HCl (Zofran Odt) 4 mg Q6HP PRN PO NAUSEA OR VOMITING 12/28/20 15:25 Oxycodone HCl (OxyCONTIN) 10 mg BID PO 12/24/20 21:00 12/25/20 17:46 DC 12/25/20 09:26 Oxycodone HCl (OxyCONTIN) 10 mg QHS PO 12/21/20 21:00 12/24/20 15:12 DC 12/23/20 20:29 Oxycodone HCl (OxyCONTIN) 20 mg BID PO 12/25/20 21:00 12/29/20 08:43 Oxycodone HCl (Roxicodone, Oxyir) 5 mg ASDIRECTED PRN PO PAIN LEVEL 1-4 12/15/20 20:05 12/15/20 21:05 DC Pantoprazole Sodium (Protonix) 40 mg DAILY PO 12/09/20 09:00 12/28/20 15:26 DC 12/28/20 08:37 Polyethylene Glycol (Miralax) 1 pkt DAILYPRN PRN PO CONSTIPATION 12/19/20 08:55 12/19/20 17:37 Scopolamine (Scopolamine) 1 mg Q3DP PRN TOP EXCESSIVE SECRETIONS 12/28/20 15:25 Sodium Biphosphate/ Sodium Phosphate (Fleet Enema) 1 ea Q3DP PRN [place] CONSTIPATION 12/28/20 15:25 Sodium Chloride 1,000 ml @ 60 mls/hr [id number] IV 12/15/20 00:10 12/19/20 15:18 DC 12/19/20 09:49 Sodium Chloride 1,000 ml @ 100 mls/hr Q10H IV 12/09/20 09:55 Cancel Sodium Chloride 1,000 ml @ 150 mls/hr Q6H40M IV 12/09/20 10:00 12/10/20 09:59 DC 12/10/20 08:49 Tramadol HCl (Ultram Er) 200 mg DAILY PO 12/25/20 09:00 12/25/20 17:45 DC 12/25/20 09:24 Tramadol/ Acetaminophen (Ultracet 37.5/ 325 Mg) 2 tab Q6H PRN PO SEVERE PAIN (PS 8-10) 12/26/20 11:55 12/28/20 05:30 Vitamin A (Vitamin A) 20,000 units DAILY PO 12/16/20 09:00 12/28/20 15:26 DC 12/28/20 08:35 Allergies Coded Allergies: Sulfa (Sulfonamide Antibiotics) (Verified Allergy, Mild, RASH, 02/11/20) codeine (Verified Allergy, Mild, rash, 11/22/20) Objective Physical Examination Examination GENERAL APPEARANCE: more somnolent, still alert when spoken CHEST WALL: left mastectomy incision site with dehiscence due to partial lateral superior flap necrosis, local wound debridement done yesterday, wound cleaned today and Provina Lolly vac applied to the wound. Good seal. LUNGS: breathing comfortably on NC Vital Signs Vital Signs Date Time Temp Pulse Resp B/P (MAP) Pulse Ox O2 Delivery O2 Flow Rate FiO2 12/29/20 09:00 3.0 12/29/20 08:43 Nasal Cannula 12/29/20 08:31 20 12/28/20 14:00 97.4 121 92/52 (65) 95 I&Os I&O- Last 24 Hours up to 6 AM 12/29/20 05:59 Intake Total 1440 ml Output Total 1105 ml Balance 335 ml Impression 60 y o F admitted for weakness, dx w stage 4 lung and breast ca. L breast had large fungating and painful mass, s/p L breast palliative mastectomy 12/15/20, Complete excision of the tumor was not possible due to chest wall involvement, surgical course complicated by wound dehiscence due to partial mastectomy flap necrosis, s/p bedside debridement 12/28/20 - Provena vac applied today, change in 7 days, can followup in clinic outpatient - pls call for appt, or will visit patient next Monday while still in patient - Iodoform paste discontinued - pain control per medicine team - palliative care consulted previously, awaiting recs Plan / VTE VTE Prophylaxis Ordered?: Yes VTE Exclusion Mechanical Proph: Other PREETHI RAYO DO December 29, 2020 16:17
[2020-12-29] MEDS: **NOTE PATIENT COMMENT** MISC XX SCH ×2 (21:00→21:08)
[2020-12-30] MEDS: LORazepam 1 MG TAB PO PRN ×4 (02:43→21:20)
[2020-12-30] MEDS: MORPHINE 10MG/0.5ML ORAL CONCENTRATE SOLUTION U/D SL PRN ×5 (02:44→21:19)
[2020-12-30] MEDS: LIDOCAINE 5% (LIDODERM) PATCH TD SCH (10:06)
[2020-12-30] MEDS: oxyCODONE 20 MG CR TAB PO SCH ×2 (10:06→21:20)
[2020-12-30] MEDS: FIBER-CON 625 MG TAB PO SCH ×2 (10:06→21:26)
[2020-12-30] MEDS: DOCUSATE SODIUM 100MG CAPSULE PO SCH ×2 (10:06→21:26)
[2020-12-30] MEDS: CADEXOMER IODINE 10GM (IODOSORB) GEL TOP SCH ×2 (10:07→21:00)
[2020-12-30] MEDS: **NOTE PATIENT COMMENT** MISC XX SCH (21:22)
[2020-12-31] MEDS: LORazepam 1 MG TAB PO PRN ×2 (02:47→20:18)
[2020-12-31] MEDS: MORPHINE 10MG/0.5ML ORAL CONCENTRATE SOLUTION U/D SL PRN ×2 (02:58→15:21)
[2020-12-31] MEDS: CADEXOMER IODINE 10GM (IODOSORB) GEL TOP SCH ×2 (09:00→19:38)
[2020-12-31] MEDS: FIBER-CON 625 MG TAB PO SCH ×2 (09:34→20:18)
[2020-12-31] MEDS: DOCUSATE SODIUM 100MG CAPSULE PO SCH ×2 (09:34→20:18)
[2020-12-31] MEDS: oxyCODONE 20 MG CR TAB PO SCH ×2 (09:34→20:19)
[2020-12-31] MEDS: LIDOCAINE 5% (LIDODERM) PATCH TD SCH (09:35)
[2020-12-31] MEDS: fentaNYL 25 MCG/HR PATCH TOP SCH (17:16)
[2020-12-31] MEDS: **NOTE PATIENT COMMENT** MISC XX SCH (20:19)
[2021-01-01] MEDS: LORazepam 1 MG TAB PO PRN ×4 (04:56→22:55)
[2021-01-01] MEDS: MORPHINE 10MG/0.5ML ORAL CONCENTRATE SOLUTION U/D SL PRN ×6 (04:57→22:56)
[2021-01-01] MEDS: oxyCODONE 20 MG CR TAB PO SCH ×2 (08:04→21:23)
[2021-01-01] MEDS: DOCUSATE SODIUM 100MG CAPSULE PO SCH ×2 (08:04→21:23)
[2021-01-01] MEDS: LIDOCAINE 5% (LIDODERM) PATCH TD SCH (08:05)
[2021-01-01] MEDS: CADEXOMER IODINE 10GM (IODOSORB) GEL TOP SCH ×2 (08:05→21:00)
[2021-01-01] MEDS: FIBER-CON 625 MG TAB PO SCH ×2 (08:05→21:23)
[2021-01-01] MEDS: **NOTE PATIENT COMMENT** MISC XX SCH (21:28)
[2021-01-02] MEDS: CADEXOMER IODINE 10GM (IODOSORB) GEL TOP SCH (09:00)
[2021-01-02] MEDS: FIBER-CON 625 MG TAB PO SCH (09:00)
[2021-01-02] MEDS: oxyCODONE 20 MG CR TAB PO SCH (09:00)
[2021-01-02] MEDS: DOCUSATE SODIUM 100MG CAPSULE PO SCH (09:00)
[2021-01-02] MEDS: MORPHINE 10MG/0.5ML ORAL CONCENTRATE SOLUTION U/D SL PRN (10:08)
[2021-01-02] MEDS: LORazepam 1 MG TAB PO PRN (10:08)
[2021-01-02] MEDS: LIDOCAINE 5% (LIDODERM) PATCH TD SCH (10:09)
--- NOTE | 2021-01-02 13:56 | DS.PDOC ---
Discharge Summary General Date of Admission Dec 09, 2020 at 12:22 Date of Discharge 01/02/21 Discharge Summary PROCEDURES PERFORMED DURING STAY: [None]. ADMITTING DIAGNOSES: Left breast carcinoma Stage 4 metastatic adenocarcinoma of the lung Palliative care encounter Leukocytosis Stage 2 decubitus ulcer Tachycardia Generalized weakness/cachexia Right thigh and low back pain DISCHARGE DIAGNOSES: Left breast carcinoma Stage 4 metastatic adenocarcinoma of the lung Palliative care encounter Leukocytosis Stage 2 decubitus ulcer Tachycardia Generalized weakness/cachexia Right thigh and low back pain COMPLICATIONS/CHIEF COMPLAINT: Generalized Weakness,Left Breast Cancer With.... HISTORY OF PRESENT ILLNESS: Patient is 60 years old female with past medical history of stage 4 lung and breast carcinoma, L breast had large fungating and painful mass, s/p L breast palliative mastectomy 12/15/20. On 12/28/20 patient was transferred to [facility] Patient on 01/02/21 at 10.30 from multiple organ failure HOSPITAL COURSE: . DISCHARGE MEDICATIONS: Please see below. ALLERGIES: Please see below. PHYSICAL EXAMINATION ON DISCHARGE: VITAL SIGNS: Please see below. GENERAL: HEENT: NECK: CARDIOVASCULAR EXAMINATION: RESPIRATORY EXAMINATION: ABDOMINAL EXAMINATION: EXTREMITIES: SKIN: NEUROLOGICAL EXAMINATION: PSYCHIATRIC EXAMINATION: LABORATORY DATA: Please see below. IMAGING: PROGNOSIS: ACTIVITY: [As tolerated]. DIET: DISCHARGE PLAN: DISPOSITION: . DISCHARGE INSTRUCTIONS: 1. . ITEMS TO FOLLOWUP ON ON OUTPATIENT: 1. . DISCHARGE CONDITION: [Stable]. TIME SPENT ON DISCHARGE: Greater than minutes. Vital Signs/I&Os Vital Signs Date Time Temp Pulse Resp B/P (MAP) Pulse Ox O2 Delivery O2 Flow Rate FiO2 01/02/21 10:00 3.0 01/01/21 22:56 Room Air 01/01/21 21:23 18 12/28/20 14:00 97.4 121 92/52 (65) 95 I&O- Last 24 Hours up to 6 AM 01/02/21 06:00 Intake Total 680 ml Output Total 0 ml Balance 680 ml Discharge Medications Scheduled Dexamethasone (Dexamethasone) 2 Mg Tablet, 8 MG PO ASDIRECTED, (Reported) 8MG BID FOR 5 DAYS 4MG BID FOR 5 DAYS 4MG DAILY FOR 5 DAYS 2MG DAILY FOR 5 DAYS PT ON DAY 2 OF TAPER Scheduled PRN Acetaminophen (Acetaminophen) 500 Mg Tablet, 1,000 MG PO Q6H PRN for PAIN / FEVER, (Reported) Ondansetron HCl (Ondansetron HCl) 4 Mg Tablet, 4 MG PO Q4H PRN for NAUSEA OR VOMITING, (Reported) Allergies Coded Allergies: Sulfa (Sulfonamide Antibiotics) (Verified Allergy, Mild, RASH, 02/11/20) codeine (Verified Allergy, Mild, rash, 11/22/20) JULY STERN DO January 02, 2021 13:56
== END 2021-01-02 10:30 | disposition expired | DRG 362 ==
LOC: M ED 09:37 → EDBD 09:37 → M ED INP 12:22 → M MSPAV 15:34
PROVIDERS: ADMIT Family Medicine; ATTEND Internal Medicine
PROC: 0HTU0ZZ Resection of Left Breast, Open Approach (ICD-10-PCS; principal; 2020-12-15 15:00)
DX: C50.912 Malignant neoplasm of unspecified site of left female breast (principal); K72.00 Acute and subacute hepatic failure without coma; E43 Unspecified severe protein-calorie malnutrition; I96 Gangrene, not elsewhere classified; L89.322 Pressure ulcer of left buttock, stage 2; R64 Cachexia; C77.0 Secondary and unspecified malignant neoplasm of lymph nodes of head, face and neck; C78.7 Secondary malignant neoplasm of liver and intrahepatic bile duct; C79.02 Secondary malignant neoplasm of left kidney and renal pelvis; C79.31 Secondary malignant neoplasm of brain; C79.72 Secondary malignant neoplasm of left adrenal gland; C79.89 Secondary malignant neoplasm of other specified sites; E27.2 Addisonian crisis; C34.91 Malignant neoplasm of unspecified part of right bronchus or lung; Z51.5 Encounter for palliative care; Z66 Do not resuscitate; E11.9 Type 2 diabetes mellitus without complications; H53.2 Diplopia; F17.200 Nicotine dependence, unspecified, uncomplicated; G89.3 Neoplasm related pain (acute) (chronic); R53.1 Weakness; Z85.43 Personal history of malignant neoplasm of ovary; Z85.828 Personal history of other malignant neoplasm of skin; Z79.899 Other long term (current) drug therapy; Z88.5 Allergy status to narcotic agent; Y83.0 Surgical operation with transplant of whole organ as the cause of abnormal reaction of the patient, or of later complication, without mention of misadventure at the time of the procedure; Z68.1 Body mass index [BMI] 19.9 or less, adult; G93.2 Benign intracranial hypertension; T83.31XA Breakdown (mechanical) of intrauterine contraceptive device, initial encounter

== ENCOUNTER 2020-12-18 14:45 | Outpatient (RCR) | payer MEDICAID ==
[~2020-12-18 14:45] MED LIST changes: +ONDA-83 PO
--- NOTE | 2020-12-22 14:27 | CR.PDOC ---
General Date of Consultation: Dec 22, 2020 Referring Provider: SONALI GARIBAY DO Attending Physician: SONALI GARIBAY DO Consultation REASON FOR CONSULTATION/CHIEF COMPLAINT: 60 year old female with metastatic breast cancer. she had a fungating mass excised by Dr. Castillo 12/16/20. She was informed she has mets to the brain, lung, hip and thigh. She has a HCP, her son Alexandre. No other advance directives. She informs me her pain is sometimes adequately controlled with her opiates regimen, sometimes not. She reports she is not sure what she wants to do as far as advance directives, expreses she would like to get home to her pets. She lives in an apartment above a laundromat and has at least 12 stairs to climb and stated she has been unable to navigate these stairs very well in the recent past. HISTORY OF PRESENT ILLNESS: as above ALLERGIES: Please see below. HOME MEDICATIONS: Please see below. PAST MEDICAL HISTORY: 1. fungating breast mass with metastatic disease 2. stage 4 metastatic adenocarcinoma 3. weakness PAST SURGICAL HISTORY: 1. section x 3 2. adenoidectomy 3. palliative mastectomy FAMILY HISTORY: mother and sister both had junior automation engineer cancer. brother colon cancer SOCIAL HISTORY: Marital status and/or living arrangements: lives with son above a laundromat Children: 3 Employment: [employer] Tobacco use: 1-2 ppd ETOH: none Illicit drug use: smokes MJ REVIEW OF SYSTEMS: CONSTITUTIONAL: weight loss, fatigue HEENT: edentulous CARDIOVASCULAR: denies cp, palpitations RESPIRATORY: denies dyspnea occasional cough GENITOURINARY: no dysuria MUSCULOSKELETAL: pain in hip, back, thigh from met. GASTROINTESTINAL: denies n/v. appetite fairly good SKIN: pressure ulcer sacrum. NEUROLOGICAL: weakness, seizures from brain mets PSYCHIATRIC: irritable, anxious PHYSICAL EXAMINATION: VITAL SIGNS: Please see below. GENERAL APPEARANCE: dishevled female in no distress HEENT: edentulous, MM moist. RESPIRATORY: reduced breath sounds and scattered wheezes CARDIOVASCULAR: RRR ABDOMEN: +BS no guarding or rebound EXTREMITIES: no edema. Clubbing noted bilateral hands NEUROLOGICAL: LE weakness PSYCHIATRIC: irritable, less irritable and anxious when talking about her pets LABORATORY DATA: Please see below. ASSESSMENT/PLAN: 1. metastatic lung cancer/ breast mass. Consider adding in NSAID for bony mets when decadron is completed. 2. advance directives: I spent 30 minutes discussing the importance of determining how aggressive she wants her care to be at this point. She stated she knew her cancer would kill her, but seems uncertain if there would be any benefit to getting palliative chemotherapy. She is getting RT with Dr. Felix. My impression is she does not wish to think about her diagnosis nor does she want to consider how she wants to proceed. I left her with a copy of 5 Wishes t o review with her son Alexandre and explained it would be advisable to document just what she wants as far as treatment ( or no treatment ). I will try to see her agasin tomorrow to see if she has made any progress with decision making regarding how she wants her remaining life to be lived. Allergies Coded Allergies: Sulfa (Sulfonamide Antibiotics) (Verified Allergy, Mild, RASH, 02/11/20) codeine (Verified Allergy, Mild, rash, 11/22/20) Home Medications Scheduled Dexamethasone (Dexamethasone) 2 Mg Tablet, 8 MG PO ASDIRECTED, (Reported) 8MG BID FOR 5 DAYS 4MG BID FOR 5 DAYS 4MG DAILY FOR 5 DAYS 2MG DAILY FOR 5 DAYS PT ON DAY 2 OF TAPER Scheduled PRN Acetaminophen (Acetaminophen) 500 Mg Tablet, 1,000 MG PO Q6H PRN for PAIN / FEVER, (Reported) Ondansetron HCl (Ondansetron HCl) 4 Mg Tablet, 4 MG PO Q4H PRN for NAUSEA OR VOMITING, (Reported) Ne ALEXANDRE SELF PAY SPECIALIST Dec 22, 2020 14:27
== END 2020-12-25 ==
LOC: M ONCR 14:45
PROVIDERS: ATTEND General Practice
DX: C79.31 Secondary malignant neoplasm of brain (principal)